=== PATIENT | female | born 1980 | race Asian ===

== ENCOUNTER 2018-09-04 19:07 | Inpatient (IN) | payer SELFPAY ==
[~2018-09-04] VITALS: Ht 165.1 cm; Wt 54.0 kg
[2018-09-04 19:32] VITALS: BP_SYST 142
--- NOTE | 2018-09-04 19:32 | NUR ---
Pt states that she took her blood sugar at home and was 575 today. Pt has a hx of DM and takes Metformin 1000 mg BID, Lantus 21 Units SQ in AM with s.s. in the evening. Reports that recent was HbA1c 13 x 2 weeks ago. 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 Pt reports there are several lesions to urethra opening and near anus. Severe burning with urinations. Pt states that her last break out was 3 weeks ago and was Rx Acyclovir 800 mg x 5 PO daily and Valtrex 1000 mg BID and lesions resolved. Pt also states that Acyclovir IV usually clears up lesions within hours. Diarrhea x 8 over last few days.
--- NOTE | 2018-09-04 19:45 | NUR ---
Accucheck >600. Dr. Fernandez notified.
--- NOTE | 2018-09-04 19:55 | NUR ---
Pt placed to ER bed 02, report given to PRAVIN Fisher. Dr. Fernandez made aware of pt status.
--- NOTE | 2018-09-04 20:01 | NUR ---
Placed in room 2. Placed on stock saw operator, blood pressure machine and pulse oximeter. To gown for exam. Side rails up.
--- NOTE | 2018-09-04 20:09 | NUR ---
AZAM Fernandez at bedside examining patient.
[2018-09-04] MEDS ORDERED: NACL 0.9% 1,000 ML IV ONE ×2 (20:15→22:15)
[2018-09-04] MEDS ORDERED: ACYCLOVIR IV 500 MG in D5W 100 ML IV ONE (20:15)
[2018-09-04] MEDS ORDERED: MORPHINE 4 MG/ML INJ. SYRINGE IVP ONE ×2 (20:15→23:00)
[2018-09-04] MEDS ORDERED: INSULIN REGULAR, HUMAN 10 UNITS/0.1 ML INJ IVP ONE ×2 (20:15→22:15)
[2018-09-04 20:26] LABS: BASOPHILS # (AUTO) 0.1 K/uL (0.0-0.2); EOSINOPHILS % (AUTO) 0.3 % (0.0-4.0); HEMOGLOBIN 10.2 g/dL (12.0-16.0); LYMPHOCYTES # (AUTO) 1.1 K/uL (1.0-5.5); LYMPHOCYTES % (AUTO) 15.4 % (20.5-51.5); MEAN CORPUSCULAR HEMOGLOBIN 25 pg (27-31); MEAN CORPUSCULAR HGB CONC 31 % (32-36); MEAN CORPUSCULAR VOLUME 82 fL (79.0-98.0); MONOCYTES # (AUTO) 0.6 K/uL (0.0-1.0); MONOCYTES % (AUTO) 9.1 % (1.7-9.3); NEUTROPHILS # (AUTO) 5.2 K/uL (1.8-7.7); NEUTROPHILS % (AUTO) 74.2 % (40.0-70.0); PLATELET COUNT (AUTO) 441 K/uL (130-430); RED BLOOD CELL COUNT(AUTO) 4.05 MIL/uL (4.2-6.2); RED CELL DISTRIBUTION WIDTH 18.8 % (9.0-15.0); WHITE BLOOD COUNT (AUTO) 7.1 K/uL (4.8-10.8)
[2018-09-04] MEDS ORDERED: ACYCLOVIR SODIUM 50 MG/ML VIAL IV ONE (20:33)
[2018-09-04 20:43] LABS: ALANINE AMINOTRANSFERASE 19 U/L (12-78); ALBUMIN 3.7 g/dL (3.4-4.8); ANION GAP 18 (5-15); ASPARTATE AMINOTRANSFERASE 10 U/L (10-37); CALCIUM 9.8 mg/dL (8.4-11.0); CHLORIDE 92 mmol/L (98-107); CREATININE 1.01 mg/dL (0.55-1.30); SODIUM SERUM 128 mmol/L (136-145); TOTAL BILIRUBIN 0.5 mg/dL (0.0-1.0); UREA NITROGEN, BLOOD 8 mg/dL (8-21)
[2018-09-04 20:45] LABS: GLUCOSE 640 mg/dL (70-99)
[2018-09-04 20:48] LABS: ACETONE, SERUM LARGE (NEGATIVE)
[2018-09-04 20:56] LABS: BILIRUBIN,URINE NEGATIVE (NEGATIVE); BLOOD, URINE NEGATIVE (NEGATIVE); CLARITY/URINE CLEAR (CLEAR); COLOR,URINE YELLOW (YELLOW); GLUCOSE,URINE 3+ (NEGATIVE); KETONES,URINE 3+ (NEGATIVE); LEUKOCYTE ESTERASE ,URINE NEGATIVE (NEGATIVE); NITRITE, URINE NEGATIVE (NEGATIVE); PROTEIN URINE 1+ (NEGATIVE); UROBILINOGEN,URINE 0.2 (0.2-1.0)
[2018-09-04 21:02] LABS: BACTERIA,URINE FEW /HPF (None Seen); RBC,URINE 0-3 /HPF (0-3)
[2018-09-04 21:03] LABS: YEAST,URINE Many /HPF (None Seen)
[2018-09-04] MEDS ORDERED: FLUCONAZOLE 200 MG TABLET (DIFLUCAN) PO ONE (21:15)
[2018-09-04] MEDS ORDERED: FLUCONAZOLE 100 MG TABLET (DIFLUCAN) ONE (21:24)
--- NOTE | 2018-09-04 21:32 | NUR ---
Pt's updated blood sugar is [address] Fernandez notified
[2018-09-04] MEDS ORDERED: POTASSIUM CHLORIDE 20 MEQ TAB.PRT.SR PO ONE (22:15)
--- NOTE | 2018-09-04 22:45 | NUR ---
Mary llamasamrita in [facility] - 09/04/18 at 2245 by [email or web address] 0
--- NOTE | 2018-09-04 22:45 | NUR ---
Updated blood sugar is 318 after additional 10 units of insulin.
--- NOTE | 2018-09-04 22:45 | NUR ---
Mary garcía in [facility] - 09/04/18 at 2245 by [email or web address] Updated blood sugar is 318
[2018-09-04] MEDS ORDERED: ONDANSETRON HCL 4 MG/2 ML VIAL IVP PRN (23:15)
[2018-09-04] MEDS ORDERED: METOCLOPRAMIDE HCL 10 MG/2 ML VIAL IVP PRN (23:15)
[2018-09-04] MEDS ORDERED: METO25TA6 PO (23:31)
[2018-09-04] MEDS ORDERED: METF-381 PO (23:31)
[2018-09-04] MEDS ORDERED: NEU100 PO (23:31)
[2018-09-04] MEDS ORDERED: LORA-258 PO (23:31)
[2018-09-04] MEDS ORDERED: INSU100V9 SQ (23:31)
--- NOTE | 2018-09-04 23:31 | NUR ---
Medication reconciliation completed with information provided by patient. Any prior medication reconciliation on file was reviewed and corrected.
--- NOTE | 2018-09-04 23:32 | NUR ---
Patient will be admitted to care of Dr. Nina. Admitted to med surg unit. Will go to room 135. Belongings list completed. Summary report printed. Report will be given at bedside.
--- NOTE | 2018-09-05 00:20 | NUR ---
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 Med surg has been notified and we have been advised to hold the pt until iso room is available
--- NOTE | 2018-09-05 01:11 | NUR ---
Pt has been admitted to bed 122B
--- NOTE | 2018-09-05 01:20 | NUR ---
ADMISSION NOTE Received patient from ER via gurney. Patient admitted with diagnosis of Blood Sugar Out of Control. Patient is awake, alert, oriented X 4. Patient oriented to hospital room, call light, toileting, pain management and safety-teach back done. Patient informed that PRAVIN Howell will be primary nurse and that their room number is 122B. Personal belongings checked and Belongings List documented. Call light within reach.
[2018-09-05 01:45] VITALS: BP_SYST 155
--- NOTE | 2018-09-05 02:00 | NUR ---
PAGED PAGED DOCTOR HURD FOR ORDERS
[2018-09-05] MEDS: NACL 0.9% 1,000 ML IV SCH ×3 (02:23→19:30)
--- NOTE | 2018-09-05 02:23 | NUR ---
IVF PATIENT STARTED ON IVF NS @ 100 ML/HR. RFA IV LINE INTACT.
--- NOTE | 2018-09-05 02:28 | NUR ---
2ND PAGE REPAGED DOCTOR VICKEY
--- NOTE | 2018-09-05 05:05 | NUR ---
PAGE PAGED DOCTOR HURD FOR ORDERS.
[2018-09-05] MEDS: DIPHENHYDRAMINE INJ 50 MG/ML VIAL IVP PRN ×3 (05:30→19:39)
[2018-09-05] MEDS: MORPHINE 2 MG/ML INJ. SYRINGE IVP PRN ×3 (05:32→19:41)
--- NOTE | 2018-09-05 05:32 | NUR ---
PAIN MGT PATIENT MEDICATED WITH MORPHINE FOR C/O GENITAL PAIN 01/04. VITAL SIGNS STABLE.
[2018-09-05] MEDS: INSULIN REGULAR, HUMAN 100 UNITS/ML, 10 ML VIAL (novoLIN R) SUBCUT PRN ×5 (05:45→22:11)
--- NOTE | 2018-09-05 05:45 | NUR ---
BLOOD SUGAR PATIENT ROUTINE FINGER STICK SUGAR 441. COVERED WITH 12 UNITS OF REGULAR INSULIN PER SLIDING SCALE.
--- NOTE | 2018-09-05 06:11 | NUR ---
CLOSING NOTES PATIENT RESTING IN BED. BREATHING UNLABORED ON ROOM AIR. PATIENT NEEDS ATTENDED. CALL LIGHT WITH IN REACH. BED IN LOWEST LOCKED POSITION.
[2018-09-05 06:18] LABS: CALCIUM 9.4 mg/dL (8.4-11.0); CREATININE 0.69 mg/dL (0.55-1.30); POTASSIUM 3.9 mmol/L (3.5-5.1)
[2018-09-05 06:22] LABS: TOTAL BILIRUBIN 0.3 mg/dL (0.0-1.0)
--- NOTE | 2018-09-05 06:32 | NUR ---
LESIONS PATIENT REFUSED TO TAKE PICTURE OF GENITAL LESIONS.
[2018-09-05 06:57] LABS: BASOPHILS # (AUTO) 0.1 K/uL (0.0-0.2); BASOPHILS % (AUTO) 0.9 % (0.0-2.0); EOSINOPHILS # (AUTO) 0.1 K/uL (0.0-0.4); EOSINOPHILS % (AUTO) 1.4 % (0.0-4.0); HEMATOCRIT 30.1 % (36-48); HEMOGLOBIN 9.5 g/dL (12.0-16.0); LYMPHOCYTES # (AUTO) 1.5 K/uL (1.0-5.5); LYMPHOCYTES % (AUTO) 23.1 % (20.5-51.5); MEAN CORPUSCULAR HEMOGLOBIN 26 pg (27-31); MEAN CORPUSCULAR HGB CONC 32 % (32-36); MEAN CORPUSCULAR VOLUME 83 fL (79.0-98.0); MONOCYTES # (AUTO) 0.5 K/uL (0.0-1.0); MONOCYTES % (AUTO) 8.1 % (1.7-9.3); NEUTROPHILS # (AUTO) 4.4 K/uL (1.8-7.7); NEUTROPHILS % (AUTO) 66.5 % (40.0-70.0); PLATELET COUNT (AUTO) 375 K/uL (130-430); RED BLOOD CELL COUNT(AUTO) 3.65 MIL/uL (4.2-6.2); RED CELL DISTRIBUTION WIDTH 19.3 % (9.0-15.0); WHITE BLOOD COUNT (AUTO) 6.7 K/uL (4.8-10.8)
--- NOTE | 2018-09-05 07:30 | NUR ---
Initial note: Patient awake, alert and oriented. Stable. I.V. access on saline lock,patient refused to hook with fluids. Call light within reach. Safety measures in placed. Discussed plan of care. Report received at bedside.
[2018-09-05 08:00] VITALS: BP_SYST 128
--- NOTE | 2018-09-05 10:00 | NUR ---
rounds: patient requesting to increase the food for meal, refer to multimedia programmer. Snacks provided.
--- NOTE | 2018-09-05 11:30 | NUR ---
rounds: Patient resting on bed. Waiting for Dr. Nina. Refused pain meds as of this time, states "After he sees the dr".
[2018-09-05] MEDS ORDERED: INSULIN GLARGINE 100 UNITS/ML 10 ML VIAL SUBCUT ONE (12:00)
[2018-09-05 12:08] VITALS: BP_SYST 133
[2018-09-05] MEDS ORDERED: GABAPENTIN 100 MG CAPSULE PO ONE (14:00)
[2018-09-05] MEDS ORDERED: COMMUNICATION ORDER XX ONE (14:00)
[2018-09-05] MEDS: PHENAZOPYRIDINE HCL 100 MG TABLET PO PRN ×2 (14:39→22:04)
--- NOTE | 2018-09-05 14:45 | NUR ---
ROUNDS: Patient resting. no distress noted.
[2018-09-05] MEDS: ACYCLOVIR IV 500 MG in NS 100 ML IV SCH ×2 (14:55→22:04)
--- NOTE | 2018-09-05 15:34 | NUR ---
[facility] consult called: for Dr. Lima, regarding pelvic pain, ordered by Dr. Nina, spoke with Maria Del Carmen.
--- NOTE | 2018-09-05 16:21 | NUR ---
Consult: Spoke with Maria Del Carmen at Dr. Lima office. She was not able inform Dr Lima of consult but said he will be here tomorrow (Wed) for surgery at [facility], and we could page him then. It is still not known if he will take consult. Patient is self pay. nurse aware.
[2018-09-05 16:30] VITALS: BP_SYST 129
--- NOTE | 2018-09-05 16:39 | NUR ---
rounds: patient sleeping. no distress noted.
--- NOTE | 2018-09-05 17:30 | NUR ---
rounds: patient resting on bed. snacks provided. no distress noted.
--- NOTE | 2018-09-05 18:35 | NUR ---
Closing notes: Patient resting on bed. Stable. Needs attended. Call light within reach. Safety measures in placed. Report will be given to sight mounter.
--- NOTE | 2018-09-05 19:05 | NUR ---
OPENING NOTES RECEIVED PATIENT IN BED AWAKE. BREATHING UNLABORED ON ROOM AIR. PLAN OF CARE DISCUSSED WITH PATIENT. CALL LIGHT WITH IN REACH.
--- NOTE | 2018-09-05 19:41 | NUR ---
PAIN MGT PATIENT MEDICATED WITH MORPHINE FOR C/O GENITAL LESIONS PAIN 01/04. BENADRYL IV GIVEN PER PATIENT REQUEST.
--- NOTE | 2018-09-05 20:45 | NUR ---
PAGED I PAGED DR. HURD @ [phone] I SPOKE WITH RUPA HURD CALLED BACK @ [phone]
[2018-09-05 22:00] VITALS: BP_SYST 139
[2018-09-05] MEDS: GABAPENTIN 100 MG CAPSULE PO SCH (22:03)
--- NOTE | 2018-09-05 22:11 | NUR ---
BLOOD SUGAR PATIENT DUE MEDICATIONS GIVEN. ROUTINE FINGER STICK SUGAR 374. COVERED WITH 10 UNITS REGULAR INSULIN PER SLIDING SCALE ORDER. HS SNACK PROVIDED.
[2018-09-05 23:53] VITALS: BP_SYST 123
[2018-09-05] MEDS: MORPHINE 4 MG/ML INJ. SYRINGE IVP PRN (23:53)
--- NOTE | 2018-09-05 23:53 | NUR ---
PAIN MGT PATIENT MEDICATED WITH MORPHINE ORDERED FOR C/O GENITAL LESIONS PAIN 10/10. VITAL SIGNS STABLE.
[2018-09-06] MEDS: DIPHENHYDRAMINE INJ 50 MG/ML VIAL IVP PRN ×3 (01:29→16:29)
[2018-09-06] MEDS: PHENAZOPYRIDINE HCL 100 MG TABLET PO PRN ×4 (01:36→16:28)
--- NOTE | 2018-09-06 01:36 | NUR ---
IVF PATIENT REFUSING TO BE CONNECTED TO A CONTINUOUS IVF INFUSION CLAIMING SHE FEELS TIGHT WHEN SHES CONNECTED TO IV. MEDICATED WITH BENADRYL AND PYRIDIUM PER PATIENT REQUEST IT HELPS WITH HER GENITAL PAIN.
[2018-09-06] MEDS: MORPHINE 4 MG/ML INJ. SYRINGE IVP PRN ×5 (03:39→22:53)
[2018-09-06] MEDS: ACYCLOVIR IV 500 MG in NS 100 ML IV SCH (06:40)
[2018-09-06] MEDS: INSULIN REGULAR, HUMAN 100 UNITS/ML, 10 ML VIAL (novoLIN R) SUBCUT PRN ×4 (06:43→20:56)
--- NOTE | 2018-09-06 06:53 | NUR ---
CLOSING NOTES ROUTINE FINGER STICK SUGAR 476 COVERED WITH 12 UNITS REGULAR INSULIN. MEDICATED WITH PYRIDIUM FOR GENITAL LESION PAIN. DUE ANTIBIOTIC INFUSED. IV LINE INTACT AND PATENT. PATIENT NEEDS ATTENDED. BED IN LOWEST LOCKED POSITION. CALL LIGHT WITH IN REACH.
[2018-09-06 07:03] LABS: ALBUMIN 3.4 g/dL (3.4-4.8); CREATININE 0.82 mg/dL (0.55-1.30); POTASSIUM 4.4 mmol/L (3.5-5.1); TOTAL BILIRUBIN 0.2 mg/dL (0.0-1.0)
--- NOTE | 2018-09-06 07:20 | NUR ---
Opening note Patient resting in bed at this time, no SOB. No complaints of pain. A/O x 4. No nausea, no vomiting. Patient in stable condition at this time. Patient requesting double portion of breakfast. Educated patient on diet order, and Blood sugar results. Patient verbalized understanding but continues to request for double portion. Provided patient with double portion of breakfast. On Contact isolation precautions, on safety precautions, Bed kept in lowest position, patient refusing bed alarm, 3 side rails up. Will continue to monitor.
--- NOTE | 2018-09-06 07:34 | NUR ---
CRITICAL LAB: 418 INFORMED DAY SHIFT NURSE AND CHARGE NURSE.
--- NOTE | 2018-09-06 07:45 | NUR ---
Paged Dr. Nina paged Dr. Nina regarding critical value results, new order to give lantus now noted and carried out.
[2018-09-06] MEDS: INSULIN GLARGINE 100 UNITS/ML 10 ML VIAL SUBCUT SCH (07:51)
[2018-09-06] MEDS: GABAPENTIN 100 MG CAPSULE PO SCH ×2 (08:04→20:48)
--- NOTE | 2018-09-06 08:30 | NUR ---
Medications/ Rounds Patient resting in bed, complained of pain, PRN pain medication given as ordered, no adverse side effects. Lantus given as ordered, no adverse side effects noted at this time.
[2018-09-06 08:45] VITALS: BP_SYST 105
--- NOTE | 2018-09-06 10:37 | NUR ---
SS NOTE: SSAS DEVELOPER attempted to meet with patient for assessment and for referral of "non-compliant with meds". SSAS DEVELOPER stated reason for visit and pt stated "I was just in [facility] so I already got all that stuff". SSAS DEVELOPER attempted to inquire about the reason for visit and pt stated "I am just under a lot of stress, that's why my blood sugar is like that". SSAS DEVELOPER offered to come back in the afternoon when she feels better, pt declined the offer. SSAS DEVELOPER provided pt with medication discount card and [facility] resource, pt accepted. SSAS DEVELOPER encouraged pt to call SS if she has any questions or needs additional resources. Pt will follow up as needed.
--- NOTE | 2018-09-06 10:55 | NUR ---
Bs check Bs result 369, insulin coverage given per sliding scale. No adverse effects noted.
[2018-09-06] MEDS ORDERED: FAMCICLOVIR 250 MG TABLET (FAMVIR) PO SCH (11:00)
[2018-09-06] MEDS ORDERED: valACYclovir HCL 500 MG TABLET PO ONE (11:15)
[2018-09-06 12:00] VITALS: BP_SYST 110
--- NOTE | 2018-09-06 12:30 | NUR ---
Rounds patient sitting up in bed eating lunch, no nausea, no vomiting noted.
--- NOTE | 2018-09-06 13:50 | NUR ---
Patient refusing skin assessment Patient refusing skin assessment and pictures of lesions. Educated patient on the importance and reason for skin assessment and pictures. Patient continues to refuse. Will endorse to night custodian to try again.
--- NOTE | 2018-09-06 14:53 | NUR ---
Dietitian Recommendations * Recommend C[facility] low carb-45 gm LP, RD Please refer to Nutrition Assessment for details.
[2018-09-06 16:00] VITALS: BP_SYST 112
--- NOTE | 2018-09-06 16:30 | NUR ---
BS check/ Rounds BS checked and insulin given as ordered. No adverse effects noted.
--- NOTE | 2018-09-06 18:30 | NUR ---
Closing note Patient resting in bed at this time, No SOB, no nausea, no vomiting noted. Iv site patent and intact. On contact isolation and fall precautions, reinforced. No complaints of pain at this time. patient in stable condition.
--- NOTE | 2018-09-06 19:43 | NUR ---
OPENING NOTES Pt and endorsement received from day shift nurse. Pt is AAOx4, lying in bed. Pt on saline lock on right forearm G20. No complains of pain at this time. No signs of acute distress or SOB noted. Encouraged to use call light when needed. Safety precautions in place with 2 side rails up, bed locked and in lowest position. Call light with pt. Will continue to monitor.
[2018-09-06 20:45] VITALS: BP_SYST 124
[2018-09-06] MEDS: valACYclovir HCL 500 MG TABLET PO SCH (20:48)
--- NOTE | 2018-09-06 20:56 | NUR ---
FS BLOOD GLUCOSE Pt's FS blood glucose was 448mg/dL. Regular insulin 12 units SQ given per protocol. Marty hernandez MD.
[2018-09-06] MEDS ORDERED: MICONAZOLE NITRATE 100 MG/SUPP.VAG EA VG SCH (21:00)
--- NOTE | 2018-09-06 21:00 | NUR ---
PT WENT FOR SMOKE Pt went for smoke via wheelchair and was assisted by NITHYA Starr.
--- NOTE | 2018-09-06 21:28 | NUR ---
SECOND FS BLOOD GLUCOSE Pt came back after she went for a smoke. Rechecked pt's FS blood glucose and is 537mg/dL. Marty hernandez MD.
--- NOTE | 2018-09-06 21:51 | NUR ---
Paged Dr. Nina s/w Lorraine.
--- NOTE | 2018-09-06 22:17 | NUR ---
Second call for Dr. Nina s/debra Peters.
--- NOTE | 2018-09-06 22:20 | NUR ---
SPOKE TO DR. HURD Spoke to Dr. Hurd regarding pt's FS blood glucose of 448mg/dL and gave 12 units of regular insulin. And rechecked FS blood sugar after 30mins and was 537mg/dL. Dr. Hurd ordered Lantus 20 units SQ one time. Also told Dr. Hrud that pt wants her Acyclovir in IV instead of PO but Dr. Hurd said no. Read back orders and will carry out.
[2018-09-06] MEDS ORDERED: INSULIN GLARGINE 100 UNITS/ML 10 ML VIAL SUBCUT ONE (22:30)
--- NOTE | 2018-09-06 22:34 | NUR ---
ROUNDS/LANTUS 20 UNITS GIVEN Lantus 20 units SQ given per MD. Also explained to pt about diet modifications but pt requested for pudding or jelo. Told her that her blood glucose will go higher, pt verbalized understanding but states she is hungry. Pt requested sandwich and apple juice despite educating her with diet.
--- NOTE | 2018-09-06 22:53 | NUR ---
MORPHINE 4MG GIVEN Pt complained of pain on perineal area with a scale of 10/10. Morphine 4mg IVP given as ordered. Educated her on side effects like dizziness and safety precautions, pt verbalizes understanding. No signs of acute distress noted. Safety precautions in place and call light with pt. Will continue to monitor.
--- NOTE | 2018-09-06 23:58 | NUR ---
ROUNDS Pt still insisted of having pudding despite educating her on diet modifications and pt is aware of high blood sugar, pt verbalizes understanding. Will continue to monitor.
[2018-09-07] VITALS: BP_SYST 125
[2018-09-07] MEDS: DIPHENHYDRAMINE INJ 50 MG/ML VIAL IVP PRN ×2 (00:23→08:58)
[2018-09-07] MEDS: PHENAZOPYRIDINE HCL 100 MG TABLET PO PRN ×2 (00:23→08:55)
[2018-09-07] MEDS: MORPHINE 4 MG/ML INJ. SYRINGE IVP PRN ×3 (03:10→11:49)
--- NOTE | 2018-09-07 03:13 | NUR ---
Patient c/o pain 01/04. Administered PRN morphine IVP as ordered. Patient requested milk and 3 packages of crackers. Informed patient that her blood sugar is too high. Patient continued to ask for snacks, despite teaching. Patient verbalized understanding of elevated blood sugars, but still wanted snacks anyways. Informed gas charger and patient's RN. Gave milk and crackers.
--- NOTE | 2018-09-07 04:06 | NUR ---
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
[2018-09-07] MEDS: INSULIN REGULAR, HUMAN 100 UNITS/ML, 10 ML VIAL (novoLIN R) SUBCUT PRN ×2 (06:00→11:51)
--- NOTE | 2018-09-07 06:40 | NUR ---
CLOSING NOTES Pt is awake, alert and lying in bed. FS blood glucose was 364mg/dL, Regular insulin 10 units SQ given. No signs of acute distress or SOB noted. All needs attended throughout the shift. Safety precautions maintained with 2 side rails up, bed locked and in lowest position. Call light with pt. Will endorse to day shift nurse.
--- NOTE | 2018-09-07 07:30 | NUR ---
opening note-IV reinsertion patient is resting in bed, complaining of kenji area pain, educated on medication use and side effects, patient verbalized understanding, when flushing before medication administration, IV infiltrated, new IV was started on left forearm 20G, medication administration done and patient tolerated well with no signs of infiltration, no other needs at this time, fall/safety precautions in place. Addendum: 09/07/18 at 0813 by Diamond Meza RN continuation A&Ox4, assessment completed, educated telephone service representative light system and plan of care, patient verbalized understanding.
[2018-09-07 08:00] VITALS: BP_SYST 107
[2018-09-07] MEDS: valACYclovir HCL 500 MG TABLET PO SCH (08:56)
[2018-09-07] MEDS: GABAPENTIN 100 MG CAPSULE PO SCH (08:58)
[2018-09-07] MEDS: INSULIN GLARGINE 100 UNITS/ML 10 ML VIAL SUBCUT SCH (09:02)
--- NOTE | 2018-09-07 09:50 | NUR ---
rounds patient is resting in bed, patient asked for snacks, no other needs at this time, fall/safety precautions in place, IV site clean with dressing intact.
[2018-09-07] MEDS ORDERED: VALA500T33 PO (11:14)
[2018-09-07] MEDS ORDERED: INSU100V9 SQ (11:14)
[2018-09-07 11:17] VITALS: BP_SYST 107
--- NOTE | 2018-09-07 11:50 | NUR ---
accuchecks and prn pain medication patient is resting in bed, accuchek done and sliding scale needed per MD order, educated on medication uses and side effects, patient verbalized understanding, no other needs at this time, patient states her ride gets out of work at 1400 so she will be able to leave after that, fall/safety precautions in place.
[2018-09-07 12:34] VITALS: BP_SYST 116
--- NOTE | 2018-09-07 14:50 | NUR ---
D/C Patient Patient given medication reconciliation form and D/C instructions. Exit Care provided. Patient verbalized understanding. MD discussed with patient the results and treatment provided. Ambulatory with steady gait for discharge to home. Patient in stable condition, ID band removed. IV catheter removed, intact and dressing applied, no active bleeding. Rx of Valtrex and Lantus given. Patient educated on pain management. All belongings sent with patient.
== END 2018-09-07 14:50 | disposition home or self-care (01) | DRG 639 ==
LOC: SED 19:07 → SMU 23:15
PROVIDERS: ADMIT Internal Medicine Hospice and Palliative Medicine; ATTEND Internal Medicine Hospice and Palliative Medicine
DX: E10.10 Type 1 diabetes mellitus with ketoacidosis without coma (principal); I10 Essential (primary) hypertension; F17.210 Nicotine dependence, cigarettes, uncomplicated; R63.4 Abnormal weight loss; Z91.19 Patient's noncompliance with other medical treatment and regimen; Z91.14 Patient's other noncompliance with medication regimen; Z98.891 History of uterine scar from previous surgery; Z79.4 Long term (current) use of insulin
CPT/HCPCS: 36415; 76856-TC; 80053; 81000-TC; 82009-TC; 82962; 83036; 84443-TC; 85025; 87081; 96365; 96375; 99285; J0133; J1200; J1815; J2270; J7030

== ENCOUNTER 2018-09-15 19:47 | Inpatient (IN) | payer MEDICAID ==
[~2018-09-15] VITALS: Ht 165.1 cm; Wt 54.0 kg
[~2018-09-15 19:47] MED LIST: INSU100V9 SQ; LORA-258 PO; METF-381 PO; METO25TA6 PO; NEU100 PO; VALA500T33 PO
--- NOTE | 2018-09-15 19:58 | NUR ---
Patient to ER bed 2 for evaluation. Side rails up. Report given to Rush.
--- NOTE | 2018-09-15 19:58 | NUR ---
Pt c/o elevated blood sugar and burning with urinations r/t herpes lesions. Pt states that when she has break outs her blood sugar gets out of control. Pt states that she has been dizzy, fatigued, exessively thirsty with frequent urinations q 45 minutes. Pt also c/o neuropathic pain that shoots down her right foot.
[2018-09-15 20:04] VITALS: BP_SYST 165
--- NOTE | 2018-09-15 20:09 | NUR ---
ER Dr. Butts at bedside examining patient.
[2018-09-15 20:20] LABS: BILIRUBIN,URINE NEGATIVE (NEGATIVE); BLOOD, URINE NEGATIVE (NEGATIVE); CLARITY/URINE CLEAR (CLEAR); COLOR,URINE YELLOW (YELLOW); GLUCOSE,URINE 3+ (NEGATIVE); KETONES,URINE NEGATIVE (NEGATIVE); LEUKOCYTE ESTERASE ,URINE NEGATIVE (NEGATIVE); NITRITE, URINE NEGATIVE (NEGATIVE); PROTEIN URINE NEGATIVE (NEGATIVE); UROBILINOGEN,URINE 0.2 (0.2-1.0)
--- NOTE | 2018-09-15 20:25 | NUR ---
# 20 gauge angiocath placed to LFA. Use of asceptic technique. Opsite placed over site. Blood return noted. Blood for lab drawn from site. Flushed with 10 cc of normal saline. No evidence of infiltration noted. Patient tolerated well.
[2018-09-15 20:27] LABS: BACTERIA,URINE RARE /HPF (None Seen); RBC,URINE 0-3 /HPF (0-3); WBC,URINE 0-3 /HPF (0-3); YEAST,URINE Moderate /HPF (None Seen)
[2018-09-15 20:40] LABS: BASOPHILS # (AUTO) 0.1 K/uL (0.0-0.2); EOSINOPHILS % (AUTO) 0.7 % (0.0-4.0); HEMOGLOBIN 10.7 g/dL (12.0-16.0); LYMPHOCYTES # (AUTO) 1.6 K/uL (1.0-5.5); MONOCYTES # (AUTO) 0.5 K/uL (0.0-1.0)
[2018-09-15 20:46] LABS: BASOPHILS % (AUTO) 1.6 % (0.0-2.0); HEMATOCRIT 34.6 % (36-48); LYMPHOCYTES % (AUTO) 25.1 % (20.5-51.5); MEAN CORPUSCULAR HEMOGLOBIN 26 pg (27-31); MEAN CORPUSCULAR HGB CONC 31 % (32-36); MEAN CORPUSCULAR VOLUME 85 fL (79.0-98.0); MONOCYTES % (AUTO) 7.9 % (1.7-9.3); NEUTROPHILS # (AUTO) 4.1 K/uL (1.8-7.7); NEUTROPHILS % (AUTO) 64.7 % (40.0-70.0); PLATELET COUNT (AUTO) 462 K/uL (130-430); RED BLOOD CELL COUNT(AUTO) 4.09 MIL/uL (4.2-6.2); RED CELL DISTRIBUTION WIDTH 18.4 % (9.0-15.0); WHITE BLOOD COUNT (AUTO) 6.3 K/uL (4.8-10.8)
[2018-09-15 20:54] LABS: CALCIUM 9.7 mg/dL (8.4-11.0); CREATININE 1.04 mg/dL (0.55-1.30); POTASSIUM 4.2 mmol/L (3.5-5.1)
[2018-09-15 20:55] LABS: ALBUMIN 3.8 g/dL (3.4-4.8); TOTAL BILIRUBIN 0.2 mg/dL (0.0-1.0)
[2018-09-15] MEDS ORDERED: LORazepam 2 MG/ML VIAL (FOR ER USE) IVP ONE (21:00)
[2018-09-15] MEDS ORDERED: ACYCLOVIR IV 500 MG in D5W 100 ML IV ONE (21:00)
[2018-09-15] MEDS ORDERED: NACL 0.9% 1,000 ML IV ONE ×4 (21:00→22:45)
--- NOTE | 2018-09-15 21:00 | NUR ---
Pt c/o anxiety. Dr. Butts notified.
[2018-09-15] MEDS ORDERED: INSULIN REGULAR, HUMAN 10 UNITS/0.1 ML INJ IVP ONE (21:15)
[2018-09-15] MEDS ORDERED: INSULIN REGULAR, HUMAN 100 UNITS in NS 99 ML IV ONE ×2 (21:15)
[2018-09-15] MEDS ORDERED: ACYCLOVIR SODIUM 50 MG/ML VIAL IV ONE (21:18)
--- NOTE | 2018-09-15 21:20 | NUR ---
Pt c/o pain to groin. Dr. Butts notified.
--- NOTE | 2018-09-15 21:26 | NUR ---
Medication reconciliation completed with information provided by patient. Any prior medication reconciliation on file was reviewed and corrected.
[2018-09-15] MEDS ORDERED: MORPHINE 4 MG/ML INJ. SYRINGE IVP ONE (21:30)
--- NOTE | 2018-09-15 21:35 | NUR ---
Pt AAOx4, denies c/o dizziness at this time. VSS. Humulin R 9 Unit Bolus given IV to RFA. Insulin Drip initiated with initial rate at 9 Units/hr to RFA for serum blood glucose 942 mg/dL.
--- NOTE | 2018-09-15 22:20 | NUR ---
# 20 gauge angiocath placed to LAC. Use of asceptic technique. Opsite placed over site. Blood return noted. Flushed with 10 cc of normal saline. No evidence of infiltration noted. Patient tolerated well. Acyclovir 500 mg IVPB infusing at 100 mg/hr without difficulty.
--- NOTE | 2018-09-15 22:35 | NUR ---
Finger stick glucose 414 mg/dL. Insulin drip titrated to 5 Units/hr per order of Dr. Butts.
[2018-09-15] MEDS ORDERED: LORazepam 1 MG TABLET PO SCH (22:45)
[2018-09-15] MEDS ORDERED: GABAPENTIN 300 MG CAPSULE PO SCH (23:00)
[2018-09-15] MEDS ORDERED: cloNIDine HCL 0.1 MG TABLET PO PRN (23:00)
[2018-09-15] MEDS ORDERED: traZODone HCL 50 MG TABLET (DESYREL) PO PRN (23:00)
--- NOTE | 2018-09-15 23:35 | NUR ---
CONSULT REASON FOR CONSULT: HYPERGLYCEMIA, DKA PERSON I SPOKE WITH: KELSEY CONSULTING PHYSICIAN: DR. ENRIQUEZ (DR. GARNER DIRECTOR OF ONLINE EDUCATION) FUR FINISHER SEAMSTRESS PHONE NUMBER: [phone] ORDERING PHYSICIAN: Sharon MCMILLAN
--- NOTE | 2018-09-15 23:55 | NUR ---
Pt requests that admitting physician to given an ICU order for Morphine (for pain relief to lesions after urinating), Benadryl (for insomnia), and Ativan. Pt states this is what they gave her last time she was admitted. Contacted Dr. Fink and he denies pt.s request. TO orders received for Gabapentin, Trazodone, and Clonidine.
--- NOTE | 2018-09-15 23:58 | NUR ---
PAGED Sharon MCMILLAN FOR PATIENT. SPOKE WITH MATTHEW.
[2018-09-16] VITALS (25 sets, daily range): BP systolic 102–158
--- NOTE | 2018-09-16 00:15 | NUR ---
Patient will be admitted to care of Dr. Fink. Admitted to ICU unit. Will go to room 6. Belongings list completed. Summary report printed. Report will be given at bedside.
--- NOTE | 2018-09-16 00:15 | NUR ---
ADMISSION NOTE Received patient from ER via gurney. Patient admitted with diagnosis of DKA HYPERGLYCEMIA . Patient is awake, alert, oriented X . Patient oriented to hospital room, call light, toileting, pain management and safety-teach back done. Patient informed that will be nurse and that their room number is . . Call light within reach.
[2018-09-16] MEDS ORDERED: INSULIN REGULAR, HUMAN 100 UNITS/ML, 10 ML VIAL (humuLIN R) SUBCUT PRN (00:30)
--- NOTE | 2018-09-16 00:53 | NUR ---
CONSULT REASON FOR CONSULT: HERPES ZOSTER PERSON I SPOKE WITH: KELSEY CONSULTING PHYSICIAN: DR. OSUNA IGNITER ASSEMBLER PHONE NUMBER: [phone] ORDERING PHYSICIAN: Sharon MCMILLAN SENT A FACESHEET OVER TO THE FAX FAX NUMBER: [phone]
--- NOTE | 2018-09-16 01:02 | NUR ---
CONSULT REASON FOR CONSULT: HYPERGLYCEMIA, DKA PERSON I SPOKE WITH: VAL CONSULTING PHYSICIAN: DR. ROLAND OCCUPATIONAL THERAPY DIRECTOR PHONE NUMBER: [phone] ORDERING PHYSICIAN: Sharon MCMILLAN
[2018-09-16] MEDS: LORazepam 1 MG TABLET PO PRN ×3 (01:13→22:35)
--- NOTE | 2018-09-16 01:14 | NUR ---
PATIENT UP OUT OF BED WALKING SKIN DRY WARM NO SOB NOTED ALERT ORIENTED X 4 02 SAT 96 % ROOM AIR .
--- NOTE | 2018-09-16 01:15 | NUR ---
LORAZEPAM 1 MG PO GIVEN FOR ANXIETY .
--- NOTE | 2018-09-16 01:15 | NUR ---
PATIENT WANTING FREQUENT ASKING TO GO OUT TO SMOKE .
--- NOTE | 2018-09-16 01:43 | NUR ---
PATIENT REFUSE PERSONAL INVENTORY TO BE DONE , STATES ALREADY HAS BEEN DONE IN ER .
[2018-09-16] MEDS ORDERED: INSULIN REGULAR, HUMAN 100 UNITS/ML, 10 ML VIAL (humuLIN R) IV PRN (02:00)
[2018-09-16] MEDS: MORPHINE SULFATE 10 MG/ML VIAL IVP PRN ×5 (02:19→20:46)
[2018-09-16] MEDS: DIPHENHYDRAMINE INJ 50 MG/ML VIAL IVP PRN ×3 (02:19→22:35)
--- NOTE | 2018-09-16 03:10 | NUR ---
MORPHINE SULFATE 5 MG IVP GIVEN FOR GENERAL PAIN 10/04 & HELPFUL , patient Resting verbally Responsive skin dry warm / .
--- NOTE | 2018-09-16 03:11 | NUR ---
BENADRYL 50 MG IVP administer for C/O itching and helpful , patient Resting this hour .
--- NOTE | 2018-09-16 03:30 | NUR ---
BSG @ 275 MG DL , INSULIN DRIP DECREASE FROM 5 ML HR TO 3 ML HR PER SLIDING SCALE .
[2018-09-16] MEDS: INSULIN REGULAR, HUMAN 100 UNITS in NS 99 ML IV PRN ×4 (03:33→10:18)
--- NOTE | 2018-09-16 04:30 | NUR ---
BSG @ [address] DL INSULIN DRIP DECREASE FROM 3 ML HR TO 2 ML HR .
--- NOTE | 2018-09-16 04:30 | NUR ---
insulin drip, nadine Hall RN decreased Insulin drip from 3 units to 2 units for accuchek of 232.
[2018-09-16] MEDS: valACYclovir HCL 500 MG TABLET PO SCH ×2 (06:00)
--- NOTE | 2018-09-16 06:46 | NUR ---
Patient awake assist out of bed to BSC ambulates steady gait BSG @ 239 mg dl skin dry warm no adverse Reaction noted from INSULIN drip continue to monitor .
--- NOTE | 2018-09-16 08:00 | NUR ---
INSULIN DRIP BLOOD GLUCOSE LEVEL WAS 236. INSULIN DRIP TO REMAIN AT 2 UNITS/HR. NO CHANGE REQUIRED AT THIS TIME.
--- NOTE | 2018-09-16 08:45 | NUR ---
PATIENT INSISTING ON GETTING UP AND USING TOILET IN ROOM. PATIENT WAS ASSISTED BY RN, CHARGE NURSE, AND TABLE SETTER. INSTRUCTED CEMETERY WORKER FOR HELP WHEN DONE. PATIENT IS STEADY ON FEET, BUT STATES THAT SHE FEELS WEAK. DIFFICULTY IN OBTAINING I&O'S DUE TO PATIENT HAVING DIARRHEA. WILL CONTINUE TO MONITOR AND SAFELY ASSIST BACK TO BED.
[2018-09-16] MEDS: GABAPENTIN 300 MG CAPSULE PO SCH ×3 (08:55→20:47)
[2018-09-16] MEDS: METOPROLOL TARTRATE 25 MG TABLET PO SCH (08:55)
[2018-09-16] MEDS ORDERED: metFORMIN HCL 500 MG TABLET PO SCH (09:00)
[2018-09-16] MEDS ORDERED: GABAPENTIN 100 MG CAPSULE PO SCH (09:00)
--- NOTE | 2018-09-16 09:07 | NUR ---
INSULIN DRIP BLOOD GLUCOSE LEVEL WAS 206. INSULIN DRIP REMAINS AT 2 UNITS/ HR PER PROTOCOL.
--- NOTE | 2018-09-16 09:15 | NUR ---
Spoke with Dr. Morgan on the phone. Questions answered and orders left. Informed Dr. Morgan that pt is non compliant with her diet here in the hospital and gets upset if she doesn't her requests. Pt is familiar with a diabetic diet and I reminded her that her choices are not the best ones for controlling her diabetes.
[2018-09-16] MEDS ORDERED: KCL 20 mEq in NS 1000 mL 1,000 ML IV SCH (09:30)
--- NOTE | 2018-09-16 09:38 | NUR ---
Lab here to draw labs and pt requesting time to eat her breakfast.
[2018-09-16 10:16] LABS: CALCIUM 9.2 mg/dL (8.4-11.0); CREATININE 0.66 mg/dL (0.55-1.30); POTASSIUM 3.6 mmol/L (3.5-5.1)
--- NOTE | 2018-09-16 10:18 | NUR ---
INSULIN DRIP BLOOD GLUCOSE CHECK WAS 309. INSULIN DRIP WAS TITRATED UP TO 4 UNITS/HR PER PROTOCOL.
--- NOTE | 2018-09-16 10:19 | NUR ---
Witnessed Insulin drip increased to 4u/hr. Addendum: 09/16/18 at 1021 by Dione Cartagena RN janene Adames
--- NOTE | 2018-09-16 10:56 | NUR ---
DR. JON ALVARES
[2018-09-16] MEDS: ONDANSETRON HCL 4 MG/2 ML VIAL IVP PRN ×2 (11:28→21:02)
[2018-09-16] MEDS ORDERED: INSULIN Lispro 100 UNITS/ML VIAL (humaLOG) SUBCUT ONE (11:30)
--- NOTE | 2018-09-16 11:40 | NUR ---
DR. WEBB MAKING ROUNDS
[2018-09-16] MEDS ORDERED: DEXTROSE 50% JECT 50 ML DISP.SYRIN IVP PRN (11:45)
[2018-09-16] MEDS ORDERED: GLUCOSE 15 GM GEL (in 37.5 GM TUBE) PO PRN (11:45)
[2018-09-16] MEDS ORDERED: INSULIN GLARGINE 100 UNITS/ML 10 ML VIAL SUBCUT ONE (12:00)
--- NOTE | 2018-09-16 12:00 | NUR ---
DR. ROLAND MAKING ROUNDS
[2018-09-16 12:12] LABS: BASOPHILS # (AUTO) 0.1 K/uL (0.0-0.2); BASOPHILS % (AUTO) 1.2 % (0.0-2.0); EOSINOPHILS # (AUTO) 0.2 K/uL (0.0-0.4); EOSINOPHILS % (AUTO) 2.2 % (0.0-4.0); HEMATOCRIT 33.3 % (36-48); HEMOGLOBIN 10.3 g/dL (12.0-16.0); LYMPHOCYTES # (AUTO) 3.1 K/uL (1.0-5.5); MEAN CORPUSCULAR HEMOGLOBIN 25 pg (27-31); MEAN CORPUSCULAR HGB CONC 31 % (32-36); MEAN CORPUSCULAR VOLUME 82 fL (79.0-98.0); MONOCYTES # (AUTO) 0.3 K/uL (0.0-1.0); MONOCYTES % (AUTO) 4.4 % (1.7-9.3); NEUTROPHILS # (AUTO) 3.8 K/uL (1.8-7.7); NEUTROPHILS % (AUTO) 51.2 % (40.0-70.0); PLATELET COUNT (AUTO) 456 K/uL (130-430); RED BLOOD CELL COUNT(AUTO) 4.06 MIL/uL (4.2-6.2); RED CELL DISTRIBUTION WIDTH 18.3 % (9.0-15.0); WHITE BLOOD COUNT (AUTO) 7.5 K/uL (4.8-10.8)
[2018-09-16] MEDS ORDERED: KCL 20 mEq in 0.45% NS 1000 mL 1,000 ML IV SCH (12:15)
[2018-09-16 12:24] LABS: ALBUMIN 3.5 g/dL (3.4-4.8); BILIRUBIN,DIRECT 0.1 mg/dL (0.0-0.3); TOTAL BILIRUBIN 0.2 mg/dL (0.0-1.0)
--- NOTE | 2018-09-16 13:22 | NUR ---
Insulin Drip turned off per Dr. Morgan's order
[2018-09-16] MEDS ORDERED: ACYCLOVIR IV 500 MG in D5W 100 ML IV SCH (14:00)
--- NOTE | 2018-09-16 14:00 | NUR ---
DR. OSUNA MAKING ROUNDS
--- NOTE | 2018-09-16 15:26 | NUR ---
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 Pt says she has her own car here in parking lot but will call brother or take Uber home if she needs to.Will f/u for dc planning/CM--KAREN RN
[2018-09-16] MEDS: INSULIN Lispro 100 UNITS/ML VIAL (humaLOG) SUBCUT SCH ×2 (17:48→20:49)
[2018-09-16] MEDS: INSULIN LISPRO SLIDING SCALE 100 UNITS/ML VIAL (humaLOG) SUBCUT PRN ×2 (17:50→20:51)
--- NOTE | 2018-09-16 18:51 | NUR ---
CLOSING NOTE: PATIENT IS RESTING COMFORTABLY IN BED. NO S/S OF DISTRESS OR SOB. PATIENT IS ALERT AND ORIENTED, ABLE TO EXPRESS NEEDS, AND ASK FOR ASSISTANCE. PATIENT ON ROOM AIR. PATIENT AMBULATED TO THE BATHROOM IN THE ROOM. ALL NEEDS MET DURING SHIFT. CALL LIGHT IN REACH, BED IN LOWEST POSITION, AND WILL CONTINUE TO MONITOR.
--- NOTE | 2018-09-16 19:35 | NUR ---
PM Assessment Pt in bed AAOx4. SR shown on monitor. On RA, saturating in the mid-high 90s. Pt has LFA 20g and RFA 20g in place. no s/s of infiltration noted. No skin breakdown noted. Pt able to get up and turn self. Bed locked in lowest position, call light in reach, and safety precautions in place. Will continue to monitor.
[2018-09-16 20:35] LABS: CALCIUM 8.9 mg/dL (8.4-11.0); CREATININE 0.72 mg/dL (0.55-1.30); POTASSIUM 4.1 mmol/L (3.5-5.1)
--- NOTE | 2018-09-16 21:20 | NUR ---
MD Called Spoke with Dr. Morgan, made aware of labs. New orders received, will carry out as ordered.
[2018-09-16] MEDS ORDERED: INSULIN GLARGINE 100 UNITS/ML 10 ML VIAL SUBCUT SCH (22:00)
[2018-09-16] MEDS: ACYCLOVIR 400 MG TABLET PO SCH (22:35)
[2018-09-17] VITALS (19 sets, daily range): BP systolic 106–143
[2018-09-17] MEDS: MORPHINE SULFATE 10 MG/ML VIAL IVP PRN ×5 (01:55→20:07)
--- NOTE | 2018-09-17 02:06 | NUR ---
RN Rounds Pt in bed asleep. No s/s of distress noted. Will continue to monitor.
--- NOTE | 2018-09-17 05:00 | NUR ---
RN Rounds Pt in bed asleep. No s/s of distress noted. Pt able to make needs known. Will continue to monitor.
[2018-09-17] MEDS: ACYCLOVIR 400 MG TABLET PO SCH ×4 (06:19→22:11)
[2018-09-17] MEDS: INSULIN Lispro 100 UNITS/ML VIAL (humaLOG) SUBCUT SCH ×4 (06:22→20:26)
[2018-09-17] MEDS: INSULIN LISPRO SLIDING SCALE 100 UNITS/ML VIAL (humaLOG) SUBCUT PRN ×4 (06:23→22:35)
[2018-09-17 06:29] LABS: BASOPHILS # (AUTO) 0.1 K/uL (0.0-0.2); BASOPHILS % (AUTO) 0.9 % (0.0-2.0); EOSINOPHILS # (AUTO) 0.1 K/uL (0.0-0.4); EOSINOPHILS % (AUTO) 1.4 % (0.0-4.0); HEMATOCRIT 29.8 % (36-48); HEMOGLOBIN 9.4 g/dL (12.0-16.0); LYMPHOCYTES # (AUTO) 2.3 K/uL (1.0-5.5); LYMPHOCYTES % (AUTO) 27.8 % (20.5-51.5); MEAN CORPUSCULAR HEMOGLOBIN 26 pg (27-31); MEAN CORPUSCULAR HGB CONC 32 % (32-36); MEAN CORPUSCULAR VOLUME 83 fL (79.0-98.0); MONOCYTES # (AUTO) 0.4 K/uL (0.0-1.0); MONOCYTES % (AUTO) 4.3 % (1.7-9.3); NEUTROPHILS # (AUTO) 5.5 K/uL (1.8-7.7); NEUTROPHILS % (AUTO) 65.6 % (40.0-70.0); PLATELET COUNT (AUTO) 396 K/uL (130-430); RED CELL DISTRIBUTION WIDTH 18.9 % (9.0-15.0); WHITE BLOOD COUNT (AUTO) 8.4 K/uL (4.8-10.8)
--- NOTE | 2018-09-17 06:52 | NUR ---
Closing Note Pt in bed asleep. AAO. SR shown on monitor. On RA saturating in high 90s. VSS, no distress noted. Pt has RFA20g and LFA20g in place. Sites C/D/I, no s/s of infiltration noted. Pt able to make needs known. Bed locked in lowest position, safety precautions in place, and call light in reach. Will endorse to oncoming RN.
[2018-09-17 07:07] LABS: ALANINE AMINOTRANSFERASE 25 U/L (12-78); ALBUMIN 2.7 g/dL (3.4-4.8); ANION GAP 7 (5-15); ASPARTATE AMINOTRANSFERASE 18 U/L (10-37); CALCIUM 9.1 mg/dL (8.4-11.0); CHLORIDE 101 mmol/L (98-107); CREATININE 0.56 mg/dL (0.55-1.30); FREE T4 (FREE THYROXINE) 0.8 ng/dL (0.6-1.6); GLUCOSE 325 mg/dL (70-99); SODIUM SERUM 133 mmol/L (136-145); THYROID STIMULATING HORMONE 4.38 uIu/mL (0.34-4.82); TOTAL BILIRUBIN 0.1 mg/dL (0.0-1.0); UREA NITROGEN, BLOOD 9 mg/dL (8-21)
[2018-09-17 07:09] LABS: GFR AFRICAN AMERICAN 158 mL/min (>90)
--- NOTE | 2018-09-17 07:18 | NUR ---
Endorsement Report given to oncoming RN at bedside via SBAR approach.
[2018-09-17 07:26] LABS: C-REACTIVE PROTEIN QUANT < 0.2 mg/dL (0-0.5)
--- NOTE | 2018-09-17 08:00 | NUR ---
RN OPENING NOTE PATIENT IS RESTING IN BED, ALERT ORIENTED X4, PATIENT DENIES PAIN OR DISCOMFORT. PATIENT WAS ASSESSED, VITAL SIGNS ARE STABLE. PATIENT'S BED WAS CHECKED AT LOW POSITION AND CALL LIGHT WITHIN REACH, WILL CONTINUE TO MONITOR.
[2018-09-17 08:13] LABS: ERYTHROCYTE SEDIMENTATION RATE 29 MM/HR (0-20)
[2018-09-17] MEDS: METOPROLOL TARTRATE 25 MG TABLET PO SCH (08:32)
[2018-09-17] MEDS: GABAPENTIN 300 MG CAPSULE PO SCH ×3 (08:32→20:07)
[2018-09-17] MEDS ORDERED: INSULIN GLARGINE 100 UNITS/ML 10 ML VIAL SUBCUT SCH ×2 (09:00→21:00)
[2018-09-17] MEDS: DIPHENHYDRAMINE INJ 50 MG/ML VIAL IVP PRN ×3 (09:19→22:31)
--- NOTE | 2018-09-17 10:00 | NUR ---
RN NOTE PATIENT IS RESTING IN BED, PATIENT WAS GIVEN HER MEDICATION WELL HER LANTUS. PATIENT WAS THEN HELPED TO THE BATHROOM WHERE SHE GAVE US A URINE SAMPLE. THE SAMPLE WAS SENT TO THE LAB. PATIENT'S FELT ITCHY AND WAS GIVEN HER BENADRYL. WILL CONTINUE TO MONITOR.
--- NOTE | 2018-09-17 12:00 | NUR ---
RN NOTE PATIENT'S BLOOD SUGAR WAS MEASURED TO BE 334MG/DL. PATIENT GOT HER LISPRO INSULIN COVERAGE, PATIENT ALSO WAS COMPLAINING OF PAIN OF 8/10 ON 0/10 SCALE IN HER ABDOMEN, PATIENT WAS GIVEN HER PRN MEDICATION. PATIENT WAS HELPED TO THE BATHROOM. WILL CONTINUE TO MONITOR.
--- NOTE | 2018-09-17 14:00 | NUR ---
RN NOTE PATIENT IS RESTING IN BED, PATIENT GOT HER MEDICATIONS, PATIENT WAS HELPED TO THE BATHROOM. PATIENT'S BED WAS MADE. PATIENT WILL BE TRANSFERED TO [facility] DEPARTMENT WILL GIVE A REPORT TO DUNG THE RN ON THE [facility] SIDE OF THE HOSPITAL .
--- NOTE | 2018-09-17 15:39 | NUR ---
Dietitian Recommendations * Recommend continuing [facility] diet * Recommend low-glycemic snacks TID in-between meals LP, RD Please refer to Nutrition Assessment for details.
--- NOTE | 2018-09-17 16:00 | NUR ---
RN CLOSING NOTE A REPORT WAS GIVEN TO PRAVIN RAZO IN THE [facility]. PATIENT WAS HAVING PAIN AND GOT HER PRN PAIN MEDICATIONS. PATIENT WILL BE TRANSFER TO THE FLOOR. THE WHOLE BED WAS MOVED WITH THE PATIENT TO THE [facility] SIDE. AND PATIENT BELONGING INCLUDING HER CIGARETTES WERE TRANSFERED AND THE CIGAREGETTES WERE GIVEN TO STEPHY THE CHARGE NURSE IN THE [facility]. PATIENT WAS TOLD THEY WILL KEEP IT FOR HER TILL SHE NEEDS IT. AND HERE BY I SIGN OFF PATIENT'S CARE BECAUSE OF PATIENT'S TRANSFER TO [facility].
--- NOTE | 2018-09-17 16:30 | NUR ---
Patient received a/ox4, denies pain, ambulatory, educated on plan of care, oriented to room and call light system, patient verbalized understanding, assessment complete, call light placed within reach, fall and aspiration precautions in place.
--- NOTE | 2018-09-17 17:05 | NUR ---
Medication patient resting in bed, awake, denies pain, blood glucose checked and insulin coverage provided per MD orders, educated patient on PO medication uses and potential side effects, she verbalized understanding and tolerated well. Patient wanting to go out to smoke, provided with smoking cessation and informed patient that if nurse or SECRETARY SPECIALIST has time to accompany the patient we can take her to smoke if not then she will need to wait or MD can be called for a nicotine patch, patient verbalized understanding and stated she will wait.
--- NOTE | 2018-09-17 18:34 | NUR ---
Closing note patient resting in bed, awake, denies pain, stable condition, all needs met, will endorse report to NOC shift nurse, bed in lowest position, two side rails up, call light within reach, fall and aspiration precautions in place.
--- NOTE | 2018-09-17 19:25 | NUR ---
Opening notes Pt AAOx4, VSS, afebrile. No s/s distress noted. Pt requesting to smoke outside. Pt informed it is change of shift and will ask for available staff. Pt aware of smoking policy and signed informed consent in chart. IV L FA 20G clear and patent. Call light within reach. To monitor.
--- NOTE | 2018-09-17 20:07 | NUR ---
Pain med Pt c/o vaginal lesion pain 12/05, medicated with Morphine 5mg IVP as needed and Zofran IVP as needed. Encouraged pt to call for assistance out of bed, pt verbalized understanding. Call light within reach. Bed low, locked, siderails up x 2. To monitor. Addendum: 09/17/18 at 2225 by Brenda Colindres RN Pt c/o pain on R. knee from bumping on the bedside table. Pt requested an sandip bandage wrap.
[2018-09-17] MEDS: ONDANSETRON HCL 4 MG/2 ML VIAL IVP PRN (20:17)
--- NOTE | 2018-09-17 20:26 | NUR ---
Blood sugar Blood sugar checked 294, Humalog 3 units and Lantus 10 units SQ administered as scheduled. Bedtime snack at bedside. Educated pt on s/s of hypoglycemia, pt verb understanding. Call light within reach. To monitor.
--- NOTE | 2018-09-17 22:30 | NUR ---
Rounds Pt alert, awake, ambulated to the bathroom and voided. Back to bed. Benadryl IVP administered as needed. Encouraged pt to call nurse for assistance, pt verbalized understanding. Bedtime snacks provided. Call light within reach. Bed low, locked, siderails x 2 up. Will continue to monitor.
[2018-09-18 00:52] VITALS: BP_SYST 115
[2018-09-18] MEDS: MORPHINE SULFATE 10 MG/ML VIAL IVP PRN ×5 (01:13→21:37)
[2018-09-18] MEDS: ONDANSETRON HCL 4 MG/2 ML VIAL IVP PRN ×3 (01:13→21:36)
--- NOTE | 2018-09-18 01:15 | NUR ---
Pain med Pt awake, alert, c/o 9/10 genital pain. Medicated with Morphine 5mg IVP and Zofran IVP as needed R. forearm 20G good blood return. Pt c/o IV left forearm sore and tender, dc'd IV catheter tip intact, secured with gauze and paper tape, no active bleeding noted. Call light within reach. To monitor.
[2018-09-18] MEDS: DIPHENHYDRAMINE INJ 50 MG/ML VIAL IVP PRN ×4 (03:11→22:54)
--- NOTE | 2018-09-18 03:30 | NUR ---
IV Re-start IV Re-started per AN R. FA 22G x 2 attempts. Flushes well with NS. Pt tolerated well. IV R. forearm D/C'd catheter tip intact, no active bleeding noted. To monitor.
--- NOTE | 2018-09-18 05:00 | NUR ---
Pain med Pt alert, awake, c/o pain. Medicated with Morphine 5mg IVP. Call light within reach. To monitor.
[2018-09-18] MEDS: ACYCLOVIR 400 MG TABLET PO SCH (05:01)
--- NOTE | 2018-09-18 05:41 | NUR ---
Called Dietary re pt's request for breakfast. Spoke with Page re pt's restricted diet.
[2018-09-18] MEDS: INSULIN LISPRO SLIDING SCALE 100 UNITS/ML VIAL (humaLOG) SUBCUT PRN ×4 (06:21→21:06)
[2018-09-18] MEDS: LORazepam 1 MG TABLET PO PRN (06:27)
--- NOTE | 2018-09-18 06:30 | NUR ---
Closing notes/Blood sugar Pt awake, no s/s distress noted. Blood sugar checked 362, total of 15 units Humalog administered abd SQ. Pt encouraged to call for assistance, pt verbalized understanding. Call light within reach. Bed low, locked, siderails x2 up. To endorse to AM nurse.
[2018-09-18 06:43] LABS: BASOPHILS % (AUTO) 0.6 % (0.0-2.0); EOSINOPHILS # (AUTO) 0.1 K/uL (0.0-0.4); EOSINOPHILS % (AUTO) 1.5 % (0.0-4.0); HEMATOCRIT 31.1 % (36-48); HEMOGLOBIN 9.6 g/dL (12.0-16.0); LYMPHOCYTES # (AUTO) 2.2 K/uL (1.0-5.5); LYMPHOCYTES % (AUTO) 29.2 % (20.5-51.5); MEAN CORPUSCULAR HEMOGLOBIN 26 pg (27-31); MEAN CORPUSCULAR HGB CONC 31 % (32-36); MEAN CORPUSCULAR VOLUME 83 fL (79.0-98.0); MONOCYTES # (AUTO) 0.3 K/uL (0.0-1.0); MONOCYTES % (AUTO) 4.4 % (1.7-9.3); NEUTROPHILS # (AUTO) 4.8 K/uL (1.8-7.7); NEUTROPHILS % (AUTO) 64.3 % (40.0-70.0); PLATELET COUNT (AUTO) 394 K/uL (130-430); RED BLOOD CELL COUNT(AUTO) 3.77 MIL/uL (4.2-6.2); RED CELL DISTRIBUTION WIDTH 18.8 % (9.0-15.0); WHITE BLOOD COUNT (AUTO) 7.4 K/uL (4.8-10.8)
[2018-09-18] MEDS ORDERED: INSULIN Lispro 100 UNITS/ML VIAL (humaLOG) SUBCUT SCH (07:00)
--- NOTE | 2018-09-18 07:20 | NUR ---
AM ROUNDS: PATIENT LYING ON THE BED.AWAKE,ALERT AND ORIENTED X4. IV RIGHT FOREARM SALINE LOCK,DRESSING CLEAN AND DRY. CALL LIGHT WITH IN REACH. BED LOCKED AT LOWEST POSITION. STABLE.
[2018-09-18 07:31] LABS: ALANINE AMINOTRANSFERASE 25 U/L (12-78); ALBUMIN 2.8 g/dL (3.4-4.8); ANION GAP 5 (5-15); ASPARTATE AMINOTRANSFERASE 20 U/L (10-37); CALCIUM 9.4 mg/dL (8.4-11.0); CHLORIDE 100 mmol/L (98-107); CREATININE 0.59 mg/dL (0.55-1.30); GLUCOSE 386 mg/dL (70-99); POTASSIUM 4.6 mmol/L (3.5-5.1); SODIUM SERUM 132 mmol/L (136-145); TOTAL BILIRUBIN 0.2 mg/dL (0.0-1.0); UREA NITROGEN, BLOOD 10 mg/dL (8-21)
[2018-09-18 07:40] LABS: GFR AFRICAN AMERICAN 149 mL/min (>90)
[2018-09-18 07:44] LABS: C-REACTIVE PROTEIN QUANT < 0.2 mg/dL (0-0.5)
[2018-09-18 08:11] VITALS: BP_SYST 121
[2018-09-18 08:20] LABS: ERYTHROCYTE SEDIMENTATION RATE 38 MM/HR (0-20)
[2018-09-18] MEDS: GABAPENTIN 300 MG CAPSULE PO SCH ×3 (09:31→20:59)
--- NOTE | 2018-09-18 09:31 | NUR ---
morphine/zofran iv: c/o burning and sharp at the [place] area,due iv pain meds and for nausea given per request. no problem.
[2018-09-18] MEDS: METOPROLOL TARTRATE 25 MG TABLET PO SCH (09:32)
[2018-09-18] MEDS: INSULIN GLARGINE 100 UNITS/ML 10 ML VIAL SUBCUT SCH (09:41)
[2018-09-18] MEDS: INSULIN Lispro 100 UNITS/ML VIAL (humaLOG) SUBCUT SCH ×3 (11:05→21:04)
--- NOTE | 2018-09-18 11:30 | NUR ---
BLOOD SUGAR: BLOOD SUGAR TAKEN,WITH INSULIN COVERAGE GIVEN PER SLIDING SCALE AND ROUTINE ORDER. NO PROBLEM.
--- NOTE | 2018-09-18 12:15 | NUR ---
Lunch: Patient having lunch. Not in any distress.
[2018-09-18 12:38] VITALS: BP_SYST 110
[2018-09-18] MEDS: ACYCLOVIR IV 500 MG in D5W 100 ML IV SCH ×2 (13:19→21:44)
--- NOTE | 2018-09-18 14:24 | NUR ---
Front End Assistant: SHOP SERVICE TECHNICIAN met with pt. bedside. Pt. was dismissive stating, "I already know what your going to say . 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 SHOP SERVICE TECHNICIAN asked pt. if she could ask a couple of questions to try to help her. Pt. agreed. Pt. stated she had an infection and when this happens, it exacerbates her diabetes symptoms. Now she needs to take inulin and it is so expensive. She added she can't afford it. When she left the [facility] last time, earlier this month, Dr Fink refused to give her medication to hold her over until she was picked up by Medical. She stated the last time she was at [facility] her blood sugar was 600. This time it was 960, borderline coma. She would like to be sent home with medication for her diabetes as well as for her anxiety, Atavan. She takes Atavan when she is stressed out and needs assistance. She took an Atavan an 1 and 1/2 hours ago. Pt. stated while she is in the hospital, her 10 year old son, Anup Lovelace stays with maternal grandmother Debra Blackwood at [address] in [place]. . When SHOP SERVICE TECHNICIAN asked for her address, pt. stated she lives in a house nearby with roomomates but did not want to share the address. Pt. stated she needs assistance with getting her insulinfor diabetes and ativan for anxitey. SHOP SERVICE TECHNICIAN emailed Perez to ask if he could find out the status of pt. Medi-buck genaro. Also SHOP SERVICE TECHNICIAN asked if pt. has medicine coverage, presumtive during the time she is waiting to qualify for Medi-Buck. SHOP SERVICE TECHNICIAN will check emails for a response from Perez. SHOP SERVICE TECHNICIAN asked nurses to let Front End Assistant know when pt. is going to be discharged as there is a program from "[facility]". This program may assist with pt. medicine prior to being approved for Medi-buck SHOP SERVICE TECHNICIAN will remain available as needed. Addendum: 09/18/18 at 1516 by Zulma BOBO Front End Assistant: JERAMIE spoke to Peerz from [employer] on the phone who stated he had look up pt. when she was at [facility] and applied for Medi-buck. He stated there is no record of her ever being at [facility] or having submitted a medical genaro. Perez stated he can come to the hospital tomorrow to help pt. begin the process. JERAMIE stated she will let pt. know so she is ready for this intervention. Addendum: 09/18/18 at 5808 by Zulma BOBO Front End Assistant: JERAMIE notified Pt. that Leonora from [employer] was going to see her tomorrow. Her Cell is
--- NOTE | 2018-09-18 14:35 | NUR ---
Pain Meds: C/o of sharp and burning sensation at the area,due iv pain meds given per request. No adverse reactions noted.
--- NOTE | 2018-09-18 16:14 | NUR ---
rn rounds: resting. no problem.
[2018-09-18 16:22] VITALS: BP_SYST 106
--- NOTE | 2018-09-18 17:26 | NUR ---
BLOOD SUGAR: RY=491AL/DL,HUMALOG 7 UNITS +4 UNITS SUBQ PER SLIDING SCALE GIVEN. NO UNTOWARD MANIFESTATIONS NOTED THIS TIME.
--- NOTE | 2018-09-18 18:26 | NUR ---
closing notes: No distress. Needs attended to. Continue to monitor.
--- NOTE | 2018-09-18 19:05 | NUR ---
OPENING NOTES RECEIVED PATIENT IN BED AAO X4. BREATHING UNLABORED ON ROOM AIR. DENIES PAIN AT THIS TIME. PLAN OF CARE REVIEWED WITH PATIENT. BED IN LOWEST LOCKED POSITION. CALL LIGHT WITH IN REACH.
[2018-09-18 20:45] VITALS: BP_SYST 123
[2018-09-18] MEDS ORDERED: INSULIN GLARGINE 100 UNITS/ML 10 ML VIAL SUBCUT SCH (21:00)
--- NOTE | 2018-09-18 21:06 | NUR ---
MED PASS/BLD SUGAR PATIENT DUE MEDICATIONS GIVEN. ROUTINE FINGER STICK SUGAR 340. INSULIN GIVEN ORDERED. VITAL SIGNS STABLE.
--- NOTE | 2018-09-18 21:20 | NUR ---
IV LINE NEW IV LINE INSERTED TO RT LOWER FOREARM GAUGE 22 WITH GOOD BLOOD RETURN. OLD IV SITE REMOVED. PRESSURE DRESSING APPLIED.
--- NOTE | 2018-09-18 21:37 | NUR ---
PAIN MGT PATIENT MEDICATED WITH MORPHINE FOR C/O VAGINAL LESIONS PAIN 12/05. POSSIBLE SIDE EFFECTS OF MEDICATION DISCUSSED WITH PATIENT. BED IN LOWEST LOCKED POSITION. CALL LIGHT WITH IN REACH.
--- NOTE | 2018-09-19 01:00 | NUR ---
ROUNDS RESTING IN BED. NO DISTRESS NOTED. CALL LIGHT WITHIN REACH.
[2018-09-19] MEDS: MORPHINE SULFATE 10 MG/ML VIAL IVP PRN ×5 (01:43→19:58)
--- NOTE | 2018-09-19 02:38 | NUR ---
ROUNDS PATIENT AWAKE IN BED WATCHING TV. DENIES PAIN. BREATHING UNLABORED. SNACK PROVIDED PER PATIENT REQUEST.
[2018-09-19] MEDS: DIPHENHYDRAMINE INJ 50 MG/ML VIAL IVP PRN ×3 (02:56→22:13)
[2018-09-19 02:58] VITALS: BP_SYST 127
--- NOTE | 2018-09-19 04:12 | NUR ---
ROUNDS PATIENT RESTING IN BED. NO DISTRESS NOTED. CALL LIGHT WITH IN REACH.
[2018-09-19 06:09] LABS: BASOPHILS # (AUTO) 0.1 K/uL (0.0-0.2); BASOPHILS % (AUTO) 0.8 % (0.0-2.0); EOSINOPHILS # (AUTO) 0.1 K/uL (0.0-0.4); EOSINOPHILS % (AUTO) 1.5 % (0.0-4.0); HEMATOCRIT 32.6 % (36-48); HEMOGLOBIN 10.1 g/dL (12.0-16.0); LYMPHOCYTES # (AUTO) 1.8 K/uL (1.0-5.5); LYMPHOCYTES % (AUTO) 24.5 % (20.5-51.5); MEAN CORPUSCULAR HEMOGLOBIN 26 pg (27-31); MEAN CORPUSCULAR HGB CONC 31 % (32-36); MEAN CORPUSCULAR VOLUME 83 fL (79.0-98.0); MONOCYTES # (AUTO) 0.4 K/uL (0.0-1.0); MONOCYTES % (AUTO) 5.2 % (1.7-9.3); NEUTROPHILS # (AUTO) 4.9 K/uL (1.8-7.7); PLATELET COUNT (AUTO) 395 K/uL (130-430); RED BLOOD CELL COUNT(AUTO) 3.91 MIL/uL (4.2-6.2); RED CELL DISTRIBUTION WIDTH 19.1 % (9.0-15.0); WHITE BLOOD COUNT (AUTO) 7.2 K/uL (4.8-10.8)
[2018-09-19] MEDS: INSULIN Lispro 100 UNITS/ML VIAL (humaLOG) SUBCUT SCH (06:21)
[2018-09-19] MEDS: INSULIN LISPRO SLIDING SCALE 100 UNITS/ML VIAL (humaLOG) SUBCUT PRN ×3 (06:22→22:15)
[2018-09-19] MEDS: ACYCLOVIR IV 500 MG in D5W 100 ML IV SCH ×3 (06:23→22:13)
--- NOTE | 2018-09-19 06:40 | NUR ---
CLOSING NOTES PATIENT RESTING IN BED. ATB INFUSING. AM SUGAR 255 ORDERED INSULIN GIVEN. PATIENT NEEDS ATTENDED. CALL LIGHT WITH IN REACH.
--- NOTE | 2018-09-19 07:30 | NUR ---
AM ROUNDS: PATIENT ON THE BED. AWAKE,ALERT AND ORIENTED X4. CALL LIGHT WITH IN REACH. BED LOCKED AT LOWEST POSITION. NO DISTRESS.
[2018-09-19 08:12] LABS: ALBUMIN 3.1 g/dL (3.4-4.8); CALCIUM 9.5 mg/dL (8.4-11.0); CREATININE 0.67 mg/dL (0.55-1.30); POTASSIUM 4.7 mmol/L (3.5-5.1); TOTAL BILIRUBIN 0.2 mg/dL (0.0-1.0)
[2018-09-19 08:25] VITALS: BP_SYST 117
[2018-09-19] MEDS: GABAPENTIN 300 MG CAPSULE PO SCH ×3 (08:32→22:12)
[2018-09-19] MEDS: METOPROLOL TARTRATE 25 MG TABLET PO SCH (08:32)
[2018-09-19] MEDS: INSULIN GLARGINE 100 UNITS/ML 10 ML VIAL SUBCUT SCH (08:34)
[2018-09-19] MEDS ORDERED: INSULIN NPH/REGULAR 70-30, 100 UNITS/ML, 10 ML VIAL SUBCUT ONE (09:30)
--- NOTE | 2018-09-19 09:44 | NUR ---
Humulin 70/30: XD=656ea/dl,humulin 70/30 40 units subq given as additional order from Dr Morgan. No problem.
--- NOTE | 2018-09-19 10:07 | NUR ---
BENADRYL IV: DUE IV BENADRYL GIVEN PER REQUEST. NO PROBLEM.
--- NOTE | 2018-09-19 11:14 | NUR ---
BLOOD SUGAR: BLOOD FYBNQ=671VM/DL,HUMALOG 6 UNITS SUBQ GIVEN PER SLIDING SCALE. NO PROBLEM.
[2018-09-19 11:20] VITALS: BP_SYST 105
--- NOTE | 2018-09-19 12:27 | NUR ---
PAIN MEDS: C/O PERINEAL PAIN WITH HISTORY OF HERPES,AND DUE IV PAIN MEDS GIVEN PER REQUEST. NO ADVERSE REACTIONS NOTED.
--- NOTE | 2018-09-19 14:27 | NUR ---
MD ROUNDS: PATIENT SEEN BY DR Sharon WEBB,WITH ORDERS FOR NECK ULTRASOUND,FOR STOOL EXAM -DIARRHEA.
--- NOTE | 2018-09-19 15:03 | NUR ---
SMOKING: PATIENT WENT OUT TO SMOKE VIA WHEELCHAIR, WITH RADIO DISPATCHER SUPERVISION.SMOKING WAIVER FORM SIGNS BY THE PATIENT,ATTACHED TO CHART. EDUCATION ON SMOKING CESSATION RENDERED.
[2018-09-19 15:31] VITALS: BP_SYST 127
[2018-09-19] MEDS: SIMETHICONE 80 MG TAB.CHEW PO SCH ×2 (15:49→22:12)
[2018-09-19] MEDS: ONDANSETRON HCL 4 MG/2 ML VIAL IVP PRN (15:50)
--- NOTE | 2018-09-19 15:55 | NUR ---
MORPHINE IV: C/O PERINEAL PAIN,DUE IV PAIN MEDS GIVEN PER REQUEST. NO SIDE EFFECTS NOTED.
--- NOTE | 2018-09-19 16:01 | NUR ---
ULTRASOUND: ULTRASOUND OF THE NECK TISSUE DONE AT THE BEDSIDE BY TECH.
--- NOTE | 2018-09-19 17:25 | NUR ---
BLOOD SUGAR: EA=213TF/DL,ROUTINE NOVOLIN 70/30 30 UNITS SUBQ GIVEN ORDERED. NO PROBLEM.
[2018-09-19] MEDS: INSULIN NPH/REGULAR 70-30, 100 UNITS/ML, 10 ML VIAL SUBCUT SCH (17:28)
--- NOTE | 2018-09-19 18:50 | NUR ---
CLOSING NOTES: PATIENT CAME BACK IN THE ROOM FROM SMOKING VIA WHEELCHAIR BY WORKERS COMPENSATION ADJUSTER'S SUPERVISION. STABLE. CONDITION GUARDED.
[2018-09-19 19:50] VITALS: BP_SYST 116
--- NOTE | 2018-09-19 19:58 | NUR ---
PAIN MGT PATIENT RESTING IN BED C/O 12/05 VAGINAL LESIONS PAIN. MEDICATED WITH MORPHINE ORDERED. VITAL SIGNS STABLE. BED IN LOWEST LOCKED POSITION. CALL LIGHT WITH IN REACH.
[2018-09-19] MEDS: LACTOBACILLUS RHAMNOSUS GG 1 CAP CAPSULE PO SCH (22:12)
--- NOTE | 2018-09-19 22:19 | NUR ---
MED PASS PATIENT DUE MEDICATIONS GIVEN. BLOOD SUGAR 283. COVERAGE GIVEN PER SLIDING SCALE. ANTIBIOTIC INFUSED WITH IV LINE INTACT AND PATENT. HS SNACK PROVIDED.
--- NOTE | 2018-09-20 | NUR ---
PAIN MGT PATIENT MEDICATED WITH MORPHINE FOR C/O VAGINAL LESIONS PAIN. VITAL SIGN STABLE. BED IN LOWEST LOCKED POSITION. CALL LIGHT WITH IN REACH.
[2018-09-20] MEDS: LORazepam 1 MG TABLET PO PRN ×2 (01:54→12:19)
--- NOTE | 2018-09-20 01:54 | NUR ---
SLEEP PATIENT REQUESTED ATIVAN PER PATIENT SHE IS UNABLE TO SLEEP. VITAL SIGNS STABLE.
[2018-09-20 01:59] VITALS: BP_SYST 133
[2018-09-20] MEDS: ACYCLOVIR IV 500 MG in D5W 100 ML IV SCH ×3 (05:53→22:10)
[2018-09-20] MEDS: INSULIN LISPRO SLIDING SCALE 100 UNITS/ML VIAL (humaLOG) SUBCUT PRN ×3 (05:58→20:48)
[2018-09-20] MEDS: INSULIN NPH/REGULAR 70-30, 100 UNITS/ML, 10 ML VIAL SUBCUT SCH ×2 (06:00→17:00)
[2018-09-20] MEDS: ONDANSETRON HCL 4 MG/2 ML VIAL IVP PRN ×3 (06:14→22:17)
[2018-09-20] MEDS: MORPHINE SULFATE 10 MG/ML VIAL IVP PRN ×5 (06:16→22:17)
--- NOTE | 2018-09-20 06:43 | NUR ---
CLOSING NOTES PATIENT RESTING IN BED. IV ATB INFUSING WITH IV LINE PATENT. AM SUGAR 151. ORDERED INSULIN GIVEN. PROVIDED PATIENT WITH PUDDING REQUESTED. PATIENT NEEDS ATTENDED. BED IN LOWEST LOCKED POSITION. CALL LIGHT WITH IN REACH.
[2018-09-20 07:06] LABS: ANION GAP 8 (5-15); C-REACTIVE PROTEIN QUANT < 0.2 mg/dL (0-0.5); CALCIUM 9.2 mg/dL (8.4-11.0); CHLORIDE 103 mmol/L (98-107); CREATININE 0.66 mg/dL (0.55-1.30); GLUCOSE 156 mg/dL (70-99); POTASSIUM 3.9 mmol/L (3.5-5.1); SODIUM SERUM 136 mmol/L (136-145); UREA NITROGEN, BLOOD 10 mg/dL (8-21)
[2018-09-20 07:11] LABS: GFR AFRICAN AMERICAN 131 mL/min (>90)
[2018-09-20 07:14] LABS: BASOPHILS # (AUTO) 0.1 K/uL (0.0-0.2); EOSINOPHILS # (AUTO) 0.1 K/uL (0.0-0.4); EOSINOPHILS % (AUTO) 1.9 % (0.0-4.0); HEMATOCRIT 30.7 % (36-48); HEMOGLOBIN 9.5 g/dL (12.0-16.0); LYMPHOCYTES # (AUTO) 1.7 K/uL (1.0-5.5); LYMPHOCYTES % (AUTO) 29.5 % (20.5-51.5); MEAN CORPUSCULAR HEMOGLOBIN 26 pg (27-31); MEAN CORPUSCULAR HGB CONC 31 % (32-36); MEAN CORPUSCULAR VOLUME 83 fL (79.0-98.0); MONOCYTES # (AUTO) 0.4 K/uL (0.0-1.0); MONOCYTES % (AUTO) 7.5 % (1.7-9.3); NEUTROPHILS # (AUTO) 3.5 K/uL (1.8-7.7); NEUTROPHILS % (AUTO) 60.1 % (40.0-70.0); PLATELET COUNT (AUTO) 377 K/uL (130-430); RED BLOOD CELL COUNT(AUTO) 3.68 MIL/uL (4.2-6.2); WHITE BLOOD COUNT (AUTO) 5.9 K/uL (4.8-10.8)
--- NOTE | 2018-09-20 07:32 | NUR ---
Opening Note received bedside SBAR report from assembler 1st shift RN, patient resting in bed, respirations even and unlabored on room air, no acute distress noted, educated patient on use of call light and asked to call for assistance, patient verbalized understanding, call light in reach, educated patient on use of bed alarm for patient safety, patient refusing bed alarm, bed in low and locked position.
[2018-09-20 08:00] VITALS: BP_SYST 109
[2018-09-20] MEDS ORDERED: LOPERAMIDE HCL 2 MG CAPSULE PO PRN (08:15)
[2018-09-20 08:42] LABS: ERYTHROCYTE SEDIMENTATION RATE 53 MM/HR (0-20)
[2018-09-20] MEDS: GABAPENTIN 300 MG CAPSULE PO SCH ×3 (09:01→20:49)
[2018-09-20] MEDS: DIPHENHYDRAMINE INJ 50 MG/ML VIAL IVP PRN ×3 (09:01→22:10)
[2018-09-20] MEDS: SIMETHICONE 80 MG TAB.CHEW PO SCH ×3 (09:01→20:49)
[2018-09-20] MEDS: LACTOBACILLUS RHAMNOSUS GG 1 CAP CAPSULE PO SCH ×2 (09:01→20:49)
[2018-09-20] MEDS: METOPROLOL TARTRATE 25 MG TABLET PO SCH (09:01)
--- NOTE | 2018-09-20 09:42 | NUR ---
RN Rounds patient resting in bed, respirations even and unlabored on room air, patient requesting snack, provided patient with sugar free pudding, no acute distress noted.
[2018-09-20 10:24] VITALS: BP_SYST 108
--- NOTE | 2018-09-20 11:10 | NUR ---
Nutrition Note RD spoke w/ pt at bedside as pt has been complaining about FNS services. Pt reported that she has not been receiving snacks as previously ordered, and that double portions of proteins have not been observed consistently since RD implementation on 09/17/18. RD offered pt alternative snack options and reviewed menu selections w/ pt. Pt was calm and cooperative. Snack options were reviewed w/ pt and revised via [employer]. RD also provided portion distortion nutrition education handouts and reviewed w/ pt. Please refer to interdisciplinary teaching record for details.
[2018-09-20 11:28] VITALS: BP_SYST 145
--- NOTE | 2018-09-20 12:20 | NUR ---
Anxiety/Medication patient complaint of anxiety, patient requesting PRN ativan, educated patient on use and side effects of PRN ativan, patient verbalized understanding, tolerated medication administration well, patient sitting up in bed eating lunch.
--- NOTE | 2018-09-20 13:05 | NUR ---
CONSULTATION PAGED/CALLED Reason for Consultation: [] GENETAL LESIONS Person Who was Notified: [] KRISTINE Consulting Physician: [] DR ANDRES DELGADILLO Him Director Specialty: [] OB AND FINANCIAL UNDERWRITER Ordering Physician: [] DR Kel WEBB
--- NOTE | 2018-09-20 13:06 | NUR ---
CONSULTATION PAGED/CALLED Reason for Consultation: [] ABDOMINAL PAIN Person Who was Notified: [] KRISTINE Consulting Physician: [] DR Kel SCHMITT Pelletizer Tender Specialty: [] GI Ordering Physician: [] DR Kel WEBB
--- NOTE | 2018-09-20 15:16 | NUR ---
Physician Rounds Dr. Morales at bedside examining patient.
[2018-09-20 15:43] VITALS: BP_SYST 140
[2018-09-20] MEDS ORDERED: PHENYLEPH/MINERAL OIL/PETROLAT 45 GM OINT.APPL TP PRN (15:45)
--- NOTE | 2018-09-20 16:50 | NUR ---
IV access left hand IV site swollen, IV catheter removed, catheter intact, no bleeding, new IV catheter 22G placed to upper right arm by charge account authorizer, flushes freely with blood return.
--- NOTE | 2018-09-20 17:05 | NUR ---
Senior Software Engineer Analytics: DIRECTOR OF VITAL STATISTICS met with pt. bedside. Pt. was speaking to her nurse, Madeline stating she needed more morphine as the morphine drip she just recived did not take effect. Madeline explained to her the morphine is still in her tissue so it is highly unlikely that they will administer more at this time since she just received it and a high dose at that. 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 DIRECTOR OF VITAL STATISTICS asked she moved around so much with her jobs. She stated they didn't work out. DIRECTOR OF VITAL STATISTICS asked her for an update [facility] she did sign paper for him to look into her case. She stated she did get an application submitted. Perez will look into this. Pt. stated her son is recieivng [facility]. DIRECTOR OF VITAL STATISTICS stated pt. had requeststed that DIRECTOR OF VITAL STATISTICS look into the status of her sons Medical application. Pt. said, "I asked you to look into it. I must have been on the medication". DIRECTOR OF VITAL STATISTICS asked her to call Perez to ask for help with her application so she can get her medication. Pt. stated she would do so. Pt. did not have any questions and thanked DIRECTOR OF VITAL STATISTICS. DIRECTOR OF VITAL STATISTICS called Perez who stated it took him about 20 min. to get pt. to sign a form so that he can look into the status of her Medical if one application was indeed submitted. Perez said he has had numerous interactions with this pt. at various hospitals and cant figure out what the barrier is to submitting and receiving Medical. Perez suggested to her if she is not currently working, to submit an application now. DIRECTOR OF VITAL STATISTICS thanked Perez for his intervention. DIRECTOR OF VITAL STATISTICS will remain available as needed. Addendum: 09/20/18 at 1722 by Zulma BOBO Senior Software Engineer Analytics: JERAMIE gave pt. resources for [facility]
--- NOTE | 2018-09-20 17:10 | NUR ---
Called pharmacy patient states that since IV site became swollen she did not receive the IVP morphine or acyclovir, called pharmacist Rajani, gabbie Gerard finish infusing the rest of the acyclovir in new IV site, about 75% of acyclovir still in bag, second dose of morphine not to be given, educated patient that when morphine IVP was given the IV site was flushing freely and no swelling was noted, educated patient that IV became infiltrated after about 25% of acyclovir was infused, patient verbalized understanding.
--- NOTE | 2018-09-20 17:25 | NUR ---
Refusing insulin/Paged MD patient on clear liquid diet for dinner, patient refusing clear liquid diet and requesting to be on previous diet, educated patient on purpose of diet orders, patient refusing clear liquid diet, blood glucose 253, educated patient on use and side effects of insulin orders, patient refusing all insulin orders, patient requesting to be put back on [facility] diet, paged Dr. Jackson (covering for Dr. Morales) regarding diet orders.
--- NOTE | 2018-09-20 19:25 | NUR ---
RN OPENING NOTE PT IS RESTING IN BED, AAO X4, PT DENIES PAIN OR DISCOMFORT AT THIS TIME. PT ASSESSED, VITAL SIGNS ARE STABLE. PT ENCOURAGED TO CALL FOR ANY ASSISTANCE WITH USE OF CALL LIGHT. SAFETY PRECAUTIONS ARE IN PLACE: BED IS LOCKED IN LOWEST POSITION, SIDE RAILS ARE UP X2, CALL LIGHT WITHIN REACH, WILL CONTINUE TO MONITOR.
--- NOTE | 2018-09-20 19:25 | NUR ---
Closing Note bedside report given to receiving RN, patient resting in bed, no acute distress noted, IV site clean, dry, and intact, no swelling noted at IV site, educated patient on use of call light and asked to call for assistance, patient verbalized understanding, call light in reach, educated patient on use of bed alarm for patient safety, patient refusing bed alarm, bed in low and locked position, care endorsed to rn psych RN. Addendum: 09/20/18 at 1926 by Madeline Hawthorne RN spoke with Dr. Jackson, informed him that patient is refusing clear liquid diet, orders to change patient to [facility] diet.
[2018-09-20 20:00] VITALS: BP_SYST 125
--- NOTE | 2018-09-20 20:48 | NUR ---
ACCUCHECK/CRITICAL BS BLOOD SUGAR OF 450. 12 UNITS OF HUMALOG LISPRO INSULIN GIVEN PER SLIDING SCALE. PARADISE ZELAYA MD.
--- NOTE | 2018-09-20 21:10 | NUR ---
paged paged for Dr Morgan, dialed . s/w Bea.
--- NOTE | 2018-09-20 21:13 | NUR ---
SPOKE TO DR. ROLAND REGARDING PT'S BS OF 450. ORDER RECEIVED TO CHECK BS AT 0300. NO ORDER TO COVER BS CHECK WITH INSULIN. WILL CARRY OUT.
--- NOTE | 2018-09-20 21:35 | NUR ---
SMOKE: PATIENT WENT OUT TO SMOKE VIA WHEELCHAIR, WITH LICENSED FUNERAL DIRECTORCANDY, TO SUPERVISE. SMOKING WAIVER FORM SIGNS BY THE PATIENT, AND IS ATTACHED IN CHART. EDUCATION ON SMOKING CESSATION RENDERED.
--- NOTE | 2018-09-20 22:17 | NUR ---
MORPHINE/BENADRYL/ZOFRAN PT GIVEN MORPHINE 5MG IVP FOR SEVERE PAIN, BENADRYL 50 MG IVP FOR ITCHING, AND ZOFRAN 4 MG IVP FOR NAUSEA. MEDICATION ACTIONS AND POTENTIAL SIDE EFFECTS DISCUSSED, PT VERBALIZED UNDERSTANDING. PT ENCOURAGED TO CALL FOR ASSISTANCE, CALL LIGHT IS WITH PT. SAFETY MAINTAINED. WILL MONITOR.
--- NOTE | 2018-09-21 00:30 | NUR ---
SLEEPING PT RESTING IN BED WITH EYES CLOSED. VISIBLE SYMMETRICAL RISE AND FALL OF CHEST TO ROOM AIR. NO S/S OF ACUTE DISTRESS. WILL MONITOR.
[2018-09-21 02:18] VITALS: BP_SYST 107
--- NOTE | 2018-09-21 02:25 | NUR ---
STOOL SAMPLE COLLECTED AND SENT TO LAB
[2018-09-21] MEDS: DIPHENHYDRAMINE INJ 50 MG/ML VIAL IVP PRN ×4 (02:44→22:34)
[2018-09-21] MEDS: MORPHINE SULFATE 10 MG/ML VIAL IVP PRN ×5 (02:45→20:36)
--- NOTE | 2018-09-21 02:45 | NUR ---
MORPHINE/BENADRYL PT GIVEN MORPHINE 5 MG IVP FOR SEVERE PAIN AND BENADRYL 50 MG IVP. MEDICATION ACTIONS AND POTENTIAL SIDE EFFECTS EXPLAINED. PT VERBALIZED UNDERSTANDING. PT ENCOURAGED TO CALL FOR ASSISTANCE, CALL LIGHT IS WITH PT. SAFETY MAINTAINED. WILL MONITOR.
[2018-09-21 05:53] LABS: BASOPHILS # (AUTO) 0.1 K/uL (0.0-0.2); EOSINOPHILS # (AUTO) 0.1 K/uL (0.0-0.4); EOSINOPHILS % (AUTO) 1.9 % (0.0-4.0); HEMATOCRIT 29.9 % (36-48); HEMOGLOBIN 9.3 g/dL (12.0-16.0); LYMPHOCYTES # (AUTO) 2.1 K/uL (1.0-5.5); LYMPHOCYTES % (AUTO) 32.7 % (20.5-51.5); MEAN CORPUSCULAR HEMOGLOBIN 26 pg (27-31); MEAN CORPUSCULAR HGB CONC 31 % (32-36); MEAN CORPUSCULAR VOLUME 83 fL (79.0-98.0); MONOCYTES # (AUTO) 0.6 K/uL (0.0-1.0); MONOCYTES % (AUTO) 9.2 % (1.7-9.3); NEUTROPHILS # (AUTO) 3.6 K/uL (1.8-7.7); NEUTROPHILS % (AUTO) 55.2 % (40.0-70.0); PLATELET COUNT (AUTO) 370 K/uL (130-430); RED BLOOD CELL COUNT(AUTO) 3.62 MIL/uL (4.2-6.2); RED CELL DISTRIBUTION WIDTH 18.7 % (9.0-15.0); WHITE BLOOD COUNT (AUTO) 6.5 K/uL (4.8-10.8)
[2018-09-21 06:43] LABS: CALCIUM 9.4 mg/dL (8.4-11.0); CREATININE 0.74 mg/dL (0.55-1.30); POTASSIUM 4.4 mmol/L (3.5-5.1)
[2018-09-21] MEDS: INSULIN NPH/REGULAR 70-30, 100 UNITS/ML, 10 ML VIAL SUBCUT SCH ×2 (06:51→17:19)
[2018-09-21] MEDS: ACYCLOVIR IV 500 MG in D5W 100 ML IV SCH ×3 (06:51→22:21)
[2018-09-21] MEDS: INSULIN LISPRO SLIDING SCALE 100 UNITS/ML VIAL (humaLOG) SUBCUT PRN ×3 (06:52→20:47)
--- NOTE | 2018-09-21 06:54 | NUR ---
ACCUCHECK/MORPHINE PT GIVEN MORPHINE 5 MG IVP FOR SEVERE PAIN. MEDICATION ACTION AND POTENTIAL SIDE EFFECTS EXPLAINED. PT VERBALIZED UNDERSTANDING. ACCUCHECK SHOWED BS 0F 278, 6 UNITS OF INSULIN GIVEN PER SLIDING SCALE. WILL MONITOR.
[2018-09-21 07:07] LABS: C-REACTIVE PROTEIN QUANT 0.3 mg/dL (0-0.5)
--- NOTE | 2018-09-21 07:08 | NUR ---
CLOSING NOTE PT RESTING IN BED. NO ACUTE DISTRESS. ALL NEEDS MET DURING SHIFT. SAFETY MAINTAINED. WILL ENDORSE CARE TO DAY SHIFT RN.
--- NOTE | 2018-09-21 07:10 | NUR ---
Opening Note received bedside SBAR report from mold shifter RN, patient resting in bed, respirations even and unlabored, no acute distress noted, educated patient on use of call light and asked to call for assistance, patient verbalized understanding, call light in reach, educated patient on use of bed alarm for patient safety, patient refusing bed alarm, bed in low and locked position.
[2018-09-21 08:00] VITALS: BP_SYST 126
[2018-09-21] MEDS: GABAPENTIN 300 MG CAPSULE PO SCH ×3 (08:31→20:35)
[2018-09-21] MEDS: SIMETHICONE 80 MG TAB.CHEW PO SCH ×3 (08:31→20:35)
[2018-09-21] MEDS: LACTOBACILLUS RHAMNOSUS GG 1 CAP CAPSULE PO SCH ×2 (08:31→20:35)
[2018-09-21] MEDS: METOPROLOL TARTRATE 25 MG TABLET PO SCH (08:32)
[2018-09-21 08:52] LABS: ERYTHROCYTE SEDIMENTATION RATE 56 MM/HR (0-20)
--- NOTE | 2018-09-21 09:15 | NUR ---
Physician Rounds Dr. Morales at bedside speaking with patient.
[2018-09-21] MEDS ORDERED: DIATR MEGLU/DIATRIZ SOD 30 ML SOLUTION PO ONE (10:14)
--- NOTE | 2018-09-21 11:30 | NUR ---
Called Radiology spoke with Nikolas in radiology, per Nikolas he will be here around noon to take patient to CT, when patient is brought back from CT blood glucose will be checked for insulin administration and lunch tray will be provided.
[2018-09-21] MEDS: ONDANSETRON HCL 4 MG/2 ML VIAL IVP PRN (11:46)
[2018-09-21] MEDS ORDERED: IOHEXOL 100 ML IV ONE (11:50)
[2018-09-21 11:51] VITALS: BP_SYST 129
--- NOTE | 2018-09-21 11:59 | NUR ---
Pain/Nausea patient complaint of pain and nausea, patient requesting PRN pain and PRN nausea medication, educated patient on use and side effects of PRN pain and PRN nausea medication, patient verbalized understanding, patient tolerated medication administration well, no acute distress noted.
--- NOTE | 2018-09-21 11:59 | NUR ---
SS Note: Perez sims [facility] met with pt and per Perez, pt's non-presumptive Medical will come into effect on September 25.
--- NOTE | 2018-09-21 12:17 | NUR ---
to CT patient taken to CT scan via wheelchair, no acute distress noted.
--- NOTE | 2018-09-21 13:00 | NUR ---
back from CT patient brought back from CT via wheelchair, patient resting in bed, no acute distress noted.
--- NOTE | 2018-09-21 15:08 | NUR ---
Ambulated to bathroom patient ambulated to bathroom, steady gait noted, voided x1, patient ambulated back to bed, patient resting in bed, no acute distress noted.
--- NOTE | 2018-09-21 16:32 | NUR ---
Physician Rounds Dr. Morgan at bedside speaking with patient.
[2018-09-21 17:46] VITALS: BP_SYST 116
[2018-09-21] MEDS: LORazepam 1 MG TABLET PO PRN (17:57)
--- NOTE | 2018-09-21 18:10 | NUR ---
Ambulated to bathroom patient ambulated to bathroom, steady gait noted, voided x1, patient ambulated back to bed, patient resting in bed, no acute distress noted.
--- NOTE | 2018-09-21 19:20 | NUR ---
Closing Note bedside SBAR report given to receiving RN, patient resting in bed, no acute distress noted, educated patient on use of call light and asked to call for assistance, patient verbalized understanding, call light in reach, educated patient on use of bed alarm for patient safety, patient refusing bed alarm, bed in low and locked position.
--- NOTE | 2018-09-21 19:30 | NUR ---
initial notes: pt is awake, alert, oriented x 4.watching not distress. no sing of pain. stable. room air. iv lock to left forearm gauge 20- flushing but site is swollen. ambulatory to bathroom. discuss to pt plan of care. she agree. discuss also safety and encourage to use call light. needs attended. safety on. call light is with the pt. will follow-up.
--- NOTE | 2018-09-21 20:30 | NUR ---
pt took all her medication and pain medication. discuss about the pain medication side effects. she agree about it.
[2018-09-21 20:33] VITALS: BP_SYST 107
--- NOTE | 2018-09-21 22:00 | NUR ---
notes: pt is iv lock to left fore became infiltrated. start new iv lock to right fore gauge 22-good blood return. done aseptically. pt tolerate well. needs attended. call light in reach. will follow up.
--- NOTE | 2018-09-22 00:42 | NUR ---
notes: PT IS SLEEPING. NO SIGN OF PAIN. BREATHING OK, NO DISTRESS. IVF LOCK IS INTACT. STABLE. CALL LIGHT IS WITH THE PT. SIDE RAILS UP.. LOW BED POSITION. WILL FOLLOW- UP.
[2018-09-22 01:00] VITALS: BP_SYST 122
[2018-09-22 01:13] VITALS: BP_SYST 131
[2018-09-22] MEDS: MORPHINE SULFATE 10 MG/ML VIAL IVP PRN ×7 (01:23→23:40)
[2018-09-22] MEDS: ONDANSETRON HCL 4 MG/2 ML VIAL IVP PRN ×3 (01:32→18:25)
[2018-09-22] MEDS: DIPHENHYDRAMINE INJ 50 MG/ML VIAL IVP PRN ×3 (02:42→21:43)
--- NOTE | 2018-09-22 02:48 | NUR ---
notes: pt is awake, alert. ask for benadryl. no pain. not distress. stable. needs attended. care transfer to thuy zaman.
--- NOTE | 2018-09-22 04:30 | NUR ---
Rounds Patient is resting w/ eyes closed. No sign of distress noted. Lights are off and room is quiet. Call light w/in reach. Will monitor.
--- NOTE | 2018-09-22 05:34 | NUR ---
Pain medication Patient called reported severe pain to abdomen and requested medication. She was given morphine as ordered for severe pain. IV is patent and patient tolerated. She requested lights off and had no further needs. Call light w/in reach.
[2018-09-22] MEDS: ACYCLOVIR IV 500 MG in D5W 100 ML IV SCH ×3 (06:26→21:42)
[2018-09-22] MEDS: INSULIN NPH/REGULAR 70-30, 100 UNITS/ML, 10 ML VIAL SUBCUT SCH ×2 (06:29→17:57)
--- NOTE | 2018-09-22 06:40 | NUR ---
Antibiotic / Fingerstick BGT Fingerstick BGT was done w/ result of 299 and scheudule novolin 70/30 was give. The patient requested the humalog coverage to be held until her breakfast arrives. Due antibiotic was administered and patient reports she has been experiencing sensitivity and pain and has been able to tolerate antibiotic at slower rate. She requested no more than rate of 30ml/hr. Antibiotic is infusing and patient is tolerating. She wants the door closed and doesn't want lab draws till 0730 when she wakes up for breakfast.
--- NOTE | 2018-09-22 07:06 | NUR ---
closing note Patient is resting, no sign of distress noted, IV antibiotic is infusing well and patient tolerating. Saftey precautions in place. Needs met throughout shift. Will endorse to oncoming nurse.
[2018-09-22 07:51] LABS: BASOPHILS # (AUTO) 0.1 K/uL (0.0-0.2); BASOPHILS % (AUTO) 1.4 % (0.0-2.0); EOSINOPHILS # (AUTO) 0.2 K/uL (0.0-0.4); EOSINOPHILS % (AUTO) 2.4 % (0.0-4.0); HEMATOCRIT 33.3 % (36-48); HEMOGLOBIN 10.4 g/dL (12.0-16.0); LYMPHOCYTES # (AUTO) 2.1 K/uL (1.0-5.5); MEAN CORPUSCULAR HEMOGLOBIN 26 pg (27-31); MEAN CORPUSCULAR HGB CONC 31 % (32-36); MEAN CORPUSCULAR VOLUME 83 fL (79.0-98.0); MONOCYTES # (AUTO) 0.5 K/uL (0.0-1.0); MONOCYTES % (AUTO) 8.6 % (1.7-9.3); NEUTROPHILS # (AUTO) 3.5 K/uL (1.8-7.7); NEUTROPHILS % (AUTO) 54.6 % (40.0-70.0); PLATELET COUNT (AUTO) 426 K/uL (130-430); RED BLOOD CELL COUNT(AUTO) 4.03 MIL/uL (4.2-6.2); RED CELL DISTRIBUTION WIDTH 18.8 % (9.0-15.0); WHITE BLOOD COUNT (AUTO) 6.4 K/uL (4.8-10.8)
[2018-09-22 08:15] LABS: ALANINE AMINOTRANSFERASE 61 U/L (12-78); ALBUMIN 3.1 g/dL (3.4-4.8); ANION GAP 7 (5-15); ASPARTATE AMINOTRANSFERASE 54 U/L (10-37); CALCIUM 9.7 mg/dL (8.4-11.0); CHLORIDE 101 mmol/L (98-107); CREATININE 0.92 mg/dL (0.55-1.30); GLUCOSE 296 mg/dL (70-99); POTASSIUM 4.5 mmol/L (3.5-5.1); SODIUM SERUM 134 mmol/L (136-145); TOTAL BILIRUBIN 0.2 mg/dL (0.0-1.0); UREA NITROGEN, BLOOD 10 mg/dL (8-21)
[2018-09-22 08:29] LABS: C-REACTIVE PROTEIN QUANT < 0.2 mg/dL (0-0.5); GFR AFRICAN AMERICAN 89 mL/min (>90)
[2018-09-22 08:37] LABS: ERYTHROCYTE SEDIMENTATION RATE 67 MM/HR (0-20)
[2018-09-22] MEDS: INSULIN LISPRO SLIDING SCALE 100 UNITS/ML VIAL (humaLOG) SUBCUT PRN ×3 (08:37→21:46)
[2018-09-22] MEDS ORDERED: NA PHOS,M-B/NA PHOS,DI-BA 118 ML (FLEET ENEMA) RC ONE (08:45)
[2018-09-22] MEDS: SIMETHICONE 80 MG TAB.CHEW PO SCH ×3 (08:50→21:43)
[2018-09-22] MEDS: LACTOBACILLUS RHAMNOSUS GG 1 CAP CAPSULE PO SCH ×2 (08:50→21:42)
[2018-09-22] MEDS: LORazepam 1 MG TABLET PO PRN (08:51)
[2018-09-22] MEDS: GABAPENTIN 300 MG CAPSULE PO SCH ×3 (08:51→21:43)
[2018-09-22] MEDS: METOPROLOL TARTRATE 25 MG TABLET PO SCH (08:53)
[2018-09-22] MEDS: POLYETHYLENE GLYCOL 3350, 17 GM/ POWD.PACK PO SCH (09:00)
[2018-09-22] MEDS: MINERAL OIL 30 ML UDC PO SCH (09:00)
[2018-09-22] MEDS ORDERED: DOCUSATE SODIUM 100 MG CAPSULE PO PRN (09:15)
[2018-09-22 11:19] VITALS: BP_SYST 114
--- NOTE | 2018-09-22 13:40 | NUR ---
Nutrition F/U RD reviewed pt's current EMR record including diet Hx, physician notes, nursing notes, pertinent labs/meds/procedures, care trends, and care activity. Current Diet Order: CCHO x2 days Subjective Info: Pt seen resting in bed, reported that she has been tolerating diet well, and enjoying snacks TID as ordered. Pt reported that she has been having diarrhea. 09/21/18 CT abd/pelvis revealed findings are c/w changes of severe constipation and chronic pancreatitis per EMR. Current % PO 92% average x 13 meals Estimated Energy Expenditure (kcals/day) 1922-0273 kcal/day (25-30 kca/kg CBW for maintenance) Estimated Protein Required (g/day) 54-65 gm/day (1-1.2 gm/kg CBW for maintenance) Estimated Fluid Required (l/day) 1.6-1.9 L/day (30-35 ml/kg CBW for maintenance) Problem/Etiology/Signs/Symptoms Altered nutrition-related labs related to endocrine dysfunction as evidenced by elevated BG and POC BG lab values. *ongoing, however, trending 200's versus 300's Expected Outcomes/Goals - Monitor appetite and PO intakes w/ goal of pt meeting at least 75% of estimated nutritional needs, labs trending WNL, normal GI function, and skin integrity/wt maintenance Dietitian Recommendations * Recommend continuing CCHO diet * Recommend continuing low-glycemic snacks TID in-between meals Follow Up Low Risk: F/U in 7 days
--- NOTE | 2018-09-22 13:51 | NUR ---
Dietitian Recommendations * Recommend continuing CCHO diet * Recommend continuing low-glycemic snacks TID in-between meals LP, RD Please refer to Nutrition F/U for details.
[2018-09-22 15:28] VITALS: BP_SYST 105
--- NOTE | 2018-09-22 18:46 | NUR ---
At the beginning of the shift pt in bed resting quietly,no c/o, call light in reach,pt told to call for kj. will monitor During the day pt awake,alert,room air,cooperative,pt assessed for c/o pain or discomfort noted,adm. analgesics as ordered,call light in reach,pt assessed for s/s of hyper/ hypoglysemia
--- NOTE | 2018-09-22 19:25 | NUR ---
OPENING NOTE Late entry d/t patient care. Received patient awake, AOx4, resting in bed. IV is SL to RAC and patent. Nonlabored breathing on room air. Presently patient reports severe pain and is requesting medication. Bed is locked to lowest position. Patient refused bed alarm, she has steady gait and ambulates. Call light w/in reach. Updated board.
--- NOTE | 2018-09-22 19:50 | NUR ---
Pain medication Patient reported severe abdominal pain and headache. She was given Morphine for severe pain as ordered. She was educated on side effects and verbalized understanding. She also stated that she does not have constipation and has had several bowel movements during the day. She called the nurse marketing administrative assistant; she asked him to take her outside to smoke. Will monitor.
[2018-09-22 20:00] VITALS: BP_SYST 116
--- NOTE | 2018-09-22 21:45 | NUR ---
Medications Patient' due medications were given. She was educated on indication / side effect and she verbalized understanding and further added she is familiar with medications. Fingerstick BGT was done w/ result of 162 mg/dL and she was given 2units of coverage per sliding scale order. IV antibiotic was set on 40 ml/hr due to patient request. She reports when IV antibiotic was infused at ordered rate her vein blew and presently to date she has had 11 IV starts. Presently tolerating IV antibiotic. Will monitor.
--- NOTE | 2018-09-22 22:30 | NUR ---
PAGED: PAGED DR. DELGADILLO FOLLOW UP CONSULT-GENETAL LESIONS CALL TRANSFERRED TO NURSE
--- NOTE | 2018-09-22 22:55 | NUR ---
Dr. Quang Lima Incoming call from Dr. Lima; He said he is out of town till Tuesday and is not available for consult. He said Dr. Licea is target protection specialist this weekend. I will call Dr. Kel Fink and notify.
--- NOTE | 2018-09-22 23:50 | NUR ---
Pain medication Patient reported severe pain to abdomen and she was given morphine for severe pain as ordered. It pushed very slowly and patient tolerated. She request a new pitcher of ice water and it was provided. She also request the lights off and the door closed. She asked if lab draws can be held till after 0600. I placed sign outside her door. Call light w/in reach. Will monitor.
--- NOTE | 2018-09-23 00:44 | NUR ---
Dr. Fink Spoke w/ Dr. Fink and notified Dr. Lima not able to consult w/ patient. He provided order for a consult w/ Dr. Oliveros. I also informed him of patient's c/o migraines and let him know she gets relief from Ketorolac IV or Sumatriptan IV and he ordered Sumatriptan 50mg PO Q4P migraine headache, I read-back. Will enter order in [facility].
[2018-09-23 00:52] VITALS: BP_SYST 106
[2018-09-23] MEDS: DIPHENHYDRAMINE INJ 50 MG/ML VIAL IVP PRN ×4 (01:44→20:13)
--- NOTE | 2018-09-23 02:10 | NUR ---
Rounds Patient reports she can't sleep due to neighboring room is loud; she said they are talking loud and she wants to sleep. I let her know the issue would be addressed. She was recently medicated with benadryl for itchiness and is comfortable. I informed the nurse of the neighboring room that her patient was loud. will follow up.
--- NOTE | 2018-09-23 04:44 | NUR ---
CONSULTATION PAGED/CALLED Reason for Consultation: GENITAL LESIONS Person Who was Notified: KAYLEY Consulting Physician: ASHLIE CLARK Principal Java Software Engineer Specialty: GYNO Ordering Physician: BRIANA MCMILLAN
--- NOTE | 2018-09-23 04:57 | NUR ---
Rounds Patient resting in comfortable position. Nonlabored breathing, on room air. Lights are low and call light w/in reach. Will monitor.
[2018-09-23] MEDS: MORPHINE SULFATE 10 MG/ML VIAL IVP PRN ×4 (05:40→20:14)
--- NOTE | 2018-09-23 05:45 | NUR ---
Pain Patient reported severe pain to abdomen, 10/10 and she was given morphine for severe pain as ordered. It was pushed very slowly and patient tolerated. She asked if lab draws can be held till after 0700. She wanted me to hold fingerstick BGT and antibiotic till 0700 and I let her know I will be giving report at 0700 and can be there 0650 and she agreed. Call light w/in reach.
[2018-09-23] MEDS: ACYCLOVIR IV 500 MG in D5W 100 ML IV SCH ×3 (07:01→21:09)
[2018-09-23] MEDS: INSULIN LISPRO SLIDING SCALE 100 UNITS/ML VIAL (humaLOG) SUBCUT PRN ×3 (07:05→20:11)
[2018-09-23] MEDS: INSULIN NPH/REGULAR 70-30, 100 UNITS/ML, 10 ML VIAL SUBCUT SCH ×2 (07:12→17:55)
--- NOTE | 2018-09-23 07:25 | NUR ---
Opening note Patient resting in bed at this time. No complaints of pain. Patient is A/O x4, No sob noted. Iv site patent, intact and infusing medication as ordered. Patient refused skin assessment. Educated patient on reason for skin assessment, patient still refusing. On safety precautions, patient refusing bed alarm, educated patient on importance, patient still refusing. Educated patient on the call light system, verbalized understanding, bed in lowest position, 2 side rails up, call light within reach. Will continue to monitor.
--- NOTE | 2018-09-23 07:35 | NUR ---
WHIT CONSULT: SHARON, AN EXCHANGE FROM DR. GUZMAN, HAS CALLED AND STATES TODAY DR. ORO IS ON-CALL FOR TODAY. SHE WILL SEND A MESSAGE TO MD Henderson
[2018-09-23 07:51] LABS: BASOPHILS # (AUTO) 0.1 K/uL (0.0-0.2); BASOPHILS % (AUTO) 1.3 % (0.0-2.0); EOSINOPHILS # (AUTO) 0.1 K/uL (0.0-0.4); EOSINOPHILS % (AUTO) 1.9 % (0.0-4.0); HEMATOCRIT 33.9 % (36-48); HEMOGLOBIN 10.4 g/dL (12.0-16.0); LYMPHOCYTES # (AUTO) 2.2 K/uL (1.0-5.5); LYMPHOCYTES % (AUTO) 27.9 % (20.5-51.5); MEAN CORPUSCULAR HEMOGLOBIN 26 pg (27-31); MEAN CORPUSCULAR HGB CONC 31 % (32-36); MEAN CORPUSCULAR VOLUME 83 fL (79.0-98.0); MONOCYTES # (AUTO) 0.8 K/uL (0.0-1.0); MONOCYTES % (AUTO) 9.5 % (1.7-9.3); NEUTROPHILS # (AUTO) 4.7 K/uL (1.8-7.7); NEUTROPHILS % (AUTO) 59.4 % (40.0-70.0); PLATELET COUNT (AUTO) 461 K/uL (130-430); RED BLOOD CELL COUNT(AUTO) 4.08 MIL/uL (4.2-6.2); RED CELL DISTRIBUTION WIDTH 18.8 % (9.0-15.0); WHITE BLOOD COUNT (AUTO) 7.9 K/uL (4.8-10.8)
[2018-09-23 08:02] LABS: AMYLASE 90 U/L (0-100); ANION GAP 8 (5-15); CALCIUM 9.7 mg/dL (8.4-11.0); CHLORIDE 102 mmol/L (98-107); CHOLESTEROL 171 mg/dL (<200); CREATININE 0.75 mg/dL (0.55-1.30); GLUCOSE 231 mg/dL (70-99); HDL CHOLESTEROL 40 mg/dL (>55); LDL CHOLESTEROL 104 mg/dL (<100); LIPASE 33 U/L (73-393); POTASSIUM 4.3 mmol/L (3.5-5.1); SODIUM SERUM 135 mmol/L (136-145); TRIGLYCERIDES 178 mg/dL (30-150); UREA NITROGEN, BLOOD 9 mg/dL (8-21)
[2018-09-23 08:10] LABS: GFR AFRICAN AMERICAN 113 mL/min (>90)
[2018-09-23 08:12] LABS: C-REACTIVE PROTEIN QUANT < 0.2 mg/dL (0-0.5)
[2018-09-23] MEDS: SIMETHICONE 80 MG TAB.CHEW PO SCH ×3 (08:16→20:12)
[2018-09-23] MEDS: LACTOBACILLUS RHAMNOSUS GG 1 CAP CAPSULE PO SCH ×2 (08:17→20:12)
[2018-09-23] MEDS: SUMAtriptan SUCCINATE 50 MG TABLET PO PRN ×2 (08:17→17:59)
[2018-09-23] MEDS: GABAPENTIN 300 MG CAPSULE PO SCH ×3 (08:17→20:12)
[2018-09-23] MEDS: METOPROLOL TARTRATE 25 MG TABLET PO SCH (08:17)
[2018-09-23] MEDS: MINERAL OIL 30 ML UDC PO SCH (08:18)
[2018-09-23] MEDS: POLYETHYLENE GLYCOL 3350, 17 GM/ POWD.PACK PO SCH (08:18)
[2018-09-23 08:30] VITALS: BP_SYST 112
[2018-09-23 08:34] LABS: ERYTHROCYTE SEDIMENTATION RATE 65 MM/HR (0-20)
--- NOTE | 2018-09-23 09:30 | NUR ---
Rounds Patient resting in bed, no complaints of pain at this time. Iv site patent, and intact. Patient in stable condition.
[2018-09-23] MEDS: ONDANSETRON HCL 4 MG/2 ML VIAL IVP PRN ×2 (10:10→15:13)
[2018-09-23 10:31] VITALS: BP_SYST 110
--- NOTE | 2018-09-23 11:10 | NUR ---
Accu check Patient asking not to be disturbed for accu checks or vitals at this time. Patient wants to rest, and have blood sugar checked at a later time. Educated patient on the importance of Blood sugar checks and vitals on time, patient refusing. Will attempt to check again prior to lunch.
[2018-09-23 12:30] VITALS: BP_SYST 108
--- NOTE | 2018-09-23 12:50 | NUR ---
Accu check Patient noted with blood sugar of 53, Patient refused glucose gel PRN. Patient stated she does not want it and she would like to eat lunch and some snacks instead. Offered snacks, and dinner. Patient in stable condition.
--- NOTE | 2018-09-23 13:00 | NUR ---
Paged Dr. Blandon Paged Dr. Blandon for Blood sugar of 53, MD stated she will come in to see the patient.
--- NOTE | 2018-09-23 13:02 | NUR ---
PAGED PAGED AT [phone] SPOKE WITH EXCHANGE WAS INFORMED IN SUPERVISOR [employer]IR[employer]. PAGED AT [phone] SPOKE WITH RENETTA.
--- NOTE | 2018-09-23 13:55 | NUR ---
Accu check Rechecked patients blood sugar after lunch and snacks, blood sugar result of 225. Dr. Moore at bedside.
[2018-09-23 14:23] LABS: HSV 1 IgG, TYPE SPECIFIC <0.91
--- NOTE | 2018-09-23 14:36 | NUR ---
MEDICATION WAS NOT SAVED AFTER SCAN: 10.10 GIVE MORPHINE 5 MG IVP, ZOFRAN 4 MG IVP, AND BENADRYL 50 MG IVP. ALL MEDICATION WERE SCANNED, BUT FOUND OUT NOW THAT THEY WERE NOT SAVED IN THE COMPUTER. I EVEN NEED TO BLISS COMPUTER 2 TIMES BECAUSE IT WAS NOT SCANNED.
[2018-09-23 16:00] VITALS: BP_SYST 112
--- NOTE | 2018-09-23 16:45 | NUR ---
Rounds patient resting in bed at this time. No SOB, no complaints of pain. Patient refusing skin assessment, educated patient on importance, patient still refusing. Patient in stable condition.
--- NOTE | 2018-09-23 18:21 | NUR ---
Closing note Patient resting in bed at this time. No complaints of pain. Patient is A/O x4, No sob noted. Iv site patent, intact and infusing medication as ordered. Patient refused skin assessment. Educated patient on reason for skin assessment, patient still refusing. On safety precautions, patient refusing bed alarm, educated patient on importance, patient still refusing. Educated patient on the call light system, verbalized understanding, bed in lowest position, 2 side rails up, call light within reach. All needs met. Patient in stable condition.
--- NOTE | 2018-09-23 19:10 | NUR ---
OPENING NOTES Bedside report received from dayshift nurse. Patient received lying in bed. No s/s of acute distress noted. Breathing even and unlabored. IV site patent. No signs of infiltration or infection noted. Patient denies any pain. Call light with patient. Will continue to monitor.
[2018-09-23 20:00] VITALS: BP_SYST 122
[2018-09-23] MEDS: SIMVASTATIN 20 MG TABLET PO SCH (20:12)
--- NOTE | 2018-09-23 21:00 | NUR ---
ROUNDS/IV antibiotic Patient in bed awake, watching TV. No signs of discomfort noted. Chest rise and fall even bilaterally. IV antibiotic hung, IV site patent, no signs of infiltration or infection noted. Call light with patient. Will continue to monitor.
--- NOTE | 2018-09-23 23:00 | NUR ---
ROUNDS/SNACKS Patient requested for snacks. Snacks provided by RN. No s/s of acute distress noted. Breathing even and unlabored. All needs met. Call light with patient.
[2018-09-24] VITALS: BP_SYST 128
[2018-09-24] MEDS: DIPHENHYDRAMINE INJ 50 MG/ML VIAL IVP PRN ×5 (00:19→21:00)
[2018-09-24] MEDS: MORPHINE SULFATE 10 MG/ML VIAL IVP PRN ×5 (00:19→20:59)
--- NOTE | 2018-09-24 05:00 | NUR ---
NEW IV SITE Previous IV site at right upper arm removed, patient complaining of pain at that site, catheter fully intact, no active bleeding noted. New IV site at right forearm, 22 gauge. Patient tolerated procedure well. All needs met at this time. Call light with patient. Will continue to monitor.
[2018-09-24] MEDS: INSULIN NPH/REGULAR 70-30, 100 UNITS/ML, 10 ML VIAL SUBCUT SCH ×2 (06:08→17:55)
[2018-09-24] MEDS: INSULIN LISPRO SLIDING SCALE 100 UNITS/ML VIAL (humaLOG) SUBCUT PRN ×3 (06:09→20:51)
[2018-09-24] MEDS: ACYCLOVIR IV 500 MG in D5W 100 ML IV SCH ×3 (06:10→22:18)
[2018-09-24] MEDS: SUMAtriptan SUCCINATE 50 MG TABLET PO PRN ×2 (06:17→14:16)
--- NOTE | 2018-09-24 06:43 | NUR ---
CLOSING NOTES Patient in bed sleeping at this time. NO s/s of acute distress noted. Breathing is even and unlabored. IV antibiotic infusing well. IV site patent, no signs of infiltration or infection noted. Skin warm and dry to touch, no s/s of hypoglycemia noted. All needs met throughout shift. Fall and safety precautions maintained throughout shift. Will continue to monitor until patient care is endorsed to oncoming dayshift nurse.
[2018-09-24 07:15] LABS: BASOPHILS # (AUTO) 0.1 K/uL (0.0-0.2); BASOPHILS % (AUTO) 1.2 % (0.0-2.0); EOSINOPHILS # (AUTO) 0.2 K/uL (0.0-0.4); EOSINOPHILS % (AUTO) 2.4 % (0.0-4.0); HEMOGLOBIN 10.3 g/dL (12.0-16.0); LYMPHOCYTES # (AUTO) 2.2 K/uL (1.0-5.5); LYMPHOCYTES % (AUTO) 33.6 % (20.5-51.5); MEAN CORPUSCULAR HEMOGLOBIN 26 pg (27-31); MEAN CORPUSCULAR HGB CONC 31 % (32-36); MEAN CORPUSCULAR VOLUME 84 fL (79.0-98.0); MONOCYTES # (AUTO) 0.7 K/uL (0.0-1.0); MONOCYTES % (AUTO) 10.9 % (1.7-9.3); NEUTROPHILS # (AUTO) 3.3 K/uL (1.8-7.7); NEUTROPHILS % (AUTO) 51.9 % (40.0-70.0); PLATELET COUNT (AUTO) 404 K/uL (130-430); RED BLOOD CELL COUNT(AUTO) 3.94 MIL/uL (4.2-6.2); RED CELL DISTRIBUTION WIDTH 18.5 % (9.0-15.0); WHITE BLOOD COUNT (AUTO) 6.4 K/uL (4.8-10.8)
--- NOTE | 2018-09-24 07:35 | NUR ---
FOLLOW UP ON CONSULT REASON FOR CONSULTATION:GENITAL LESION WAS CONSULT CALLED?Y PERSON WHO WAS NOTIFIED:ARMINDA CONSULTING PHYSICIAN:SEJAL FAITH PASSENGER TIRE INSPECTOR SPECIALTY:OBGYN PASSENGER TIRE INSPECTOR PHONE NUMBER:[phone] REQUESTING PHYSICIAN:BRIANA DONOHUE
[2018-09-24 08:28] LABS: ANION GAP 6 (5-15); CALCIUM 10.2 mg/dL (8.4-11.0); CHLORIDE 102 mmol/L (98-107); CREATININE 0.73 mg/dL (0.55-1.30); GLUCOSE 252 mg/dL (70-99); POTASSIUM 4.4 mmol/L (3.5-5.1); SODIUM SERUM 135 mmol/L (136-145); UREA NITROGEN, BLOOD 12 mg/dL (8-21)
[2018-09-24 08:48] LABS: ERYTHROCYTE SEDIMENTATION RATE 66 MM/HR (0-20)
[2018-09-24] MEDS: POLYETHYLENE GLYCOL 3350, 17 GM/ POWD.PACK PO SCH (09:25)
[2018-09-24] MEDS: METOPROLOL TARTRATE 25 MG TABLET PO SCH (09:27)
[2018-09-24] MEDS: SIMETHICONE 80 MG TAB.CHEW PO SCH ×3 (09:27→20:54)
[2018-09-24] MEDS: GABAPENTIN 300 MG CAPSULE PO SCH ×3 (09:27→20:54)
[2018-09-24 09:28] LABS: C-REACTIVE PROTEIN QUANT < 0.2 mg/dL (0-0.5); GFR AFRICAN AMERICAN 117 mL/min (>90)
[2018-09-24] MEDS: ONDANSETRON HCL 4 MG/2 ML VIAL IVP PRN ×3 (09:28→22:17)
[2018-09-24] MEDS: LACTOBACILLUS RHAMNOSUS GG 1 CAP CAPSULE PO SCH ×2 (09:29→20:54)
[2018-09-24] MEDS: MINERAL OIL 30 ML UDC PO SCH (09:29)
--- NOTE | 2018-09-24 09:31 | NUR ---
AM note patient resting in bed, a/ox4, in pain, charge nurse Kranthi RN at bedside, new IV line placed to right forearm 22g, flushing well, morning medications and PRN medications being administered by Kranthi RN, patient tolerated well, assessment complete, patient requesting hemorrhoid cream, called pharmacy to bring medication, will follow up as needed, educated patient on plan of care and myah Mabaya system and to call for any assistance, she verbalized understanding, bed in lowest position, two side rails up, call light within reach, fall and aspiration precautions in place.
[2018-09-24 09:54] VITALS: BP_SYST 102
--- NOTE | 2018-09-24 11:30 | NUR ---
RN rounds/Dr. Jane rounds patient resting in bed, denies pain, Dr. Jane at bedside at this time, spoke with patient, patient allowed only limited physical exam, will follow up with any new orders. Patient allowed for blood glucose to be checked, but refuses insulin coverage this time, will follow up, fall and aspiration precautions in place.
[2018-09-24 12:00] VITALS: BP_SYST 100
--- NOTE | 2018-09-24 13:05 | NUR ---
Insulin follow up patient out of bed to restroom, inquired if patient would like insulin coverage prior to eating lunch, patient still refuses at this time, educated on need for insulin coverage and benefits, patient still refuses, continuing to monitor patient, fall precautions in place.
--- NOTE | 2018-09-24 13:37 | NUR ---
Dr. Blandon rounds informed of patient status and blood sugars, and patient's refusal of insulin this afternoon, will follow up with any new orders.
[2018-09-24] MEDS: ACYCLOVIR 30 GM OINT TP SCH ×3 (14:00→22:00)
--- NOTE | 2018-09-24 14:49 | NUR ---
Called Pharmacy regarding ordered ointment - medication is not available in pharmacy.
[2018-09-24 15:20] VITALS: BP_SYST 108
--- NOTE | 2018-09-24 15:21 | NUR ---
RN rounds/Medication patient returned from smoking outside, stable condition, educated on medications scheduled and PRN at this time, patient verbalized understanding, and tolerated well, IV line is patent and infusing well, no other needs at this time, bed in lowest position, two side rails up, call light within reach, fall and aspiration precautions in place.
[2018-09-24] MEDS ORDERED: GOLYTELY / COLYTE SOLUTION 4 LITERS PO ONE (17:15)
--- NOTE | 2018-09-24 17:51 | NUR ---
Blood glucose/Rounds patient resting in bed, awake, blood glucose checked and insulin coverage provided per MD orders, patient tolerated well, educated patient on new medication uses and potential side effects, she verbalized understanding, will drink slowly, no other needs at this time, bed in lowest position, two side rails up, call light within reach, fall and aspiration precautions in place.
--- NOTE | 2018-09-24 18:30 | NUR ---
Closing note patient resting in bed, awake, stable condition, denies pain at this time, all needs met, will endorse report to NOC shift nurse, bed in lowest position, two side rails up, call light within reach, fall and aspiration precautions in place.
--- NOTE | 2018-09-24 19:10 | NUR ---
Pt was received in bed fully AAO x4. No acute distress noted. IV site in LFA is without any signs of infiltration. Skin is warm and dry to touch No signs or symptoms of hypoglycemia or hyperglycemia noted. Fall and safety precautions are in place. Call light is with pt and bed is in the lowest and locked positions. Pt was instructed to call for assistance as needed and pt verbalized understanding.
[2018-09-24 20:00] VITALS: BP_SYST 129
--- NOTE | 2018-09-24 20:51 | NUR ---
Accucheck 336 and 8 units Humalog Insulin was given SQ. Skin remains warm and dry to touch. Pt was given HS snacks per her request and pt ate 100%.
[2018-09-24] MEDS: SULFAMETHOXAZOLE/TRIMETHOPR DS 1 TABLET PO SCH (20:54)
[2018-09-24] MEDS: SIMVASTATIN 20 MG TABLET PO SCH (20:54)
--- NOTE | 2018-09-24 21:00 | NUR ---
Pt c/o abdominal pain and itching. Morphine 5mg IV and Benadryl 50mg IV were given IV by charge nurse Corky per pt's request.
--- NOTE | 2018-09-24 22:17 | NUR ---
Zofran 4mg was given IV per pt's request for c/o nausea. IV site is without any signs of infiltration.
--- NOTE | 2018-09-25 | NUR ---
Pt is awake and watching TV. No acute distress noted. Fall and safety precautions are in place.
[2018-09-25 00:22] VITALS: BP_SYST 104
[2018-09-25] MEDS: MORPHINE SULFATE 10 MG/ML VIAL IVP PRN ×2 (01:39→08:44)
--- NOTE | 2018-09-25 01:39 | NUR ---
Morphine 5mg was given IV for c/o 8/10 abdominal pain. Fall and safety precautions are in place. Call light is with pt and bed is in the lowest and locked positions. Pt was instructed to call for assistance as needed and pt verbalized understanding.
--- NOTE | 2018-09-25 03:30 | NUR ---
Pt is sleeping without any distress noted. Fall and safety precautions are in place.
--- NOTE | 2018-09-25 05:00 | NUR ---
Pt continues to sleep without any distress noted. Fall and safety precautions are in place.
[2018-09-25] MEDS: ACYCLOVIR 30 GM OINT TP SCH ×5 (06:00→21:24)
[2018-09-25] MEDS: SUMAtriptan SUCCINATE 50 MG TABLET PO PRN ×2 (06:34→12:56)
[2018-09-25] MEDS: INSULIN LISPRO SLIDING SCALE 100 UNITS/ML VIAL (humaLOG) SUBCUT PRN ×3 (06:41→21:32)
[2018-09-25] MEDS: INSULIN NPH/REGULAR 70-30, 100 UNITS/ML, 10 ML VIAL SUBCUT SCH (06:44)
--- NOTE | 2018-09-25 06:45 | NUR ---
Pt is awake and alert. All pt's needs were attended to. Will endorse to day shift nurse.
[2018-09-25 08:09] VITALS: BP_SYST 130
--- NOTE | 2018-09-25 08:15 | NUR ---
OPENING NOTE patient is resting in bed with eyes closed, breathing is even and unlabored on room air, no acute distress noted, pain is controlled at this time, will continue to monitor, safety precautions in place, call light within reach.
[2018-09-25] MEDS: GABAPENTIN 300 MG CAPSULE PO SCH ×3 (08:39→21:24)
[2018-09-25] MEDS: LACTOBACILLUS RHAMNOSUS GG 1 CAP CAPSULE PO SCH ×2 (08:39→21:38)
[2018-09-25] MEDS: SIMETHICONE 80 MG TAB.CHEW PO SCH ×3 (08:40→21:24)
[2018-09-25] MEDS: METOPROLOL TARTRATE 25 MG TABLET PO SCH (08:40)
[2018-09-25] MEDS: SULFAMETHOXAZOLE/TRIMETHOPR DS 1 TABLET PO SCH ×2 (08:40→21:25)
[2018-09-25] MEDS: ACYCLOVIR 400 MG TABLET PO SCH ×2 (08:42→21:25)
[2018-09-25] MEDS: POLYETHYLENE GLYCOL 3350, 17 GM/ POWD.PACK PO SCH (08:44)
[2018-09-25] MEDS ORDERED: ACYC400T PO (08:56)
[2018-09-25] MEDS: ONDANSETRON HCL 4 MG/2 ML VIAL IVP PRN (09:45)
[2018-09-25] MEDS: DIPHENHYDRAMINE INJ 50 MG/ML VIAL IVP PRN ×2 (09:45→18:49)
--- NOTE | 2018-09-25 10:09 | NUR ---
NOTES patient is resting in bed with eyes closed, breathing is even and unlabored on room air, pain is controlled at this time, will continue to monitor, safety precautions in place, call light within reach.
[2018-09-25] MEDS: MINERAL OIL 30 ML UDC PO SCH (10:38)
--- NOTE | 2018-09-25 12:00 | NUR ---
BLOOD SUGAR IS 149 AT THIS TIME, NO INSULIN COVERAGED NEEDED PER SLIDING SCALE.
[2018-09-25 12:08] VITALS: BP_SYST 130
[2018-09-25] MEDS ORDERED: MINO30 PO (12:23)
[2018-09-25] MEDS ORDERED: POLY17PO4 PO (12:23)
[2018-09-25] MEDS ORDERED: SULF1TAB48 PO (12:23)
[2018-09-25] MEDS ORDERED: SIMV20TA2 PO (12:23)
--- NOTE | 2018-09-25 14:00 | NUR ---
MD ROUNDS Dr. Roque assessed patient at this time, MD advises patient to stay one more day for a bowel movement.
--- NOTE | 2018-09-25 16:45 | NUR ---
NOTES patient is resting in bed with eyes closed, no acute distress or pain is noted at this time, breathing is even and unlabored on room air, will continue to monitor, safety precautions in place, call light within reach.
[2018-09-25] MEDS ORDERED: INSULIN NPH/REGULAR 70-30, 100 UNITS/ML, 10 ML VIAL SUBCUT SCH (17:00)
[2018-09-25] MEDS ORDERED: ACETAMINOPHEN 325 MG TABLET PO PRN (18:15)
[2018-09-25] MEDS ORDERED: HYDROcodone/ACETAMIN 5-325 MG TAB (NORCO/ VICODIN) PO PRN (18:15)
--- NOTE | 2018-09-25 18:33 | NUR ---
CLOSING NOTE patient is resting in bed A&O x4, no acute distress or pain at this time, all needs were met throughout shift, breathing is even and unlabored on room air, will endorse report to oncoming nurse, safety precautions in place, call light within reach.
[2018-09-25] MEDS ORDERED: KETOROLAC TROMETHAMINE 15 MG VIAL IVP PRN (19:00)
--- NOTE | 2018-09-25 19:05 | NUR ---
Report was received from day shift nurse. Pt is fully AAO x4. Speech is clear and no c/o pain or discomfort at this time. IV site in LFA is without any signs of infiltration. Skin is warm and dry to touch No signs or symptoms of hypoglycemia or hyperglycemia noted. Fall and safety precautions are in place. Call light is with pt and bed is in the lowest and locked positions. Pt was instructed to call for assistance as needed and pt verbalized understanding.
[2018-09-25 20:00] VITALS: BP_SYST 112
[2018-09-25] MEDS: SIMVASTATIN 20 MG TABLET PO SCH (21:24)
--- NOTE | 2018-09-25 21:27 | NUR ---
Pt c/o 6/10 abdominal pain. Toradol 30mg was given IV per pt's request. IV site in LFA is without any signs of infiltration.
--- NOTE | 2018-09-25 21:32 | NUR ---
Accucheck 318 and 8 units Humalog Insulin was given SQ. Skin remains warm and dry to touch. Pt was given 2 1/2 turkey sandwiches and 2 cups pudding for HS snacks per her request and pt ate 100%.
--- NOTE | 2018-09-25 23:00 | NUR ---
Pt is awake and resting quietly in bed. No c/o pain or discomfort. Fall and safety precautions are in place.
[2018-09-26 00:41] VITALS: BP_SYST 117
--- NOTE | 2018-09-26 01:00 | NUR ---
Pt is sleeping comfortably in bed. Fall and safety precautions are in place.
--- NOTE | 2018-09-26 03:00 | NUR ---
Pt is sleeping without any distress noted. Fall and safety precautions are in place.
--- NOTE | 2018-09-26 05:39 | NUR ---
Pt continues to sleep without any distress noted. Fall and safety precautions are in place.
[2018-09-26] MEDS: DIPHENHYDRAMINE INJ 50 MG/ML VIAL IVP PRN (06:21)
--- NOTE | 2018-09-26 06:21 | NUR ---
BENADRYL 50MG WAS GIVEN IV PER PT'S REQUEST FOR C/O ITCHING. PT WAS INSTRUCTED TO CALL FOR ASSISTANCE BEFORE GETTING OUT OF BED IF SHE FEELS DIZZY OR DROWSY AND PT VERBALIZED UNDERSTANDING.
--- NOTE | 2018-09-26 06:25 | NUR ---
Accucheck 268 and pt requested to have AM nurse bring her 6 units Humalog sliding scale Insulin coverage and scheduled 30 units Novolin 70/30 Insulin with her breakfast. Skin remains warm and dry to touch. Fall and safety precautions are in place.
[2018-09-26] MEDS: ACYCLOVIR 30 GM OINT TP SCH ×2 (06:29→08:54)
--- NOTE | 2018-09-26 07:20 | NUR ---
Initial notes: Patient awake, alert and oriented. Stable. I.V. access patent. Discussed plan of care. Call light within reach. Safety measures in placed. Report received at bedside.
[2018-09-26 08:00] VITALS: BP_SYST 142
--- NOTE | 2018-09-26 08:00 | NUR ---
Isaura rounds: Seen by Dr. Roque and cleared patient to go home.
--- NOTE | 2018-09-26 08:15 | NUR ---
medication: insulin given as per request of patient to adjust the time.
[2018-09-26] MEDS: INSULIN NPH/REGULAR 70-30, 100 UNITS/ML, 10 ML VIAL SUBCUT SCH (08:42)
[2018-09-26] MEDS: INSULIN LISPRO SLIDING SCALE 100 UNITS/ML VIAL (humaLOG) SUBCUT PRN ×2 (08:43→12:48)
[2018-09-26] MEDS: SUMAtriptan SUCCINATE 50 MG TABLET PO PRN (08:47)
[2018-09-26] MEDS: POLYETHYLENE GLYCOL 3350, 17 GM/ POWD.PACK PO SCH (08:52)
[2018-09-26] MEDS: SULFAMETHOXAZOLE/TRIMETHOPR DS 1 TABLET PO SCH (08:52)
[2018-09-26] MEDS: SIMETHICONE 80 MG TAB.CHEW PO SCH (08:52)
[2018-09-26] MEDS: MINERAL OIL 30 ML UDC PO SCH (08:52)
[2018-09-26] MEDS: METOPROLOL TARTRATE 25 MG TABLET PO SCH (08:53)
[2018-09-26] MEDS: LACTOBACILLUS RHAMNOSUS GG 1 CAP CAPSULE PO SCH (08:53)
[2018-09-26] MEDS: GABAPENTIN 300 MG CAPSULE PO SCH (08:53)
[2018-09-26] MEDS: ACYCLOVIR 400 MG TABLET PO SCH (08:53)
--- NOTE | 2018-09-26 10:19 | NUR ---
rounds: patient went out for smoke.
[2018-09-26 10:31] VITALS: BP_SYST 146
[2018-09-26 11:41] VITALS: BP_SYST 146
--- NOTE | 2018-09-26 12:00 | NUR ---
rounds: patient taking a shower.
[2018-09-26] MEDS ORDERED: GABA-531 PO (12:09)
[2018-09-26] MEDS ORDERED: METO25TA6 PO (12:10)
[2018-09-26] MEDS ORDERED: INSNLG7030 SUBCUT (12:10)
[2018-09-26] MEDS ORDERED: MINE25OI3 PO (12:29)
[2018-09-26] MEDS ORDERED: BACL20 PO (12:30)
[2018-09-26] MEDS ORDERED: POLY17PO4 PO (12:30)
[2018-09-26] MEDS ORDERED: HUM100IN SQ (12:31)
[2018-09-26] MEDS ORDERED: SIMV20TA6 PO (12:32)
--- NOTE | 2018-09-26 13:56 | NUR ---
D/C Patient Patient given medication reconciliation form and D/C instructions. Exit Care provided. Patient verbalized understanding. MD discussed with patient the results and treatment provided. Ambulatory with steady gait for discharge to home. Patient in stable condition, ID band removed. IV catheter removed, intact and dressing applied, no active bleeding. Rx given. Patient educated on pain management. All belongings sent with patient.
== END 2018-09-26 13:50 | disposition home or self-care (01) | DRG 420 ==
LOC: SED 19:47 → SIC 22:24 → SMU 09-17 16:52
PROVIDERS: ADMIT Preventive Medicine Preventive Medicine/Occupational Environmental Medicine; ATTEND Preventive Medicine Preventive Medicine/Occupational Environmental Medicine
DX: E10.10 Type 1 diabetes mellitus with ketoacidosis without coma (principal); D69.6 Thrombocytopenia, unspecified; E44.0 Moderate protein-calorie malnutrition; E10.42 Type 1 diabetes mellitus with diabetic polyneuropathy; E84.9 Cystic fibrosis, unspecified; K86.1 Other chronic pancreatitis; E87.1 Hypo-osmolality and hyponatremia; A60.00 Herpesviral infection of urogenital system, unspecified; E03.9 Hypothyroidism, unspecified; E78.2 Mixed hyperlipidemia; F41.9 Anxiety disorder, unspecified; G43.909 Migraine, unspecified, not intractable, without status migrainosus; I10 Essential (primary) hypertension; I25.10 Atherosclerotic heart disease of native coronary artery without angina pectoris; D63.1 Anemia in chronic kidney disease; K52.9 Noninfective gastroenteritis and colitis, unspecified; K59.09 Other constipation; K64.9 Unspecified hemorrhoids; Z79.4 Long term (current) use of insulin; Z79.890 Hormone replacement therapy; Z86.14 Personal history of Methicillin resistant Staphylococcus aureus infection; Z91.19 Patient's noncompliance with other medical treatment and regimen; Z98.891 History of uterine scar from previous surgery; Z79.899 Other long term (current) drug therapy; Z22.322 Carrier or suspected carrier of Methicillin resistant Staphylococcus aureus
CPT/HCPCS: 36415; 76536-TC; 76700-TC; 80048; 80053; 80061; 80076; 81000-TC; 82150-TC; 82272; 82962; 83036; 83690-TC; 83735-TC; 84100-TC; 84439; 84443-TC; 85025; 85651-TC; 86140; 86694; 86695; 86696; 87040-TC; 87045-TC; 87046; 87081; 87086; 87230-TC; 89055; 96365; 96375; 99285; J0133; J1200; J1815; J1885; J2060; J2270; J2405; J3480; J7030; J7050; J7060; Q9964; Q9967

== ENCOUNTER 2018-10-31 00:46 | Emergency (ER) | payer MEDICAID ==
[~2018-10-31] VITALS: Ht 165.1 cm; Wt 59.0 kg
[~2018-10-31 00:46] MED LIST changes: +ACYC400T PO; +GABA-531 PO; +INSNLG7030 SUBCUT; -INSU100V9 SQ; -METF-381 PO; +MINE25OI3 PO; -NEU100 PO; +POLY17PO4 PO; +SIMV20TA6 PO; -VALA500T33 PO
[2018-10-31 01:07] VITALS: BP_SYST 125
--- NOTE | 2018-10-31 01:07 | NUR ---
Pt c/o elevated blood glucose "all day." Pt states that she has a Benavidez monitor and it has been "unreadable." Pt states that she has had vomiting x 3 episodes with 12 episodes of diarrhea since this am and has only eaten once. Pt also c/o neuropathy and "can barely feel her toes." Pt states that she took her Rx insulin 20 Units at 0900 and 25 Units at 1800. "I feel miserable and have flu-like symptoms. I took Motrin 800 mg at 6PM because my knukles feel inflamed."
--- NOTE | 2018-10-31 01:07 | NUR ---
Patient to ER bed 06 to gown for evaluation. Side rails up. Report given to PRAVIN Avendano
--- NOTE | 2018-10-31 01:25 | NUR ---
Pt c/o generalized body aches and requests pain medication. Dr. Lester notified.
[2018-10-31] MEDS ORDERED: NACL 0.9% 1,000 ML IV ONE (01:28)
[2018-10-31] MEDS ORDERED: INSULIN REGULAR, HUMAN 10 UNITS/0.1 ML INJ IVP ONE (01:30)
[2018-10-31] MEDS ORDERED: KETOROLAC TROMETHAMINE 30 MG VIAL IVP ONE (01:30)
[2018-10-31] MEDS ORDERED: ONDANSETRON HCL 4 MG/2 ML VIAL IVP ONE (01:30)
--- NOTE | 2018-10-31 01:50 | NUR ---
Attempted to medicate pt with Toradol. Pt refuses and requests for the ER MD to give her Morphine and Ativan. Dr. Lester notified.
--- NOTE | 2018-10-31 02:00 | NUR ---
# 20 gauge angiocath placed to RFA. Use of asceptic technique. Opsite placed over site. Blood return noted. Blood for lab drawn from site. Flushed with 10 cc of normal saline. No evidence of infiltration noted. Patient tolerated well.
--- NOTE | 2018-10-31 02:15 | NUR ---
Pt reports IV tubing was snagged on her purse causing it to leak. Tubing found not intact. Pt also also stated "Can you ask the doctor if I'm getting my ativan? This is the first time my feet are hurting like this. He's giving me toradol but that doesn't work with this pain. I normally get morphine or dilaudid."
--- NOTE | 2018-10-31 02:15 | NUR ---
Dr. Lester notified.
[2018-10-31 02:21] LABS: BILIRUBIN,URINE NEGATIVE (NEGATIVE); BLOOD, URINE NEGATIVE (NEGATIVE); CLARITY/URINE CLEAR (CLEAR); COLOR,URINE YELLOW (YELLOW); GLUCOSE,URINE 2+ (NEGATIVE); KETONES,URINE NEGATIVE (NEGATIVE); LEUKOCYTE ESTERASE ,URINE NEGATIVE (NEGATIVE); NITRITE, URINE NEGATIVE (NEGATIVE); PH,URINE 6.5 (5.0-8.0); PROTEIN URINE NEGATIVE (NEGATIVE); UROBILINOGEN,URINE 0.2 (0.2-1.0)
[2018-10-31 02:23] LABS: BASOPHILS # (AUTO) 0.1 K/uL (0.0-0.2); BASOPHILS % (AUTO) 0.7 % (0.0-2.0); EOSINOPHILS # (AUTO) 0.1 K/uL (0.0-0.4); EOSINOPHILS % (AUTO) 1.4 % (0.0-4.0); HEMATOCRIT 35.1 % (36-48); HEMOGLOBIN 11.6 g/dL (12.0-16.0); LYMPHOCYTES # (AUTO) 3.4 K/uL (1.0-5.5); LYMPHOCYTES % (AUTO) 44.6 % (20.5-51.5); MEAN CORPUSCULAR HEMOGLOBIN 28 pg (27-31); MEAN CORPUSCULAR HGB CONC 33 % (32-36); MEAN CORPUSCULAR VOLUME 83 fL (79.0-98.0); MONOCYTES # (AUTO) 0.5 K/uL (0.0-1.0); MONOCYTES % (AUTO) 7.2 % (1.7-9.3); NEUTROPHILS # (AUTO) 3.5 K/uL (1.8-7.7); NEUTROPHILS % (AUTO) 46.1 % (40.0-70.0); PLATELET COUNT (AUTO) 446 K/uL (130-430); RED BLOOD CELL COUNT(AUTO) 4.22 MIL/uL (4.2-6.2); RED CELL DISTRIBUTION WIDTH 15.5 % (9.0-15.0); WHITE BLOOD COUNT (AUTO) 7.5 K/uL (4.8-10.8)
[2018-10-31 02:34] LABS: BACTERIA,URINE FEW /HPF (None Seen); RBC,URINE 0-3 /HPF (0-3); WBC,URINE 0-3 /HPF (0-3)
[2018-10-31 02:38] LABS: CALCIUM 9.1 mg/dL (8.4-11.0); CREATININE 0.63 mg/dL (0.55-1.30); POTASSIUM 3.3 mmol/L (3.5-5.1)
[2018-10-31 02:43] LABS: ALBUMIN 3.5 g/dL (3.4-4.8); TOTAL BILIRUBIN 0.3 mg/dL (0.0-1.0)
[2018-10-31] MEDS ORDERED: POTASSIUM CHLORIDE 20 MEQ TAB.PRT.SR PO ONE (03:00)
--- NOTE | 2018-10-31 03:15 | NUR ---
re-checked patient's blood sugar, result 48. Dr. Lester made aware.
--- NOTE | 2018-10-31 03:22 | NUR ---
D50 x 1 amp given to patent PIV RFA for fingerstick glucose of 48 mg/dL.
--- NOTE | 2018-10-31 03:23 | NUR ---
Pt states "I bet the regrets wanting to send me home now."
--- NOTE | 2018-10-31 03:25 | NUR ---
Seen patient close curtain.
[2018-10-31] MEDS ORDERED: DEXTROSE 50% JECT 50 ML DISP.SYRIN IVP ONE (03:30)
--- NOTE | 2018-10-31 03:32 | NUR ---
Patient wentw into the bathroom.
[2018-10-31] MEDS ORDERED: DEXTROSE 50% JECT 50 ML DISP.SYRIN ONE (03:38)
--- NOTE | 2018-10-31 03:42 | NUR ---
patient was moved to bed 5 and placed on diagnostic cardiac sonographer.
--- NOTE | 2018-10-31 03:43 | NUR ---
patient was asked to get into a gown so we can place her on monitoring and evaluation advisor. patient states "Oh now, the doctor wants to admit me?"
[2018-10-31] MEDS ORDERED: LORazepam 1 MG TABLET PO ONE (04:00)
--- NOTE | 2018-10-31 04:30 | NUR ---
Pt resting quietly, even and non-labored respirations, VSS.
--- NOTE | 2018-10-31 05:30 | NUR ---
Pt resting quietly, even and non-labored respirations, VSS.
--- NOTE | 2018-10-31 06:04 | NUR ---
Pt requests an Rx for "Insulin 70/30" and refuses to sign discharge papers until she receives the Rx. Dr. Lester notified.
[2018-10-31 06:15] VITALS: BP_SYST 122
--- NOTE | 2018-10-31 06:15 | NUR ---
Patient given written and verbal discharge instructions and verbalizes understanding. ER MD discussed with patient the results and treatment provided. Patient in stable condition. ID arm band removed. IV catheter removed intact and dressing applied, no active bleeding. Rx of Potassium Chloride and Zofran given. Patient educated on pain management and to follow up with PMD. Pain Scale 2/10. Opportunity for questions provided and answered. Medication side effect fact sheet provided.
== END 2018-10-31 06:15 | disposition home or self-care (01) ==
LOC: SED 00:46
DX: E11.9 Type 2 diabetes mellitus without complications (principal); E03.9 Hypothyroidism, unspecified; F41.9 Anxiety disorder, unspecified; Z86.79 Personal history of other diseases of the circulatory system; Z79.899 Other long term (current) drug therapy
CPT/HCPCS: 36415; 80053; 81000; 81025; 82962; 85025; 96361; 96374; 96375; 99283; J1815; J1885; J2405; J7030

== ENCOUNTER 2019-03-08 18:08 | Inpatient (IN) | payer OTHER ==
[~2019-03-08] VITALS: Ht 165.1 cm; Wt 65.8 kg
[2019-03-08] MEDS ORDERED: NACL 0.9% 1,000 ML IV ONE ×2 (18:35→20:45)
[2019-03-08 19:14] LABS: BILIRUBIN,URINE NEGATIVE (NEGATIVE); CLARITY/URINE CLEAR (CLEAR); COLOR,URINE YELLOW (YELLOW); GLUCOSE,URINE 3+ (NEGATIVE); KETONES,URINE NEGATIVE (NEGATIVE); LEUKOCYTE ESTERASE ,URINE 1+ (NEGATIVE); NITRITE, URINE NEGATIVE (NEGATIVE); PROTEIN URINE NEGATIVE (NEGATIVE); UROBILINOGEN,URINE 0.2 (0.2-1.0)
[2019-03-08 19:17] LABS: BLOOD, URINE TRACE (NEGATIVE)
[2019-03-08 19:25] LABS: BASOPHILS % (AUTO) 0.5 % (0.0-2.0); EOSINOPHILS # (AUTO) 0.1 K/uL (0.0-0.4); EOSINOPHILS % (AUTO) 0.7 % (0.0-4.0); HEMATOCRIT 35.9 % (36-48); HEMOGLOBIN 12.1 g/dL (12.0-16.0); LYMPHOCYTES # (AUTO) 2.3 K/uL (1.0-5.5); LYMPHOCYTES % (AUTO) 29.7 % (20.5-51.5); MEAN CORPUSCULAR HEMOGLOBIN 30 pg (27-31); MEAN CORPUSCULAR HGB CONC 34 % (32-36); MEAN CORPUSCULAR VOLUME 89 fL (79.0-98.0); MONOCYTES # (AUTO) 0.5 K/uL (0.0-1.0); MONOCYTES % (AUTO) 6.4 % (1.7-9.3); NEUTROPHILS # (AUTO) 4.8 K/uL (1.8-7.7); NEUTROPHILS % (AUTO) 62.7 % (40.0-70.0); PLATELET COUNT (AUTO) 313 K/uL (130-430); RED BLOOD CELL COUNT(AUTO) 4.05 MIL/uL (4.2-6.2); RED CELL DISTRIBUTION WIDTH 14.2 % (9.0-15.0); WHITE BLOOD COUNT (AUTO) 7.7 K/uL (4.8-10.8)
[2019-03-08 19:39] LABS: ANION GAP 11 (5-15); CHLORIDE 96 mmol/L (98-107); CREATININE 0.99 mg/dL (0.55-1.30); INR 0.9 (0.8-1.2); POTASSIUM 4.3 mmol/L (3.5-5.1); PROTHROMBIN TIME 9.4 SECS (9.5-12.5); SODIUM SERUM 130 mmol/L (136-145); UREA NITROGEN, BLOOD 18 mg/dL (8-21)
[2019-03-08 19:47] LABS: GFR AFRICAN AMERICAN 82 mL/min (>90)
[2019-03-08 19:49] LABS: ALANINE AMINOTRANSFERASE 28 U/L (12-78); ALBUMIN 3.8 g/dL (3.4-4.8); ASPARTATE AMINOTRANSFERASE 16 U/L (10-37); TOTAL BILIRUBIN 0.3 mg/dL (0.0-1.0)
[2019-03-08 19:50] LABS: GLUCOSE 606 mg/dL (70-99)
[2019-03-08 19:59] LABS: ACETONE, SERUM TRACE (NEGATIVE)
[2019-03-08 20:10] LABS: BACTERIA,URINE FEW /HPF (None Seen); WBC,URINE 20-50 /HPF (0-3)
[2019-03-08 20:11] LABS: MUCUS,URINE None Seen /LPF (None Seen)
[2019-03-08] MEDS ORDERED: INSULIN REGULAR, HUMAN 10 UNITS/0.1 ML INJ IVP ONE (20:45)
[2019-03-08] MEDS ORDERED: cefTRIAXone 1 GM in D5W 50 ML IV ONE (21:00)
[2019-03-08] MEDS ORDERED: MORPHINE 4 MG/ML INJ. SYRINGE IVP ONE (21:15)
[2019-03-08] MEDS ORDERED: ONDANSETRON HCL 4 MG/2 ML VIAL IVP ONE (21:15)
[2019-03-08] MEDS ORDERED: cefTRIAXone 1 GM IVPB PREMIX 50 ML IV ONE (21:18)
[2019-03-08] MEDS ORDERED: DEXTROSE 50% JECT 50 ML DISP.SYRIN IVP PRN (21:30)
[2019-03-08] MEDS ORDERED: cefTRIAXone 1 GM in D5W 50 ML IV SCH (21:30)
[2019-03-08] MEDS ORDERED: MUPIROCIN 2% TOPICAL OINTMENT 22 GM NS PRN (21:30)
[2019-03-08] MEDS ORDERED: DOCUSATE SODIUM 100 MG CAPSULE PO PRN (21:30)
[2019-03-08] MEDS ORDERED: POTASSIUM CHLORIDE 20 MEQ TAB.PRT.SR PO PRN (21:30)
[2019-03-08] MEDS ORDERED: ACETAMINOPHEN 325 MG TABLET PO PRN (21:30)
[2019-03-08] MEDS ORDERED: ZOLPIDEM TARTRATE 5 MG TABLET PO PRN (21:30)
[2019-03-08] MEDS ORDERED: MORPHINE 2 MG/ML INJ. SYRINGE IVP PRN (21:30)
[2019-03-08 23:05] VITALS: BP_SYST 152
[2019-03-08] MEDS: MORPHINE 2 MG/ML INJ. SYRINGE IVP PRN (23:54)
[2019-03-08] MEDS: NACL 0.9% 1,000 ML IV SCH (23:55)
[2019-03-09] MEDS: LORazepam 2 MG/ML VIAL IVP PRN ×3 (03:20→21:55)
[2019-03-09] MEDS: NACL 0.9% 1,000 ML IV SCH ×3 (05:34→17:30)
[2019-03-09] MEDS: MORPHINE 2 MG/ML INJ. SYRINGE IVP PRN ×2 (05:40→21:24)
[2019-03-09] MEDS: INSULIN LISPRO SLIDING SCALE 100 UNITS/ML VIAL (humaLOG) SUBCUT PRN ×3 (05:44→17:26)
[2019-03-09 06:53] LABS: BASOPHILS % (AUTO) 0.6 % (0.0-2.0); EOSINOPHILS # (AUTO) 0.1 K/uL (0.0-0.4); EOSINOPHILS % (AUTO) 1.4 % (0.0-4.0); HEMATOCRIT 32.8 % (36-48); HEMOGLOBIN 11.1 g/dL (12.0-16.0); LYMPHOCYTES # (AUTO) 2.7 K/uL (1.0-5.5); LYMPHOCYTES % (AUTO) 35.9 % (20.5-51.5); MEAN CORPUSCULAR HEMOGLOBIN 30 pg (27-31); MEAN CORPUSCULAR HGB CONC 34 % (32-36); MEAN CORPUSCULAR VOLUME 88 fL (79.0-98.0); MONOCYTES # (AUTO) 0.7 K/uL (0.0-1.0); MONOCYTES % (AUTO) 9.4 % (1.7-9.3); NEUTROPHILS % (AUTO) 52.7 % (40.0-70.0); PLATELET COUNT (AUTO) 261 K/uL (130-430); RED BLOOD CELL COUNT(AUTO) 3.72 MIL/uL (4.2-6.2); RED CELL DISTRIBUTION WIDTH 13.6 % (9.0-15.0); WHITE BLOOD COUNT (AUTO) 7.6 K/uL (4.8-10.8)
[2019-03-09] MEDS ORDERED: INSULIN NPH/REGULAR 70-30, 100 UNITS/ML, 10 ML VIAL SUBCUT SCH (07:00)
[2019-03-09 07:27] LABS: CALCIUM 8.1 mg/dL (8.4-11.0); CREATININE 0.77 mg/dL (0.55-1.30); POTASSIUM 4.7 mmol/L (3.5-5.1)
[2019-03-09 08:30] VITALS: BP_SYST 117
[2019-03-09] MEDS: MINERAL OIL 30 ML UDC PO SCH (08:44)
[2019-03-09] MEDS: POLYETHYLENE GLYCOL 3350, 17 GM/ POWD.PACK PO SCH (08:44)
[2019-03-09] MEDS: HEPARIN SODIUM,PORCINE 5000 UNITS/ML VIAL SUBCUT SCH ×2 (08:45→21:59)
[2019-03-09] MEDS: SIMVASTATIN 20 MG TABLET PO SCH (08:45)
[2019-03-09] MEDS: METOPROLOL TARTRATE 25 MG TABLET PO SCH (08:45)
[2019-03-09] MEDS: GABAPENTIN 300 MG CAPSULE PO SCH ×3 (08:45→22:01)
[2019-03-09] MEDS ORDERED: INSULIN GLARGINE 100 UNITS/ML 10 ML VIAL SUBCUT ONE (09:30)
[2019-03-09] MEDS ORDERED: METOCLOPRAMIDE HCL 10 MG TABLET PO PRN (09:30)
[2019-03-09] MEDS ORDERED: cloNIDine HCL 0.1 MG TABLET PO PRN (11:00)
[2019-03-09 16:22] VITALS: BP_SYST 138
[2019-03-09] MEDS: MAGNESIUM SULFATE 50 ML IV PRN ×2 (16:39→16:41)
[2019-03-09] MEDS: INSULIN NPH/REGULAR 70-30, 100 UNITS/ML, 10 ML VIAL SUBCUT SCH (17:20)
[2019-03-09] MEDS: AMPICILLIN SODIUM 1 GM in NS 50 ML IV SCH (17:33)
[2019-03-09] MEDS ORDERED: DIPHENHYDRAMINE HCL 25 MG CAPSULE PO PRN (18:45)
[2019-03-09 20:00] VITALS: BP_SYST 134
[2019-03-09] MEDS: ONDANSETRON HCL 4 MG/2 ML VIAL IVP PRN (21:54)
[2019-03-09] MEDS ORDERED: ACYCLOVIR 400 MG TABLET PO SCH (22:00)
[2019-03-09] MEDS: ACYCLOVIR IV 500 MG in D5W 100 ML IV SCH (22:02)
[2019-03-10] MEDS: AMPICILLIN SODIUM 1 GM in NS 50 ML IV SCH ×4 (01:10→17:00)
[2019-03-10] MEDS: MORPHINE 2 MG/ML INJ. SYRINGE IVP PRN ×4 (03:13→18:37)
[2019-03-10] MEDS: LORazepam 2 MG/ML VIAL IVP PRN ×4 (03:24→18:35)
[2019-03-10] MEDS: NACL 0.9% 1,000 ML IV SCH ×4 (03:39→20:10)
[2019-03-10] MEDS: ACYCLOVIR IV 500 MG in D5W 100 ML IV SCH ×3 (07:02→22:35)
[2019-03-10 07:03] LABS: BASOPHILS % (AUTO) 0.3 % (0.0-2.0); EOSINOPHILS # (AUTO) 0.1 K/uL (0.0-0.4); EOSINOPHILS % (AUTO) 2.1 % (0.0-4.0); HEMATOCRIT 31.6 % (36-48); HEMOGLOBIN 10.7 g/dL (12.0-16.0); LYMPHOCYTES # (AUTO) 2.5 K/uL (1.0-5.5); MEAN CORPUSCULAR HEMOGLOBIN 30 pg (27-31); MEAN CORPUSCULAR HGB CONC 34 % (32-36); MEAN CORPUSCULAR VOLUME 88 fL (79.0-98.0); MONOCYTES # (AUTO) 0.4 K/uL (0.0-1.0); MONOCYTES % (AUTO) 6.8 % (1.7-9.3); NEUTROPHILS # (AUTO) 3.2 K/uL (1.8-7.7); NEUTROPHILS % (AUTO) 50.8 % (40.0-70.0); PLATELET COUNT (AUTO) 249 K/uL (130-430); RED BLOOD CELL COUNT(AUTO) 3.57 MIL/uL (4.2-6.2); RED CELL DISTRIBUTION WIDTH 13.9 % (9.0-15.0); WHITE BLOOD COUNT (AUTO) 6.2 K/uL (4.8-10.8)
[2019-03-10] MEDS: INSULIN NPH/REGULAR 70-30, 100 UNITS/ML, 10 ML VIAL SUBCUT SCH ×2 (07:10→17:07)
[2019-03-10 07:13] LABS: CALCIUM 8.4 mg/dL (8.4-11.0); CREATININE 0.79 mg/dL (0.55-1.30); POTASSIUM 4.1 mmol/L (3.5-5.1)
[2019-03-10] MEDS: HEPARIN SODIUM,PORCINE 5000 UNITS/ML VIAL SUBCUT SCH ×2 (09:00→22:30)
[2019-03-10] MEDS: POLYETHYLENE GLYCOL 3350, 17 GM/ POWD.PACK PO SCH (09:00)
[2019-03-10 09:24] VITALS: BP_SYST 150
[2019-03-10] MEDS: MINERAL OIL 30 ML UDC PO SCH (09:28)
[2019-03-10] MEDS: SIMVASTATIN 20 MG TABLET PO SCH (09:29)
[2019-03-10] MEDS: METOPROLOL TARTRATE 25 MG TABLET PO SCH (09:29)
[2019-03-10] MEDS: GABAPENTIN 300 MG CAPSULE PO SCH ×3 (09:29→22:00)
[2019-03-10] MEDS: ONDANSETRON HCL 4 MG/2 ML VIAL IVP PRN ×2 (09:30→18:35)
[2019-03-10] MEDS: INSULIN GLARGINE 100 UNITS/ML 10 ML VIAL SUBCUT SCH (09:35)
[2019-03-10] MEDS: MAGNESIUM SULFATE 50 ML IV PRN (09:36)
[2019-03-10] MEDS: INSULIN LISPRO SLIDING SCALE 100 UNITS/ML VIAL (humaLOG) SUBCUT PRN ×2 (11:59→17:07)
[2019-03-10 12:30] VITALS: BP_SYST 143
[2019-03-10] MEDS ORDERED: DIPHENHYDRAMINE INJ 50 MG/ML VIAL IVP PRN (12:45)
[2019-03-10 16:54] VITALS: BP_SYST 134
[2019-03-10 20:00] VITALS: BP_SYST 137
[2019-03-11] MEDS: AMPICILLIN SODIUM 1 GM in NS 50 ML IV SCH ×4 (00:57→17:22)
[2019-03-11] MEDS: MORPHINE 2 MG/ML INJ. SYRINGE IVP PRN ×9 (01:52→21:15)
[2019-03-11] MEDS: NACL 0.9% 1,000 ML IV SCH ×4 (02:50→22:23)
[2019-03-11 06:29] LABS: BASOPHILS % (AUTO) 0.5 % (0.0-2.0); EOSINOPHILS # (AUTO) 0.1 K/uL (0.0-0.4); EOSINOPHILS % (AUTO) 1.8 % (0.0-4.0); HEMATOCRIT 32.9 % (36-48); LYMPHOCYTES # (AUTO) 2.2 K/uL (1.0-5.5); LYMPHOCYTES % (AUTO) 30.1 % (20.5-51.5); MEAN CORPUSCULAR HEMOGLOBIN 30 pg (27-31); MEAN CORPUSCULAR HGB CONC 34 % (32-36); MEAN CORPUSCULAR VOLUME 88 fL (79.0-98.0); MONOCYTES # (AUTO) 0.5 K/uL (0.0-1.0); MONOCYTES % (AUTO) 6.8 % (1.7-9.3); NEUTROPHILS # (AUTO) 4.5 K/uL (1.8-7.7); NEUTROPHILS % (AUTO) 60.8 % (40.0-70.0); PLATELET COUNT (AUTO) 265 K/uL (130-430); RED BLOOD CELL COUNT(AUTO) 3.73 MIL/uL (4.2-6.2); RED CELL DISTRIBUTION WIDTH 14.3 % (9.0-15.0); WHITE BLOOD COUNT (AUTO) 7.5 K/uL (4.8-10.8)
[2019-03-11] MEDS: ACYCLOVIR IV 500 MG in D5W 100 ML IV SCH ×3 (07:10→21:10)
[2019-03-11 07:13] LABS: CALCIUM 8.9 mg/dL (8.4-11.0); CREATININE 0.62 mg/dL (0.55-1.30); POTASSIUM 3.9 mmol/L (3.5-5.1)
[2019-03-11 08:02] VITALS: BP_SYST 154
[2019-03-11] MEDS: HEPARIN SODIUM,PORCINE 5000 UNITS/ML VIAL SUBCUT SCH (09:00)
[2019-03-11] MEDS: POLYETHYLENE GLYCOL 3350, 17 GM/ POWD.PACK PO SCH (09:00)
[2019-03-11] MEDS: METOPROLOL TARTRATE 25 MG TABLET PO SCH (09:17)
[2019-03-11] MEDS: MINERAL OIL 30 ML UDC PO SCH (09:17)
[2019-03-11] MEDS: GABAPENTIN 300 MG CAPSULE PO SCH ×3 (09:18→21:10)
[2019-03-11] MEDS: SIMVASTATIN 20 MG TABLET PO SCH (09:18)
[2019-03-11] MEDS: ONDANSETRON HCL 4 MG/2 ML VIAL IVP PRN ×3 (09:18→21:08)
[2019-03-11] MEDS: LORazepam 2 MG/ML VIAL IVP PRN ×4 (09:19→21:07)
[2019-03-11] MEDS: INSULIN GLARGINE 100 UNITS/ML 10 ML VIAL SUBCUT SCH (09:22)
[2019-03-11] MEDS: INSULIN LISPRO SLIDING SCALE 100 UNITS/ML VIAL (humaLOG) SUBCUT PRN ×2 (11:43→21:57)
[2019-03-11 12:00] VITALS: BP_SYST 141
[2019-03-11] MEDS: MAGNESIUM SULFATE 50 ML IV PRN (14:55)
[2019-03-11 16:30] VITALS: BP_SYST 150
[2019-03-11] MEDS: INSULIN NPH/REGULAR 70-30, 100 UNITS/ML, 10 ML VIAL SUBCUT SCH (16:48)
[2019-03-11] MEDS ORDERED: BISACODYL 5 MG TABLET.DR (DULCOLAX) PO ONE (17:00)
[2019-03-11] MEDS ORDERED: GOLYTELY / COLYTE SOLUTION 4 LITERS PO ONE (18:00)
[2019-03-11 19:00] VITALS: BP_SYST 105
[2019-03-11 20:00] VITALS: BP_SYST 105
[2019-03-12 00:28] VITALS: BP_SYST 150
[2019-03-12] MEDS: AMPICILLIN SODIUM 1 GM in NS 50 ML IV SCH ×3 (01:21→11:57)
[2019-03-12] MEDS: NACL 0.9% 1,000 ML IV SCH (01:22)
[2019-03-12] MEDS: LORazepam 2 MG/ML VIAL IVP PRN ×4 (01:22→16:11)
[2019-03-12] MEDS: ONDANSETRON HCL 4 MG/2 ML VIAL IVP PRN ×3 (01:23→11:50)
[2019-03-12] MEDS: MORPHINE 2 MG/ML INJ. SYRINGE IVP PRN ×4 (01:25→16:12)
[2019-03-12] MEDS: ACYCLOVIR IV 500 MG in D5W 100 ML IV SCH ×2 (05:29→13:49)
[2019-03-12] MEDS: INSULIN NPH/REGULAR 70-30, 100 UNITS/ML, 10 ML VIAL SUBCUT SCH ×2 (06:00→16:52)
[2019-03-12 06:13] LABS: PROTHROMBIN TIME 9.8 SECS (9.5-12.5)
[2019-03-12 07:08] LABS: BASOPHILS % (AUTO) 0.3 % (0.0-2.0); EOSINOPHILS # (AUTO) 0.1 K/uL (0.0-0.4); EOSINOPHILS % (AUTO) 2.2 % (0.0-4.0); HEMATOCRIT 32.4 % (36-48); LYMPHOCYTES # (AUTO) 2.2 K/uL (1.0-5.5); LYMPHOCYTES % (AUTO) 32.3 % (20.5-51.5); MEAN CORPUSCULAR HEMOGLOBIN 30 pg (27-31); MEAN CORPUSCULAR HGB CONC 34 % (32-36); MEAN CORPUSCULAR VOLUME 88 fL (79.0-98.0); MONOCYTES # (AUTO) 0.5 K/uL (0.0-1.0); MONOCYTES % (AUTO) 7.5 % (1.7-9.3); NEUTROPHILS # (AUTO) 3.9 K/uL (1.8-7.7); NEUTROPHILS % (AUTO) 57.7 % (40.0-70.0); PLATELET COUNT (AUTO) 266 K/uL (130-430); RED BLOOD CELL COUNT(AUTO) 3.67 MIL/uL (4.2-6.2); RED CELL DISTRIBUTION WIDTH 14.1 % (9.0-15.0); WHITE BLOOD COUNT (AUTO) 6.8 K/uL (4.8-10.8)
[2019-03-12] MEDS ORDERED: fentaNYL CITRATE/PF 100 MCG/2 ML AMP ONE ×2 (07:54→09:30)
[2019-03-12] MEDS ORDERED: SIMETHICONE 40 MG/0.6 ML ML ONE (07:54)
[2019-03-12] MEDS ORDERED: DIPHENHYDRAMINE INJ 50 MG/ML VIAL ONE (07:54)
[2019-03-12] MEDS ORDERED: BENZOCAINE 20% 0.5mL UD SPRAY MM ONE (07:55)
[2019-03-12] MEDS ORDERED: MIDAZOLAM HCL 5 MG/5 ML VIAL ONE (07:55)
[2019-03-12 08:02] LABS: CALCIUM 8.1 mg/dL (8.4-11.0); CREATININE 0.54 mg/dL (0.55-1.30); POTASSIUM 3.8 mmol/L (3.5-5.1)
[2019-03-12] MEDS: INSULIN GLARGINE 100 UNITS/ML 10 ML VIAL SUBCUT SCH (09:00)
[2019-03-12 10:20] VITALS: BP_SYST 165
[2019-03-12] MEDS: GABAPENTIN 300 MG CAPSULE PO SCH ×2 (10:57→14:14)
[2019-03-12] MEDS: METOPROLOL TARTRATE 25 MG TABLET PO SCH (10:58)
[2019-03-12] MEDS: SIMVASTATIN 20 MG TABLET PO SCH (10:59)
[2019-03-12] MEDS: MINERAL OIL 30 ML UDC PO SCH (11:00)
[2019-03-12] MEDS: POLYETHYLENE GLYCOL 3350, 17 GM/ POWD.PACK PO SCH (11:00)
[2019-03-12 12:30] VITALS: BP_SYST 138
[2019-03-12] MEDS ORDERED: ACYC400T PO (13:42)
[2019-03-12] MEDS ORDERED: METO-290 PO (13:42)
[2019-03-12] MEDS ORDERED: AMOX-520 PO (13:59)
[2019-03-12 16:27] VITALS: BP_SYST 136
[2019-03-12] MEDS: INSULIN LISPRO SLIDING SCALE 100 UNITS/ML VIAL (humaLOG) SUBCUT PRN (16:51)
[2019-03-12 17:21] VITALS: BP_SYST 136
== END 2019-03-12 18:50 | disposition home or self-care (01) | DRG 254 ==
LOC: SED 18:08 → SMU 21:00
PROVIDERS: ADMIT General Practice; ATTEND General Practice
PROC: 0DB68ZX Excision of Stomach, Via Natural or Artificial Opening Endoscopic, Diagnostic (ICD-10-PCS; principal; 2019-03-12 09:00)
PROC: 0DBE8ZX Excision of Large Intestine, Via Natural or Artificial Opening Endoscopic, Diagnostic (ICD-10-PCS; 2019-03-12 09:00)
DX: K31.84 Gastroparesis (principal); E11.00 Type 2 diabetes mellitus with hyperosmolarity without nonketotic hyperglycemic-hyperosmolar coma (NKHHC); K52.9 Noninfective gastroenteritis and colitis, unspecified; E11.43 Type 2 diabetes mellitus with diabetic autonomic (poly)neuropathy; N39.0 Urinary tract infection, site not specified; I10 Essential (primary) hypertension; F10.10 Alcohol abuse, uncomplicated; A60.00 Herpesviral infection of urogenital system, unspecified; K64.8 Other hemorrhoids; K64.4 Residual hemorrhoidal skin tags; Z79.4 Long term (current) use of insulin; Z91.11 Patient's noncompliance with dietary regimen; Z91.19 Patient's noncompliance with other medical treatment and regimen; Z98.891 History of uterine scar from previous surgery; E87.1 Hypo-osmolality and hyponatremia; B95.1 Streptococcus, group B, as the cause of diseases classified elsewhere
CPT/HCPCS: 36415; 36600; 43239; 45380; 71045; 80048; 80053; 81000-TC; 82009-TC; 82803-TC; 82962; 83036; 83605; 83735-TC; 84484; 84703; 85025; 85610-TC; 85730-TC; 87040-TC; 87086; 88305; 88313; 93005; 96361; 96365; 96375; 99285; J0133; J0290; J0696; J1200; J1644; J1815; J2060; J2250; J2270; J2405; J3010; J3475; J7030; J7060

== ENCOUNTER 2019-03-29 15:59 | Inpatient (IN) | payer OTHER ==
[~2019-03-29] VITALS: Ht 165.1 cm; Wt 67.1 kg
[~2019-03-29 15:59] MED LIST changes: +AMOX-520 PO; +METO-290 PO; -MINE25OI3 PO
[2019-03-29 16:00] VITALS: BP_SYST 145
--- NOTE | 2019-03-29 16:00 | NUR ---
Patient triaged and placed in waiting room. VSS and patient appears in no acute distress at this time. Accompanied by SELF, awaiting available bed, and MD notified of need for MSE.
[2019-03-29 16:41] LABS: BASOPHILS # (AUTO) 0.1 K/uL (0.0-0.2); BASOPHILS % (AUTO) 0.6 % (0.0-2.0); EOSINOPHILS # (AUTO) 0.1 K/uL (0.0-0.4); EOSINOPHILS % (AUTO) 0.7 % (0.0-4.0); HEMOGLOBIN 13.1 g/dL (12.0-16.0); LYMPHOCYTES # (AUTO) 1.4 K/uL (1.0-5.5); LYMPHOCYTES % (AUTO) 17.2 % (20.5-51.5); MEAN CORPUSCULAR HEMOGLOBIN 30 pg (27-31); MEAN CORPUSCULAR HGB CONC 34 % (32-36); MEAN CORPUSCULAR VOLUME 89 fL (79.0-98.0); MONOCYTES # (AUTO) 0.5 K/uL (0.0-1.0); MONOCYTES % (AUTO) 5.9 % (1.7-9.3); NEUTROPHILS % (AUTO) 75.6 % (40.0-70.0); PLATELET COUNT (AUTO) 366 K/uL (130-430); RED BLOOD CELL COUNT(AUTO) 4.36 MIL/uL (4.2-6.2); RED CELL DISTRIBUTION WIDTH 14.2 % (9.0-15.0); WHITE BLOOD COUNT (AUTO) 7.9 K/uL (4.8-10.8)
[2019-03-29 16:54] LABS: BILIRUBIN,URINE NEGATIVE (NEGATIVE); BLOOD, URINE NEGATIVE (NEGATIVE); CLARITY/URINE OTHER (CLEAR); COLOR,URINE ORANGE (YELLOW); GLUCOSE,URINE 3+ (NEGATIVE); KETONES,URINE 2+ (NEGATIVE); LEUKOCYTE ESTERASE ,URINE TRACE (NEGATIVE); NITRITE, URINE POSITIVE (NEGATIVE); PROTEIN URINE 2+ (NEGATIVE)
--- NOTE | 2019-03-29 16:54 | NUR ---
BROUGHT BACK TO BED # 2 AND REPORT GIVEN TO POLINA
[2019-03-29 17:00] LABS: PROTHROMBIN TIME 9.8 SECS (9.5-12.5)
[2019-03-29 17:05] LABS: CALCIUM 9.2 mg/dL (8.4-11.0); CREATININE 1.09 mg/dL (0.55-1.30); POTASSIUM 4.4 mmol/L (3.5-5.1)
[2019-03-29 17:08] LABS: ALBUMIN 3.9 g/dL (3.4-4.8); TOTAL BILIRUBIN 0.7 mg/dL (0.0-1.0)
[2019-03-29] MEDS ORDERED: ACYCLOVIR IV 500 MG in D5W 100 ML IV ONE (17:15)
--- NOTE | 2019-03-29 17:25 | NUR ---
PATIENT PRESENTS TO THE ER WITH HX OF PERINEAL/GROIN LESIONS/RASH FOR THREE DAYS; WAS PLACED ON THREE DAY DURATION ACYCLOVIR WITH NO IMPROVEMENT; NO TRAUMA, NO OTHER REMARKABLE S/S; TO ER #2 AT 1700 AND ERMD EVALUATION AT 1730
[2019-03-29] MEDS ORDERED: NACL 0.9% 1,000 ML IV ONE (17:30)
[2019-03-29] MEDS ORDERED: INSULIN REGULAR, HUMAN 10 UNITS/0.1 ML INJ IVP ONE (17:45)
[2019-03-29] MEDS ORDERED: ACYCLOVIR SODIUM 50 MG/ML VIAL IV ONE (17:46)
--- NOTE | 2019-03-29 17:54 | NUR ---
Patient will be admitted to care of [facility]. Admitted to Med Surg unit. Complete and up to date summary report to be printed. SBAR report to be given at bedside with opportunity for questions.
--- NOTE | 2019-03-29 17:55 | NUR ---
Called [facility] for bed placement. Per [facility], will call back with bed number.
[2019-03-29 18:07] LABS: BACTERIA,URINE FEW /HPF (None Seen); MUCUS,URINE None Seen /LPF (None Seen)
[2019-03-29 18:10] LABS: YEAST,URINE Moderate /HPF (None Seen)
[2019-03-29] MEDS ORDERED: MORPHINE 4 MG/ML INJ. SYRINGE IVP ONE (18:45)
[2019-03-29] MEDS ORDERED: ONDANSETRON HCL 4 MG/2 ML VIAL IVP ONE (18:45)
[2019-03-29] MEDS ORDERED: LORazepam 2 MG/ML VIAL IVP ONE (19:30)
--- NOTE | 2019-03-29 19:30 | NUR ---
Recieved report from PRAVIN Iglesias. Will continue care.
--- NOTE | 2019-03-29 20:15 | NUR ---
Pt medicated with ativan. Pt tolerated well. Will continue to monitor.
[2019-03-29] MEDS ORDERED: BEN50 PO (20:29)
--- NOTE | 2019-03-29 20:35 | NUR ---
Medication reconciliation completed with information provided by Patient. Any prior medication reconciliation on file was reviewed and corrected.
--- NOTE | 2019-03-29 20:51 | NUR ---
Patient will be admitted to care of [facility]. Admitted to Med/Surg unit. Will go to room 120B. Belongings list completed. Complete and up to date summary report printed. SBAR report to be given at bedside with opportunity for questions.
--- NOTE | 2019-03-29 21:16 | NUR ---
ADMIT NOTE Received pt from ER to the floor with a diagnosis of DIABETES UNCONTROLLED AND HERPES. Admission process initiated. patient oriented to pain management, safety and call light-teach back done.
[2019-03-29 21:18] VITALS: BP_SYST 126
--- NOTE | 2019-03-29 21:20 | NUR ---
Patient refuses Wound Photo Documentation Patient states that she is in pain in her vaginal/perineal area, and states that she has been growing more lesions on her vagina that has been getting bigger. States "I cannot spread my legs apart, it hurts too much. I feel like the pain medication is not strong enough. I am not refusing, don't get me wrong. I just don't want to do it until I have no more pain." Patient also refuses to remove her personal blue jay pants at this time. Unable to perform appropriate assessment of vaginal lesions at this time.
--- NOTE | 2019-03-29 21:32 | NUR ---
Paging Dr Fink. Spoke with Melisa. Awaiting for call back. Patient is requesting for pain medications and home medications to be reconciled.
--- NOTE | 2019-03-29 21:54 | NUR ---
2nd Page for Dr Fink Paging Dr Fink. Spoke with Melisa. Awaiting for call back.
[2019-03-29] MEDS ORDERED: METOCLOPRAMIDE HCL 10 MG TABLET PO PRN (22:15)
[2019-03-29] MEDS ORDERED: LORazepam 1 MG TABLET PO PRN (22:15)
--- NOTE | 2019-03-29 22:26 | NUR ---
Paging Dr Fink. Patient does not like PO ativan and reglan. States that due to her Gastroparesis, her medications will just come out of her stool, so she would like Ativan and Reglan IV. Paging Dr Fink. Spoke with Kelly. Awaiting for call back.
--- NOTE | 2019-03-29 23:00 | NUR ---
Patient refuses to take medications until after she is taken outside to smoke cigarettes. Educated patient regarding risks of smoking, and patient verbalized understanding. However, still wants to go smoking. Patient taken outside by Resource Nurse to go smoke.
[2019-03-29] MEDS: GABAPENTIN 300 MG CAPSULE PO SCH (23:32)
[2019-03-29] MEDS: PHENAZOPYRIDINE HCL 100 MG TABLET PO SCH (23:33)
[2019-03-29] MEDS: METOCLOPRAMIDE HCL 10 MG/2 ML VIAL IVP PRN (23:33)
[2019-03-29] MEDS: DIPHENHYDRAMINE INJ 50 MG/ML VIAL IVP PRN (23:33)
[2019-03-29] MEDS: MORPHINE 4 MG/ML INJ. SYRINGE IVP PRN (23:34)
--- NOTE | 2019-03-29 23:34 | NUR ---
Patient returns from smoking. Resting comfortably in bed. Provided patient with morphine, benadryl, and ativan PRN per MD order, see eMAR. Will continue with plan of care.
[2019-03-29] MEDS: LORazepam 2 MG/ML VIAL IVP PRN (23:35)
[2019-03-30] VITALS: BP_SYST 128
[2019-03-30] MEDS: INSULIN REGULAR, HUMAN 100 UNITS/ML, 10 ML VIAL (humuLIN R) SUBCUT PRN ×2 (00:29→06:15)
--- NOTE | 2019-03-30 02:42 | NUR ---
Endocrine Consult Consult for Dr. Morgan was called, S/W: Viraj RE: Uncontrolled diabetes
--- NOTE | 2019-03-30 02:50 | NUR ---
ID consult Consult for Dr. Abhay Medeiros was called, s/w: Aliya RE: Herpes Addendum: 03/30/19 at 0339 by Estrellita Zamora RN Face sheet was faxed to Dr. Medeiros's office; [phone]
--- NOTE | 2019-03-30 02:58 | NUR ---
Rom Manriquez Dr. Patient is complaining of pain 01/04. States that she cannot wait for the next dose of morphine to be due. Staci CAO. Spoke with Laura. Awaiting for call back.
--- NOTE | 2019-03-30 03:06 | NUR ---
Dr Fink called the nurses station. Informed him that the patient is complaining of pain and cannot wait for the next dose of morphine to be due. Dr Fink ordered Toradol 30mg IVP ONCE, and Morphine 2mg Q4HP for moderate pain, and Tylenol 650mg PO Q4P for Mild pain and fever. Orders noted.
[2019-03-30] MEDS ORDERED: ACETAMINOPHEN 325 MG TABLET PO PRN (03:15)
[2019-03-30] MEDS ORDERED: KETOROLAC TROMETHAMINE 30 MG VIAL IVP ONE (03:15)
[2019-03-30] MEDS: LORazepam 2 MG/ML VIAL IVP PRN ×3 (03:55→23:07)
[2019-03-30] MEDS: DIPHENHYDRAMINE INJ 50 MG/ML VIAL IVP PRN (03:56)
[2019-03-30] MEDS: MORPHINE 4 MG/ML INJ. SYRINGE IVP PRN ×3 (03:57→22:13)
--- NOTE | 2019-03-30 04:59 | NUR ---
Patient requesting for benadryl and Ativan. Educated patient that she received benadryl and ativan recently. Patient verbalized understanding. Will continue with plan of care.
[2019-03-30] MEDS ORDERED: ACYCLOVIR OINTMENT Non-Formulay 30 GM TP SCH (06:00)
[2019-03-30] MEDS ORDERED: NORMAL SALINE 5 ML DISP.SYRIN IVF SCH (06:00)
[2019-03-30] MEDS: GABAPENTIN 300 MG CAPSULE PO SCH ×3 (06:12→10:06)
[2019-03-30] MEDS: NORMAL SALINE 5 ML DISP.SYRIN IVF SCH ×3 (06:16→22:53)
--- NOTE | 2019-03-30 06:20 | NUR ---
PAGING DR WEBB, CRITICAL BLOOD GLUCOSE 431. SPOKE WITH EXCHANGE. AWAITING FOR CALL BACK.
[2019-03-30 06:25] LABS: BASOPHILS % (AUTO) 0.7 % (0.0-2.0); EOSINOPHILS # (AUTO) 0.1 K/uL (0.0-0.4); EOSINOPHILS % (AUTO) 1.6 % (0.0-4.0); HEMATOCRIT 33.5 % (36-48); HEMOGLOBIN 11.4 g/dL (12.0-16.0); LYMPHOCYTES # (AUTO) 2.2 K/uL (1.0-5.5); LYMPHOCYTES % (AUTO) 37.7 % (20.5-51.5); MEAN CORPUSCULAR HEMOGLOBIN 30 pg (27-31); MEAN CORPUSCULAR HGB CONC 34 % (32-36); MEAN CORPUSCULAR VOLUME 88 fL (79.0-98.0); MONOCYTES # (AUTO) 0.4 K/uL (0.0-1.0); MONOCYTES % (AUTO) 7.4 % (1.7-9.3); NEUTROPHILS # (AUTO) 3.1 K/uL (1.8-7.7); NEUTROPHILS % (AUTO) 52.6 % (40.0-70.0); PLATELET COUNT (AUTO) 302 K/uL (130-430); RED BLOOD CELL COUNT(AUTO) 3.81 MIL/uL (4.2-6.2); RED CELL DISTRIBUTION WIDTH 14.2 % (9.0-15.0); WHITE BLOOD COUNT (AUTO) 5.9 K/uL (4.8-10.8)
--- NOTE | 2019-03-30 06:37 | NUR ---
Closing Notes Patient is resting comfortably in bed, eyes are closed. Breathing is even and unlabored with visible chest rise and fall noted. No SOB, no acute distress, no signs of pain or facial grimacing noted. Bed is locked, lowest position, 2x side rails up. Call light is within reach. Fall and safety precautions maintained. All needs have been met during this shift. Will endorse care to oncoming dayshift nurse.
[2019-03-30 06:42] LABS: ALBUMIN 3.1 g/dL (3.4-4.8); CALCIUM 8.5 mg/dL (8.4-11.0); CREATININE 0.8 mg/dL (0.55-1.30); PHOSPHORUS 3.1 mg/dL (2.7-4.5); POTASSIUM 3.6 mmol/L (3.5-5.1)
--- NOTE | 2019-03-30 06:46 | NUR ---
Lab called with critical lab Blood glucose 460.
--- NOTE | 2019-03-30 06:46 | NUR ---
Dr Fink called the nursing station. Informed him of critical blood glucose level. Also told him that I had already given the patient 12 units of insulin per protocol. Dr Fink ordered to give 5 units of insulin. Orders noted.
--- NOTE | 2019-03-30 06:53 | NUR ---
Patient states that it is painful when she is peeing due to the lesions. Refuses assessment at this time. However, patient is requesting for zgaurd. Zgaurd provided as needed.
[2019-03-30] MEDS ORDERED: INSULIN REGULAR, HUMAN 100 UNITS/ML, 10 ML VIAL SUBCUT ONE (07:00)
[2019-03-30 07:19] LABS: TOTAL BILIRUBIN 0.3 mg/dL (0.0-1.0)
[2019-03-30] MEDS: PHENAZOPYRIDINE HCL 100 MG TABLET PO SCH ×3 (08:30→19:35)
[2019-03-30] MEDS ORDERED: INSULIN Aspart Prota/Aspar MIX 70-30, 100 UNITS/ML, 10 ML VIAL SUBCUT SCH (09:00)
[2019-03-30] MEDS: SIMVASTATIN 20 MG TABLET PO SCH (10:04)
[2019-03-30] MEDS: METOPROLOL TARTRATE 25 MG TABLET PO SCH (10:07)
--- NOTE | 2019-03-30 12:00 | NUR ---
seen by dr. Medeiros aware of patients asking for more pain med with order to start on zovirax
--- NOTE | 2019-03-30 12:34 | NUR ---
Ror Engineer: Met with pt. to conduct a DCPA. INFECTION CONTROL COORDINATOR met with pt. who stated she is in a lot of pain from her herpes. She stated she cannot have anyone examine her yet as it is too painful to open her legs. She stated once the herpes gets under control, her blood sugar will come down. She added she had a new Dx. since last admittance stay 03/08/19 and that they did not give her Raglan so she is back. She denied feeling suicidal, stated has an ongoing therapist for stated major depression disorder. Pt. stated she is currently staying at a new house on [address] with a new roommate. She is testing this living situation out ,but will probably remain there. She did not remember the address. INFECTION CONTROL COORDINATOR will remain available as needed.
[2019-03-30] MEDS: ACYCLOVIR IV 750 MG in D5W 100 ML IV SCH ×2 (14:00→22:57)
[2019-03-30] MEDS ORDERED: DEXTROSE 50% JECT 50 ML DISP.SYRIN IVP PRN (17:15)
[2019-03-30] MEDS: INSULIN NPH/REGULAR 70-30, 100 UNITS/ML, 10 ML VIAL SUBCUT SCH (17:27)
[2019-03-30] MEDS: INSULIN LISPRO SLIDING SCALE 100 UNITS/ML VIAL (humaLOG) SUBCUT PRN ×2 (17:32→20:39)
[2019-03-30 19:50] VITALS: BP_SYST 139
--- NOTE | 2019-03-30 19:50 | NUR ---
INITIAL NOTE PATIENT IS LAYING IN BED AND STABLE. NO S/S OF RESPIRATORY DISTRESS NOTED. CALL LIGHT IN REACH. BED IS LOCKED AND AT THE LOWEST POSITION. PLAN OF CARE DISCUSSED WITH PATIENT AT THIS TIME. DESPITE EDUCATIONAL EFFORT PATIENT REFUSED BED ALARM. WILL CONTINUE TO EDUCATE. CONTACT, ASPIRATION, RESPIRATORY, FALL, AND SAFETY PRECAUTIONS WILL BE PLACED THROUGHOUT THE SHIFT.
[2019-03-30] MEDS: AMOXICILLIN/CLAVULANATE POTASSIUM 875 MG TABLET PO SCH (20:33)
[2019-03-30 20:52] VITALS: BP_SYST 120
--- NOTE | 2019-03-30 21:50 | NUR ---
ROUNDING PATIENT IS STABLE AND IN BED. WILL CONTINUE TO MONITOR.
[2019-03-30] MEDS: ONDANSETRON HCL 4 MG/2 ML VIAL IVP PRN (23:07)
--- NOTE | 2019-03-30 23:50 | NUR ---
ROUNDING PATIENT IS STABLE AND IN BED. NO S/S OF RESPIRATORY DISTRESS. CALL LIGHT IN REACH. NEEDS ARE MET. WILL CONTINUE TO MONITOR.
[2019-03-31 00:01] VITALS: BP_SYST 128
[2019-03-31] MEDS: DIPHENHYDRAMINE INJ 50 MG/ML VIAL IVP PRN ×2 (00:35→23:56)
[2019-03-31] MEDS: GABAPENTIN 300 MG CAPSULE PO SCH ×5 (00:35→23:56)
--- NOTE | 2019-03-31 01:50 | NUR ---
ROUNDING PATIENT IS STABLE AND IN BED. NO S/S OF RESPIRATORY DISTRESS. CALL LIGHT IN REACH. NEEDS ARE MET. WILL CONTINUE TO MONITOR.
--- NOTE | 2019-03-31 03:50 | NUR ---
ROUNDING PATIENT IS STABLE AND IN BED SLEEPING. NO S/S OF RESPIRATORY DISTRESS. CALL LIGHT IN REACH. NEEDS ARE MET. WILL CONTINUE TO MONITOR.
[2019-03-31] MEDS: ONDANSETRON HCL 4 MG/2 ML VIAL IVP PRN ×3 (03:59→22:03)
[2019-03-31] MEDS: MORPHINE 4 MG/ML INJ. SYRINGE IVP PRN ×3 (04:00→22:11)
[2019-03-31] MEDS: LORazepam 2 MG/ML VIAL IVP PRN ×2 (05:45→10:54)
[2019-03-31] MEDS: NORMAL SALINE 5 ML DISP.SYRIN IVF SCH ×3 (05:49→22:11)
--- NOTE | 2019-03-31 06:00 | NUR ---
ROUNDING PATIENT BLOOD SUGAR WAS 563. WILL PAGE THE DOCTOR.
[2019-03-31] MEDS: ACYCLOVIR IV 750 MG in D5W 100 ML IV SCH ×3 (06:09→22:02)
[2019-03-31] MEDS: INSULIN LISPRO SLIDING SCALE 100 UNITS/ML VIAL (humaLOG) SUBCUT PRN ×4 (06:17→22:07)
--- NOTE | 2019-03-31 06:17 | NUR ---
PAGED PAGED DR. BRIANA WEBB FOR ORDERS, SPOKE WITH GENE
--- NOTE | 2019-03-31 06:26 | NUR ---
CRITICAL VALUE COMMUNICATED W/ DR. WEBB COMMUNICATED WITH DR. WEBB REGARDING CRITICAL VALUE. MD AWARE. NO NEW ORDERS RECEIVED. WILL CONTINUE TO MONITOR.
--- NOTE | 2019-03-31 06:28 | NUR ---
CLOSING NOTES PATIENT IS RESTING IN BED. OTHER THAN THE CRITICAL VALUE; PATIENT IS STABLE. NO S/S OF RESPIRATORY DISTRESS NOTED. CALL LIGHT IN REACH. BED IS LOCKED AND AT THE LOWEST POSITION. FALL, SAFETY, ASPIRATION, CONTACT, AND RESPIRATORY PRECAUTIONS HAS BEEN PLACED THROUGHOUT THE SHIFT. WILL CONTINUE TO MONITOR UNTIL REPORT IS GIVEN TO AM NURSE BY BEDSIDE.
[2019-03-31 07:41] LABS: BASOPHILS # (AUTO) 0.1 K/uL (0.0-0.2); BASOPHILS % (AUTO) 0.7 % (0.0-2.0); EOSINOPHILS % (AUTO) 0.2 % (0.0-4.0); HEMATOCRIT 37.7 % (36-48); HEMOGLOBIN 12.5 g/dL (12.0-16.0); LYMPHOCYTES # (AUTO) 0.8 K/uL (1.0-5.5); LYMPHOCYTES % (AUTO) 9.2 % (20.5-51.5); MEAN CORPUSCULAR HEMOGLOBIN 30 pg (27-31); MEAN CORPUSCULAR HGB CONC 33 % (32-36); MEAN CORPUSCULAR VOLUME 89 fL (79.0-98.0); MONOCYTES # (AUTO) 0.7 K/uL (0.0-1.0); MONOCYTES % (AUTO) 7.9 % (1.7-9.3); NEUTROPHILS # (AUTO) 7.1 K/uL (1.8-7.7); PLATELET COUNT (AUTO) 272 K/uL (130-430); RED BLOOD CELL COUNT(AUTO) 4.21 MIL/uL (4.2-6.2); RED CELL DISTRIBUTION WIDTH 14.2 % (9.0-15.0); WHITE BLOOD COUNT (AUTO) 8.6 K/uL (4.8-10.8)
[2019-03-31 08:02] LABS: C-REACTIVE PROTEIN QUANT < 0.2 mg/dL (0-0.5)
[2019-03-31 08:13] LABS: ALANINE AMINOTRANSFERASE 15 U/L (12-78); ALBUMIN 2.9 g/dL (3.4-4.8); ANION GAP 9 (5-15); ASPARTATE AMINOTRANSFERASE 11 U/L (10-37); CALCIUM 8.4 mg/dL (8.4-11.0); CHLORIDE 97 mmol/L (98-107); CREATININE 1.25 mg/dL (0.55-1.30); POTASSIUM 3.7 mmol/L (3.5-5.1); SODIUM SERUM 130 mmol/L (136-145); THYROID STIMULATING HORMONE 2.76 uIu/mL (0.36-3.74); TOTAL BILIRUBIN 0.3 mg/dL (0.0-1.0); UREA NITROGEN, BLOOD 14 mg/dL (8-21)
[2019-03-31 08:19] LABS: GFR AFRICAN AMERICAN 62 mL/min (>90); GLUCOSE 692 mg/dL (70-99)
[2019-03-31] MEDS: INSULIN NPH/REGULAR 70-30, 100 UNITS/ML, 10 ML VIAL SUBCUT SCH ×2 (08:42→18:00)
--- NOTE | 2019-03-31 08:44 | NUR ---
PAGED: Re: orders .
[2019-03-31] MEDS: METOPROLOL TARTRATE 25 MG TABLET PO SCH (09:00)
[2019-03-31] MEDS ORDERED: INSULIN NPH/REGULAR 70-30, 100 UNITS/ML, 10 ML VIAL SUBCUT ONE ×2 (09:00→13:45)
[2019-03-31] MEDS: SIMVASTATIN 20 MG TABLET PO SCH (09:11)
[2019-03-31] MEDS: PHENAZOPYRIDINE HCL 100 MG TABLET PO SCH ×3 (09:11→17:54)
[2019-03-31] MEDS: AMOXICILLIN/CLAVULANATE POTASSIUM 875 MG TABLET PO SCH ×2 (09:11→22:01)
[2019-03-31 09:23] LABS: ERYTHROCYTE SEDIMENTATION RATE 17 MM/HR (0-20)
--- NOTE | 2019-03-31 09:50 | NUR ---
Nutrition Update Ronen Scale 17 noted. Pt admitted for diabetes uncontrolled, herpes Diet: [facility] BMI: 24.6 kg/m2 RD to follow per nutrition care standards.
[2019-03-31 13:05] VITALS: BP_SYST 120
[2019-03-31] MEDS ORDERED: HYDROmorphone 2 MG TAB PO PRN (15:00)
[2019-03-31] MEDS ORDERED: OXYCODONE/ACETAMINOPHEN 5-325 TABLET PO PRN (15:00)
[2019-03-31 17:21] VITALS: BP_SYST 125
[2019-03-31 20:00] VITALS: BP_SYST 144
--- NOTE | 2019-03-31 20:00 | NUR ---
Late Entry due to patient care: Pt is fully AAO x4. No c/o pain or discomfort and no acute distress noted. Pt just returned from smoking outside the hospital. Skin is warm and dry to touch. No signs or symptoms of hypoglycemia or hyperglycemia noted. Saline lock in LFA is without any signs of infiltration. Fall and safety precautions are in place. Addendum: 04/01/19 at 0132 by Ryanne Mariano RN Saline lock is in RFA. LFA saline lock noted, but pt stated it is no longer working.
--- NOTE | 2019-03-31 22:03 | NUR ---
Zofran 4mg given IV for c/o nausea with relief. No emesis noted. Fall and safety precautions are in place.
--- NOTE | 2019-03-31 22:07 | NUR ---
Accucheck 351 and 10units Humalog Insulin given SQ. Skin remains warm and dry to touch. Pt was given 1/2 turkey sandwich, 2 quinton crackers, 2 saltine crackers and 1 cup chocolate pudding per her request for HS snacks.
--- NOTE | 2019-03-31 22:11 | NUR ---
Morphine 4mg was given IV for c/o 01/04 perineal lesion pain with relief. Pt declined bed alarm. Pt was instructed to call for assistance before getting out of bed if she feels drowsy or dizzy and pt verbalized understanding.
--- NOTE | 2019-03-31 23:30 | NUR ---
Pt c/o pain at her IV site in RFA and requested it's removal. Angiocath was removed intact. New Saline lock was inserted in RFA with Angiocath 22G after one attempt. Pt tolerated IV restart well. Fall and safety precautions are in place. Addendum: 04/01/19 at 0135 by Ryanne Mariano RN Saline lock in LFA was also removed with the Angiocath intact. Pressure dressings were applied to both sites that had Angiocaths removed.
--- NOTE | 2019-03-31 23:56 | NUR ---
Benadryl 50mg was given IV for c/o itching. Pt declined bed alarm. Pt was instructed to call for assistance before getting out of bed if she feels drowsy or dizzy and pt verbalized understanding.
--- NOTE | 2019-04-01 02:00 | NUR ---
Pt is sleeping without any distress noted. Fall and safety precautions are in place.
[2019-04-01] MEDS: MORPHINE 4 MG/ML INJ. SYRINGE IVP PRN ×4 (03:23→22:50)
--- NOTE | 2019-04-01 03:23 | NUR ---
Morphine 4mg was given Iv for c/o perineal lesion pain with relief. Pt declined bed alarm. Pt instructed to call for assistance before getting out of bed if she feels dizzy or drowsy. Pt verbalized understanding. Call light is with pt and bed is in the lowest and locked positions.
--- NOTE | 2019-04-01 05:00 | NUR ---
Pt is resting quietly in bed. Fall and safety precautions are in place.
--- NOTE | 2019-04-01 06:30 | NUR ---
PT IS AWAKE AND RESTING QUIETLY IN BED. ALL PT'S NEEDS WERE ATTENDED TO. WILL ENDORSE TO DAY SHIFT NURSE.
[2019-04-01 06:41] LABS: CALCIUM 8.5 mg/dL (8.4-11.0); CREATININE 0.9 mg/dL (0.55-1.30); POTASSIUM 3.5 mmol/L (3.5-5.1)
[2019-04-01 06:57] LABS: BASOPHILS % (AUTO) 0.6 % (0.0-2.0); EOSINOPHILS # (AUTO) 0.1 K/uL (0.0-0.4); EOSINOPHILS % (AUTO) 1.2 % (0.0-4.0); HEMATOCRIT 32.6 % (36-48); HEMOGLOBIN 11.1 g/dL (12.0-16.0); LYMPHOCYTES # (AUTO) 2.2 K/uL (1.0-5.5); LYMPHOCYTES % (AUTO) 31.1 % (20.5-51.5); MEAN CORPUSCULAR HEMOGLOBIN 30 pg (27-31); MEAN CORPUSCULAR HGB CONC 34 % (32-36); MEAN CORPUSCULAR VOLUME 88 fL (79.0-98.0); MONOCYTES # (AUTO) 0.6 K/uL (0.0-1.0); MONOCYTES % (AUTO) 8.3 % (1.7-9.3); NEUTROPHILS # (AUTO) 4.2 K/uL (1.8-7.7); NEUTROPHILS % (AUTO) 58.8 % (40.0-70.0); PLATELET COUNT (AUTO) 280 K/uL (130-430); RED BLOOD CELL COUNT(AUTO) 3.68 MIL/uL (4.2-6.2); RED CELL DISTRIBUTION WIDTH 13.9 % (9.0-15.0); WHITE BLOOD COUNT (AUTO) 7.1 K/uL (4.8-10.8)
[2019-04-01] MEDS: INSULIN LISPRO SLIDING SCALE 100 UNITS/ML VIAL (humaLOG) SUBCUT PRN ×4 (07:08→22:55)
[2019-04-01] MEDS: INSULIN NPH/REGULAR 70-30, 100 UNITS/ML, 10 ML VIAL SUBCUT SCH ×2 (07:10→17:34)
[2019-04-01] MEDS: ACYCLOVIR IV 750 MG in D5W 100 ML IV SCH ×3 (07:13→20:39)
[2019-04-01] MEDS: NORMAL SALINE 5 ML DISP.SYRIN IVF SCH ×3 (07:14→20:39)
[2019-04-01] MEDS: GABAPENTIN 300 MG CAPSULE PO SCH ×4 (07:14→22:51)
[2019-04-01] MEDS: LORazepam 2 MG/ML VIAL IVP PRN ×2 (07:15→21:02)
--- NOTE | 2019-04-01 07:15 | NUR ---
ATIVAN 1MG WAS GIVEN IV FOR C/O ANXIETY.
--- NOTE | 2019-04-01 07:30 | NUR ---
INITIAL NOTE PT AWAKE, SITTING UP IN BED. DENIES ANY PAIN OR DISCOMFORT AT THIS TIME. IV INFILTRATED, WILL RESTART NEW IV. CALL LIGHT WITHIN REACH, BED IN LOW AND LOCKED POSITION WITH BED ALARM ON. ISOLATION PRECAUTIONS IN PLACE.
[2019-04-01 08:00] VITALS: BP_SYST 131
[2019-04-01] MEDS: AMOXICILLIN/CLAVULANATE POTASSIUM 875 MG TABLET PO SCH ×2 (08:33→20:38)
[2019-04-01] MEDS: PHENAZOPYRIDINE HCL 100 MG TABLET PO SCH ×3 (08:34→17:28)
[2019-04-01] MEDS: SIMVASTATIN 20 MG TABLET PO SCH (08:34)
[2019-04-01] MEDS: METOPROLOL TARTRATE 25 MG TABLET PO SCH (08:34)
--- NOTE | 2019-04-01 09:30 | NUR ---
RN ROUNDS PT AWAKE, REQUESTING FOR TOAST. VSS. WILL CONTINUE TO MONITOR.
[2019-04-01] MEDS: METOCLOPRAMIDE HCL 10 MG/2 ML VIAL IVP PRN ×2 (09:59→18:50)
--- NOTE | 2019-04-01 10:09 | NUR ---
PAIN MEDICATIONS PT COMPLAINING OF ABDOMINAL PAIN. EDUCATED PT ON USES AND SIDE EFFECTS OF MORPHINE. PT VERBALIZED UNDERSTANDING. PRN MORPHINE ADMINISTERED.
[2019-04-01] MEDS: DIPHENHYDRAMINE INJ 50 MG/ML VIAL IVP PRN ×2 (10:49→22:51)
--- NOTE | 2019-04-01 10:59 | NUR ---
Jelly SIMPSON MD AT BEDSIDE EXAMINING PT. PT INFORMED MD THAT SHE STILL HAS 2 OPEN LESIONS AND WOULD LIKE ONE MORE DAY OF IV ANTIVIRAL. MD TO DISCHARGE PT POSSIBLY TOMORROW.
--- NOTE | 2019-04-01 12:09 | NUR ---
RN ROUNDS PT RESTING IN BED, PAIN CONTROLLED AT THIS TIME. WILL CONTINUE TO MONITOR.
[2019-04-01 12:53] VITALS: BP_SYST 128
[2019-04-01] MEDS: MORPHINE 2 MG/ML INJ. SYRINGE IVP PRN ×2 (13:16→18:41)
--- NOTE | 2019-04-01 14:02 | NUR ---
RN ROUNDS PT OUT SMOKING WITH STAFF, STEADY GAIT.
[2019-04-01] MEDS: ONDANSETRON HCL 4 MG/2 ML VIAL IVP PRN ×2 (14:34→22:51)
--- NOTE | 2019-04-01 14:46 | NUR ---
DR. LUAN CAO AT BEDSIDE EXAMINING PT.
--- NOTE | 2019-04-01 16:22 | NUR ---
RN ROUNDS PT RESTING IN BED, NO ACUTE DISTRESS NOTED, BREATHING EVEN AND UNLABORED. WILL CONTINUE TO MONITOR.
[2019-04-01 16:35] VITALS: BP_SYST 118
--- NOTE | 2019-04-01 18:24 | NUR ---
CLOSING NOTE PT AWAKE, NEW IV STARTED X1 ATTEMPT. PAIN CONTROLLED AT THIS TIME. CALL LIGHT WITHIN REACH, BED IN LOW AND LOCKED POSITION. EDUCATED PT ON SAFETY AND USE OF BED ALARM, PT VERBALIZED UNDERSTANDING, REFUSING BED ALARM. ISOLATION PRECAUTIONS IN PLACE. WILL CONTINUE TO MONITOR UNTIL PT CARE IS ENDORSED TO RESIDENTIAL RECYCLE DRIVER RN.
[2019-04-01 19:00] VITALS: BP_SYST 115
--- NOTE | 2019-04-01 19:15 | NUR ---
pt.assessed pt.presents quiescent affect;calm,resting,viewing programming per phone.no c/o pain,nausea.dinner tray@bedside. pt stated she will eat later.pt.presents iv access;rt.hand.general status stable.respiratory status stable:unlabored@room air.pt. presents isolation status;contact;call light/telephone w/in reach of the pt.
[2019-04-01 20:00] VITALS: BP_SYST 115
--- NOTE | 2019-04-01 20:00 | NUR ---
pt.assessed/v/sa ss ed.values w/in normal limits.i have apprised the pt.that i may provide snacks/beverages w/in the shift. pt had requested to smoke.i have accompanied the pt.off the unit to smoke;designated smoke area.i have accompanied the pt's return to the room.no additional requests posited@this hour.call light/telephone w/in reach of the pt.
--- NOTE | 2019-04-01 20:30 | NUR ---
i have assessed the blood glucose;value;347mg/dl.i have apprised the pt.of the value.pt had requested to administer the insulin later;projected hour;2230p.
--- NOTE | 2019-04-01 21:00 | NUR ---
2100pmedications.pt had requested the 2100p medication be administered@2230p:projected time of the morphine administration.
--- NOTE | 2019-04-01 22:45 | NUR ---
pt.had requested medication;pain,nausea.i have administered morphine;4mh ivp,i have administered zofran;4mg ivp,benadryl:50mg ivp.to assess the efficacy of the medications;pain medication assessed per pain mgx protocol. Addendum: 04/02/19 at 0200 by Vick Byrnes RN i have administered insulin:6-units humalog per the sliding scale per the pt's requests.pt had requested her dinner tray to be re-heated.i have atten to the food tray.re-heating.
--- NOTE | 2019-04-02 | NUR ---
pt.assessed.v/s assessed:values w/in normal limits.no c/o pain,nausea.,general status stable.respiratory status stable;unlabored. pt.capable to reposition self.no requests posited@this hour.call light/telephone placed w/in reach of the pt.
[2019-04-02 00:05] VITALS: BP_SYST 156
[2019-04-02] MEDS: LORazepam 2 MG/ML VIAL IVP PRN ×2 (01:29→17:26)
--- NOTE | 2019-04-02 01:30 | NUR ---
pt.requested ativan.i have administered ativan;1mg ivp.to assess the efficacy of the medication.pt had requested pudding .i have provided the pudding.
--- NOTE | 2019-04-02 02:00 | NUR ---
pt.assessed pt presents quiescent affect;calm.pt.had requested additional pudding,crackers.i have provided the snacks. no c/o pin,nausea.pt.capable to reposition self.
--- NOTE | 2019-04-02 03:45 | NUR ---
pt.had requested medication;pain,i have administered morphine;4mg ivp.to reassess the medication efficacy per pain mgx protocol.pt had requested medication;nausea.i have administered reglan:10mg ivp.pt.had requested snacks.i have provided pudding crackers;quinton.
[2019-04-02] MEDS: MORPHINE 4 MG/ML INJ. SYRINGE IVP PRN ×3 (03:46→21:36)
[2019-04-02] MEDS: METOCLOPRAMIDE HCL 10 MG/2 ML VIAL IVP PRN ×2 (03:47→13:43)
--- NOTE | 2019-04-02 06:15 | NUR ---
pt.assessed.blood glucose assessed;value:330mg/dl.i have administered 8-u;humlog;sliding scale.pt scheduled to rcieve:40-u humulin:70/3o.administered./call light/telephone w/in pt's reach.
[2019-04-02] MEDS: ACYCLOVIR IV 750 MG in D5W 100 ML IV SCH ×3 (06:24→21:34)
[2019-04-02] MEDS: GABAPENTIN 300 MG CAPSULE PO SCH ×4 (06:25→23:56)
[2019-04-02] MEDS: NORMAL SALINE 5 ML DISP.SYRIN IVF SCH ×3 (06:25→21:15)
[2019-04-02] MEDS: INSULIN NPH/REGULAR 70-30, 100 UNITS/ML, 10 ML VIAL SUBCUT SCH ×2 (06:35→17:08)
[2019-04-02] MEDS: INSULIN LISPRO SLIDING SCALE 100 UNITS/ML VIAL (humaLOG) SUBCUT PRN ×4 (06:37→21:08)
[2019-04-02 06:44] LABS: BASOPHILS % (AUTO) 0.5 % (0.0-2.0); EOSINOPHILS # (AUTO) 0.1 K/uL (0.0-0.4); EOSINOPHILS % (AUTO) 2.4 % (0.0-4.0); HEMATOCRIT 33.5 % (36-48); HEMOGLOBIN 11.1 g/dL (12.0-16.0); LYMPHOCYTES % (AUTO) 33.9 % (20.5-51.5); MEAN CORPUSCULAR HEMOGLOBIN 29 pg (27-31); MEAN CORPUSCULAR HGB CONC 33 % (32-36); MEAN CORPUSCULAR VOLUME 89 fL (79.0-98.0); MONOCYTES # (AUTO) 0.5 K/uL (0.0-1.0); MONOCYTES % (AUTO) 8.3 % (1.7-9.3); NEUTROPHILS # (AUTO) 3.3 K/uL (1.8-7.7); NEUTROPHILS % (AUTO) 54.9 % (40.0-70.0); PLATELET COUNT (AUTO) 271 K/uL (130-430); RED BLOOD CELL COUNT(AUTO) 3.78 MIL/uL (4.2-6.2); RED CELL DISTRIBUTION WIDTH 14.4 % (9.0-15.0); WHITE BLOOD COUNT (AUTO) 5.9 K/uL (4.8-10.8)
[2019-04-02 06:54] LABS: C-REACTIVE PROTEIN QUANT 1.1 mg/dL (0-0.5); CALCIUM 8.4 mg/dL (8.4-11.0); CREATININE 0.97 mg/dL (0.55-1.30); POTASSIUM 3.7 mmol/L (3.5-5.1)
[2019-04-02 08:00] VITALS: BP_SYST 133
--- NOTE | 2019-04-02 08:00 | NUR ---
Note Pt sitting on side of bed and eating her breakfast. No SOB/resp distress or pain/discomfort noted at this time. IV in right hand intact and patent infusing IVF's well. No needs noted at this time. Call light within reach. Pt able to ambulate independently in room with steady gait in and out the restroom and bed.
[2019-04-02] MEDS: SIMVASTATIN 20 MG TABLET PO SCH (08:45)
[2019-04-02] MEDS: AMOXICILLIN/CLAVULANATE POTASSIUM 875 MG TABLET PO SCH ×2 (08:46→20:59)
[2019-04-02] MEDS: METOPROLOL TARTRATE 25 MG TABLET PO SCH (08:46)
[2019-04-02] MEDS: PHENAZOPYRIDINE HCL 100 MG TABLET PO SCH ×3 (08:47→17:24)
[2019-04-02] MEDS: ONDANSETRON HCL 4 MG/2 ML VIAL IVP PRN ×2 (08:52→21:42)
[2019-04-02] MEDS: MORPHINE 2 MG/ML INJ. SYRINGE IVP PRN (08:56)
--- NOTE | 2019-04-02 11:24 | NUR ---
Dietitian Recommendations *Consider Low carb - 45gm CCHO diet. Please see nutritional Assessment for details. DUSTY, ESPERANZA
--- NOTE | 2019-04-02 12:00 | NUR ---
Note Pt went out to smoke with [employer] at 11am. Pt now settled in bed with lunch at bedside at this time. Pt denies any needs.
[2019-04-02 12:41] VITALS: BP_SYST 130
--- NOTE | 2019-04-02 15:00 | NUR ---
Note Dr Morgan on the floor assessing pt and writing orders at this time. Pt resting in bed. No needs noted at this time. Call light within reach.
--- NOTE | 2019-04-02 16:18 | NUR ---
DC PLANNING: RECEIVED CALL FROM BEV ADVISED CM [place] [phone] REQUESTING DC PLANNING CM ADVISED PER MD NOTES AWAITING GLUCOSE CONTROL FOR DC PLANNING.
--- NOTE | 2019-04-02 18:30 | NUR ---
Note Dr Fink at pt's bedside doing assessment at 1730 and stating possible discharge home if blood sugars are stabilized. Questions/concerns were answered at this time. Pt showered around 1630 and now resting in bed after finishing her dinner sitting on side of bed. No SOB/resp distress or severe vaginal pain/discomfort noted at this time. No SOB/resp distress noted. Pt was checked on q1' and PRN all shift for needs and care. Pt maintained with safety precautions all shift. IV in right hand intact and patent at this time. No needs noted. Call light within reach.
[2019-04-02 20:00] VITALS: BP_SYST 151
[2019-04-03] MEDS: DIPHENHYDRAMINE INJ 50 MG/ML VIAL IVP PRN ×3 (01:26→21:21)
[2019-04-03] MEDS: MORPHINE 4 MG/ML INJ. SYRINGE IVP PRN ×5 (01:26→21:22)
[2019-04-03 02:23] VITALS: BP_SYST 141
[2019-04-03] MEDS: LORazepam 2 MG/ML VIAL IVP PRN ×3 (02:35→17:11)
[2019-04-03] MEDS: GABAPENTIN 300 MG CAPSULE PO SCH ×3 (05:54→17:11)
[2019-04-03] MEDS: ACYCLOVIR IV 750 MG in D5W 100 ML IV SCH ×2 (05:56→14:35)
[2019-04-03] MEDS: NORMAL SALINE 5 ML DISP.SYRIN IVF SCH ×3 (06:01→21:22)
[2019-04-03] MEDS: INSULIN NPH/REGULAR 70-30, 100 UNITS/ML, 10 ML VIAL SUBCUT SCH ×2 (06:10→17:17)
[2019-04-03] MEDS: INSULIN LISPRO SLIDING SCALE 100 UNITS/ML VIAL (humaLOG) SUBCUT PRN ×4 (06:11→21:16)
[2019-04-03 06:16] LABS: BASOPHILS # (AUTO) 0.1 K/uL (0.0-0.2); EOSINOPHILS # (AUTO) 0.2 K/uL (0.0-0.4); HEMATOCRIT 32.7 % (36-48); LYMPHOCYTES # (AUTO) 2.3 K/uL (1.0-5.5); LYMPHOCYTES % (AUTO) 29.6 % (20.5-51.5); MEAN CORPUSCULAR HEMOGLOBIN 30 pg (27-31); MEAN CORPUSCULAR HGB CONC 34 % (32-36); MEAN CORPUSCULAR VOLUME 89 fL (79.0-98.0); MONOCYTES # (AUTO) 0.6 K/uL (0.0-1.0); MONOCYTES % (AUTO) 7.8 % (1.7-9.3); NEUTROPHILS # (AUTO) 4.7 K/uL (1.8-7.7); NEUTROPHILS % (AUTO) 59.6 % (40.0-70.0); PLATELET COUNT (AUTO) 273 K/uL (130-430); RED BLOOD CELL COUNT(AUTO) 3.67 MIL/uL (4.2-6.2); RED CELL DISTRIBUTION WIDTH 14.3 % (9.0-15.0); WHITE BLOOD COUNT (AUTO) 7.9 K/uL (4.8-10.8)
[2019-04-03] MEDS: ONDANSETRON HCL 4 MG/2 ML VIAL IVP PRN (06:16)
[2019-04-03 06:27] LABS: ANION GAP 8 (5-15); CALCIUM 8.1 mg/dL (8.4-11.0); CHLORIDE 100 mmol/L (98-107); CREATININE 0.79 mg/dL (0.55-1.30); GLUCOSE 307 mg/dL (70-99); POTASSIUM 3.5 mmol/L (3.5-5.1); SODIUM SERUM 137 mmol/L (136-145); UREA NITROGEN, BLOOD 11 mg/dL (8-21)
[2019-04-03 07:22] LABS: GFR AFRICAN AMERICAN 106 mL/min (>90)
[2019-04-03 07:30] LABS: C-REACTIVE PROTEIN QUANT < 0.2 mg/dL (0-0.5)
--- NOTE | 2019-04-03 08:00 | NUR ---
ASSUMPTION OF CARE: RECEIVED PT A/A/OX4, DX:RISK FOR UNSTABLE BLOOD GLUCOSE, R/T UNCONTROLLED DIABETES, VS WNL, AFEBRILE, NO S/S OF DISTRESS, BREATH SOUNDS ARE CLEAR, BREATHING UNLABORED, IV SITE INTACT, PATENT, NO REDNESS OR SWELLING, REQUESTING TO GO OUTSIDE TO SMOKE, SMOKING CESSATION INFORMATION SHARED WITH PT, NO C/O PAIN AT THIS TIME, REORIENTED TO UNIT, CALL LIGHT PLACED WITHIN REACH, WILL CONT' TO MONITOR AND ASSESS.
[2019-04-03 08:35] LABS: ERYTHROCYTE SEDIMENTATION RATE 27 MM/HR (0-20)
[2019-04-03] MEDS: SIMVASTATIN 20 MG TABLET PO SCH (09:58)
[2019-04-03] MEDS: AMOXICILLIN/CLAVULANATE POTASSIUM 875 MG TABLET PO SCH ×2 (09:59→21:05)
[2019-04-03] MEDS: PHENAZOPYRIDINE HCL 100 MG TABLET PO SCH ×3 (10:00→17:31)
[2019-04-03] MEDS: METOPROLOL TARTRATE 25 MG TABLET PO SCH (10:00)
--- NOTE | 2019-04-03 10:00 | NUR ---
PAIN: PT C/O PAIN TO PERINEAL AREA, 8/10 VIA NUMERIC SCALE, MORPHINE 4MG IVP GIVEN, TOLERATED WELL, WILL CONT' TO MONITOR AND ASSESS.
--- NOTE | 2019-04-03 11:30 | NUR ---
GLUCOSE MONITORING: BLOOD SUGAR EEIWO=198, 6 UNITS HUMALOG GIVEN SQ, TOLERATED WELL, WILL CONT' WITH POC.
[2019-04-03 13:33] VITALS: BP_SYST 138
--- NOTE | 2019-04-03 15:36 | NUR ---
DC PLANNING CALLED DR BRIANA WEBB REGARDING DC PLANNING. PER DR WEBB ANTICIPATE DC HOME TODAY.
--- NOTE | 2019-04-03 17:00 | NUR ---
GLUCOSE MONITORING: BLOOD SUGAR QAPCW=[id number], 2 UNITS HUMALOG GIVEN SQ, TOLERATED WELL, WILL CONT' WITH POC.
--- NOTE | 2019-04-03 17:10 | NUR ---
PAIN: PT C/O PAIN TO PERINEAL AREA, 8/10 VIA NUMERIC SCALE, MORPHINE 4MG IVP GIVEN, TOLERATED WELL, WILL CONT' TO MONITOR AND ASSESS.
[2019-04-03 17:16] VITALS: BP_SYST 134
--- NOTE | 2019-04-03 19:30 | NUR ---
OPENING NOTES Received patient not in the room out smoking without medical staff, spoke to patient and explained that patient needs to be with a medical staff. Patient stated that previous shift staff told her that she could without medical staff, but previous RN states that she did not say yes. Patient is resting, IVF running, dressings c/d/i. Call light wtihin reach, bed alarm refused after patient education provided. Bed at lowest position. Will contiue to monitor.
[2019-04-03 20:00] VITALS: BP_SYST 153
[2019-04-03] MEDS: METOCLOPRAMIDE HCL 10 MG/2 ML VIAL IVP PRN (21:21)
[2019-04-04] MEDS: GABAPENTIN 300 MG CAPSULE PO SCH ×4 (00:07→17:24)
[2019-04-04] MEDS: ACYCLOVIR IV 750 MG in D5W 100 ML IV SCH ×4 (00:08→21:58)
[2019-04-04] MEDS: LORazepam 2 MG/ML VIAL IVP PRN ×4 (00:10→21:58)
[2019-04-04 01:50] VITALS: BP_SYST 126
[2019-04-04] MEDS: MORPHINE 4 MG/ML INJ. SYRINGE IVP PRN ×5 (02:18→20:13)
[2019-04-04] MEDS: DIPHENHYDRAMINE INJ 50 MG/ML VIAL IVP PRN ×2 (04:07→21:58)
[2019-04-04] MEDS: NORMAL SALINE 5 ML DISP.SYRIN IVF SCH ×3 (06:29→21:58)
[2019-04-04 06:35] LABS: BASOPHILS # (AUTO) 0.1 K/uL (0.0-0.2); BASOPHILS % (AUTO) 1.1 % (0.0-2.0); EOSINOPHILS # (AUTO) 0.2 K/uL (0.0-0.4); EOSINOPHILS % (AUTO) 2.8 % (0.0-4.0); HEMATOCRIT 32.5 % (36-48); HEMOGLOBIN 10.9 g/dL (12.0-16.0); LYMPHOCYTES # (AUTO) 2.4 K/uL (1.0-5.5); LYMPHOCYTES % (AUTO) 33.5 % (20.5-51.5); MEAN CORPUSCULAR HEMOGLOBIN 30 pg (27-31); MEAN CORPUSCULAR HGB CONC 34 % (32-36); MEAN CORPUSCULAR VOLUME 88 fL (79.0-98.0); MONOCYTES # (AUTO) 0.7 K/uL (0.0-1.0); MONOCYTES % (AUTO) 9.7 % (1.7-9.3); NEUTROPHILS # (AUTO) 3.8 K/uL (1.8-7.7); NEUTROPHILS % (AUTO) 52.9 % (40.0-70.0); PLATELET COUNT (AUTO) 273 K/uL (130-430); RED BLOOD CELL COUNT(AUTO) 3.69 MIL/uL (4.2-6.2); RED CELL DISTRIBUTION WIDTH 13.5 % (9.0-15.0); WHITE BLOOD COUNT (AUTO) 7.2 K/uL (4.8-10.8)
[2019-04-04] MEDS: INSULIN LISPRO SLIDING SCALE 100 UNITS/ML VIAL (humaLOG) SUBCUT PRN ×3 (06:35→20:18)
[2019-04-04] MEDS: INSULIN NPH/REGULAR 70-30, 100 UNITS/ML, 10 ML VIAL SUBCUT SCH ×2 (06:37→17:30)
--- NOTE | 2019-04-04 07:30 | NUR ---
CLOSING NOTES Patient is resting, no signs of acute respiratory distress observed. IVF running to new IV site on Left arm. All needs met throughout shift. Will endorse care to ocoming shift.
[2019-04-04 07:32] LABS: ANION GAP 6 (5-15); CALCIUM 7.2 mg/dL (8.4-11.0); CHLORIDE 99 mmol/L (98-107); CREATININE 0.81 mg/dL (0.55-1.30); GLUCOSE 352 mg/dL (70-99); SODIUM SERUM 134 mmol/L (136-145); UREA NITROGEN, BLOOD 12 mg/dL (8-21)
[2019-04-04 07:33] LABS: GFR AFRICAN AMERICAN 103 mL/min (>90)
--- NOTE | 2019-04-04 07:37 | NUR ---
OPENING NOTE Patient resting in the bed. No acute distress. AAO x 4. Denied of pain at this time. Skin warm and dry to touch. IV intact to LFA, no redness, no swelling, patent. Discussed the safety issue, use call light when needs help, and plan of care, verbally understanding. Safety measure maintained. Call light within reached. Bed locked in low position, side rails up. Refused bed alarm, risk and benefit explained, verbally understanding. Will continue to monitor.
[2019-04-04 07:45] VITALS: BP_SYST 115
[2019-04-04 08:13] LABS: C-REACTIVE PROTEIN QUANT < 0.2 mg/dL (0-0.5)
[2019-04-04 08:15] LABS: ERYTHROCYTE SEDIMENTATION RATE 32 MM/HR (0-20)
[2019-04-04] MEDS: SIMVASTATIN 20 MG TABLET PO SCH (08:52)
[2019-04-04] MEDS: PHENAZOPYRIDINE HCL 100 MG TABLET PO SCH ×3 (08:52→17:23)
[2019-04-04] MEDS: AMOXICILLIN/CLAVULANATE POTASSIUM 875 MG TABLET PO SCH ×2 (08:52→20:12)
[2019-04-04] MEDS: METOPROLOL TARTRATE 25 MG TABLET PO SCH (08:53)
--- NOTE | 2019-04-04 08:53 | NUR ---
AM SCHEDULE MED GIVEN, TOLERATED WELL.
[2019-04-04] MEDS ORDERED: GABA-531 PO (10:22)
[2019-04-04] MEDS ORDERED: AUG875 PO (10:22)
[2019-04-04] MEDS ORDERED: INSNPH7030 SUBCUT (10:22)
[2019-04-04] MEDS ORDERED: HYDR-4272 PO (10:22)
[2019-04-04] MEDS ORDERED: GLIP5TAB13 PO (10:22)
[2019-04-04] MEDS ORDERED: OXYC-128 PO (10:22)
[2019-04-04] MEDS ORDERED: HYDR2TAB7 PO (10:22)
[2019-04-04] MEDS ORDERED: [UNRECOGNIZED DRUG - CODE] PO ×2 (10:22)
--- NOTE | 2019-04-04 10:52 | NUR ---
WENT OUT FOR SMOKING WITH THE PATIENT.
--- NOTE | 2019-04-04 11:09 | NUR ---
BACK TO UNIT AFTER SMOKING WITH THE PATIENT.
--- NOTE | 2019-04-04 11:21 | NUR ---
VW=182 No insulin coverage needed per sliding scale.
--- NOTE | 2019-04-04 11:27 | NUR ---
MORPHINE GIVEN Patient c/o perineal area pain 10/10, Morphine 4mg IVP given as ordered. NO acute distress. Patient lying in the bed. Safety measure maintained. Call light within reached. Bed locked in low position, side rails up. Continue to monitor.
[2019-04-04 12:00] VITALS: BP_SYST 123
[2019-04-04] MEDS: METOCLOPRAMIDE HCL 10 MG/2 ML VIAL IVP PRN (12:56)
--- NOTE | 2019-04-04 13:04 | NUR ---
ATIVAN AND REGULAR GIVEN Patient c/o feeling anxious and stated that needs to be given with Regular, otherwise will be vomit. Ativan 1mg IVP and Reglan 10mg IVP given as ordered. Patient no acute distress. Safety measure maintained. Call light within reached. Bed locked in low position, side rails up. Continue to monitor.
--- NOTE | 2019-04-04 15:30 | NUR ---
RECEIVED THE CALL FROM AUDIT PRACTICE INTERN, PATIENT SHOULD BE DISCHARGE TODAY AND NEEDS TO BE CLEAR BY ENDOCRINE BEFORE DISCHARGE THE PATIENT.
--- NOTE | 2019-04-04 15:50 | NUR ---
CALLED AND RECEIVED THE CALL BACK FROM DR. ROLAND. PER DR. ROLAND, HE ALREADY OFF THE CASE.
[2019-04-04 16:00] VITALS: BP_SYST 113
--- NOTE | 2019-04-04 16:05 | NUR ---
NOTE Per patient, Dr. Fink told her this morning will be discharge tomorrow.
--- NOTE | 2019-04-04 16:09 | NUR ---
MORPHINE GIVEN Patient c/o perineal area pain 10/10, Morphine 4mg IVP given as ordered. No acute distress. Safety measure maintained. Call light within reached. Bed locked in low position, side rails up. Continue to monitor.
--- NOTE | 2019-04-04 17:32 | NUR ---
JA=730 Humalog insulin 4 units given per sliding scale. Humulin 70/30 insulin 40 units given as ordered. Safety measure maintained. Call light within reached. Continue to monitor.
--- NOTE | 2019-04-04 18:59 | NUR ---
CLOSING NOTE Patient resting in the bed. No acute distress.Pain med given as needed. Skin warm and dry to touch. IV intact to LFA, no redness, no swelling, patent. All needs met. Safety measure maintained. Call light within reached. Bed locked in low position, side rails up. Refused bed alarm, risk and benefit explained, verbally understanding. Will endorse to night nurse.
--- NOTE | 2019-04-04 19:28 | NUR ---
OPENING NOTE RECEIVED CARE OF PT AND SBAR REPORT. PT IS AAOX4, NO S/S OF ACUTE DISTRESS, BREATHING IS UNLABORED TO ROOM AIR. IV TO LFA IS SALINE LOCKED. IV FLUSHING WELL WITH NO S/S OF INFILTRATION AT IV SITE. INSTRUCTED PT TO USE CALL LIGHT FOR ASSISTANCE. SAFETY PRECAUTIONS ARE IN PLACE: BED IS LOCKED IN LOW POSITION, SIDE RAILS UP X2, CALL LIGHT IS WITH PT. PT REFUSED BED ALARM, SAFETY RISKS DISCUSSED WITH PT, PT VERBALIZED UNDERSTANDING. WILL CONTINUE TO MONITOR.
[2019-04-04 20:00] VITALS: BP_SYST 129
--- NOTE | 2019-04-04 20:18 | NUR ---
ACCUCHECK/CRITICAL HIGH BLOOD GLUCOSE BLOOD SUGAR OF 445, 12 UNITS OF HUMALOG INSULIN ADMINISTERED PER SLIDING SCALE. TO GARCIA CAO.
[2019-04-04] MEDS: ONDANSETRON HCL 4 MG/2 ML VIAL IVP PRN (20:26)
--- NOTE | 2019-04-04 20:40 | NUR ---
CRITICAL BLOOD GLUCOSE REPORTED TO DR. ROLAND. NO NEW ORDERS RECEIVED.
--- NOTE | 2019-04-04 21:40 | NUR ---
SMOKE PT TAKEN OUT TO SMOKE VIA WHEELCHAIR.
[2019-04-04] MEDS: HYDROcodone/ACETAMIN 5-325 MG TAB (NORCO/ VICODIN) PO PRN (21:59)
[2019-04-05] VITALS: BP_SYST 136
[2019-04-05] MEDS: GABAPENTIN 300 MG CAPSULE PO SCH ×3 (00:12→12:14)
[2019-04-05] MEDS: MORPHINE 4 MG/ML INJ. SYRINGE IVP PRN ×3 (00:15→10:12)
--- NOTE | 2019-04-05 00:15 | NUR ---
PAIN/MORPHINE PT REPORTING SEVERE PAIN TO PERINEAL AREA. MORPHINE 4 MG IVP ADMINISTERED ORDERED PRN. MEDICATION AND POTENTIAL SIDE EFFECTS DISCUSSED. PT VERBALIZED UNDERSTANDING. SAFETY AND CONTACT PRECAUTIONS MAINTAINED. WILL MONITOR.
--- NOTE | 2019-04-05 01:24 | NUR ---
DR. ENRRIQUE PARKS. POC DISCUSSED WITH PT.
[2019-04-05] MEDS: LORazepam 2 MG/ML VIAL IVP PRN ×2 (03:09→12:18)
--- NOTE | 2019-04-05 03:09 | NUR ---
ANXIETY/ATIVAN PT REQUESTING ATIVAN FOR ANXIETY. ATIVAN 1 MG IVP ADMINISTERED ORDERED PRN. MEDICATION ACTION AND POTENTIAL SIDE EFFECTS EXPLAINED. SAFETY MAINTAINED. WILL MONITOR.
[2019-04-05] MEDS: DIPHENHYDRAMINE INJ 50 MG/ML VIAL IVP PRN ×2 (04:56→10:38)
[2019-04-05] MEDS: ACYCLOVIR IV 750 MG in D5W 100 ML IV SCH ×2 (05:04→13:10)
[2019-04-05] MEDS: NORMAL SALINE 5 ML DISP.SYRIN IVF SCH ×2 (05:04→13:15)
[2019-04-05] MEDS: METOCLOPRAMIDE HCL 10 MG/2 ML VIAL IVP PRN (05:05)
--- NOTE | 2019-04-05 05:05 | NUR ---
MORPHINE/BENADRYL/REGLAN PT GIVEN MORPHINE FOR PAIN, BENADRYL FOR ITCHINESS, AND REGLAN FOR NAUSEA. MEDICATIONS DISCUSSED WITH PT, PT VERBALIZED UNDERSTANDING. IV IS PATENT WITH NO SIGNS OF INFILTRATION AT IV SITE. SAFETY MAINTAINED. WILL MONITOR.
[2019-04-05] MEDS: INSULIN NPH/REGULAR 70-30, 100 UNITS/ML, 10 ML VIAL SUBCUT SCH (06:15)
[2019-04-05] MEDS: INSULIN LISPRO SLIDING SCALE 100 UNITS/ML VIAL (humaLOG) SUBCUT PRN ×2 (06:17→12:18)
--- NOTE | 2019-04-05 06:17 | NUR ---
ACCUCHECK BLOOD SUGAR OF 301. 8 UNITS OF HUMALOG INSULIN ADMINISTERED PER SLIDING SCALE. 40 UNITS OF HUMULIN 70-30 ADMINISTERED SCHEDULED. SAFETY MAINTAINED. WILL MONITOR.
[2019-04-05 06:24] LABS: ANION GAP 7 (5-15); CALCIUM 8.7 mg/dL (8.4-11.0); CHLORIDE 96 mmol/L (98-107); CREATININE 0.77 mg/dL (0.55-1.30); GLUCOSE 297 mg/dL (70-99); SODIUM SERUM 129 mmol/L (136-145); UREA NITROGEN, BLOOD 14 mg/dL (8-21)
[2019-04-05 06:33] LABS: BASOPHILS # (AUTO) 0.1 K/uL (0.0-0.2); BASOPHILS % (AUTO) 1.1 % (0.0-2.0); EOSINOPHILS # (AUTO) 0.2 K/uL (0.0-0.4); EOSINOPHILS % (AUTO) 2.8 % (0.0-4.0); HEMATOCRIT 33.7 % (36-48); HEMOGLOBIN 11.2 g/dL (12.0-16.0); LYMPHOCYTES # (AUTO) 2.5 K/uL (1.0-5.5); LYMPHOCYTES % (AUTO) 39.2 % (20.5-51.5); MEAN CORPUSCULAR HEMOGLOBIN 29 pg (27-31); MEAN CORPUSCULAR HGB CONC 33 % (32-36); MEAN CORPUSCULAR VOLUME 89 fL (79.0-98.0); MONOCYTES # (AUTO) 0.7 K/uL (0.0-1.0); MONOCYTES % (AUTO) 10.4 % (1.7-9.3); NEUTROPHILS % (AUTO) 46.5 % (40.0-70.0); PLATELET COUNT (AUTO) 308 K/uL (130-430); RED BLOOD CELL COUNT(AUTO) 3.81 MIL/uL (4.2-6.2); WHITE BLOOD COUNT (AUTO) 6.4 K/uL (4.8-10.8)
[2019-04-05 06:44] LABS: C-REACTIVE PROTEIN QUANT < 0.2 mg/dL (0-0.5); GFR AFRICAN AMERICAN 109 mL/min (>90)
--- NOTE | 2019-04-05 06:47 | NUR ---
CLOSING NOTE PT IS RESTING IN BED NO S/S OF ACUTE DISTRESS, BREATHING IS UNLABORED TO ROOM AIR. IV TO LFA IS SALINE LOCKED. IV FLUSHING WELL WITH NO S/S OF INFILTRATION AT IV SITE. INSTRUCTED PT TO USE CALL LIGHT FOR ASSISTANCE. SAFETY PRECAUTIONS ARE IN PLACE: BED IS LOCKED IN LOW POSITION, SIDE RAILS UP X2, CALL LIGHT IS WITH PT. PT REFUSED BED ALARM, SAFETY RISKS DISCUSSED WITH PT, PT VERBALIZED UNDERSTANDING. WILL CONTINUE TO MONITOR UNTIL PT CARE IS ENDORSED TO DAY SHIFT RN.
[2019-04-05 07:40] VITALS: BP_SYST 112
[2019-04-05] MEDS: AMOXICILLIN/CLAVULANATE POTASSIUM 875 MG TABLET PO SCH (08:11)
[2019-04-05] MEDS: SIMVASTATIN 20 MG TABLET PO SCH (08:12)
[2019-04-05] MEDS: PHENAZOPYRIDINE HCL 100 MG TABLET PO SCH ×2 (08:12→12:14)
[2019-04-05] MEDS: METOPROLOL TARTRATE 25 MG TABLET PO SCH (08:12)
--- NOTE | 2019-04-05 08:20 | NUR ---
OPENING NOTE Patient resting in the bed with eyes closed. No acute distress. Skin warm and dry to touch. IV intact to LFA, no redness, no swelling. Safety measure maintained. Call light within reached. Bed locked in low position, side rails up. Will continue to monitor.
[2019-04-05 10:04] LABS: ERYTHROCYTE SEDIMENTATION RATE 43 MM/HR (0-20)
--- NOTE | 2019-04-05 10:39 | NUR ---
BENADRYL GIVEN Patient c/o itching, Benadryl 50mg IVP given as ordered. No acute distress. Safety measure maintained. Call light within reached. Bed locked in low position, side rails up. Continue to monitor.
[2019-04-05] MEDS: HYDROcodone/ACETAMIN 5-325 MG TAB (NORCO/ VICODIN) PO PRN (13:10)
--- NOTE | 2019-04-05 13:10 | NUR ---
NORCO GIVEN Patient c/o headache 06/04, [place] 5/325mg 1tab PO given as ordered. No acute distress. Safety measure maintained. Call light within reached. Bed locked in low position, side rails up. Continue to monitor.
--- NOTE | 2019-04-05 15:20 | NUR ---
WENT OUT FOR SMOKING WITH THE PATIENT.
--- NOTE | 2019-04-05 15:38 | NUR ---
BACK TO UNIT AFTER SMOKING WITH THE PATIENT.
[2019-04-05 16:02] VITALS: BP_SYST 123
== END 2019-04-05 17:32 | disposition home or self-care (01) | DRG 531 ==
LOC: SED 15:59 → SMU 17:52
PROVIDERS: ADMIT Preventive Medicine Preventive Medicine/Occupational Environmental Medicine; ATTEND Preventive Medicine Preventive Medicine/Occupational Environmental Medicine
DX: A60.00 Herpesviral infection of urogenital system, unspecified (principal); E11.00 Type 2 diabetes mellitus with hyperosmolarity without nonketotic hyperglycemic-hyperosmolar coma (NKHHC); K31.84 Gastroparesis; E83.51 Hypocalcemia; E87.1 Hypo-osmolality and hyponatremia; D64.9 Anemia, unspecified; B02.9 Zoster without complications; E03.9 Hypothyroidism, unspecified; E78.5 Hyperlipidemia, unspecified; F41.9 Anxiety disorder, unspecified; G89.29 Other chronic pain; I12.9 Hypertensive chronic kidney disease with stage 1 through stage 4 chronic kidney disease, or unspecified chronic kidney disease; F17.210 Nicotine dependence, cigarettes, uncomplicated; N18.9 Chronic kidney disease, unspecified; Z79.4 Long term (current) use of insulin; Z86.14 Personal history of Methicillin resistant Staphylococcus aureus infection; Z79.899 Other long term (current) drug therapy
CPT/HCPCS: 36415; 80048; 80053; 81000-TC; 82962; 83735-TC; 84100-TC; 84443-TC; 85025; 85610-TC; 85651-TC; 85730-TC; 86140; 87081; 87086; 96365; 96375; 99285; J0133; J1200; J1815; J1885; J2060; J2270; J2405; J2765; J7060

== ENCOUNTER 2019-04-06 21:17 | Inpatient (IN) | payer OTHER ==
[~2019-04-06] VITALS: Ht 165.1 cm; Wt 69.9 kg
[~2019-04-06 21:17] MED LIST changes: +AUG875 PO; +BEN50 PO; +GLIP5TAB13 PO; +HYDR-4272 PO; +HYDR2TAB7 PO; +INSNPH7030 SUBCUT; +OXYC-128 PO; +[UNRECOGNIZED DRUG - CODE] PO
[2019-04-06 21:20] VITALS: BP_SYST 136
--- NOTE | 2019-04-06 21:20 | NUR ---
Patient triaged and placed in waiting room. VSS and patient appears in no acute distress at this time. Accompanied by SELF, awaiting available bed, and MD notified of need for MSE.
--- NOTE | 2019-04-06 22:35 | NUR ---
Placed in room 8 . Placed on crop grain or livestock farmer, blood pressure machine and pulse oximeter. To gown for exam. Side rails up. Report given to ELMA COSTELLO.
[2019-04-07 00:23] LABS: BASOPHILS # (AUTO) 0.1 K/uL (0.0-0.2); EOSINOPHILS # (AUTO) 0.1 K/uL (0.0-0.4); EOSINOPHILS % (AUTO) 1.1 % (0.0-4.0); HEMATOCRIT 35.9 % (36-48); HEMOGLOBIN 11.8 g/dL (12.0-16.0); LYMPHOCYTES # (AUTO) 2.1 K/uL (1.0-5.5); LYMPHOCYTES % (AUTO) 32.2 % (20.5-51.5); MEAN CORPUSCULAR HEMOGLOBIN 29 pg (27-31); MEAN CORPUSCULAR HGB CONC 33 % (32-36); MEAN CORPUSCULAR VOLUME 89 fL (79.0-98.0); MONOCYTES # (AUTO) 0.7 K/uL (0.0-1.0); MONOCYTES % (AUTO) 10.5 % (1.7-9.3); NEUTROPHILS # (AUTO) 3.6 K/uL (1.8-7.7); NEUTROPHILS % (AUTO) 55.2 % (40.0-70.0); PLATELET COUNT (AUTO) 359 K/uL (130-430); RED BLOOD CELL COUNT(AUTO) 4.04 MIL/uL (4.2-6.2); RED CELL DISTRIBUTION WIDTH 14.2 % (9.0-15.0); WHITE BLOOD COUNT (AUTO) 6.6 K/uL (4.8-10.8)
[2019-04-07 00:44] LABS: ALBUMIN 3.6 g/dL (3.4-4.8)
[2019-04-07 00:58] LABS: CREATININE 1.09 mg/dL (0.55-1.30); POTASSIUM 4.4 mmol/L (3.5-5.1)
[2019-04-07 01:00] LABS: TOTAL BILIRUBIN 0.3 mg/dL (0.0-1.0)
[2019-04-07] MEDS ORDERED: INSULIN REGULAR, HUMAN 10 UNITS/0.1 ML INJ IVP ONE (01:00)
[2019-04-07] MEDS ORDERED: NACL 0.9% 1,000 ML IV ONE (01:00)
--- NOTE | 2019-04-07 01:00 | NUR ---
Pt brought into ED by self. Pt awake, alert, oriented x4. Pt states that she was discharged less than 48 hours ago from [facility] and her prescriptions were not available at her pharmacy. Pt states that she has a history of herpes and she was on q4hour acyclovir, ativan and pain medication when she was in the hospital. Pt states that she personally called paltobias and told him that she had a blood sugar of approx 600mg/dl and needed to be re-admitted to the hospital. Pt presented to the ED asymptomatic for hypoglycemia, and with pain from her lesions. Pt denies chest pain, nausea, vomiting, diarrhea, dizziness, shortness of breath at this time. Pt requesting to be admitted because of her high blood sugar, and requests pain medication, benadryl, acyclovir and ativan IV. Vital signs stable, pt displaying no acute signs of distress.
--- NOTE | 2019-04-07 01:05 | NUR ---
ER at bedside examining patient.
[2019-04-07] MEDS ORDERED: MORPHINE 4 MG/ML INJ. SYRINGE IVP ONE (02:15)
--- NOTE | 2019-04-07 02:15 | NUR ---
Pt resting in ED bed comfortably. No distress noted. VSS
--- NOTE | 2019-04-07 03:30 | NUR ---
Patient will be admitted to care of Phong. Admitted to MS unit. Will go to room 102A. Belongings list completed. Complete and up to date summary report printed. SBAR report to be given at bedside with opportunity for questions.
--- NOTE | 2019-04-07 04:10 | NUR ---
Transfer to [facility]. IV present no sign or symptom of infiltration.
--- NOTE | 2019-04-07 04:45 | NUR ---
ADMISSION: The patient, JIM WORRELL, 38 y/o, F admitted by BRIANA WEBB MD, with diagnosis of UNCONTROLLED DM; primary nurse at bedside; was given written information regarding hospital policies, unit procedures and contact persons.
[2019-04-07 05:03] VITALS: BP_SYST 127
--- NOTE | 2019-04-07 05:20 | NUR ---
paged paged for Dr Kel Fink, dialed . s/w Bea.
--- NOTE | 2019-04-07 05:28 | NUR ---
Consultation Paged Reason for Consultation: Hyperglycemia Was consult called: Y Person who was notified: Fermín Consulting Physician: Kathi Irene Coupon Collection Clerk Ordering Physician: Rom Cuba
[2019-04-07] MEDS ORDERED: MORPHINE 4 MG/ML INJ. SYRINGE IVP PRN (05:30)
[2019-04-07] MEDS: INSULIN REGULAR, HUMAN 100 UNITS/ML, 10 ML VIAL (humuLIN R) SUBCUT PRN ×4 (06:43→21:18)
[2019-04-07] MEDS: DIPHENHYDRAMINE INJ 50 MG/ML VIAL IVP PRN ×4 (06:54→22:33)
[2019-04-07] MEDS: LORazepam 2 MG/ML VIAL IVP PRN ×4 (06:54→21:05)
--- NOTE | 2019-04-07 07:16 | NUR ---
DR. JON WEBB CALLED BACK, PATIENT'S BLOOD SUGAR 476. NEW ORDER GIVEN FOR REGULAR INSULIN 5 UNITS X1. WILL ENDORSE TO A.M. NURSE.
--- NOTE | 2019-04-07 07:20 | NUR ---
AM ROUNDS: AWAKE DURING ROUNDS. RECEIVED REPORT FROM NIGHT NURSE HILARIO. CALL LIGHT WITH IN REACH. BED LOCKED AT LOWEST POSITION. NEEDS ATTENDED TO . CONTINUE TO MONITOR.
[2019-04-07] MEDS ORDERED: INSULIN REGULAR, HUMAN 100 UNITS/ML, 10 ML VIAL SUBCUT ONE (07:30)
[2019-04-07 08:00] VITALS: BP_SYST 122
--- NOTE | 2019-04-07 08:29 | NUR ---
Pain Meds: C/o perineal pain re: Herpes Genitalia,due iv Morphine given per request. No adverse reactions noted.
[2019-04-07] MEDS ORDERED: OXYCODONE/ACETAMINOPHEN 5-325 TABLET PO PRN (09:45)
--- NOTE | 2019-04-07 10:21 | NUR ---
CONSULTATION PAGED REASON FOR CONSULTATION:HERPES GENITAL WAS CONSULT CALLED?Y PERSON WHO WAS NOTIFIED:ESA CONSULTING PHYSICIAN:BIBIANA DILL ORTHOPEDIC SHOE FITTER SPECIALTY:ID ORTHOPEDIC SHOE FITTER PHONE NUMBER:[phone] REQUESTING PHYSICIAN:BRIANA DENNEY
--- NOTE | 2019-04-07 10:51 | NUR ---
CONSULTATION PAGED REASON FOR CONSULTATION:DM UNCONTROLLED WAS CONSULT CALLED?Y PERSON WHO WAS NOTIFIED:YO CONSULTING PHYSICIAN:ADEBAYO SINCLAIR (DR.AQEEL CRUZ SECRETARY) TREE SAPPER SPECIALTY:ENDOCRINE TREE SAPPER PHONE NUMBER:[phone] REQUESTING PHYSICIAN:BRIANA DENNEY
--- NOTE | 2019-04-07 11:02 | NUR ---
Blood Sugar: Blood vmzwq=433qw/dl,Humulin r 12 units subq given per sliding scale and md was informed.Additional Humulin r 5 units sugq given as ordered.No problem.
[2019-04-07 11:19] VITALS: BP_SYST 103
--- NOTE | 2019-04-07 11:38 | NUR ---
CONSULTATION PAGED REASON FOR CONSULTATION:HERPES GENITALIA WAS CONSULT CALLED?Y PERSON WHO WAS NOTIFIED:MISHA WEBB CONSULTING PHYSICIAN:MISHA WEBB CAP COVERER SPECIALTY:ID CAP COVERER PHONE NUMBER:[phone] REQUESTING PHYSICIAN:BRIANA DENNEY
[2019-04-07] MEDS: HYDROmorphone 2 MG TAB PO PRN ×3 (12:20→22:33)
[2019-04-07] MEDS: GABAPENTIN 300 MG CAPSULE PO SCH ×2 (12:20→17:17)
[2019-04-07] MEDS: NORMAL SALINE 5 ML DISP.SYRIN IVF SCH ×2 (12:21→22:00)
--- NOTE | 2019-04-07 14:00 | NUR ---
Rn Rounds: Patient back from smoking per wheelchair. Not in any distress.
[2019-04-07] MEDS: MORPHINE 2 MG/ML INJ. SYRINGE IVP PRN ×3 (14:09→21:05)
[2019-04-07 15:35] VITALS: BP_SYST 110
--- NOTE | 2019-04-07 17:00 | NUR ---
Blood Sugar: Blood sugar taken,humulin r given per sliding scale and Humulin 70/30 40 units subq given as ordered. No problem.
[2019-04-07] MEDS: INSULIN NPH/REGULAR 70-30, 100 UNITS/ML, 10 ML VIAL SUBCUT SCH (17:17)
--- NOTE | 2019-04-07 18:31 | NUR ---
Closing Notes: Patient resting comfortably. Not in any distress. Call light with in reach. Bed locked at lowest position. Practice guidelines met through out the shift.
--- NOTE | 2019-04-07 18:54 | NUR ---
Pain meds: c/o perineal throbbing and due iv pain meds given per request.No problem.
--- NOTE | 2019-04-07 19:30 | NUR ---
ROUNDS PATIENT IN BED, WATCHING TV, VITALS STABLE, NO PAIN AT THIS TIME. FAMILY AT THE BEDSIDE. IV SITE PATENT ON THE RIGHT HAND, G. 20. SAFETY AND FALL PRECAUTIONS IN PLACED. BED IN LOW AND LOCKED POSITION. SIDERAILS UP X2. CALL LIGHT PLACED WITHIN REACH.
[2019-04-07] MEDS ORDERED: ACYCLOVIR 400 MG TABLET PO SCH (21:00)
[2019-04-07] MEDS: DIPHENHYDRAMINE HCL 50 MG CAPSULE PO SCH (21:00)
[2019-04-07] MEDS: ONDANSETRON HCL 4 MG/2 ML VIAL IVP PRN (21:05)
[2019-04-07] MEDS: AMOXICILLIN/CLAVULANATE POTASSIUM 875 MG TABLET PO SCH (21:06)
[2019-04-07] MEDS: SIMVASTATIN 20 MG TABLET PO SCH (21:06)
--- NOTE | 2019-04-07 21:14 | NUR ---
ACCU CHECK ACCU CHECK DONE, BLOOD SUGAR 322 WITH 8 UNITS REGULAR INSULIN GIVEN PER SLIDING SCALE. WILL CONTINUE TO MONITOR.
[2019-04-07] MEDS: ACYCLOVIR IV 500 MG in D5W 100 ML IV SCH (21:50)
--- NOTE | 2019-04-08 00:15 | NUR ---
PATIENT RESTING: Patient resting quietly. No acute distress noted. Vital signs within normal range.
[2019-04-08] MEDS: HYDROcodone/ACETAMIN 5-325 MG TAB (NORCO/ VICODIN) PO PRN ×2 (00:24→05:39)
[2019-04-08] MEDS: GABAPENTIN 300 MG CAPSULE PO SCH ×4 (00:25→17:43)
[2019-04-08 02:12] VITALS: BP_SYST 142
--- NOTE | 2019-04-08 02:35 | NUR ---
PATIENT RESTING: Patient resting quietly. No acute distress noted. Vital signs within normal range.
[2019-04-08] MEDS: HYDROmorphone 2 MG TAB PO PRN ×3 (04:02→22:56)
--- NOTE | 2019-04-08 05:50 | NUR ---
NOTES PATIENT WENT OUTSIDE TO SMOKE ACCOMPANIED BY STAFF, VITALS STABLE.
[2019-04-08] MEDS: INSULIN NPH/REGULAR 70-30, 100 UNITS/ML, 10 ML VIAL SUBCUT SCH ×2 (06:13→17:05)
[2019-04-08] MEDS: INSULIN REGULAR, HUMAN 100 UNITS/ML, 10 ML VIAL (humuLIN R) SUBCUT PRN ×4 (06:18→21:53)
[2019-04-08 06:42] LABS: ANION GAP 7 (5-15); CALCIUM 8.5 mg/dL (8.4-11.0); CHLORIDE 101 mmol/L (98-107); CREATININE 0.78 mg/dL (0.55-1.30); POTASSIUM 4.2 mmol/L (3.5-5.1); SODIUM SERUM 132 mmol/L (136-145); UREA NITROGEN, BLOOD 14 mg/dL (8-21)
[2019-04-08 06:52] LABS: BASOPHILS # (AUTO) 0.1 K/uL (0.0-0.2); EOSINOPHILS # (AUTO) 0.2 K/uL (0.0-0.4); EOSINOPHILS % (AUTO) 2.5 % (0.0-4.0); HEMATOCRIT 33.6 % (36-48); HEMOGLOBIN 11.1 g/dL (12.0-16.0); LYMPHOCYTES % (AUTO) 38.8 % (20.5-51.5); MEAN CORPUSCULAR HEMOGLOBIN 30 pg (27-31); MEAN CORPUSCULAR HGB CONC 33 % (32-36); MEAN CORPUSCULAR VOLUME 89 fL (79.0-98.0); MONOCYTES # (AUTO) 0.7 K/uL (0.0-1.0); MONOCYTES % (AUTO) 9.1 % (1.7-9.3); NEUTROPHILS # (AUTO) 3.7 K/uL (1.8-7.7); NEUTROPHILS % (AUTO) 48.6 % (40.0-70.0); PLATELET COUNT (AUTO) 350 K/uL (130-430); RED BLOOD CELL COUNT(AUTO) 3.76 MIL/uL (4.2-6.2); RED CELL DISTRIBUTION WIDTH 14.3 % (9.0-15.0); WHITE BLOOD COUNT (AUTO) 7.7 K/uL (4.8-10.8)
--- NOTE | 2019-04-08 06:55 | NUR ---
CLOSING NOTES PATIENT RESTING COMFORTABLY IN BED AT THIS TIME, NO COMPLAINTS. ENDORSED TO WILMER CHARGE NURSE FOR IV REINSERTION, PATIENT IS A HARDSTICK. ENDORSED TO ORIANA COSTELLO FOR HER DUE ACYCLOVER ONCE WITH IV REINSERTED.
[2019-04-08 07:10] LABS: C-REACTIVE PROTEIN QUANT < 0.2 mg/dL (0-0.5); GFR AFRICAN AMERICAN 107 mL/min (>90); GLUCOSE 423 mg/dL (70-99)
--- NOTE | 2019-04-08 07:30 | NUR ---
Am Rounds: Patient on the bed.No iv access. Will reinsert a new iv. Not in any distress.Call light with in reach. Bed locked at lowest position. Needs attended to.
[2019-04-08 08:24] VITALS: BP_SYST 112
[2019-04-08 08:24] LABS: ERYTHROCYTE SEDIMENTATION RATE 38 MM/HR (0-20)
[2019-04-08] MEDS: ACYCLOVIR IV 500 MG in D5W 100 ML IV SCH ×3 (08:28→21:52)
[2019-04-08] MEDS: NORMAL SALINE 5 ML DISP.SYRIN IVF SCH ×3 (08:28→22:00)
[2019-04-08] MEDS: AMOXICILLIN/CLAVULANATE POTASSIUM 875 MG TABLET PO SCH ×2 (08:28→21:44)
--- NOTE | 2019-04-08 08:28 | NUR ---
IV NOTES: Iv re sited at left hand using g#22,iv acyclovir given as ordered,with no problem.
[2019-04-08] MEDS: LORazepam 2 MG/ML VIAL IVP PRN ×3 (08:29→21:44)
[2019-04-08] MEDS: MORPHINE 2 MG/ML INJ. SYRINGE IVP PRN ×3 (08:30→20:21)
[2019-04-08] MEDS ORDERED: METOPROLOL TARTRATE 25 MG TABLET PO SCH (09:00)
[2019-04-08] MEDS: DIPHENHYDRAMINE INJ 50 MG/ML VIAL IVP PRN ×2 (09:45→21:44)
[2019-04-08] MEDS: ONDANSETRON HCL 4 MG/2 ML VIAL IVP PRN (09:45)
--- NOTE | 2019-04-08 10:00 | NUR ---
Discharge Planning Che EUCEDA requested order to transfer to contracted hospital as patient's previous admissions have been denied by insurance. Patient's contracted hospital is [facility]. Received discharge to [facility] hospital order. Phoned ED Admitting and received two phone numbers for [facility]:[phone] (not open on weekends) and [phone] (spoke with Nara who stated she cannot help and provided the number [phone]) Phoned that number and spoke with Jeffery who stated she could not help and that [facility] needed to be contacted. Phoned [facility] [phone] and left a voicemail message. Addendum: 04/08/19 at 1133 by Flor Jensen LCSW Looked at past admissions. Phoned Sabra EUCEDA, . Voicemail says out of office until 04/13/19. Referred to... Called Marilee Lewis, . Left a voicemail message. Looked at Bar notes. The number listed is the above for Jeffery. Cannot help. Phoned ED Admitting again. No number for [facility] after hours admitting. At this time, cannot proceed unless I receive a return call. Addendum: 04/08/19 at 1236 by Flor Jensen LCSW Che EUCEDA provided [facility] CM contact, Marco [phone]. Phoned and received in class special education teacher CM info. Phoned Ella [facility] p [phone] f [phone]. They will not do a lateral transfer today Provided tracking ([facility]) # [id number]. Will fax order and clinicals. Addendum: 04/08/19 at 1237 by Flor Jensen LCSW Ella will also add note on multiple admissions and possible referral to home health/intervention program.
--- NOTE | 2019-04-08 11:43 | NUR ---
Blood Sugar: Blood bured=981rl/dl,Humulin R 2 units subq given per sliding scale. No problem.
[2019-04-08 11:59] VITALS: BP_SYST 92
--- NOTE | 2019-04-08 13:00 | NUR ---
RN ROUNDS: RESTING. NO PROBLEM.
--- NOTE | 2019-04-08 14:30 | NUR ---
RN ROUNDS: PATIENT GOT BACK FROM SMOKING.RESOURCE NURSE BROUGHT PATIENT BACK TO HER ROOM. STABLE.
[2019-04-08 15:00] VITALS: BP_SYST 114
[2019-04-08] MEDS ORDERED: METO25TA6 PO (15:31)
[2019-04-08] MEDS ORDERED: BEN50 PO (15:31)
[2019-04-08] MEDS ORDERED: AUG875 PO (15:31)
[2019-04-08] MEDS ORDERED: SIMV20TA6 PO (15:31)
[2019-04-08] MEDS ORDERED: HYDR-4272 PO (15:31)
[2019-04-08] MEDS ORDERED: OXYC-128 PO (15:31)
[2019-04-08] MEDS ORDERED: GABA-531 PO (15:31)
[2019-04-08] MEDS ORDERED: GLIP5TAB13 PO (15:31)
[2019-04-08] MEDS ORDERED: INSNPH7030 SUBCUT (15:31)
[2019-04-08] MEDS ORDERED: HYDR2TAB7 PO (15:31)
--- NOTE | 2019-04-08 17:12 | NUR ---
BLOOD SUGAR: BLOOD UPPEF=710QL/DL,HUMULIN R 2 UNITS SUBQ GIVEN PER SLIDING SCALE.ROUTINE HUMULIN 70/30 40 UNITS GIVEN ORDERED.NO PROBLEM.
--- NOTE | 2019-04-08 18:37 | NUR ---
CLOSING NOTES: PATIENT ATE DINNER ALREADY. CALL LIGHT WITH IN REACH. BED LOCKED AT LOWEST POSITION.SAFETY MEASURES RENDERED. NEEDS ATTENDED TO. NO ACUTE DISTRESS.
--- NOTE | 2019-04-08 19:18 | NUR ---
RN NOTES: ENDORSED TO NIGHT NURSE HILARIO, PRESCRIPTIONS IN FRONT OF THE CHART.PATIENT DC HOME AT 7AM TOMORROW ORDERED.
[2019-04-08 20:00] VITALS: BP_SYST 133
[2019-04-08] MEDS: DIPHENHYDRAMINE HCL 50 MG CAPSULE PO SCH (21:00)
--- NOTE | 2019-04-08 21:13 | NUR ---
MEDICATIONS DUE MEDICATIONS GIVEN ORDERED, TOLERATED WELL. WILL CONTINUE TO MONITOR.
[2019-04-08] MEDS: SIMVASTATIN 20 MG TABLET PO SCH (21:44)
[2019-04-09] VITALS: BP_SYST 126
--- NOTE | 2019-04-09 00:13 | NUR ---
PATIENT RESTING: Patient resting quietly. No acute distress noted. Vital signs within normal range.
[2019-04-09] MEDS: MORPHINE 2 MG/ML INJ. SYRINGE IVP PRN ×2 (00:29→04:45)
[2019-04-09] MEDS: GABAPENTIN 300 MG CAPSULE PO SCH ×2 (00:30→06:54)
[2019-04-09] MEDS: DIPHENHYDRAMINE INJ 50 MG/ML VIAL IVP PRN (01:22)
--- NOTE | 2019-04-09 04:12 | NUR ---
ROUNDS PATIENT ASLEEP, NO SOB NOR PAIN NOTED. WILL CONTINUE TO MONITOR.
[2019-04-09] MEDS: ACYCLOVIR IV 500 MG in D5W 100 ML IV SCH (04:55)
[2019-04-09 05:44] VITALS: BP_SYST 128
--- NOTE | 2019-04-09 06:50 | NUR ---
CLOSING NOTES PATIENT AWAKE, VITALS STABLE, NO PAIN AT THIS TIME. ALL NEEDS ATTENDED TO. ENDORSED TO DUNG RN FOR DISCHARGE ORDERED.
[2019-04-09] MEDS: INSULIN NPH/REGULAR 70-30, 100 UNITS/ML, 10 ML VIAL SUBCUT SCH (06:55)
[2019-04-09] MEDS: INSULIN REGULAR, HUMAN 100 UNITS/ML, 10 ML VIAL (humuLIN R) SUBCUT PRN (06:58)
[2019-04-09] MEDS: NORMAL SALINE 5 ML DISP.SYRIN IVF SCH (07:01)
--- NOTE | 2019-04-09 07:55 | NUR ---
Opening note patient resting in bed, a/ox4, denies pain, patient refused vital signs and assessment thus far today, patient states,"I am going home this morning after breakfast and after I shower, I have a meeting to get to," educated patient inhalation therapy aide light system and to call for any assistance, she verbalized understanding, bed in lowest position, two side rails up, call light within reach, fall, aspiration and isolation precautions in place.
--- NOTE | 2019-04-09 10:21 | NUR ---
SS NOTE: Pt is discharged this AM. PRODUCTION SHIFT SUPERVISOR received a call from Danni from [facility] (p: [phone]) regarding the call she received from Flor. Per Danni, pt would benefit from their transitional care mgmt or [facility] for med mgmt, and other resources the patient might need. [facility] is similar to home health. Danni notified of pt's discharge.
--- NOTE | 2019-04-13 14:15 | NUR ---
Discharge Follow Up Phone Call Phoned patient, , three times over three hours. It was busy in each case.
== END 2019-04-09 09:20 | disposition home or self-care (01) | DRG 531 ==
LOC: SED 21:17 → SMU 04-07 02:57
PROVIDERS: ADMIT Preventive Medicine Preventive Medicine/Occupational Environmental Medicine; ATTEND Preventive Medicine Preventive Medicine/Occupational Environmental Medicine
DX: A60.00 Herpesviral infection of urogenital system, unspecified (principal); E11.00 Type 2 diabetes mellitus with hyperosmolarity without nonketotic hyperglycemic-hyperosmolar coma (NKHHC); E11.65 Type 2 diabetes mellitus with hyperglycemia; E03.9 Hypothyroidism, unspecified; E78.5 Hyperlipidemia, unspecified; F41.9 Anxiety disorder, unspecified; I25.10 Atherosclerotic heart disease of native coronary artery without angina pectoris; Z79.899 Other long term (current) drug therapy; Z98.891 History of uterine scar from previous surgery
CPT/HCPCS: 36415; 80048; 80053; 82962; 85025; 85651-TC; 86140; 87081; 96361; 96374; 96375; 99285; J0133; J1200; J1815; J2060; J2270; J2405; J7030; J7060

== ENCOUNTER 2019-06-23 07:39 | Inpatient (IN) | payer OTHER ==
[~2019-06-23] VITALS: Ht 165.1 cm; Wt 70.3 kg
[~2019-06-23 07:39] MED LIST changes: -ACYC400T PO; -AMOX-520 PO; -INSNLG7030 SUBCUT; -LORA-258 PO; -METO-290 PO; -POLY17PO4 PO
[2019-06-23 07:45] VITALS: BP_SYST 136
[2019-06-23] MEDS ORDERED: NACL 0.9% 1,000 ML IV ONE (08:15)
[2019-06-23 08:46] LABS: BASOPHILS # (AUTO) 0.1 K/uL (0.0-0.2); BASOPHILS % (AUTO) 0.7 % (0.0-2.0); EOSINOPHILS # (AUTO) 0.1 K/uL (0.0-0.4); EOSINOPHILS % (AUTO) 1.7 % (0.0-4.0); HEMATOCRIT 33.6 % (36-48); HEMOGLOBIN 10.9 g/dL (12.0-16.0); LYMPHOCYTES # (AUTO) 3.1 K/uL (1.0-5.5); LYMPHOCYTES % (AUTO) 41.9 % (20.5-51.5); MEAN CORPUSCULAR HEMOGLOBIN 29 pg (27-31); MEAN CORPUSCULAR HGB CONC 32 % (32-36); MEAN CORPUSCULAR VOLUME 89 fL (79.0-98.0); MONOCYTES # (AUTO) 0.6 K/uL (0.0-1.0); MONOCYTES % (AUTO) 7.5 % (1.7-9.3); NEUTROPHILS # (AUTO) 3.6 K/uL (1.8-7.7); NEUTROPHILS % (AUTO) 48.2 % (40.0-70.0); PLATELET COUNT (AUTO) 342 K/uL (130-430); RED BLOOD CELL COUNT(AUTO) 3.79 MIL/uL (4.2-6.2); RED CELL DISTRIBUTION WIDTH 14.9 % (9.0-15.0); WHITE BLOOD COUNT (AUTO) 7.4 K/uL (4.8-10.8)
[2019-06-23 09:00] LABS: ANION GAP 14 (5-15); CALCIUM 8.5 mg/dL (8.4-11.0); CHLORIDE 103 mmol/L (98-107); CREATININE 0.58 mg/dL (0.55-1.30); GLUCOSE 241 mg/dL (70-99); POTASSIUM 3.4 mmol/L (3.5-5.1); SODIUM SERUM 138 mmol/L (136-145); UREA NITROGEN, BLOOD 7 mg/dL (8-21)
[2019-06-23 09:01] LABS: GFR AFRICAN AMERICAN 151 mL/min (>90)
[2019-06-23 09:06] LABS: ALANINE AMINOTRANSFERASE 32 U/L (12-78); ALBUMIN 3.2 g/dL (3.4-4.8); ASPARTATE AMINOTRANSFERASE 30 U/L (10-37); TOTAL BILIRUBIN 0.2 mg/dL (0.0-1.0)
[2019-06-23 09:16] LABS: ACETONE, SERUM NEGATIVE (NEGATIVE)
[2019-06-23 11:12] VITALS: BP_SYST 150
[2019-06-23] MEDS ORDERED: HYDROcodone/ACETAMIN 5-325 MG TAB (NORCO/ VICODIN) PO PRN (11:15)
[2019-06-23] MEDS ORDERED: HYDROmorphone 2 MG TAB PO PRN (11:15)
[2019-06-23] MEDS ORDERED: METOPROLOL TARTRATE 25 MG TABLET PO ONE (11:30)
[2019-06-23] MEDS ORDERED: DEXTROSE 50%-WATER 50 ML DISP.SYRIN IVP PRN (11:30)
[2019-06-23] MEDS ORDERED: AMOXICILLIN/CLAVULANATE POTASSIUM 875 MG TABLET PO ONE (11:30)
[2019-06-23] MEDS ORDERED: D5W 1,000 ML IV PRN (11:30)
[2019-06-23] MEDS ORDERED: SIMVASTATIN 20 MG TABLET PO ONE (11:30)
[2019-06-23] MEDS ORDERED: GLUCOSE 15 GM GEL (in 37.5 GM TUBE) PO PRN (11:30)
[2019-06-23] MEDS: GABAPENTIN 300 MG CAPSULE PO SCH ×2 (11:43→18:00)
[2019-06-23] MEDS: INSULIN REGULAR, HUMAN 100 UNITS/ML, 10 ML VIAL (humuLIN R) SUBCUT PRN ×3 (11:47→21:59)
[2019-06-23] MEDS: HYDROmorphone 2 MG/ML VIAL IVP PRN ×2 (12:45→18:45)
[2019-06-23] MEDS: ONDANSETRON HCL 4 MG/2 ML VIAL IVP PRN ×2 (13:10→18:44)
[2019-06-23] MEDS: NORMAL SALINE 5 ML DISP.SYRIN IVF SCH ×4 (14:00→21:55)
[2019-06-23] MEDS ORDERED: PROMETHAZINE HCL 25 MG TABLET PO PRN (15:30)
[2019-06-23] MEDS: ACYCLOVIR IV 500 MG in D5W 100 ML IV SCH ×2 (15:41→21:53)
[2019-06-23 16:14] VITALS: BP_SYST 143
[2019-06-23] MEDS: OXYCODONE/ACETAMINOPHEN 5-325 TABLET PO PRN (16:59)
[2019-06-23] MEDS: LORazepam 2 MG/ML VIAL IVP PRN ×2 (16:59→22:47)
[2019-06-23] MEDS: INSULIN NPH/REGULAR 70-30, 100 UNITS/ML, 10 ML VIAL SUBCUT SCH (17:00)
[2019-06-23] MEDS: DOCOSANOL 2 GM CREAM..G. TP SCH ×2 (17:32→21:56)
[2019-06-23 20:00] VITALS: BP_SYST 147
[2019-06-23] MEDS: AMOXICILLIN/CLAVULANATE POTASSIUM 875 MG TABLET PO SCH (21:53)
[2019-06-23] MEDS: DIPHENHYDRAMINE HCL 50 MG CAPSULE PO SCH (21:53)
[2019-06-24 01:04] VITALS: BP_SYST 153
[2019-06-24] MEDS: ONDANSETRON HCL 4 MG/2 ML VIAL IVP PRN ×5 (02:21→19:03)
[2019-06-24] MEDS: HYDROmorphone 2 MG/ML VIAL IVP PRN ×4 (02:24→19:03)
[2019-06-24] MEDS: LORazepam 2 MG/ML VIAL IVP PRN ×2 (04:04→21:37)
[2019-06-24] MEDS: NORMAL SALINE 5 ML DISP.SYRIN IVF SCH ×6 (06:00→21:55)
[2019-06-24] MEDS: DOCOSANOL 2 GM CREAM..G. TP SCH ×5 (06:31→23:12)
[2019-06-24] MEDS: GABAPENTIN 300 MG CAPSULE PO SCH ×4 (06:31→17:39)
[2019-06-24] MEDS: ACYCLOVIR IV 500 MG in D5W 100 ML IV SCH ×3 (06:34→21:42)
[2019-06-24] MEDS: INSULIN REGULAR, HUMAN 100 UNITS/ML, 10 ML VIAL (humuLIN R) SUBCUT PRN ×2 (06:35→21:48)
[2019-06-24] MEDS: INSULIN NPH/REGULAR 70-30, 100 UNITS/ML, 10 ML VIAL SUBCUT SCH ×2 (06:38→17:00)
[2019-06-24 06:44] LABS: CALCIUM 8.7 mg/dL (8.4-11.0); CREATININE 0.82 mg/dL (0.55-1.30)
[2019-06-24 06:47] LABS: BASOPHILS % (AUTO) 0.7 % (0.0-2.0); EOSINOPHILS # (AUTO) 0.1 K/uL (0.0-0.4); EOSINOPHILS % (AUTO) 1.6 % (0.0-4.0); HEMATOCRIT 33.7 % (36-48); HEMOGLOBIN 10.5 g/dL (12.0-16.0); LYMPHOCYTES % (AUTO) 31.6 % (20.5-51.5); MEAN CORPUSCULAR HEMOGLOBIN 28 pg (27-31); MEAN CORPUSCULAR HGB CONC 31 % (32-36); MEAN CORPUSCULAR VOLUME 89 fL (79.0-98.0); MONOCYTES # (AUTO) 0.5 K/uL (0.0-1.0); MONOCYTES % (AUTO) 7.2 % (1.7-9.3); NEUTROPHILS # (AUTO) 3.7 K/uL (1.8-7.7); NEUTROPHILS % (AUTO) 58.9 % (40.0-70.0); PLATELET COUNT (AUTO) 303 K/uL (130-430); RED BLOOD CELL COUNT(AUTO) 3.77 MIL/uL (4.2-6.2); RED CELL DISTRIBUTION WIDTH 15.3 % (9.0-15.0); WHITE BLOOD COUNT (AUTO) 6.3 K/uL (4.8-10.8)
[2019-06-24 08:19] VITALS: BP_SYST 168
[2019-06-24] MEDS: SIMVASTATIN 20 MG TABLET PO SCH (08:40)
[2019-06-24] MEDS: METOPROLOL TARTRATE 25 MG TABLET PO SCH (08:40)
[2019-06-24] MEDS: AMOXICILLIN/CLAVULANATE POTASSIUM 875 MG TABLET PO SCH ×2 (08:41→21:37)
[2019-06-24 12:00] VITALS: BP_SYST 137
[2019-06-24 16:15] VITALS: BP_SYST 105
[2019-06-24 20:00] VITALS: BP_SYST 127
[2019-06-24] MEDS: DIPHENHYDRAMINE HCL 50 MG CAPSULE PO SCH (23:12)
[2019-06-25] MEDS: HYDROmorphone 2 MG/ML VIAL IVP PRN ×2 (00:20→14:09)
[2019-06-25 00:55] VITALS: BP_SYST 127
[2019-06-25] MEDS: LORazepam 2 MG/ML VIAL IVP PRN ×3 (02:04→22:28)
[2019-06-25] MEDS: NORMAL SALINE 5 ML DISP.SYRIN IVF SCH ×6 (06:00→21:13)
[2019-06-25] MEDS: GABAPENTIN 300 MG CAPSULE PO SCH ×5 (06:17→23:12)
[2019-06-25] MEDS: ACYCLOVIR IV 500 MG in D5W 100 ML IV SCH ×3 (06:18→21:10)
[2019-06-25] MEDS: DOCOSANOL 2 GM CREAM..G. TP SCH ×5 (06:19→21:11)
[2019-06-25] MEDS: INSULIN REGULAR, HUMAN 100 UNITS/ML, 10 ML VIAL (humuLIN R) SUBCUT PRN (06:24)
[2019-06-25 06:26] LABS: BASOPHILS % (AUTO) 0.8 % (0.0-2.0); EOSINOPHILS # (AUTO) 0.1 K/uL (0.0-0.4); EOSINOPHILS % (AUTO) 2.1 % (0.0-4.0); HEMATOCRIT 35.7 % (36-48); LYMPHOCYTES # (AUTO) 2.1 K/uL (1.0-5.5); LYMPHOCYTES % (AUTO) 36.8 % (20.5-51.5); MEAN CORPUSCULAR HEMOGLOBIN 28 pg (27-31); MEAN CORPUSCULAR HGB CONC 31 % (32-36); MEAN CORPUSCULAR VOLUME 90 fL (79.0-98.0); MONOCYTES # (AUTO) 0.5 K/uL (0.0-1.0); NEUTROPHILS # (AUTO) 2.9 K/uL (1.8-7.7); NEUTROPHILS % (AUTO) 51.3 % (40.0-70.0); PLATELET COUNT (AUTO) 292 K/uL (130-430); RED BLOOD CELL COUNT(AUTO) 3.99 MIL/uL (4.2-6.2); RED CELL DISTRIBUTION WIDTH 15.5 % (9.0-15.0); WHITE BLOOD COUNT (AUTO) 5.6 K/uL (4.8-10.8)
[2019-06-25] MEDS: INSULIN NPH/REGULAR 70-30, 100 UNITS/ML, 10 ML VIAL SUBCUT SCH ×2 (06:26→18:02)
[2019-06-25 06:30] LABS: ANION GAP 6 (5-15); CALCIUM 8.4 mg/dL (8.4-11.0); CHLORIDE 97 mmol/L (98-107); CREATININE 0.97 mg/dL (0.55-1.30); GLUCOSE 378 mg/dL (70-99); POTASSIUM 4.5 mmol/L (3.5-5.1); SODIUM SERUM 134 mmol/L (136-145); UREA NITROGEN, BLOOD 11 mg/dL (8-21)
[2019-06-25 06:46] LABS: GFR AFRICAN AMERICAN 84 mL/min (>90)
[2019-06-25 07:18] LABS: ERYTHROCYTE SEDIMENTATION RATE 30 MM/HR (0-20)
[2019-06-25 08:00] VITALS: BP_SYST 142
[2019-06-25 08:20] LABS: C-REACTIVE PROTEIN QUANT < 0.2 mg/dL (0-0.5)
[2019-06-25] MEDS: AMOXICILLIN/CLAVULANATE POTASSIUM 875 MG TABLET PO SCH ×2 (08:54→21:01)
[2019-06-25] MEDS: SIMVASTATIN 20 MG TABLET PO SCH (08:54)
[2019-06-25] MEDS: METOPROLOL TARTRATE 25 MG TABLET PO SCH (08:55)
[2019-06-25] MEDS ORDERED: PHENAZOPYRIDINE HCL 100 MG TABLET PO ONE (09:30)
[2019-06-25] MEDS: MORPHINE SULFATE 10 MG/ML VIAL IVP PRN ×3 (09:39→21:03)
[2019-06-25] MEDS: PHENAZOPYRIDINE HCL 100 MG TABLET PO SCH ×2 (11:48→17:53)
[2019-06-25 12:10] VITALS: BP_SYST 132
[2019-06-25] MEDS ORDERED: CHOLESTYRAMINE/SUCROSE 4 GM/PACKET PO ONE (14:00)
[2019-06-25 17:07] VITALS: BP_SYST 112
[2019-06-25 20:50] VITALS: BP_SYST 131
[2019-06-25] MEDS: CHOLESTYRAMINE/SUCROSE 4 GM/PACKET PO SCH (21:00)
[2019-06-25] MEDS: ONDANSETRON HCL 4 MG/2 ML VIAL IVP PRN (21:01)
[2019-06-25] MEDS: DIPHENHYDRAMINE HCL 50 MG CAPSULE PO SCH (22:27)
[2019-06-25] MEDS: OXYCODONE/ACETAMINOPHEN 5-325 TABLET PO PRN (23:17)
[2019-06-26 00:26] VITALS: BP_SYST 150
[2019-06-26] MEDS: ONDANSETRON HCL 4 MG/2 ML VIAL IVP PRN ×2 (01:10→09:38)
[2019-06-26] MEDS: MORPHINE SULFATE 10 MG/ML VIAL IVP PRN ×4 (01:11→15:25)
[2019-06-26] MEDS: HYDROmorphone 2 MG/ML VIAL IVP PRN ×3 (03:08→21:20)
[2019-06-26] MEDS: NORMAL SALINE 5 ML DISP.SYRIN IVF SCH ×6 (06:00→21:30)
[2019-06-26] MEDS: DOCOSANOL 2 GM CREAM..G. TP SCH ×5 (06:00→21:31)
[2019-06-26] MEDS: PHENAZOPYRIDINE HCL 100 MG TABLET PO SCH ×3 (06:18→17:43)
[2019-06-26] MEDS: GABAPENTIN 300 MG CAPSULE PO SCH ×3 (06:18→17:43)
[2019-06-26] MEDS: ACYCLOVIR IV 500 MG in D5W 100 ML IV SCH ×3 (06:20→21:30)
[2019-06-26 06:27] LABS: BASOPHILS % (AUTO) 0.3 % (0.0-2.0); EOSINOPHILS # (AUTO) 0.1 K/uL (0.0-0.4); HEMATOCRIT 33.8 % (36-48); HEMOGLOBIN 10.7 g/dL (12.0-16.0); LYMPHOCYTES # (AUTO) 1.8 K/uL (1.0-5.5); LYMPHOCYTES % (AUTO) 23.7 % (20.5-51.5); MEAN CORPUSCULAR HEMOGLOBIN 28 pg (27-31); MEAN CORPUSCULAR HGB CONC 32 % (32-36); MEAN CORPUSCULAR VOLUME 89 fL (79.0-98.0); MONOCYTES # (AUTO) 0.5 K/uL (0.0-1.0); MONOCYTES % (AUTO) 6.2 % (1.7-9.3); NEUTROPHILS # (AUTO) 5.1 K/uL (1.8-7.7); NEUTROPHILS % (AUTO) 68.8 % (40.0-70.0); PLATELET COUNT (AUTO) 304 K/uL (130-430); RED BLOOD CELL COUNT(AUTO) 3.81 MIL/uL (4.2-6.2); RED CELL DISTRIBUTION WIDTH 15.6 % (9.0-15.0); WHITE BLOOD COUNT (AUTO) 7.5 K/uL (4.8-10.8)
[2019-06-26] MEDS: INSULIN NPH/REGULAR 70-30, 100 UNITS/ML, 10 ML VIAL SUBCUT SCH ×2 (06:33→17:51)
[2019-06-26] MEDS: INSULIN REGULAR, HUMAN 100 UNITS/ML, 10 ML VIAL (humuLIN R) SUBCUT PRN ×3 (06:35→21:16)
[2019-06-26 07:33] LABS: ANION GAP 8 (5-15); CALCIUM 8.6 mg/dL (8.4-11.0); CHLORIDE 98 mmol/L (98-107); GLUCOSE 264 mg/dL (70-99); POTASSIUM 4.4 mmol/L (3.5-5.1); SODIUM SERUM 133 mmol/L (136-145); UREA NITROGEN, BLOOD 15 mg/dL (8-21)
[2019-06-26 07:39] LABS: C-REACTIVE PROTEIN QUANT < 0.2 mg/dL (0-0.5); GFR AFRICAN AMERICAN 104 mL/min (>90)
[2019-06-26 07:48] LABS: ERYTHROCYTE SEDIMENTATION RATE 52 MM/HR (0-20)
[2019-06-26 08:00] VITALS: BP_SYST 114
[2019-06-26] MEDS: METOPROLOL TARTRATE 25 MG TABLET PO SCH (09:11)
[2019-06-26] MEDS: AMOXICILLIN/CLAVULANATE POTASSIUM 875 MG TABLET PO SCH ×2 (09:11→21:21)
[2019-06-26] MEDS: CHOLESTYRAMINE/SUCROSE 4 GM/PACKET PO SCH ×2 (09:11→21:20)
[2019-06-26] MEDS: SIMVASTATIN 20 MG TABLET PO SCH (09:11)
[2019-06-26 12:00] VITALS: BP_SYST 116
[2019-06-26] MEDS: LORazepam 2 MG/ML VIAL IVP PRN (15:24)
[2019-06-26 16:49] VITALS: BP_SYST 138
[2019-06-26 20:00] VITALS: BP_SYST 125
[2019-06-26] MEDS: DIPHENHYDRAMINE HCL 50 MG CAPSULE PO SCH (21:20)
[2019-06-27] MEDS: ONDANSETRON HCL 4 MG/2 ML VIAL IVP PRN ×3 (00:55→18:27)
[2019-06-27] MEDS: HYDROmorphone 2 MG/ML VIAL IVP PRN ×3 (00:56→18:27)
[2019-06-27] MEDS: GABAPENTIN 300 MG CAPSULE PO SCH ×4 (00:58→17:23)
[2019-06-27 01:08] VITALS: BP_SYST 99
[2019-06-27] MEDS: LORazepam 2 MG/ML VIAL IVP PRN (04:12)
[2019-06-27 05:58] LABS: BASOPHILS % (AUTO) 0.4 % (0.0-2.0); EOSINOPHILS # (AUTO) 0.1 K/uL (0.0-0.4); EOSINOPHILS % (AUTO) 1.1 % (0.0-4.0); HEMATOCRIT 30.5 % (36-48); HEMOGLOBIN 9.7 g/dL (12.0-16.0); LYMPHOCYTES # (AUTO) 1.1 K/uL (1.0-5.5); LYMPHOCYTES % (AUTO) 15.4 % (20.5-51.5); MEAN CORPUSCULAR HEMOGLOBIN 29 pg (27-31); MEAN CORPUSCULAR HGB CONC 32 % (32-36); MEAN CORPUSCULAR VOLUME 90 fL (79.0-98.0); MONOCYTES # (AUTO) 0.5 K/uL (0.0-1.0); MONOCYTES % (AUTO) 6.7 % (1.7-9.3); NEUTROPHILS # (AUTO) 5.5 K/uL (1.8-7.7); NEUTROPHILS % (AUTO) 76.4 % (40.0-70.0); PLATELET COUNT (AUTO) 276 K/uL (130-430); RED CELL DISTRIBUTION WIDTH 15.7 % (9.0-15.0); WHITE BLOOD COUNT (AUTO) 7.2 K/uL (4.8-10.8)
[2019-06-27] MEDS: DOCOSANOL 2 GM CREAM..G. TP SCH ×5 (06:00→22:00)
[2019-06-27] MEDS: NORMAL SALINE 5 ML DISP.SYRIN IVF SCH ×6 (06:00→22:07)
[2019-06-27] MEDS: ACYCLOVIR IV 500 MG in D5W 100 ML IV SCH ×3 (06:28→22:01)
[2019-06-27] MEDS: INSULIN REGULAR, HUMAN 100 UNITS/ML, 10 ML VIAL (humuLIN R) SUBCUT PRN ×2 (06:35→17:30)
[2019-06-27] MEDS: INSULIN NPH/REGULAR 70-30, 100 UNITS/ML, 10 ML VIAL SUBCUT SCH ×2 (06:37→17:29)
[2019-06-27] MEDS: MORPHINE SULFATE 10 MG/ML VIAL IVP PRN ×3 (06:46→22:58)
[2019-06-27 07:03] LABS: ANION GAP 7 (5-15); C-REACTIVE PROTEIN QUANT < 0.2 mg/dL (0-0.5); CHLORIDE 99 mmol/L (98-107); CREATININE 0.67 mg/dL (0.55-1.30); GLUCOSE 135 mg/dL (70-99); POTASSIUM 3.8 mmol/L (3.5-5.1); SODIUM SERUM 133 mmol/L (136-145); UREA NITROGEN, BLOOD 14 mg/dL (8-21)
[2019-06-27 07:14] LABS: GFR AFRICAN AMERICAN 128 mL/min (>90)
[2019-06-27 07:47] LABS: ERYTHROCYTE SEDIMENTATION RATE 33 MM/HR (0-20)
[2019-06-27] MEDS: CHOLESTYRAMINE/SUCROSE 4 GM/PACKET PO SCH ×2 (09:00→22:00)
[2019-06-27] MEDS: METOPROLOL TARTRATE 25 MG TABLET PO SCH (09:12)
[2019-06-27] MEDS: PHENAZOPYRIDINE HCL 100 MG TABLET PO SCH (09:13)
[2019-06-27] MEDS: AMOXICILLIN/CLAVULANATE POTASSIUM 875 MG TABLET PO SCH ×2 (09:13→22:00)
[2019-06-27] MEDS: SIMVASTATIN 20 MG TABLET PO SCH (09:13)
[2019-06-27 12:00] VITALS: BP_SYST 103
[2019-06-27 16:00] VITALS: BP_SYST 107
[2019-06-27 17:27] VITALS: BP_SYST 112
[2019-06-27] MEDS: ACYCLOVIR 5% TP SCH ×2 (17:28→22:13)
[2019-06-27] MEDS ORDERED: ACYCLOVIR OINTMENT Non-Formula 15 GM OINT..GM. TP SCH (18:00)
[2019-06-27 20:00] VITALS: BP_SYST 109
[2019-06-27] MEDS: DIPHENHYDRAMINE HCL 50 MG CAPSULE PO SCH (22:00)
[2019-06-28] MEDS: GABAPENTIN 300 MG CAPSULE PO SCH ×4 (00:07→17:11)
[2019-06-28] MEDS: LORazepam 2 MG/ML VIAL IVP PRN ×2 (00:08→06:55)
[2019-06-28 01:35] VITALS: BP_SYST 122
[2019-06-28] MEDS: HYDROmorphone 2 MG/ML VIAL IVP PRN ×3 (02:15→14:20)
[2019-06-28] MEDS: ONDANSETRON HCL 4 MG/2 ML VIAL IVP PRN ×2 (02:22→10:22)
[2019-06-28] MEDS: MORPHINE SULFATE 10 MG/ML VIAL IVP PRN (04:15)
[2019-06-28] MEDS: NORMAL SALINE 5 ML DISP.SYRIN IVF SCH ×4 (06:00→14:21)
[2019-06-28] MEDS: DOCOSANOL 2 GM CREAM..G. TP SCH ×4 (06:00→17:18)
[2019-06-28 06:21] LABS: BASOPHILS % (AUTO) 0.4 % (0.0-2.0); EOSINOPHILS # (AUTO) 0.2 K/uL (0.0-0.4); EOSINOPHILS % (AUTO) 2.5 % (0.0-4.0); HEMATOCRIT 34.2 % (36-48); HEMOGLOBIN 10.7 g/dL (12.0-16.0); LYMPHOCYTES # (AUTO) 1.3 K/uL (1.0-5.5); LYMPHOCYTES % (AUTO) 16.8 % (20.5-51.5); MEAN CORPUSCULAR HEMOGLOBIN 28 pg (27-31); MEAN CORPUSCULAR HGB CONC 31 % (32-36); MEAN CORPUSCULAR VOLUME 90 fL (79.0-98.0); MONOCYTES # (AUTO) 0.7 K/uL (0.0-1.0); MONOCYTES % (AUTO) 9.6 % (1.7-9.3); NEUTROPHILS # (AUTO) 5.4 K/uL (1.8-7.7); NEUTROPHILS % (AUTO) 70.7 % (40.0-70.0); PLATELET COUNT (AUTO) 293 K/uL (130-430); RED BLOOD CELL COUNT(AUTO) 3.79 MIL/uL (4.2-6.2); RED CELL DISTRIBUTION WIDTH 15.8 % (9.0-15.0); WHITE BLOOD COUNT (AUTO) 7.6 K/uL (4.8-10.8)
[2019-06-28] MEDS: ACYCLOVIR IV 500 MG in D5W 100 ML IV SCH ×2 (06:34→14:21)
[2019-06-28] MEDS: ACYCLOVIR 5% TP SCH ×4 (06:36→17:18)
[2019-06-28] MEDS: INSULIN REGULAR, HUMAN 100 UNITS/ML, 10 ML VIAL (humuLIN R) SUBCUT PRN ×2 (06:41→17:14)
[2019-06-28] MEDS: INSULIN NPH/REGULAR 70-30, 100 UNITS/ML, 10 ML VIAL SUBCUT SCH ×2 (06:41→17:09)
[2019-06-28 06:59] LABS: C-REACTIVE PROTEIN QUANT 2.8 mg/dL (0-0.5); CALCIUM 8.3 mg/dL (8.4-11.0); CREATININE 0.89 mg/dL (0.55-1.30); POTASSIUM 4.2 mmol/L (3.5-5.1)
[2019-06-28 07:57] LABS: ERYTHROCYTE SEDIMENTATION RATE 56 MM/HR (0-20)
[2019-06-28 08:00] VITALS: BP_SYST 111
[2019-06-28] MEDS: CHOLESTYRAMINE/SUCROSE 4 GM/PACKET PO SCH (09:00)
[2019-06-28] MEDS: SIMVASTATIN 20 MG TABLET PO SCH (09:58)
[2019-06-28] MEDS: AMOXICILLIN/CLAVULANATE POTASSIUM 875 MG TABLET PO SCH (09:58)
[2019-06-28] MEDS: METOPROLOL TARTRATE 25 MG TABLET PO SCH (10:00)
[2019-06-28 12:20] VITALS: BP_SYST 133
[2019-06-28] MEDS ORDERED: DOCOSANOL TP (13:26)
[2019-06-28] MEDS ORDERED: INSNPH7030 SUBCUT (13:26)
[2019-06-28] MEDS ORDERED: Non-Formulary Medication TP (13:26)
[2019-06-28] MEDS ORDERED: Cholestyramine/Sucrose PO (13:26)
[2019-06-28 16:34] VITALS: BP_SYST 139
[2019-06-28 19:42] VITALS: BP_SYST 136
== END 2019-06-28 20:30 | disposition home or self-care (01) | DRG 531 ==
LOC: SED 07:39 → SMU 10:23
PROVIDERS: ADMIT Preventive Medicine Preventive Medicine/Occupational Environmental Medicine; ATTEND Preventive Medicine Preventive Medicine/Occupational Environmental Medicine
DX: A60.00 Herpesviral infection of urogenital system, unspecified (principal); E11.00 Type 2 diabetes mellitus with hyperosmolarity without nonketotic hyperglycemic-hyperosmolar coma (NKHHC); E44.0 Moderate protein-calorie malnutrition; E11.65 Type 2 diabetes mellitus with hyperglycemia; D64.9 Anemia, unspecified; E78.5 Hyperlipidemia, unspecified; E87.6 Hypokalemia; E03.9 Hypothyroidism, unspecified; N90.89 Other specified noninflammatory disorders of vulva and perineum; A60.04 Herpesviral vulvovaginitis; F17.210 Nicotine dependence, cigarettes, uncomplicated; D25.9 Leiomyoma of uterus, unspecified; D63.8 Anemia in other chronic diseases classified elsewhere; G89.29 Other chronic pain; F41.9 Anxiety disorder, unspecified; I10 Essential (primary) hypertension; Z79.4 Long term (current) use of insulin; Z86.32 Personal history of gestational diabetes; Z91.19 Patient's noncompliance with other medical treatment and regimen; Z79.899 Other long term (current) drug therapy; Z81.1 Family history of alcohol abuse and dependence; Z84.89 Family history of other specified conditions
CPT/HCPCS: 36415; 74018; 76830-TC; 76856-TC; 76857; 80048; 80053; 82009-TC; 82962; 83605; 85025; 85651-TC; 86140; 87040-TC; 87252; 96360; 99285; J0133; J1170; J1815; J2060; J2270; J2405; J7060; Q0163; Q0169

== ENCOUNTER 2019-12-13 21:12 | Inpatient (IN) | payer OTHER ==
[~2019-12-13] VITALS: Ht 162.6 cm; Wt 64.4 kg
[~2019-12-13 21:12] MED LIST changes: -AUG875 PO; +Cholestyramine/Sucrose PO; +DOCOSANOL TP; +Non-Formulary Medication TP; +SIMV-43 PO; -SIMV20TA6 PO
[2019-12-13 21:13] VITALS: BP_SYST 122
[2019-12-13] MEDS ORDERED: INSULIN NPH/REGULAR 70-30, 100 UNITS/ML, 10 ML VIAL SUBCUT ONE (22:45)
[2019-12-13] MEDS ORDERED: ONDANSETRON HCL 4 MG/2 ML VIAL IVP ONE (22:45)
[2019-12-13] MEDS ORDERED: VANCOMYCIN HCL 1,000 MG in NS 250 ML IV ONE (22:45)
[2019-12-13] MEDS ORDERED: NACL 0.9% 1,000 ML IV ONE (22:45)
[2019-12-13] MEDS ORDERED: CLINDAMYCIN 300 MG/50 ML D5W 50 ML IV ONE (22:45)
[2019-12-13] MEDS ORDERED: KETOROLAC TROMETHAMINE 30 MG VIAL IVP ONE (22:45)
[2019-12-13] MEDS ORDERED: MORPHINE 4 MG/ML INJ. SYRINGE IVP ONE (22:45)
[2019-12-13] MEDS ORDERED: VANCOMYCIN HCL 1000 MG/VIAL IV ONE (23:14)
[2019-12-13 23:22] LABS: BASOPHILS # (AUTO) 0.1 K/uL (0.0-0.2); BASOPHILS % (AUTO) 1.4 % (0.0-2.0); EOSINOPHILS # (AUTO) 0.1 K/uL (0.0-0.4); EOSINOPHILS % (AUTO) 0.8 % (0.0-4.0); HEMATOCRIT 38.4 % (36-48); HEMOGLOBIN 12.4 g/dL (12.0-16.0); LYMPHOCYTES # (AUTO) 1.6 K/uL (1.0-5.5); LYMPHOCYTES % (AUTO) 24.8 % (20.5-51.5); MEAN CORPUSCULAR HEMOGLOBIN 31 pg (27-31); MEAN CORPUSCULAR HGB CONC 32 % (32-36); MEAN CORPUSCULAR VOLUME 95 fL (79.0-98.0); MONOCYTES # (AUTO) 0.6 K/uL (0.0-1.0); NEUTROPHILS # (AUTO) 4.2 K/uL (1.8-7.7); PLATELET COUNT (AUTO) 321 K/uL (130-430); RED BLOOD CELL COUNT(AUTO) 4.03 MIL/uL (4.2-6.2); RED CELL DISTRIBUTION WIDTH 16.1 % (9.0-15.0); WHITE BLOOD COUNT (AUTO) 6.5 K/uL (4.8-10.8)
[2019-12-13 23:33] LABS: ANION GAP 19 (5-15); CALCIUM 9.7 mg/dL (8.4-11.0); CHLORIDE 95 mmol/L (98-107); CREATININE 0.89 mg/dL (0.55-1.30); POTASSIUM 3.3 mmol/L (3.5-5.1); SODIUM SERUM 135 mmol/L (136-145); UREA NITROGEN, BLOOD 4 mg/dL (8-21)
[2019-12-13] MEDS ORDERED: INSU100V SQ (23:33)
[2019-12-13] MEDS ORDERED: IBUP-1970 PO (23:34)
[2019-12-13] MEDS ORDERED: LORA-259 PO (23:35)
[2019-12-13] MEDS ORDERED: VALA10002 PO (23:37)
[2019-12-13] MEDS ORDERED: OMEP20CA15 PO (23:38)
[2019-12-13] MEDS ORDERED: METO-290 PO (23:38)
[2019-12-13 23:50] LABS: ALANINE AMINOTRANSFERASE 228 U/L (12-78); ALBUMIN 3.8 g/dL (3.4-4.8); ASPARTATE AMINOTRANSFERASE 123 U/L (10-37); TOTAL BILIRUBIN 0.3 mg/dL (0.0-1.0)
[2019-12-13 23:51] LABS: GFR AFRICAN AMERICAN 92 mL/min (>90); GLUCOSE 471 mg/dL (70-99); HCG,QUANTITATIVE 4 mIU/ML (0-6)
[2019-12-14] VITALS (22 sets, daily range): BP systolic 87–129
[2019-12-14 00:01] LABS: ACETONE, SERUM SMALL (NEGATIVE)
[2019-12-14] MEDS ORDERED: NACL 0.9% 1,000 ML IV ONE (00:15)
[2019-12-14 00:22] LABS: BILIRUBIN,URINE NEGATIVE (NEGATIVE); BLOOD, URINE NEGATIVE (NEGATIVE); CLARITY/URINE CLEAR (CLEAR); COLOR,URINE YELLOW (YELLOW); GLUCOSE,URINE 3+ (NEGATIVE); KETONES,URINE 3+ (NEGATIVE); LEUKOCYTE ESTERASE ,URINE NEGATIVE (NEGATIVE); NITRITE, URINE NEGATIVE (NEGATIVE); PROTEIN URINE NEGATIVE (NEGATIVE); UROBILINOGEN,URINE 0.2 (0.2-1.0)
[2019-12-14] MEDS ORDERED: MORPHINE 2 MG/ML INJ. SYRINGE IVP ONE ×2 (00:30→03:30)
[2019-12-14] MEDS ORDERED: KCL 20 mEq in D5NS 1000 mL 1,000 ML IV ONE ×2 (01:00→02:30)
[2019-12-14] MEDS ORDERED: INSULIN REGULAR, HUMAN 100 UNITS in NS 99 ML IV ONE ×2 (01:00)
[2019-12-14] MEDS ORDERED: IOHEXOL 350 mgI/mL, 150 ML INFUS..BTL IV ONE (01:26)
[2019-12-14] MEDS ORDERED: MORPHINE 2 MG/ML INJ. SYRINGE ONE (02:34)
[2019-12-14] MEDS ORDERED: ONDANSETRON HCL 4 MG/2 ML VIAL ONE (02:41)
[2019-12-14] MEDS ORDERED: ONDANSETRON HCL 4 MG/2 ML VIAL IVP ONE (03:30)
[2019-12-14] MEDS ORDERED: MORPHINE 2 MG/ML INJ. SYRINGE IVP PRN (06:30)
[2019-12-14] MEDS ORDERED: D5/0.45 NS 1,000 ML IV SCH (06:34)
[2019-12-14] MEDS ORDERED: IBUPROFEN 800 MG TABLET PO PRN (06:45)
[2019-12-14] MEDS: ONDANSETRON HCL 4 MG/2 ML VIAL IVP PRN ×4 (07:10→21:31)
[2019-12-14] MEDS: METOPROLOL TARTRATE 25 MG TABLET PO SCH (07:53)
[2019-12-14] MEDS: OXYCODONE/ACETAMINOPHEN 5-325 TABLET PO PRN (07:55)
[2019-12-14] MEDS ORDERED: INSULIN Lispro 100 UNITS/ML VIAL (humaLOG) SQ SCH (08:00)
[2019-12-14] MEDS: LORazepam 1 MG TABLET PO SCH ×2 (08:47→21:00)
[2019-12-14] MEDS: METOCLOPRAMIDE HCL 10 MG TABLET PO SCH (08:47)
[2019-12-14] MEDS: PANTOPRAZOLE SODIUM 40 MG TAB PO SCH (08:47)
[2019-12-14] MEDS ORDERED: FAMOTIDINE 20 MG TABLET PO SCH (09:00)
[2019-12-14] MEDS ORDERED: DOCUSATE SODIUM 250 MG CAPSULE PO ONE (09:00)
[2019-12-14] MEDS ORDERED: SENNOSIDES 8.6 MG TABLET PO ONE (09:00)
[2019-12-14] MEDS ORDERED: POLYETHYLENE GLYCOL 3350, 17 GM/ POWD.PACK PO ONE (09:00)
[2019-12-14 09:03] LABS: CALCIUM 9.4 mg/dL (8.4-11.0); CREATININE 0.7 mg/dL (0.55-1.30); PHOSPHORUS 2.7 mg/dL (2.7-4.5); POTASSIUM 3.1 mmol/L (3.5-5.1)
[2019-12-14] MEDS ORDERED: POTASSIUM CHLORIDE 40 MEQ in NS 250 ML IV ONE (11:00)
[2019-12-14] MEDS ORDERED: POTASSIUM CHLORIDE 20 MEQ/PKT PACKET PO ONE (11:00)
[2019-12-14] MEDS ORDERED: valACYclovir HCL 500 MG TABLET PO SCH (11:00)
[2019-12-14] MEDS: MORPHINE 2 MG/ML INJ. SYRINGE IVP PRN ×3 (11:27→21:31)
[2019-12-14] MEDS: VANCOMYCIN HCL 1 GM/NS PREMIX 250 ML IV SCH ×2 (11:42→23:06)
[2019-12-14] MEDS: CLINDAMYCIN 300 MG in D5W 50 ML IV SCH ×2 (12:00→18:08)
[2019-12-14] MEDS: GABAPENTIN 300 MG CAPSULE PO SCH ×2 (12:31→18:08)
[2019-12-14 15:00] LABS: CREATININE 0.93 mg/dL (0.55-1.30)
[2019-12-14] MEDS ORDERED: INSULIN GLARGINE 100 UNITS/ML 10 ML VIAL SUBCUT ONE (17:00)
[2019-12-14] MEDS: INSULIN REGULAR, HUMAN 100 UNITS/ML, 10 ML VIAL SUBCUT SCH (17:33)
[2019-12-14] MEDS: DOCUSATE SODIUM 250 MG CAPSULE PO SCH (20:50)
[2019-12-14] MEDS: SENNOSIDES 8.6 MG TABLET PO SCH (20:50)
[2019-12-14] MEDS: FAMOTIDINE PF 20 MG/2 ML VIAL IVP SCH (20:50)
[2019-12-14] MEDS ORDERED: DIPHENHYDRAMINE HCL 50 MG CAPSULE PO SCH (21:00)
[2019-12-14] MEDS: INSULIN REGULAR, HUMAN 100 UNITS/ML, 10 ML VIAL (humuLIN R) SUBCUT PRN (21:11)
[2019-12-14] MEDS: DIPHENHYDRAMINE INJ 50 MG/ML VIAL IVP PRN (23:06)
[2019-12-14] MEDS ORDERED: VANCOMYCIN HCL 1000 MG/VIAL IV ONE (23:11)
[2019-12-15] VITALS (20 sets, daily range): BP systolic 98–148
[2019-12-15] MEDS: CLINDAMYCIN 300 MG in D5W 50 ML IV SCH ×5 (00:06→23:49)
[2019-12-15] MEDS: GABAPENTIN 300 MG CAPSULE PO SCH ×5 (00:06→23:50)
[2019-12-15] MEDS: LORazepam 2 MG/ML VIAL IVP PRN (01:18)
[2019-12-15] MEDS: MORPHINE 2 MG/ML INJ. SYRINGE IVP PRN ×5 (04:06→21:27)
[2019-12-15 05:36] LABS: BASOPHILS % (AUTO) 0.6 % (0.0-2.0); EOSINOPHILS # (AUTO) 0.1 K/uL (0.0-0.4); EOSINOPHILS % (AUTO) 1.8 % (0.0-4.0); HEMATOCRIT 34.1 % (36-48); HEMOGLOBIN 11.1 g/dL (12.0-16.0); LYMPHOCYTES # (AUTO) 1.5 K/uL (1.0-5.5); LYMPHOCYTES % (AUTO) 30.3 % (20.5-51.5); MEAN CORPUSCULAR HEMOGLOBIN 31 pg (27-31); MEAN CORPUSCULAR HGB CONC 33 % (32-36); MEAN CORPUSCULAR VOLUME 95 fL (79.0-98.0); MONOCYTES # (AUTO) 0.4 K/uL (0.0-1.0); MONOCYTES % (AUTO) 8.1 % (1.7-9.3); NEUTROPHILS % (AUTO) 59.2 % (40.0-70.0); PLATELET COUNT (AUTO) 270 K/uL (130-430); RED BLOOD CELL COUNT(AUTO) 3.61 MIL/uL (4.2-6.2); RED CELL DISTRIBUTION WIDTH 16.1 % (9.0-15.0); WHITE BLOOD COUNT (AUTO) 5.1 K/uL (4.8-10.8)
[2019-12-15] MEDS: INSULIN REGULAR, HUMAN 100 UNITS/ML, 10 ML VIAL SUBCUT SCH ×3 (05:42→16:50)
[2019-12-15 05:59] LABS: ALBUMIN 2.8 g/dL (3.4-4.8); C-REACTIVE PROTEIN QUANT 0.3 mg/dL (0-0.5); CALCIUM 8.8 mg/dL (8.4-11.0); CREATININE 0.97 mg/dL (0.55-1.30); PHOSPHORUS 4.3 mg/dL (2.7-4.5); POTASSIUM 3.8 mmol/L (3.5-5.1); TOTAL BILIRUBIN 0.2 mg/dL (0.0-1.0)
[2019-12-15] MEDS: INSULIN REGULAR, HUMAN 100 UNITS/ML, 10 ML VIAL (humuLIN R) SUBCUT PRN ×2 (07:24→16:56)
[2019-12-15 07:51] LABS: ERYTHROCYTE SEDIMENTATION RATE 28 MM/HR (0-20)
[2019-12-15] MEDS: ONDANSETRON HCL 4 MG/2 ML VIAL IVP PRN ×2 (08:31→16:24)
[2019-12-15] MEDS: FAMOTIDINE PF 20 MG/2 ML VIAL IVP SCH ×2 (08:33→21:01)
[2019-12-15] MEDS ORDERED: DEXTROSE 50% JECT 50 ML DISP.SYRIN IVP PRN ×2 (08:45→18:45)
[2019-12-15 08:52] LABS: PROTHROMBIN TIME 10.1 SECS (9.5-12.5)
[2019-12-15] MEDS ORDERED: INSULIN REGULAR, HUMAN 100 UNITS in NS 99 ML IV PRN ×6 (09:00→18:45)
[2019-12-15] MEDS: METOPROLOL TARTRATE 25 MG TABLET PO SCH (09:00)
[2019-12-15] MEDS ORDERED: ONDANSETRON HCL 4 MG/2 ML VIAL IVP ONE (09:23)
[2019-12-15] MEDS ORDERED: MIDAZOLAM HCL 5 MG/5 ML VIAL IVP ONE (09:23)
[2019-12-15] MEDS ORDERED: NS IRRIG SOLN 1000 ML IR ONE (09:23)
[2019-12-15] MEDS ORDERED: PROPOFOL 200MG/ 20ML VIAL (DIPRIVAN) IV ONE (09:23)
[2019-12-15] MEDS ORDERED: HYDROGEN PEROXIDE MC ONE (09:23)
[2019-12-15] MEDS ORDERED: SEVOFLURANE 15 MIN GAS INH ONE (09:23)
[2019-12-15] MEDS ORDERED: METOCLOPRAMIDE HCL 10 MG/2 ML VIAL IVP ONE (09:23)
[2019-12-15] MEDS ORDERED: BUPIVACAINE /EPINEPHRINE/PF 0.25% 30 ML VIAL INJ ONE (09:23)
[2019-12-15] MEDS ORDERED: DEXAMETHASONE SOD PHOSPHATE 4 MG/ML VIAL IVP ONE (09:23)
[2019-12-15] MEDS ORDERED: KETOROLAC TROMETHAMINE 30 MG VIAL IVP ONE (09:23)
[2019-12-15] MEDS ORDERED: LR 1,000 ML IV.SOLN IV ONE (09:23)
[2019-12-15] MEDS ORDERED: fentaNYL CITRATE/PF 100 MCG/2 ML AMP IVP ONE (09:23)
[2019-12-15] MEDS ORDERED: CEFAZOLIN 1 GM IVPB PREMIX 50 ML IV ONE (09:23)
[2019-12-15] MEDS ORDERED: POTASSIUM CHLORIDE 20 MEQ TAB.PRT.SR PO PRN ×2 (09:30→13:15)
[2019-12-15 09:34] LABS: ANION GAP 12 (5-15); CHLORIDE 103 mmol/L (98-107); POTASSIUM 3.8 mmol/L (3.5-5.1); SODIUM SERUM 137 mmol/L (136-145)
[2019-12-15 09:35] LABS: GLUCOSE 404 mg/dL (70-99)
[2019-12-15 09:36] LABS: CALCIUM 8.8 mg/dL (8.4-11.0); CREATININE 0.88 mg/dL (0.55-1.30); GFR AFRICAN AMERICAN 93 mL/min (>90); PHOSPHORUS 4.4 mg/dL (2.7-4.5); UREA NITROGEN, BLOOD 6 mg/dL (8-21)
[2019-12-15] MEDS ORDERED: LR 1,000 ML IV SCH (09:58)
[2019-12-15] MEDS ORDERED: valACYclovir HCL 500 MG TABLET PO SCH (10:00)
[2019-12-15] MEDS ORDERED: HYDROmorphone 1 MG INJ. 1 MG/ML AMPUL IVP PRN (10:00)
[2019-12-15] MEDS ORDERED: ONDANSETRON HCL 4 MG/2 ML VIAL IVP PRN (10:00)
[2019-12-15] MEDS ORDERED: LABETALOL 100 MG/ 20ML VIAL IVP PRN (10:00)
[2019-12-15] MEDS ORDERED: POLYMYXIN 500,000/BACIT.10,000 UNITS in NS IRR 1 L IR ONE (10:07)
[2019-12-15 10:31] LABS: ACETONE, SERUM NEGATIVE (NEGATIVE)
[2019-12-15] MEDS ORDERED: MAGNESIUM SULFATE 3 GM in D5W 100 ML IV ONE (11:00)
[2019-12-15] MEDS ORDERED: MAGNESIUM SULFATE 1 GM/2 ML VIAL ONE (11:03)
[2019-12-15] MEDS: LORazepam 1 MG TABLET PO SCH ×2 (12:24→21:01)
[2019-12-15] MEDS: METOCLOPRAMIDE HCL 10 MG TABLET PO SCH (12:25)
[2019-12-15] MEDS: POLYETHYLENE GLYCOL 3350, 17 GM/ POWD.PACK PO SCH (12:25)
[2019-12-15] MEDS: PANTOPRAZOLE SODIUM 40 MG TAB PO SCH (12:25)
[2019-12-15] MEDS: DOCUSATE SODIUM 250 MG CAPSULE PO SCH ×2 (12:25→21:01)
[2019-12-15] MEDS: SENNOSIDES 8.6 MG TABLET PO SCH ×2 (12:25→21:01)
[2019-12-15] MEDS: VANCOMYCIN HCL 1 GM/NS PREMIX 250 ML IV SCH ×2 (13:24→23:46)
[2019-12-15 13:28] LABS: CALCIUM 8.9 mg/dL (8.4-11.0); CREATININE 0.79 mg/dL (0.55-1.30); POTASSIUM 3.7 mmol/L (3.5-5.1)
[2019-12-15 18:17] LABS: CALCIUM 8.5 mg/dL (8.4-11.0); CREATININE 1.04 mg/dL (0.55-1.30); PHOSPHORUS 3.7 mg/dL (2.7-4.5); POTASSIUM 4.6 mmol/L (3.5-5.1)
[2019-12-15 19:08] LABS: ACETONE, SERUM NEGATIVE (NEGATIVE)
[2019-12-15] MEDS: HYDROcodone/ACETAMIN 5-325 MG TAB (NORCO/ VICODIN) PO PRN (19:18)
[2019-12-15 19:23] LABS: ALANINE AMINOTRANSFERASE 141 U/L (12-78); ALBUMIN 2.7 g/dL (3.4-4.8); ASPARTATE AMINOTRANSFERASE 99 U/L (10-37); TOTAL BILIRUBIN 0.3 mg/dL (0.0-1.0)
[2019-12-15 19:43] LABS: BILIRUBIN,DIRECT 0.2 mg/dL (0.0-0.3)
[2019-12-15] MEDS: LR 1,000 ML IV SCH (20:19)
[2019-12-15] MEDS: INSULIN GLARGINE 100 UNITS/ML 10 ML VIAL SUBCUT SCH (21:03)
[2019-12-15] MEDS: DIPHENHYDRAMINE INJ 50 MG/ML VIAL IVP PRN (21:04)
[2019-12-16] VITALS (14 sets, daily range): BP systolic 113–157
[2019-12-16] MEDS: HYDROcodone/ACETAMIN 5-325 MG TAB (NORCO/ VICODIN) PO PRN ×4 (01:05→17:18)
[2019-12-16 01:33] LABS: CALCIUM 8.7 mg/dL (8.4-11.0); CREATININE 1.03 mg/dL (0.55-1.30)
[2019-12-16] MEDS: MORPHINE 2 MG/ML INJ. SYRINGE IVP PRN ×6 (01:44→23:34)
[2019-12-16] MEDS: GABAPENTIN 300 MG CAPSULE PO SCH ×3 (05:45→17:14)
[2019-12-16] MEDS: CLINDAMYCIN 300 MG in D5W 50 ML IV SCH ×3 (05:45→18:35)
[2019-12-16] MEDS: LR 1,000 ML IV SCH (05:46)
[2019-12-16] MEDS: INSULIN REGULAR, HUMAN 100 UNITS/ML, 10 ML VIAL SUBCUT SCH ×3 (05:47→17:16)
[2019-12-16 05:48] LABS: BASOPHILS % (AUTO) 0.5 % (0.0-2.0); EOSINOPHILS # (AUTO) 0.1 K/uL (0.0-0.4); EOSINOPHILS % (AUTO) 1.2 % (0.0-4.0); HEMATOCRIT 33.6 % (36-48); HEMOGLOBIN 11.1 g/dL (12.0-16.0); LYMPHOCYTES # (AUTO) 1.3 K/uL (1.0-5.5); LYMPHOCYTES % (AUTO) 22.8 % (20.5-51.5); MEAN CORPUSCULAR HEMOGLOBIN 31 pg (27-31); MEAN CORPUSCULAR HGB CONC 33 % (32-36); MEAN CORPUSCULAR VOLUME 96 fL (79.0-98.0); MONOCYTES # (AUTO) 0.6 K/uL (0.0-1.0); MONOCYTES % (AUTO) 10.1 % (1.7-9.3); NEUTROPHILS # (AUTO) 3.7 K/uL (1.8-7.7); NEUTROPHILS % (AUTO) 65.4 % (40.0-70.0); PLATELET COUNT (AUTO) 257 K/uL (130-430); RED BLOOD CELL COUNT(AUTO) 3.52 MIL/uL (4.2-6.2); RED CELL DISTRIBUTION WIDTH 16.5 % (9.0-15.0); WHITE BLOOD COUNT (AUTO) 5.6 K/uL (4.8-10.8)
[2019-12-16 05:49] LABS: C-REACTIVE PROTEIN QUANT 1.1 mg/dL (0-0.5); CALCIUM 8.7 mg/dL (8.4-11.0); CREATININE 1.08 mg/dL (0.55-1.30); POTASSIUM 3.6 mmol/L (3.5-5.1)
[2019-12-16 07:06] LABS: ERYTHROCYTE SEDIMENTATION RATE 23 MM/HR (0-20)
[2019-12-16] MEDS: SENNOSIDES 8.6 MG TABLET PO SCH ×2 (08:50→20:29)
[2019-12-16] MEDS: FAMOTIDINE PF 20 MG/2 ML VIAL IVP SCH ×2 (08:50→22:04)
[2019-12-16] MEDS: DOCUSATE SODIUM 250 MG CAPSULE PO SCH ×2 (08:50→20:16)
[2019-12-16] MEDS: POLYETHYLENE GLYCOL 3350, 17 GM/ POWD.PACK PO SCH (08:50)
[2019-12-16] MEDS: PANTOPRAZOLE SODIUM 40 MG TAB PO SCH (08:51)
[2019-12-16] MEDS: METOCLOPRAMIDE HCL 10 MG TABLET PO SCH (08:51)
[2019-12-16] MEDS: LORazepam 1 MG TABLET PO SCH ×2 (08:51→20:16)
[2019-12-16] MEDS ORDERED: INSULIN GLARGINE 100 UNITS/ML 10 ML VIAL SUBCUT ONE (09:00)
[2019-12-16] MEDS: METOPROLOL TARTRATE 25 MG TABLET PO SCH (09:11)
[2019-12-16] MEDS: VANCOMYCIN HCL 1 GM/NS PREMIX 250 ML IV SCH ×2 (10:27→22:09)
[2019-12-16] MEDS: INSULIN REGULAR, HUMAN 100 UNITS/ML, 10 ML VIAL (humuLIN R) SUBCUT PRN ×2 (11:38→17:17)
[2019-12-16 17:26] LABS: CREATININE 0.97 mg/dL (0.55-1.30); POTASSIUM 3.5 mmol/L (3.5-5.1)
[2019-12-16] MEDS: INSULIN GLARGINE 100 UNITS/ML 10 ML VIAL SUBCUT SCH (20:22)
[2019-12-16 22:27] LABS: CALCIUM 8.1 mg/dL (8.4-11.0); POTASSIUM 3.5 mmol/L (3.5-5.1)
[2019-12-16] MEDS: ONDANSETRON HCL 4 MG/2 ML VIAL IVP PRN (23:31)
[2019-12-17] VITALS: BP_SYST 122
[2019-12-17] MEDS: CLINDAMYCIN 300 MG in D5W 50 ML IV SCH ×5 (00:50→23:55)
[2019-12-17] MEDS: DIPHENHYDRAMINE INJ 50 MG/ML VIAL IVP PRN (00:51)
[2019-12-17] MEDS: GABAPENTIN 300 MG CAPSULE PO SCH ×5 (00:52→23:55)
[2019-12-17] MEDS: HYDROcodone/ACETAMIN 5-325 MG TAB (NORCO/ VICODIN) PO PRN ×2 (05:24→13:11)
[2019-12-17] MEDS: MORPHINE 2 MG/ML INJ. SYRINGE IVP PRN ×4 (06:15→20:12)
[2019-12-17] MEDS: INSULIN REGULAR, HUMAN 100 UNITS/ML, 10 ML VIAL SUBCUT SCH ×3 (06:19→18:00)
[2019-12-17] MEDS: INSULIN REGULAR, HUMAN 100 UNITS/ML, 10 ML VIAL (humuLIN R) SUBCUT PRN ×3 (06:20→17:59)
[2019-12-17 07:05] LABS: BASOPHILS # (AUTO) 0.1 K/uL (0.0-0.2); BASOPHILS % (AUTO) 0.9 % (0.0-2.0); EOSINOPHILS # (AUTO) 0.1 K/uL (0.0-0.4); EOSINOPHILS % (AUTO) 2.4 % (0.0-4.0); HEMOGLOBIN 11.2 g/dL (12.0-16.0); LYMPHOCYTES # (AUTO) 2.1 K/uL (1.0-5.5); LYMPHOCYTES % (AUTO) 37.7 % (20.5-51.5); MEAN CORPUSCULAR HEMOGLOBIN 31 pg (27-31); MEAN CORPUSCULAR HGB CONC 32 % (32-36); MEAN CORPUSCULAR VOLUME 96 fL (79.0-98.0); MONOCYTES # (AUTO) 0.4 K/uL (0.0-1.0); MONOCYTES % (AUTO) 7.7 % (1.7-9.3); NEUTROPHILS # (AUTO) 2.9 K/uL (1.8-7.7); NEUTROPHILS % (AUTO) 51.3 % (40.0-70.0); PLATELET COUNT (AUTO) 283 K/uL (130-430); RED BLOOD CELL COUNT(AUTO) 3.65 MIL/uL (4.2-6.2); RED CELL DISTRIBUTION WIDTH 16.9 % (9.0-15.0); WHITE BLOOD COUNT (AUTO) 5.7 K/uL (4.8-10.8)
[2019-12-17 07:12] LABS: ALBUMIN 2.6 g/dL (3.4-4.8); C-REACTIVE PROTEIN QUANT 0.7 mg/dL (0-0.5); CALCIUM 8.1 mg/dL (8.4-11.0); CREATININE 0.92 mg/dL (0.55-1.30); POTASSIUM 3.4 mmol/L (3.5-5.1); TOTAL BILIRUBIN 0.2 mg/dL (0.0-1.0)
[2019-12-17 08:00] VITALS: BP_SYST 137
[2019-12-17 09:19] LABS: ERYTHROCYTE SEDIMENTATION RATE 18 MM/HR (0-20)
[2019-12-17] MEDS: METOPROLOL TARTRATE 25 MG TABLET PO SCH (09:29)
[2019-12-17] MEDS: DOCUSATE SODIUM 250 MG CAPSULE PO SCH ×2 (09:29→20:24)
[2019-12-17] MEDS: PANTOPRAZOLE SODIUM 40 MG TAB PO SCH (09:29)
[2019-12-17] MEDS: LORazepam 1 MG TABLET PO SCH ×2 (09:29→20:24)
[2019-12-17] MEDS: POLYETHYLENE GLYCOL 3350, 17 GM/ POWD.PACK PO SCH (09:29)
[2019-12-17] MEDS: METOCLOPRAMIDE HCL 10 MG TABLET PO SCH (09:29)
[2019-12-17] MEDS: SENNOSIDES 8.6 MG TABLET PO SCH ×2 (09:29→20:24)
[2019-12-17] MEDS: FAMOTIDINE PF 20 MG/2 ML VIAL IVP SCH ×2 (09:30→20:23)
[2019-12-17] MEDS: VANCOMYCIN HCL 1 GM/NS PREMIX 250 ML IV SCH ×2 (10:21→22:08)
[2019-12-17 12:33] VITALS: BP_SYST 120
[2019-12-17] MEDS: ONDANSETRON HCL 4 MG/2 ML VIAL IVP PRN (15:33)
[2019-12-17 16:45] VITALS: BP_SYST 126
[2019-12-17] MEDS ORDERED: POTASSIUM CHLORIDE 20 MEQ TAB.PRT.SR PO ONE (17:45)
[2019-12-17 19:00] VITALS: BP_SYST 104
[2019-12-17 20:00] VITALS: BP_SYST 104
[2019-12-17] MEDS: INSULIN GLARGINE 100 UNITS/ML 10 ML VIAL SUBCUT SCH (20:30)
[2019-12-17] MEDS: OXYCODONE/ACETAMINOPHEN 5-325 TABLET PO PRN (22:20)
[2019-12-17] MEDS: LORazepam 2 MG/ML VIAL IVP PRN (22:20)
[2019-12-18] MEDS: MORPHINE 2 MG/ML INJ. SYRINGE IVP PRN ×4 (00:23→20:42)
[2019-12-18 01:00] VITALS: BP_SYST 120
[2019-12-18] MEDS: DIPHENHYDRAMINE INJ 50 MG/ML VIAL IVP PRN ×2 (01:53→22:55)
[2019-12-18] MEDS: CLINDAMYCIN 300 MG in D5W 50 ML IV SCH ×4 (06:21→23:00)
[2019-12-18] MEDS: GABAPENTIN 300 MG CAPSULE PO SCH ×3 (06:22→17:34)
[2019-12-18] MEDS: INSULIN REGULAR, HUMAN 100 UNITS/ML, 10 ML VIAL (humuLIN R) SUBCUT PRN ×3 (06:32→20:39)
[2019-12-18] MEDS: INSULIN REGULAR, HUMAN 100 UNITS/ML, 10 ML VIAL SUBCUT SCH ×3 (06:33→16:38)
[2019-12-18 06:35] LABS: BASOPHILS # (AUTO) 0.1 K/uL (0.0-0.2); BASOPHILS % (AUTO) 1.3 % (0.0-2.0); EOSINOPHILS # (AUTO) 0.1 K/uL (0.0-0.4); HEMATOCRIT 33.7 % (36-48); HEMOGLOBIN 10.9 g/dL (12.0-16.0); LYMPHOCYTES # (AUTO) 1.3 K/uL (1.0-5.5); LYMPHOCYTES % (AUTO) 28.6 % (20.5-51.5); MEAN CORPUSCULAR HEMOGLOBIN 31 pg (27-31); MEAN CORPUSCULAR HGB CONC 32 % (32-36); MEAN CORPUSCULAR VOLUME 95 fL (79.0-98.0); MONOCYTES # (AUTO) 0.5 K/uL (0.0-1.0); MONOCYTES % (AUTO) 10.8 % (1.7-9.3); NEUTROPHILS # (AUTO) 2.5 K/uL (1.8-7.7); NEUTROPHILS % (AUTO) 56.3 % (40.0-70.0); PLATELET COUNT (AUTO) 261 K/uL (130-430); RED BLOOD CELL COUNT(AUTO) 3.55 MIL/uL (4.2-6.2); RED CELL DISTRIBUTION WIDTH 16.5 % (9.0-15.0); WHITE BLOOD COUNT (AUTO) 4.4 K/uL (4.8-10.8)
[2019-12-18] MEDS: OXYCODONE/ACETAMINOPHEN 5-325 TABLET PO PRN (06:43)
[2019-12-18 06:57] LABS: CREATININE 0.93 mg/dL (0.55-1.30)
[2019-12-18 07:41] LABS: C-REACTIVE PROTEIN QUANT 0.2 mg/dL (0-0.5)
[2019-12-18 07:54] LABS: ERYTHROCYTE SEDIMENTATION RATE 14 MM/HR (0-20)
[2019-12-18 08:00] VITALS: BP_SYST 128
[2019-12-18 08:24] VITALS: BP_SYST 120
[2019-12-18] MEDS: LORazepam 1 MG TABLET PO SCH ×2 (09:38→22:03)
[2019-12-18] MEDS: POLYETHYLENE GLYCOL 3350, 17 GM/ POWD.PACK PO SCH (09:38)
[2019-12-18] MEDS: METOCLOPRAMIDE HCL 10 MG TABLET PO SCH (09:38)
[2019-12-18] MEDS: VANCOMYCIN HCL 1 GM/NS PREMIX 250 ML IV SCH (09:38)
[2019-12-18] MEDS: PANTOPRAZOLE SODIUM 40 MG TAB PO SCH (09:38)
[2019-12-18] MEDS: DOCUSATE SODIUM 250 MG CAPSULE PO SCH ×2 (09:38→20:35)
[2019-12-18] MEDS: FAMOTIDINE PF 20 MG/2 ML VIAL IVP SCH ×2 (09:39→20:35)
[2019-12-18] MEDS: METOPROLOL TARTRATE 25 MG TABLET PO SCH (09:39)
[2019-12-18] MEDS: SENNOSIDES 8.6 MG TABLET PO SCH ×2 (09:39→20:35)
[2019-12-18] MEDS: ONDANSETRON HCL 4 MG/2 ML VIAL IVP PRN ×3 (10:40→21:03)
[2019-12-18 12:25] VITALS: BP_SYST 102
[2019-12-18] MEDS: HYDROcodone/ACETAMIN 5-325 MG TAB (NORCO/ VICODIN) PO PRN (13:30)
[2019-12-18 16:20] VITALS: BP_SYST 108
[2019-12-18] MEDS: PHENAZOPYRIDINE HCL 100 MG TABLET PO SCH (17:34)
[2019-12-18 20:00] VITALS: BP_SYST 104
[2019-12-18] MEDS: INSULIN GLARGINE 100 UNITS/ML 10 ML VIAL SUBCUT SCH (20:40)
[2019-12-19] VITALS: BP_SYST 122
[2019-12-19] MEDS: GABAPENTIN 300 MG CAPSULE PO SCH ×4 (00:17→17:10)
[2019-12-19] MEDS: VANCOMYCIN HCL 1 GM/NS PREMIX 250 ML IV SCH ×3 (00:17→22:29)
[2019-12-19] MEDS: MORPHINE 2 MG/ML INJ. SYRINGE IVP PRN ×4 (01:12→23:57)
[2019-12-19] MEDS: HYDROcodone/ACETAMIN 5-325 MG TAB (NORCO/ VICODIN) PO PRN ×2 (03:24→21:20)
[2019-12-19] MEDS: INSULIN REGULAR, HUMAN 100 UNITS/ML, 10 ML VIAL SUBCUT SCH ×3 (06:30→17:08)
[2019-12-19] MEDS: INSULIN REGULAR, HUMAN 100 UNITS/ML, 10 ML VIAL (humuLIN R) SUBCUT PRN ×2 (06:31→21:58)
[2019-12-19] MEDS: CLINDAMYCIN 300 MG in D5W 50 ML IV SCH ×3 (06:36→17:09)
[2019-12-19 07:11] LABS: BASOPHILS # (AUTO) 0.1 K/uL (0.0-0.2); BASOPHILS % (AUTO) 1.3 % (0.0-2.0); EOSINOPHILS # (AUTO) 0.1 K/uL (0.0-0.4); HEMATOCRIT 34.6 % (36-48); HEMOGLOBIN 11.4 g/dL (12.0-16.0); LYMPHOCYTES # (AUTO) 1.6 K/uL (1.0-5.5); LYMPHOCYTES % (AUTO) 31.2 % (20.5-51.5); MEAN CORPUSCULAR HEMOGLOBIN 31 pg (27-31); MEAN CORPUSCULAR HGB CONC 33 % (32-36); MEAN CORPUSCULAR VOLUME 94 fL (79.0-98.0); MONOCYTES # (AUTO) 0.8 K/uL (0.0-1.0); MONOCYTES % (AUTO) 16.5 % (1.7-9.3); NEUTROPHILS # (AUTO) 2.4 K/uL (1.8-7.7); PLATELET COUNT (AUTO) 264 K/uL (130-430); RED BLOOD CELL COUNT(AUTO) 3.68 MIL/uL (4.2-6.2)
[2019-12-19 07:25] LABS: ANION GAP 4 (5-15); CALCIUM 8.6 mg/dL (8.4-11.0); CHLORIDE 99 mmol/L (98-107); CREATININE 1.01 mg/dL (0.55-1.30); GLUCOSE 264 mg/dL (70-99); POTASSIUM 4.1 mmol/L (3.5-5.1); SODIUM SERUM 133 mmol/L (136-145); UREA NITROGEN, BLOOD 10 mg/dL (8-21)
[2019-12-19] MEDS: PHENAZOPYRIDINE HCL 100 MG TABLET PO SCH ×3 (08:09→17:10)
[2019-12-19] MEDS: METOPROLOL TARTRATE 25 MG TABLET PO SCH (08:10)
[2019-12-19] MEDS: PANTOPRAZOLE SODIUM 40 MG TAB PO SCH (08:10)
[2019-12-19] MEDS: METOCLOPRAMIDE HCL 10 MG TABLET PO SCH (08:10)
[2019-12-19] MEDS: FAMOTIDINE PF 20 MG/2 ML VIAL IVP SCH ×2 (08:10→21:47)
[2019-12-19] MEDS: LORazepam 1 MG TABLET PO SCH ×2 (08:10→21:46)
[2019-12-19] MEDS: DOCUSATE SODIUM 250 MG CAPSULE PO SCH ×2 (08:10→21:46)
[2019-12-19] MEDS: POLYETHYLENE GLYCOL 3350, 17 GM/ POWD.PACK PO SCH (08:11)
[2019-12-19] MEDS: SENNOSIDES 8.6 MG TABLET PO SCH ×2 (08:11→21:47)
[2019-12-19 08:14] LABS: GFR AFRICAN AMERICAN 79 mL/min (>90)
[2019-12-19 08:36] LABS: C-REACTIVE PROTEIN QUANT < 0.2 mg/dL (0-0.5)
[2019-12-19 09:07] LABS: ERYTHROCYTE SEDIMENTATION RATE 20 MM/HR (0-20)
[2019-12-19 11:13] VITALS: BP_SYST 124
[2019-12-19] MEDS: ONDANSETRON HCL 4 MG/2 ML VIAL IVP PRN (11:47)
[2019-12-19 12:15] VITALS: BP_SYST 122
[2019-12-19] MEDS ORDERED: CLIN300C11 PO (12:59)
[2019-12-19] MEDS ORDERED: PHEN-622 PO (12:59)
[2019-12-19] MEDS ORDERED: INSU100V9 SUBCUT (12:59)
[2019-12-19] MEDS ORDERED: INSU100V7 SUBCUT (12:59)
[2019-12-19 16:13] VITALS: BP_SYST 116
[2019-12-19] MEDS: OXYCODONE/ACETAMINOPHEN 5-325 TABLET PO PRN (16:25)
[2019-12-19 20:00] VITALS: BP_SYST 125
[2019-12-19] MEDS: INSULIN GLARGINE 100 UNITS/ML 10 ML VIAL SUBCUT SCH (21:57)
[2019-12-20] MEDS: ONDANSETRON HCL 4 MG/2 ML VIAL IVP PRN ×5 (00:19→23:22)
[2019-12-20] MEDS: CLINDAMYCIN 300 MG in D5W 50 ML IV SCH ×4 (00:19→16:45)
[2019-12-20] MEDS: GABAPENTIN 300 MG CAPSULE PO SCH ×5 (00:19→23:22)
[2019-12-20 01:17] VITALS: BP_SYST 109
[2019-12-20] MEDS: DIPHENHYDRAMINE INJ 50 MG/ML VIAL IVP PRN (02:32)
[2019-12-20] MEDS: INSULIN REGULAR, HUMAN 100 UNITS/ML, 10 ML VIAL (humuLIN R) SUBCUT PRN (06:13)
[2019-12-20] MEDS: INSULIN REGULAR, HUMAN 100 UNITS/ML, 10 ML VIAL SUBCUT SCH ×4 (06:14→17:35)
[2019-12-20] MEDS: MORPHINE 2 MG/ML INJ. SYRINGE IVP PRN ×5 (06:25→23:23)
[2019-12-20 06:33] LABS: WHITE BLOOD COUNT (AUTO) 5.2 K/uL (4.8-10.8)
[2019-12-20 06:34] LABS: BASOPHILS # (AUTO) 0.1 K/uL (0.0-0.2); BASOPHILS % (AUTO) 1.4 % (0.0-2.0); EOSINOPHILS # (AUTO) 0.2 K/uL (0.0-0.4); EOSINOPHILS % (AUTO) 4.2 % (0.0-4.0); HEMOGLOBIN 11.4 g/dL (12.0-16.0); LYMPHOCYTES # (AUTO) 1.5 K/uL (1.0-5.5); LYMPHOCYTES % (AUTO) 28.1 % (20.5-51.5); MEAN CORPUSCULAR HEMOGLOBIN 31 pg (27-31); MEAN CORPUSCULAR HGB CONC 32 % (32-36); MEAN CORPUSCULAR VOLUME 94 fL (79.0-98.0); MONOCYTES # (AUTO) 0.9 K/uL (0.0-1.0); MONOCYTES % (AUTO) 16.3 % (1.7-9.3); NEUTROPHILS # (AUTO) 2.6 K/uL (1.8-7.7); PLATELET COUNT (AUTO) 262 K/uL (130-430); RED BLOOD CELL COUNT(AUTO) 3.72 MIL/uL (4.2-6.2); RED CELL DISTRIBUTION WIDTH 16.1 % (9.0-15.0)
[2019-12-20 06:49] LABS: C-REACTIVE PROTEIN QUANT < 0.2 mg/dL (0-0.5); CALCIUM 8.3 mg/dL (8.4-11.0); CHLORIDE 99 mmol/L (98-107); CREATININE 1.02 mg/dL (0.55-1.30); GLUCOSE 274 mg/dL (70-99); POTASSIUM 4.4 mmol/L (3.5-5.1); SODIUM SERUM 134 mmol/L (136-145); UREA NITROGEN, BLOOD 10 mg/dL (8-21)
[2019-12-20 07:25] LABS: GFR AFRICAN AMERICAN 78 mL/min (>90)
[2019-12-20 07:26] LABS: ANION GAP < 3 (5-15)
[2019-12-20 07:54] LABS: ERYTHROCYTE SEDIMENTATION RATE 23 MM/HR (0-20)
[2019-12-20] MEDS: LORazepam 1 MG TABLET PO SCH ×2 (07:59→20:16)
[2019-12-20 08:00] VITALS: BP_SYST 142
[2019-12-20] MEDS: SENNOSIDES 8.6 MG TABLET PO SCH ×2 (08:00→20:16)
[2019-12-20] MEDS: METOCLOPRAMIDE HCL 10 MG TABLET PO SCH (08:00)
[2019-12-20] MEDS: METOPROLOL TARTRATE 25 MG TABLET PO SCH (08:00)
[2019-12-20] MEDS: PANTOPRAZOLE SODIUM 40 MG TAB PO SCH (08:00)
[2019-12-20] MEDS: PHENAZOPYRIDINE HCL 100 MG TABLET PO SCH ×3 (08:00→16:34)
[2019-12-20] MEDS: DOCUSATE SODIUM 250 MG CAPSULE PO SCH ×2 (08:00→20:26)
[2019-12-20] MEDS: POLYETHYLENE GLYCOL 3350, 17 GM/ POWD.PACK PO SCH (08:01)
[2019-12-20] MEDS: FAMOTIDINE PF 20 MG/2 ML VIAL IVP SCH ×2 (08:01→20:22)
[2019-12-20] MEDS: HYDROcodone/ACETAMIN 5-325 MG TAB (NORCO/ VICODIN) PO PRN ×4 (08:13→21:53)
[2019-12-20] MEDS: VANCOMYCIN HCL 1 GM/NS PREMIX 250 ML IV SCH ×2 (10:10→21:59)
[2019-12-20 12:18] VITALS: BP_SYST 110
[2019-12-20 17:19] VITALS: BP_SYST 110
[2019-12-20 20:00] VITALS: BP_SYST 118
[2019-12-20] MEDS: INSULIN GLARGINE 100 UNITS/ML 10 ML VIAL SUBCUT SCH (20:20)
[2019-12-21] VITALS: BP_SYST 118
[2019-12-21] MEDS: CLINDAMYCIN 300 MG in D5W 50 ML IV SCH ×4 (00:13→18:30)
[2019-12-21] MEDS: DIPHENHYDRAMINE INJ 50 MG/ML VIAL IVP PRN (00:33)
[2019-12-21] MEDS: HYDROcodone/ACETAMIN 5-325 MG TAB (NORCO/ VICODIN) PO PRN ×5 (04:17→19:43)
[2019-12-21] MEDS: GABAPENTIN 300 MG CAPSULE PO SCH ×3 (05:04→17:42)
[2019-12-21] MEDS: INSULIN REGULAR, HUMAN 100 UNITS/ML, 10 ML VIAL SUBCUT SCH ×3 (06:30→18:18)
[2019-12-21] MEDS: INSULIN REGULAR, HUMAN 100 UNITS/ML, 10 ML VIAL (humuLIN R) SUBCUT PRN ×3 (06:31→18:17)
[2019-12-21] MEDS: MORPHINE 2 MG/ML INJ. SYRINGE IVP PRN (06:35)
[2019-12-21] MEDS: ONDANSETRON HCL 4 MG/2 ML VIAL IVP PRN (06:35)
[2019-12-21 07:15] LABS: BASOPHILS % (AUTO) 0.6 % (0.0-2.0); EOSINOPHILS # (AUTO) 0.2 K/uL (0.0-0.4); EOSINOPHILS % (AUTO) 2.7 % (0.0-4.0); HEMATOCRIT 33.8 % (36-48); HEMOGLOBIN 10.9 g/dL (12.0-16.0); LYMPHOCYTES # (AUTO) 1.3 K/uL (1.0-5.5); LYMPHOCYTES % (AUTO) 17.4 % (20.5-51.5); MEAN CORPUSCULAR HEMOGLOBIN 30 pg (27-31); MEAN CORPUSCULAR HGB CONC 32 % (32-36); MEAN CORPUSCULAR VOLUME 94 fL (79.0-98.0); MONOCYTES # (AUTO) 1.2 K/uL (0.0-1.0); MONOCYTES % (AUTO) 15.9 % (1.7-9.3); NEUTROPHILS # (AUTO) 4.6 K/uL (1.8-7.7); NEUTROPHILS % (AUTO) 63.4 % (40.0-70.0); PLATELET COUNT (AUTO) 258 K/uL (130-430); RED CELL DISTRIBUTION WIDTH 16.3 % (9.0-15.0); WHITE BLOOD COUNT (AUTO) 7.2 K/uL (4.8-10.8)
[2019-12-21 07:57] LABS: ERYTHROCYTE SEDIMENTATION RATE 22 MM/HR (0-20)
[2019-12-21 07:59] LABS: ALBUMIN 2.4 g/dL (3.4-4.8); CALCIUM 8.5 mg/dL (8.4-11.0); CREATININE 1.12 mg/dL (0.55-1.30); POTASSIUM 4.4 mmol/L (3.5-5.1); TOTAL BILIRUBIN 0.2 mg/dL (0.0-1.0)
[2019-12-21 08:10] VITALS: BP_SYST 112
[2019-12-21] MEDS: METOCLOPRAMIDE HCL 10 MG TABLET PO SCH (08:45)
[2019-12-21] MEDS: PANTOPRAZOLE SODIUM 40 MG TAB PO SCH (08:46)
[2019-12-21] MEDS: METOPROLOL TARTRATE 25 MG TABLET PO SCH (08:46)
[2019-12-21] MEDS: DOCUSATE SODIUM 250 MG CAPSULE PO SCH ×2 (08:47→08:49)
[2019-12-21] MEDS: LORazepam 1 MG TABLET PO SCH (08:47)
[2019-12-21] MEDS: POLYETHYLENE GLYCOL 3350, 17 GM/ POWD.PACK PO SCH (08:47)
[2019-12-21] MEDS: FAMOTIDINE PF 20 MG/2 ML VIAL IVP SCH (08:48)
[2019-12-21] MEDS: PHENAZOPYRIDINE HCL 100 MG TABLET PO SCH ×3 (08:48→17:42)
[2019-12-21] MEDS: SENNOSIDES 8.6 MG TABLET PO SCH (08:50)
[2019-12-21 08:59] LABS: C-REACTIVE PROTEIN QUANT 0.4 mg/dL (0-0.5)
[2019-12-21 09:10] VITALS: BP_SYST 112
[2019-12-21] MEDS: VANCOMYCIN HCL 1 GM/NS PREMIX 250 ML IV SCH (11:24)
[2019-12-21 12:36] VITALS: BP_SYST 124
[2019-12-21 16:50] VITALS: BP_SYST 124
[2019-12-21 17:00] VITALS: BP_SYST 118
[2019-12-22] MEDS ORDERED: valACYclovir HCL 500 MG TABLET PO SCH (09:00)
== END 2019-12-21 21:55 | disposition home health service (06) | DRG 518 ==
LOC: SED 21:12 → SIC 12-14 01:44 → SMU 12-16 12:06
PROVIDERS: ADMIT Preventive Medicine Preventive Medicine/Occupational Environmental Medicine; ATTEND Preventive Medicine Preventive Medicine/Occupational Environmental Medicine
PROC: 0UBM0ZZ Excision of Vulva, Open Approach (ICD-10-PCS; principal; 2019-12-15 09:25)
DX: N76.4 Abscess of vulva (principal); L02.214 Cutaneous abscess of groin; L72.3 Sebaceous cyst; E87.1 Hypo-osmolality and hyponatremia; E87.6 Hypokalemia; K31.84 Gastroparesis; B00.9 Herpesviral infection, unspecified; B95.62 Methicillin resistant Staphylococcus aureus infection as the cause of diseases classified elsewhere; E43 Unspecified severe protein-calorie malnutrition; F17.200 Nicotine dependence, unspecified, uncomplicated; E03.9 Hypothyroidism, unspecified; E10.10 Type 1 diabetes mellitus with ketoacidosis without coma; E10.43 Type 1 diabetes mellitus with diabetic autonomic (poly)neuropathy; R74.0 Nonspecific elevation of levels of transaminase and lactic acid dehydrogenase [LDH]; G89.4 Chronic pain syndrome; F41.9 Anxiety disorder, unspecified; D64.9 Anemia, unspecified; E83.42 Hypomagnesemia; E88.09 Other disorders of plasma-protein metabolism, not elsewhere classified; Z51.5 Encounter for palliative care; I10 Essential (primary) hypertension; E10.65 Type 1 diabetes mellitus with hyperglycemia; Z88.8 Allergy status to other drugs, medicaments and biological substances; Z79.1 Long term (current) use of non-steroidal anti-inflammatories (NSAID); Z79.899 Other long term (current) drug therapy; Z82.49 Family history of ischemic heart disease and other diseases of the circulatory system; Z82.5 Family history of asthma and other chronic lower respiratory diseases; Z86.14 Personal history of Methicillin resistant Staphylococcus aureus infection; Z79.4 Long term (current) use of insulin
CPT/HCPCS: 36415; 36600; 71045; 80048; 80053; 80076; 80202-TC; 81003; 82009-TC; 82803-TC; 82962; 83605; 83735-TC; 84100-TC; 84702-TC; 85025; 85610-TC; 85651-TC; 85730-TC; 86140; 87040-TC; 87070; 87070-TC; 87075-TC; 87081; 87205-TC; 88304; 94010; 96361; 96365; 96367; 96372; 96375; 96376; 99285; G0482; J0690; J1100; J1170; J1200; J1815; J1885; J2060; J2250; J2270; J2405; J2704; J2765; J3010; J3370; J3475; J3480; J3490; J7050; J7060; J7120; J8597; Q0163; Q9967

== ENCOUNTER 2020-01-26 16:57 | Inpatient (IN) | payer OTHER ==
[~2020-01-26] VITALS: Ht 165.1 cm; Wt 59.0 kg
--- NOTE | 2020-01-26 10:35 | NUR ---
DR JON Fink notified regarding pt's complaint of pain. Orders received.
[~2020-01-26 16:57] MED LIST changes: +CLIN300C11 PO; -Cholestyramine/Sucrose PO; -DOCOSANOL TP; -HYDR2TAB7 PO; +IBUP-1970 PO; -INSNPH7030 SUBCUT; +INSU100V7 SUBCUT; +INSU100V9 SUBCUT; +LORA-259 PO; +METO-290 PO; -Non-Formulary Medication TP; +OMEP20CA15 PO; -OXYC-128 PO; +PHEN-622 PO; -SIMV-43 PO; +VALA10002 PO; -[UNRECOGNIZED DRUG - CODE] PO
[2020-01-26 17:00] VITALS: BP_SYST 160
--- NOTE | 2020-01-26 17:22 | NUR ---
AMBULATED TO BED 2
--- NOTE | 2020-01-26 17:50 | NUR ---
DR POWELL IN TO ASSESS
--- NOTE | 2020-01-26 18:11 | NUR ---
PT HERE FROM HOME FOR SOB AND LT GROIN ABSCESS, RECENT SURGERY FOR ABSCESS. PT CALM, COOPERATIVE AND COMMUNICATES CLEARLY IN FULL COMPLETE SENTENCES
[2020-01-26] MEDS ORDERED: NACL 0.9% 1,000 ML IV ONE (18:15)
[2020-01-26] MEDS ORDERED: ONDANSETRON HCL 4 MG/2 ML VIAL IVP ONE (18:15)
[2020-01-26] MEDS ORDERED: INSULIN REGULAR, HUMAN 10 UNITS/0.1 ML INJ IVP ONE (18:15)
[2020-01-26] MEDS ORDERED: CLINDAMYCIN 300 MG/50 ML D5W 50 ML IV ONE (18:15)
[2020-01-26] MEDS ORDERED: PHENAZOPYRIDINE HCL 100 MG TABLET PO ONE (18:15)
[2020-01-26] MEDS ORDERED: MORPHINE 2 MG/ML INJ. SYRINGE IVP ONE (18:15)
[2020-01-26 18:44] LABS: BASOPHILS # (AUTO) 0.1 K/uL (0.0-0.2); BASOPHILS % (AUTO) 1.1 % (0.0-2.0); EOSINOPHILS % (AUTO) 0.1 % (0.0-4.0); HEMATOCRIT 38.8 % (36-48); HEMOGLOBIN 12.5 g/dL (12.0-16.0); LYMPHOCYTES # (AUTO) 0.4 K/uL (1.0-5.5); LYMPHOCYTES % (AUTO) 4.6 % (20.5-51.5); MEAN CORPUSCULAR HEMOGLOBIN 30 pg (27-31); MEAN CORPUSCULAR HGB CONC 32 % (32-36); MEAN CORPUSCULAR VOLUME 94 fL (79.0-98.0); MONOCYTES # (AUTO) 0.7 K/uL (0.0-1.0); MONOCYTES % (AUTO) 7.8 % (1.7-9.3); NEUTROPHILS # (AUTO) 7.9 K/uL (1.8-7.7); NEUTROPHILS % (AUTO) 86.4 % (40.0-70.0); PLATELET COUNT (AUTO) 259 K/uL (130-430); RED BLOOD CELL COUNT(AUTO) 4.13 MIL/uL (4.2-6.2); WHITE BLOOD COUNT (AUTO) 9.2 K/uL (4.8-10.8)
[2020-01-26 18:59] LABS: ANION GAP 27 (5-15); CALCIUM 9.2 mg/dL (8.4-11.0); CHLORIDE 89 mmol/L (98-107); CREATININE 1.27 mg/dL (0.55-1.30); GLUCOSE 341 mg/dL (70-99); POTASSIUM 3.7 mmol/L (3.5-5.1); SODIUM SERUM 129 mmol/L (136-145); UREA NITROGEN, BLOOD 6 mg/dL (8-21)
[2020-01-26 19:06] LABS: ALANINE AMINOTRANSFERASE 110 U/L (12-78); ALBUMIN 3.8 g/dL (3.4-4.8); ASPARTATE AMINOTRANSFERASE 109 U/L (10-37)
[2020-01-26 19:15] LABS: GFR AFRICAN AMERICAN 61 mL/min (>90)
[2020-01-26 19:17] LABS: ACETONE, SERUM MODERATE (NEGATIVE)
[2020-01-26] MEDS ORDERED: CLINDAMYCIN 600 mg/50mL D5W 50 ML IV ONE (19:17)
[2020-01-26] MEDS ORDERED: INSULIN Lispro 100 UNITS/ML VIAL (humaLOG) ONE (19:18)
[2020-01-26 19:49] LABS: BILIRUBIN,URINE NEGATIVE (NEGATIVE); CLARITY/URINE CLEAR (CLEAR); COLOR,URINE YELLOW (YELLOW); GLUCOSE,URINE 2+ (NEGATIVE); KETONES,URINE 3+ (NEGATIVE); LEUKOCYTE ESTERASE ,URINE NEGATIVE (NEGATIVE); NITRITE, URINE NEGATIVE (NEGATIVE); PROTEIN URINE 2+ (NEGATIVE); UROBILINOGEN,URINE 0.2 (0.2-1.0)
[2020-01-26 19:54] LABS: BLOOD, URINE TRACE (NEGATIVE)
[2020-01-26 20:02] LABS: BACTERIA,URINE FEW /HPF (None Seen)
--- NOTE | 2020-01-26 20:14 | NUR ---
OFF TO CY ABD WITH CONTRAST, CONSENT SIGNED
--- NOTE | 2020-01-26 21:10 | NUR ---
Belongings list completed.
--- NOTE | 2020-01-26 21:14 | NUR ---
Report called to ICU. Pending call back from PRAVIN Escalante
[2020-01-26 21:30] VITALS: BP_SYST 130; BP_SYST 138
--- NOTE | 2020-01-26 21:30 | NUR ---
ADMISSION Pt alert/orient to self, time, place. On room air no c/o SOB. No fluids infusing. Left wrist with 18ga saline lock. Pt c/o left groin incisional pain. Pt S/P left groin surgery. Pt with many belongings. Belongings accounted for.
--- NOTE | 2020-01-26 21:35 | NUR ---
Patient will be admitted to care of Sharon Riggs Admitted to ICU unit. Will go to room 3. Belongings list completed. Complete and up to date summary report printed. SBAR report to be given at bedside with opportunity for questions.
[2020-01-26 22:00] VITALS: BP_SYST 130
--- NOTE | 2020-01-26 22:19 | NUR ---
CONSULT DR. ROLAND/ DR. ZARAGOZA COLLECTION AGENT DKA [phone] SPOKE WITH JOSHUA
--- NOTE | 2020-01-26 22:35 | NUR ---
PAGEKel DIE[address] DR[address] [phone] SPOKE WITH BEN
[2020-01-26] MEDS ORDERED: DEXTROSE 50% JECT 50 ML DISP.SYRIN IVP PRN (22:45)
--- NOTE | 2020-01-26 22:45 | NUR ---
HIGH ALERT NOTE: Called Dr. Fink called back at [phone] identified within the medical roster to verify physician authenticity. Medications Ativan for anixiety. Round O PO for pain.
[2020-01-26 23:00] VITALS: BP_SYST 136
[2020-01-26] MEDS ORDERED: LORazepam 2 MG/ML VIAL IVP PRN (23:00)
[2020-01-26] MEDS: NACL 0.9% 1,000 ML IV SCH (23:14)
--- NOTE | 2020-01-26 23:17 | NUR ---
MARTHA HILLIARD RN MIX INSULIN DRIP.
[2020-01-26] MEDS: INSULIN REGULAR, HUMAN 100 UNITS in NS 99 ML IV PRN ×2 (23:30)
[2020-01-27] VITALS (24 sets, daily range): BP systolic 103–144
[2020-01-27] MEDS: HYDROcodone/ACETAMIN 10-325 MG TAB PO PRN ×2 (00:10→07:03)
[2020-01-27] MEDS: DIPHENHYDRAMINE INJ 50 MG/ML VIAL IVP PRN (00:10)
--- NOTE | 2020-01-27 00:26 | NUR ---
Witnessed: Witnessed Insulin drip decreased to 1 unit by primary RN.
--- NOTE | 2020-01-27 01:28 | NUR ---
BLOOD GLUCOSE Due to time change blood glucose finger stick was taken now (it is 0200), 162. Insulin drip continues to infuse @ 1unit/hr.
--- NOTE | 2020-01-27 03:15 | NUR ---
nadine Escalante RN stop the insulin drip.
--- NOTE | 2020-01-27 03:19 | NUR ---
BLOOD GLUCOSE Due to time change blood glucose finger stick was taken now (it is 0400), 119. Insulin drip off per sliding scale.
[2020-01-27] MEDS: NACL 0.9% 1,000 ML IV SCH ×3 (04:50→18:45)
[2020-01-27 07:53] LABS: ALBUMIN 2.9 g/dL (3.4-4.8); CALCIUM 8.2 mg/dL (8.4-11.0); CREATININE 0.87 mg/dL (0.55-1.30); PHOSPHORUS 1.6 mg/dL (2.7-4.5); POTASSIUM 3.1 mmol/L (3.5-5.1); TOTAL BILIRUBIN 0.7 mg/dL (0.0-1.0)
[2020-01-27] MEDS: INSULIN REGULAR, HUMAN 100 UNITS in NS 99 ML IV PRN ×2 (08:32)
--- NOTE | 2020-01-27 08:33 | NUR ---
Insulin drip at 0.5 units/hr - blood sugar is 134 at this time.
[2020-01-27] MEDS ORDERED: K PHOS 30 MM in NS 250 ML IV ONE (09:45)
[2020-01-27] MEDS ORDERED: MAGNESIUM SULFATE 50 ML IV ONE (09:45)
[2020-01-27] MEDS ORDERED: NALOXONE HCL 0.4 MG/ML AMP (NARCAN) IVP PRN ×5 (09:45→10:45)
[2020-01-27] MEDS ORDERED: HYDROcodone/ACETAMIN 10-325 MG TAB PO PRN (09:45)
[2020-01-27] MEDS ORDERED: ONDANSETRON HCL 4 MG/2 ML VIAL IVP PRN (09:45)
[2020-01-27] MEDS ORDERED: MORPHINE 2 MG/ML INJ. SYRINGE IVP PRN (09:45)
[2020-01-27] MEDS ORDERED: IBUPROFEN 800 MG TABLET PO PRN (09:45)
--- NOTE | 2020-01-27 10:31 | NUR ---
Stopped Insulin drip blood sugar is 135 at this time, per protocol if CO2 is greater than 18, do blood sugar checks ACHS and aggressive insulin sliding scale, patient's current CO2 is 20, will inform MD of this as well.
--- NOTE | 2020-01-27 10:46 | NUR ---
Spoke with Dr. Fink, A okay to stop insulin drip, change blood sugar checks to ACHS and Regular insulin sliding scale, orders for Zofran and Morphine received as well. MD to continue patient's home medications as well.
--- NOTE | 2020-01-27 11:04 | NUR ---
CONSULT SURGERY CONSULTING MD: DR. GAYLE SPOKE TO: DIALED: [phone] ORDERED BY: Sharon MCMILLAN
--- NOTE | 2020-01-27 11:05 | NUR ---
Spoke with Dr. Mckeon informed of patient status, gave results for CT Abdomen/pelvis as well - no new orders at this time.
[2020-01-27] MEDS ORDERED: IOHEXOL 350 mgI/mL, 150 ML INFUS..BTL IV ONE (11:51)
[2020-01-27] MEDS: CLINDAMYCIN HCL 150 MG CAPSULE PO SCH ×2 (12:00→16:55)
[2020-01-27] MEDS: PHENAZOPYRIDINE HCL 100 MG TABLET PO SCH ×2 (12:30→16:55)
[2020-01-27] MEDS: INSULIN REGULAR, HUMAN 100 UNITS/ML, 10 ML VIAL (humuLIN R) SUBCUT PRN ×2 (13:13→17:00)
[2020-01-27] MEDS: INSULIN REGULAR, HUMAN 100 UNITS/ML, 10 ML VIAL SUBCUT SCH ×2 (13:13→16:59)
[2020-01-27] MEDS: GABAPENTIN 300 MG CAPSULE PO SCH ×2 (13:58→16:55)
[2020-01-27] MEDS: HYDROcodone/ACETAMIN 5-325 MG TAB (NORCO/ VICODIN) PO PRN (13:58)
[2020-01-27] MEDS: LORazepam 2 MG/ML VIAL IVP PRN (14:33)
[2020-01-27] MEDS: MORPHINE 2 MG/ML INJ. SYRINGE IVP PRN ×2 (15:39→21:27)
[2020-01-27] MEDS: ONDANSETRON HCL 4 MG/2 ML VIAL IVP PRN ×2 (15:43→21:28)
--- NOTE | 2020-01-27 15:47 | NUR ---
RN rounds patient resting in bed, asking for pain and nausea medication, educated on PRN medications uses and potential side effects, she verbalized understanding, IV line is patent and infusing well, patient is on room air, no s/s of hyper or hypoglycemia, continuing to monitor patient, bed in lowest position, two side rails up, call light within reach, fall and aspiration precautions in place.
--- NOTE | 2020-01-27 17:00 | NUR ---
RN rounds/Blood glucose/Education patient resting in bed, eyes closed, breathing is even and unlabored, no signs of distress, easy to wake, blood glucose checked and insulin coverage provided per MD orders, patient was found to have many open packets of quinton crackers, discouraged patient from having too many snacks between meals and too many non diabetic snacks, she verbalized understanding, educated patient on scheduled medications uses and potential side effects, she verbalized understanding and tolerated well, IV line is patent and infusing well, continuing to monitor, bed in lowest position, two side rails up, call light within reach, fall and aspiration precautions in place.
--- NOTE | 2020-01-27 18:33 | NUR ---
Closing note patient resting in bed, no signs of distress, all needs met, will endorse report to NOC shift nurse, bed in lowest position, two side rails up, call light within reach, fall and aspiration precautions in place.
--- NOTE | 2020-01-27 19:15 | NUR ---
change of shift.pt.presents quiescent affect;calm,resting.v/s present stable status.pt.presents iv access intact;patent location: lt.forearm.iv fluids infusing.pt.utilizing the bsc;w/in access of the pt.pt.capable to reposition self/ambulate.general status stable. respiratory status stable;unlabored@room air.call light/telephone w/in access of the pt.
--- NOTE | 2020-01-27 20:00 | NUR ---
pt.assessed.v/s assessed values w/in normal limits.no c/o pain,nausea.i have apprised the pt.that snacks/beverages are available w/in the shift.no requests posited@this hour.iv access intact;patent iv fluids infusing.no c/o pain,nausea.pt. capable to reposition self.general status stable.respiratory status stable;unlabored.:02-sat%=100%.call light/telephone w/in access of the pt.
--- NOTE | 2020-01-27 20:30 | NUR ---
i have assessed the blood glucose;value;141m,g.i have apprised the pt. of the blood glucose value.
[2020-01-27] MEDS: INSULIN GLARGINE 100 UNITS/ML 10 ML VIAL SUBCUT SCH (20:35)
[2020-01-27] MEDS ORDERED: DIPHENHYDRAMINE HCL 50 MG CAPSULE PO SCH (21:00)
[2020-01-27] MEDS ORDERED: LORazepam 1 MG TABLET PO SCH (21:00)
--- NOTE | 2020-01-27 21:00 | NUR ---
2100pmedications administered.i have administered insulin;lantus;15-units,scheduled dose.co-signed per protocol.
--- NOTE | 2020-01-27 21:30 | NUR ---
pt.requested medication;pain.i have administered morphine:2mg ivp 2/t to the pain intensity parameters.to assess the efficacy of the pain medication per pain mgx protocol.
--- NOTE | 2020-01-27 22:00 | NUR ---
pt.assessed.v/s assessed values w/in normal limits.pt.presents quiescent affect;calm,resting.iv fluids infusing.general status stable.respiratory status stable:02-sat%=100%.call light/telephone w/in access of the pt.pt.had utilized the bsc.i have measured/cleaned the bsc placed w/in access of the pt.
--- NOTE | 2020-01-27 22:30 | NUR ---
pt.transsfered to [facility];room:116-bed;a.in stable condition.no c/o pain,nausea.v/s stable status.general status stable. respiratory status stable:unlabored;100%@room air.all pt's pertenences accounted for;phone w wool hat sanding machine operator.i have conveyed pt's report/data to melissa.
--- NOTE | 2020-01-27 23:14 | NUR ---
TRANSFER RECEIVED PATIENT TRANSFER FROM ICU. PATIENT APPEARS DROWSY. REQUESTING FOR BLOOD SUGAR TO BE RECHECK. BREATHING UNLABORED ON ROOM AIR. IVF RESUMED ORDERED. CONNECTED PATIENT ON TELE MONITOR. NO C/O PAIN AT THIS TIME. BLOOD SUGAR RECHECKED 150. VITAL SIGNS STABLE.
[2020-01-28] MEDS: CLINDAMYCIN HCL 150 MG CAPSULE PO SCH ×6 (00:24→23:11)
[2020-01-28] MEDS: GABAPENTIN 300 MG CAPSULE PO SCH ×6 (00:24→23:11)
[2020-01-28] MEDS: LORazepam 2 MG/ML VIAL IVP PRN ×3 (00:39→21:40)
[2020-01-28] MEDS: MORPHINE 2 MG/ML INJ. SYRINGE IVP PRN ×4 (02:04→20:16)
--- NOTE | 2020-01-28 02:04 | NUR ---
PAIN MGT PATIENT MEDICATED WITH MORPHINE FOR C/O OF 8/10 LEFT GROIN PAIN. VITAL SIGNS STABLE. CALL LIGHT WITH IN REACH.
[2020-01-28 02:05] VITALS: BP_SYST 136
[2020-01-28] MEDS: ONDANSETRON HCL 4 MG/2 ML VIAL IVP PRN ×4 (02:11→20:25)
[2020-01-28] MEDS: NACL 0.9% 1,000 ML IV SCH ×3 (04:37→15:15)
--- NOTE | 2020-01-28 04:45 | NUR ---
OOB ASSISTED PATIENT OUT OF BED FOR RESTROOM USE. NO DISTRESS NOTED.
[2020-01-28] MEDS: INSULIN REGULAR, HUMAN 100 UNITS/ML, 10 ML VIAL SUBCUT SCH ×3 (06:15→18:00)
[2020-01-28] MEDS: INSULIN REGULAR, HUMAN 100 UNITS/ML, 10 ML VIAL (humuLIN R) SUBCUT PRN ×2 (06:17→21:34)
--- NOTE | 2020-01-28 06:17 | NUR ---
BLOOD SUGAR AM BLOOD SUGAR 409. COVERED WITH 12 UNITS REGULAR INSULIN PER SLIDING SCALE AND ANOTHER 6 UNITS REGULAR INSULIN ROUTINE AC THIS MORNING. WILL NOTIFY
[2020-01-28 06:37] LABS: BASOPHILS % (AUTO) 0.9 % (0.0-2.0); EOSINOPHILS # (AUTO) 0.1 K/uL (0.0-0.4); EOSINOPHILS % (AUTO) 2.3 % (0.0-4.0); HEMATOCRIT 31.5 % (36-48); HEMOGLOBIN 10.2 g/dL (12.0-16.0); LYMPHOCYTES # (AUTO) 0.7 K/uL (1.0-5.5); LYMPHOCYTES % (AUTO) 15.4 % (20.5-51.5); MEAN CORPUSCULAR HEMOGLOBIN 30 pg (27-31); MEAN CORPUSCULAR HGB CONC 33 % (32-36); MEAN CORPUSCULAR VOLUME 92 fL (79.0-98.0); MONOCYTES # (AUTO) 0.4 K/uL (0.0-1.0); NEUTROPHILS # (AUTO) 3.2 K/uL (1.8-7.7); NEUTROPHILS % (AUTO) 72.4 % (40.0-70.0); PLATELET COUNT (AUTO) 187 K/uL (130-430); RED BLOOD CELL COUNT(AUTO) 3.41 MIL/uL (4.2-6.2); WHITE BLOOD COUNT (AUTO) 4.5 K/uL (4.8-10.8)
--- NOTE | 2020-01-28 06:44 | NUR ---
PAGED PAGED BRIANA DENNEY AT [phone] SPOKE WITH JAMMIE.
--- NOTE | 2020-01-28 06:49 | NUR ---
MD DR. WEBB CALLED BACK MADE AWARE OF PATIENT ELEVATED BLOOD SUGAR 409. NO NEW ORDERS MADE AT THIS TIME.
--- NOTE | 2020-01-28 07:13 | NUR ---
Nutrition Update Ronen Scale 18 noted. Pt admitted for DKA Diet: [facility] BMI: 21.6 kg/m2 RD to follow per nutrition care standards.
--- NOTE | 2020-01-28 07:36 | NUR ---
Opening Note patient in bed resting, respirations even and unlabored, no signs of distress noted, bed locked and at low position, call light within reach, fall and aspiration precautions put in place, will monitor patient for any changes.
--- NOTE | 2020-01-28 07:41 | NUR ---
PAGED PAGED BRIANA DENNEY AT [phone] SPOKE WITH ALEXANDRIA.
[2020-01-28] MEDS ORDERED: POTASSIUM CHLORIDE 40 MEQ in NS 250 ML IV ONE (08:15)
[2020-01-28 08:23] VITALS: BP_SYST 132
[2020-01-28 08:30] LABS: CALCIUM 8.1 mg/dL (8.4-11.0); POTASSIUM 2.7 mmol/L (3.5-5.1)
[2020-01-28 08:31] LABS: CREATININE 0.76 mg/dL (0.55-1.30); TOTAL BILIRUBIN 0.3 mg/dL (0.0-1.0)
[2020-01-28 08:35] LABS: ALBUMIN 2.7 g/dL (3.4-4.8); PHOSPHORUS 2.4 mg/dL (2.7-4.5)
[2020-01-28] MEDS ORDERED: OMEPRAZOLE Non-Formulary 20 MG CAPSULE.DR PO SCH (09:00)
[2020-01-28] MEDS: PHENAZOPYRIDINE HCL 100 MG TABLET PO SCH ×3 (09:53→17:53)
[2020-01-28] MEDS: METOPROLOL TARTRATE 25 MG TABLET PO SCH (09:53)
[2020-01-28] MEDS: METOCLOPRAMIDE HCL 10 MG TABLET PO SCH (09:54)
[2020-01-28] MEDS: PANTOPRAZOLE SODIUM 40 MG TAB PO SCH (09:54)
--- NOTE | 2020-01-28 11:33 | NUR ---
Dietitian Recommendations *Recommend: continue [facility] diet. Please see Nutritional Assessment for details ESPERANZA MONTANO
[2020-01-28 11:47] VITALS: BP_SYST 112
--- NOTE | 2020-01-28 11:48 | NUR ---
Blood Sugar blood sugar 185
[2020-01-28 16:15] VITALS: BP_SYST 107
--- NOTE | 2020-01-28 16:42 | NUR ---
RN Rounds patient in bed resting , no signs of distress noted, respirations even and unlabored, safety measures maintained.
--- NOTE | 2020-01-28 18:59 | NUR ---
Closing Note patient awake and alert, laying in bed resting, no signs of distress noted, bed locked and at low position, call light within reach, fall and aspiration precautions maintained through out shift, endorse patient care to night nurse nurse.
[2020-01-28 20:00] VITALS: BP_SYST 116
--- NOTE | 2020-01-28 20:25 | NUR ---
Opening notes Pt AAOx4, VSS, afebrile. No s/s distress noted. IV saline lock L. FA 18G clear and patent. Pt ambulated to the bathroom, steady gait. Call light/items within reach. Bed low, locked, siderails up x2. Will continue to monitor.
--- NOTE | 2020-01-28 20:47 | NUR ---
Paged Dr. Fink Rom
[2020-01-28] MEDS: FAMOTIDINE PF 20 MG/2 ML VIAL IVP SCH (21:21)
[2020-01-28] MEDS: NORMAL SALINE 5 ML DISP.SYRIN IVF SCH (21:21)
--- NOTE | 2020-01-28 21:27 | NUR ---
Blood sugar Blood sugar checked 342, 8 units Regular insulin administered and 15 units Lantus. Pt aware to call for snack before bedtime. Call light within reach. To monitor.
[2020-01-28] MEDS: INSULIN GLARGINE 100 UNITS/ML 10 ML VIAL SUBCUT SCH (21:35)
[2020-01-28] MEDS: HYDROcodone/ACETAMIN 5-325 MG TAB (NORCO/ VICODIN) PO PRN (23:10)
[2020-01-29] MEDS: MORPHINE 2 MG/ML INJ. SYRINGE IVP PRN ×5 (00:37→21:17)
--- NOTE | 2020-01-29 00:37 | NUR ---
Pain mgmt Pt called and c/o 12/05 L. groin pain. Medicated with Morphine 2mg IVP as needed. Encouraged pt to do deep breathing exercises, pt demonstrated understanding using Incentive spirometer at bedside. Will continue to monitor.
[2020-01-29] MEDS: ONDANSETRON HCL 4 MG/2 ML VIAL IVP PRN ×4 (00:38→21:15)
[2020-01-29 00:42] VITALS: BP_SYST 127
--- NOTE | 2020-01-29 02:50 | NUR ---
Rounds Pt requested Ativan as needed. No s/s distress noted. Call light remains within reach. Bed low, locked, siderails up x2. To monitor.
[2020-01-29] MEDS: LORazepam 2 MG/ML VIAL IVP PRN (02:53)
--- NOTE | 2020-01-29 04:30 | NUR ---
Rounds Pt asleep, no s/s distress noted. IV saline lock L. FA 18G clear and patent. Call light remains within reach. Bed low, locked, siderails up x2. To monitor.
[2020-01-29] MEDS: GABAPENTIN 300 MG CAPSULE PO SCH ×4 (06:32→23:02)
[2020-01-29] MEDS: CLINDAMYCIN HCL 150 MG CAPSULE PO SCH ×4 (06:32→23:02)
[2020-01-29] MEDS: INSULIN REGULAR, HUMAN 100 UNITS/ML, 10 ML VIAL (humuLIN R) SUBCUT PRN ×4 (06:39→21:26)
[2020-01-29] MEDS: NORMAL SALINE 5 ML DISP.SYRIN IVF SCH ×3 (06:39→22:57)
[2020-01-29] MEDS: INSULIN REGULAR, HUMAN 100 UNITS/ML, 10 ML VIAL SUBCUT SCH ×3 (06:39→18:12)
--- NOTE | 2020-01-29 06:39 | NUR ---
Closing notes Pt awake, no s/s distress noted. Pt ambulated to the bathroom and voided. Blood sugar checked 279, total of 12 units of Regular insulin administered per protocol. Pt c/o severe pain L. groin. Medicated with Morphine 2mg IVP as needed L. FA 18G good blood return. Endorsed to AM nurse re pt's phone meeting with inpatient auditor between 8-10am for 15mins. Call light within reach. Bed low, locked, siderails up x2.
[2020-01-29 07:06] LABS: BASOPHILS % (AUTO) 0.9 % (0.0-2.0); EOSINOPHILS # (AUTO) 0.1 K/uL (0.0-0.4); EOSINOPHILS % (AUTO) 2.5 % (0.0-4.0); HEMATOCRIT 31.3 % (36-48); HEMOGLOBIN 10.3 g/dL (12.0-16.0); LYMPHOCYTES % (AUTO) 22.2 % (20.5-51.5); MEAN CORPUSCULAR HEMOGLOBIN 31 pg (27-31); MEAN CORPUSCULAR HGB CONC 33 % (32-36); MEAN CORPUSCULAR VOLUME 93 fL (79.0-98.0); MONOCYTES # (AUTO) 0.4 K/uL (0.0-1.0); NEUTROPHILS # (AUTO) 2.8 K/uL (1.8-7.7); NEUTROPHILS % (AUTO) 64.4 % (40.0-70.0); PLATELET COUNT (AUTO) 191 K/uL (130-430); RED BLOOD CELL COUNT(AUTO) 3.37 MIL/uL (4.2-6.2); RED CELL DISTRIBUTION WIDTH 17.3 % (9.0-15.0); WHITE BLOOD COUNT (AUTO) 4.4 K/uL (4.8-10.8)
[2020-01-29 07:13] LABS: CALCIUM 8.6 mg/dL (8.4-11.0); CREATININE 0.59 mg/dL (0.55-1.30)
--- NOTE | 2020-01-29 07:30 | NUR ---
am note pt in bed/ a/ox4. res even. and unlabored. not in acute distress. safety and fall precautions in place. bed in low and locked position. will continue to monitor
[2020-01-29 07:40] VITALS: BP_SYST 139
[2020-01-29 07:55] LABS: POTASSIUM 2.9 mmol/L (3.5-5.1)
[2020-01-29] MEDS ORDERED: POTASSIUM CHLORIDE 40 MEQ in NS 250 ML IV ONE (08:30)
[2020-01-29] MEDS: PHENAZOPYRIDINE HCL 100 MG TABLET PO SCH ×3 (09:22→18:09)
[2020-01-29] MEDS: PANTOPRAZOLE SODIUM 40 MG TAB PO SCH (09:22)
[2020-01-29] MEDS: POTASSIUM CHLORIDE 20 MEQ TAB.PRT.SR PO SCH ×2 (09:23→21:18)
[2020-01-29] MEDS: FAMOTIDINE PF 20 MG/2 ML VIAL IVP SCH ×2 (09:24→21:18)
[2020-01-29] MEDS: METOPROLOL TARTRATE 25 MG TABLET PO SCH (09:25)
[2020-01-29] MEDS: METOCLOPRAMIDE HCL 10 MG TABLET PO SCH (09:25)
--- NOTE | 2020-01-29 11:20 | NUR ---
iv infiltrated iv site left hand leaking. iv removed new iv line started #22 left hand. with good blood return. iv flushed well. no s/s of infiltration noted. k rider infusing well as ordered.
--- NOTE | 2020-01-29 11:47 | NUR ---
c/o od pain pt c/o of left groin pain 12/05. medicated with morphine 2 mg ivp as ordered. not in acute distress will continue to monitor
[2020-01-29 12:00] VITALS: BP_SYST 124
[2020-01-29 16:16] VITALS: BP_SYST 122
--- NOTE | 2020-01-29 16:32 | NUR ---
c/o of pain pt c/o ofpain left groin 11/04. medicated with morphine 2 mg ivp as ordered. not in acute distress. safety and fall precautions maintained. call light within reach.will continue to monitor
--- NOTE | 2020-01-29 18:30 | NUR ---
rounds/meds pt stab le not in acute distress.due meds given as ordered.
--- NOTE | 2020-01-29 19:20 | NUR ---
closing notes pt stable notin acute distress.safety and fall precautions in place. call light wiithin reach. report given to night nurse aaliyah
[2020-01-29 20:30] VITALS: BP_SYST 127
--- NOTE | 2020-01-29 20:30 | NUR ---
Opening notes Pt AAOx4, VSS, afebrile. No s/s distress noted. IV saline lock L.hand 22G clear and patent. Pt ambulated to the bathroom, steady gait. Call light/items within reach. Bed low, locked, siderails up x2. Will continue to monitor.
[2020-01-29] MEDS: INSULIN GLARGINE 100 UNITS/ML 10 ML VIAL SUBCUT SCH (21:26)
--- NOTE | 2020-01-29 21:26 | NUR ---
Pain/Blood sugar Pt c/o pain, medicated w/ Morphine 2mg and Zofran IVP as needed. BS checked 257 6 units Reg insulin given per protocol. Pt encouraged pt to eat dinner at bedside. Call light within reach. To monitor.
[2020-01-29] MEDS: HYDROcodone/ACETAMIN 5-325 MG TAB (NORCO/ VICODIN) PO PRN (23:02)
[2020-01-30] VITALS: BP_SYST 123
[2020-01-30] MEDS: LORazepam 2 MG/ML VIAL IVP PRN ×2 (00:20→09:21)
--- NOTE | 2020-01-30 00:20 | NUR ---
Rounds Pt awake, watching TV, no s/s distress noted. Call light within reach. To monitor.
[2020-01-30] MEDS: DIPHENHYDRAMINE INJ 50 MG/ML VIAL IVP PRN (01:58)
--- NOTE | 2020-01-30 02:00 | NUR ---
Benadryl Pt finished 80% of dinner. Medicated with Benadryl 50mg IVP as needed for sleep. Call light within reach. To monitor.
[2020-01-30] MEDS: GABAPENTIN 300 MG CAPSULE PO SCH ×3 (06:42→16:58)
[2020-01-30] MEDS: CLINDAMYCIN HCL 150 MG CAPSULE PO SCH ×3 (06:42→16:59)
[2020-01-30] MEDS: NORMAL SALINE 5 ML DISP.SYRIN IVF SCH ×2 (06:43→14:00)
--- NOTE | 2020-01-30 06:45 | NUR ---
Closing notes Pt asleep, easily awakens, no s/s distress noted. IV saline lock L.hand 22G clear and patent. BS checked 317, total of 14 units Regular insulin given per protocol. Call light/items within reach. Bed maintained low, locked, siderails up x2. All needs met throughout the shift. To endorse to AM nurse.
[2020-01-30] MEDS: INSULIN REGULAR, HUMAN 100 UNITS/ML, 10 ML VIAL SUBCUT SCH ×3 (06:49→17:01)
[2020-01-30] MEDS: INSULIN REGULAR, HUMAN 100 UNITS/ML, 10 ML VIAL (humuLIN R) SUBCUT PRN (06:49)
[2020-01-30 07:01] LABS: BASOPHILS # (AUTO) 0.1 K/uL (0.0-0.2); BASOPHILS % (AUTO) 1.2 % (0.0-2.0); EOSINOPHILS # (AUTO) 0.1 K/uL (0.0-0.4); EOSINOPHILS % (AUTO) 1.6 % (0.0-4.0); HEMATOCRIT 33.8 % (36-48); LYMPHOCYTES # (AUTO) 0.9 K/uL (1.0-5.5); MEAN CORPUSCULAR HEMOGLOBIN 30 pg (27-31); MEAN CORPUSCULAR HGB CONC 33 % (32-36); MEAN CORPUSCULAR VOLUME 92 fL (79.0-98.0); MONOCYTES # (AUTO) 0.5 K/uL (0.0-1.0); MONOCYTES % (AUTO) 9.9 % (1.7-9.3); NEUTROPHILS # (AUTO) 3.1 K/uL (1.8-7.7); NEUTROPHILS % (AUTO) 67.3 % (40.0-70.0); PLATELET COUNT (AUTO) 196 K/uL (130-430); RED BLOOD CELL COUNT(AUTO) 3.66 MIL/uL (4.2-6.2); RED CELL DISTRIBUTION WIDTH 17.3 % (9.0-15.0); WHITE BLOOD COUNT (AUTO) 4.6 K/uL (4.8-10.8)
[2020-01-30] MEDS: ONDANSETRON HCL 4 MG/2 ML VIAL IVP PRN ×2 (07:23→15:55)
[2020-01-30] MEDS: MORPHINE 2 MG/ML INJ. SYRINGE IVP PRN ×3 (07:25→15:57)
[2020-01-30 07:26] LABS: CALCIUM 8.4 mg/dL (8.4-11.0); CREATININE 0.59 mg/dL (0.55-1.30); PHOSPHORUS 3.4 mg/dL (2.7-4.5)
[2020-01-30 08:00] VITALS: BP_SYST 119
[2020-01-30] MEDS: PANTOPRAZOLE SODIUM 40 MG TAB PO SCH (08:21)
[2020-01-30] MEDS: METOCLOPRAMIDE HCL 10 MG TABLET PO SCH (08:22)
[2020-01-30] MEDS: METOPROLOL TARTRATE 25 MG TABLET PO SCH (08:22)
[2020-01-30] MEDS: FAMOTIDINE PF 20 MG/2 ML VIAL IVP SCH (08:23)
[2020-01-30] MEDS: POTASSIUM CHLORIDE 20 MEQ TAB.PRT.SR PO SCH (08:23)
[2020-01-30] MEDS: PHENAZOPYRIDINE HCL 100 MG TABLET PO SCH ×3 (08:23→16:58)
--- NOTE | 2020-01-30 08:45 | NUR ---
SS NOTES: OIL WELL SHOOTER received a referral from case mgmt to see patient for resources. OIL WELL SHOOTER met with patient at bedside. Patient is waiting for a call from the court; unable to converse with her extensively. Patient stated she will be needing a ride home and needs glucometer since she lost hers the last time. OIL WELL SHOOTER provided patient with [employer] and [facility] phone number. Patient will call SS for more resources.
--- NOTE | 2020-01-30 09:01 | NUR ---
alert, oriented, sitting in bed, just finished breakfast. Claimed nervousness, " today is the court day, for my son's custody, once on the phone, no disturbance" insists to get ATIVAN, and JUAN for the time being, for nervousness, for "vagina pain", despite the fact of I and D on 12/16/2019, still in pain requests honored.
[2020-01-30 12:36] VITALS: BP_SYST 112
--- NOTE | 2020-01-30 12:46 | NUR ---
Discharge Planning: DCP faxed pt referral to [facility] (f [phone] p [phone]) DCP to follow up Addendum: 01/30/20 at 1436 by Soraya Chaidez DP DCP followed up with [facility] (f [phone] p [phone]) accepted pt. CM made pt aware and pt refused, DCP made home health aware.
--- NOTE | 2020-01-30 13:36 | NUR ---
CONSULTATION CALLED REASON FOR CONSULTATION:PELVIC PAIN WAS CONSULT CALLED?Y PERSON WHO WAS NOTIFIED:KASIA CONSULTING PHYSICIAN:MAKAYLA CASTRO NETWORK SYSTEMS INTEGRATOR SPECIALTY:SURGEON NETWORK SYSTEMS INTEGRATOR PHONE NUMBER:[phone] REQUESTING PHYSICIAN:BRIANA DENNEY
--- NOTE | 2020-01-30 16:09 | NUR ---
soundly asleep , but woke up right away when heard voices, then " my vagina burning, it is painful when urinated" per attending, HOUSE FATHER consultation needed, even if , the [employer]st [employer] unable to see her, patient is discharged and followed with [employer] as outpatient basis. Things explained, and patient adamantly refused to go home, " My right to ask for a [employer], and I will not go home until seen " Claimed her bp low, when double checked by author, it is 101/72, with HR 77 Claimed her bs low, when double checked by author, it is 227 right now at 1600 1mg MSO4 ivp, and Zofran given for pain, as requested every 4hrs, as needed. finished the whole lunch, asked for more food, and snacks, " very hungry", given
[2020-01-30 17:17] VITALS: BP_SYST 101
[2020-01-30 17:19] VITALS: BP_SYST 100
--- NOTE | 2020-01-30 18:14 | NUR ---
last medicated with one mg MSO4, and Zofran , ivp was 1600 said she is ready to get out of here, but wanted a shower first. shower done, now eating dinner. Her ride will be in front at 2000 tonite, home meds given back to the patient. Patient is discharged to home.
[2020-01-30 19:30] VITALS: BP_SYST 107
--- NOTE | 2020-01-30 19:30 | NUR ---
INITIAL NOTES PATIENT IS STABLE AND LAYING IN BED. NO S/S OF RESPIRATORY DISTRESS NOTED. CALL LIGHT IN REACH. PATIENT SUCCESSFULLY DEMONSTRATES USAGE OF CALL LIGHT. BED IS LOCKED, AND AT THE LOWEST POSITION. PATIENT EDUCATED ON BED ALARM, PT REFUSED. PLAN OF CARE IS DISCUSSED WITH PATIENT. PT WILL BE DC TODAY. REQUESTED TO TAKE PICTURE OF INCISION, PT REFUSED. FALL, SAFETY, ASPIRATION, AND RESPIRATORY PRECAUTIONS WILL BE IN PLACE THROUGHOUT THE SHIFT.
--- NOTE | 2020-01-30 19:55 | NUR ---
Paged Dr. Kel Fink [phone], s/w Suzi
--- NOTE | 2020-01-30 20:15 | NUR ---
COMMUNICATED WITH DR. WEBB ABOUT PT REFUSING DC UNLESS PAIN MEDICATION WAS SIGNED TO [facility] [address] [facility]. STATED THAT HE WILL SIGN IT TOMORROW AND PT IS STILL GETTING DC TODAY.
--- NOTE | 2020-01-30 21:00 | NUR ---
INFORMED PT ABOUT MD STATEMENT. PT VERBALIZED UNDERSTANDING AND STATED HER FRIEND JOB IS ON HER WAY. PT HAD A L GROIN INCISION, REQUESTED TO TAKE PICTURE FOR DISCHARGE. PT EDUCATED, PT REFUSED.
[2020-02-02] MEDS ORDERED: valACYclovir HCL 500 MG TABLET PO SCH (09:00)
== END 2020-01-30 21:27 | disposition home health service (06) | DRG 420 ==
LOC: SED 16:57 → SIC 20:27 → STU 01-27 23:18
PROVIDERS: ADMIT Preventive Medicine Preventive Medicine/Occupational Environmental Medicine; ATTEND Preventive Medicine Preventive Medicine/Occupational Environmental Medicine
DX: E11.10 Type 2 diabetes mellitus with ketoacidosis without coma (principal); E87.1 Hypo-osmolality and hyponatremia; E83.42 Hypomagnesemia; E87.6 Hypokalemia; E43 Unspecified severe protein-calorie malnutrition; B00.9 Herpesviral infection, unspecified; D64.9 Anemia, unspecified; D72.819 Decreased white blood cell count, unspecified; E78.5 Hyperlipidemia, unspecified; G89.4 Chronic pain syndrome; I10 Essential (primary) hypertension; L72.3 Sebaceous cyst; Z20.828 Contact with and (suspected) exposure to other viral communicable diseases; E03.9 Hypothyroidism, unspecified; F41.9 Anxiety disorder, unspecified; N76.2 Acute vulvitis; R74.01 Elevation of levels of liver transaminase levels; E88.09 Other disorders of plasma-protein metabolism, not elsewhere classified; E87.2 Acidosis; N39.0 Urinary tract infection, site not specified; Z68.21 Body mass index [BMI] 21.0-21.9, adult; Z88.8 Allergy status to other drugs, medicaments and biological substances; Z79.899 Other long term (current) drug therapy; Z72.0 Tobacco use; Z79.2 Long term (current) use of antibiotics
CPT/HCPCS: 36415; 36600; 71045; 71260-TC; 80048; 80053; 81000-TC; 82009-TC; 82803-TC; 82962; 83735-TC; 84100-TC; 85025; 87081; 96361; 96365; 96375; 99291; 99292; G0378; J1200; J1815; J2060; J2270; J2405; J3475; J3480; J3490; J7030; J7050; J8597; Q9967

== ENCOUNTER 2020-06-14 13:27 | Inpatient (IN) | payer OTHER ==
[~2020-06-14] VITALS: Ht 165.1 cm; Wt 56.7 kg
[~2020-06-14 13:27] MED LIST changes: -CLIN300C11 PO; +CLIN300C12 PO
[2020-06-14 13:41] VITALS: BP_SYST 131
[2020-06-14] MEDS ORDERED: INSULIN REGULAR, HUMAN 10 UNITS/0.1 ML INJ IVP ONE (13:45)
[2020-06-14] MEDS ORDERED: NACL 0.9% 1,000 ML IV ONE ×2 (13:45→15:30)
[2020-06-14] MEDS ORDERED: INSULIN REGULAR, HUMAN 10 UNITS/0.1 ML INJ ONE (13:52)
[2020-06-14] MEDS ORDERED: NEU300 PO (14:43)
[2020-06-14] MEDS ORDERED: HYDR-3927 PO (14:43)
[2020-06-14] MEDS ORDERED: GABA-331 PO (14:43)
[2020-06-14] MEDS ORDERED: HYDROcodone/ACETAMIN 10-325 MG TAB ONE (14:55)
[2020-06-14 15:00] LABS: ACETONE, SERUM NEGATIVE (NEGATIVE)
[2020-06-14] MEDS ORDERED: GABAPENTIN 100 MG CAPSULE PO ONE (15:00)
[2020-06-14] MEDS ORDERED: HYDROcodone/ACETAMIN 10-325 MG TAB PO ONE (15:00)
[2020-06-14 15:01] LABS: BASOPHILS % (AUTO) 0.4 % (0.0-2.0); EOSINOPHILS # (AUTO) 0.1 K/uL (0.0-0.4); EOSINOPHILS % (AUTO) 1.3 % (0.0-4.0); HEMATOCRIT 37.2 % (36-48); LYMPHOCYTES # (AUTO) 1.4 K/uL (1.0-5.5); LYMPHOCYTES % (AUTO) 32.3 % (20.5-51.5); MEAN CORPUSCULAR HEMOGLOBIN 30 pg (27-31); MEAN CORPUSCULAR HGB CONC 32 % (32-36); MEAN CORPUSCULAR VOLUME 93 fL (79.0-98.0); MONOCYTES # (AUTO) 0.1 K/uL (0.0-1.0); MONOCYTES % (AUTO) 1.3 % (1.7-9.3); NEUTROPHILS # (AUTO) 2.8 K/uL (1.8-7.7); NEUTROPHILS % (AUTO) 64.7 % (40.0-70.0); PLATELET COUNT (AUTO) 315 K/uL (130-430); RED BLOOD CELL COUNT(AUTO) 4.02 MIL/uL (4.2-6.2); RED CELL DISTRIBUTION WIDTH 14.9 % (9.0-15.0); WHITE BLOOD COUNT (AUTO) 4.4 K/uL (4.8-10.8)
[2020-06-14 15:13] LABS: ANION GAP 17 (5-15); CHLORIDE 98 mmol/L (98-107); CREATININE 0.71 mg/dL (0.55-1.30); GLUCOSE 398 mg/dL (70-99); SODIUM SERUM 137 mmol/L (136-145); UREA NITROGEN, BLOOD 5 mg/dL (8-21)
[2020-06-14 15:17] LABS: ALANINE AMINOTRANSFERASE 63 U/L (12-78); ALBUMIN 3.5 g/dL (3.4-4.8); ASPARTATE AMINOTRANSFERASE 86 U/L (10-37); POTASSIUM 2.8 mmol/L (3.5-5.1); TOTAL BILIRUBIN 0.3 mg/dL (0.0-1.0)
[2020-06-14] MEDS ORDERED: POTASSIUM CHLORIDE 20 MEQ/PKT PACKET PO ONE (15:30)
[2020-06-14 15:44] VITALS: BP_SYST 123
[2020-06-14 16:00] VITALS: BP_SYST 136
[2020-06-14 19:48] VITALS: BP_SYST 131
[2020-06-14] MEDS: FAMOTIDINE PF 20 MG/2 ML VIAL IVP SCH (21:45)
[2020-06-14] MEDS: METOCLOPRAMIDE HCL 10 MG/2 ML VIAL IVP PRN (21:49)
[2020-06-14] MEDS: MORPHINE 2 MG/ML INJ. SYRINGE IVP PRN (22:04)
[2020-06-14] MEDS: INSULIN REGULAR, HUMAN 100 UNITS/ML, 10 ML VIAL (humuLIN R) SUBCUT PRN (22:05)
[2020-06-14] MEDS ORDERED: ALBUTEROL MDI INHALATION 8 GM INH ONE (22:52)
[2020-06-14] MEDS ORDERED: GABAPENTIN 300 MG CAPSULE PO ONE (23:11)
[2020-06-14] MEDS ORDERED: ALBUTEROL MDI INHALATION 8 GM INH INH PRN (23:15)
[2020-06-14] MEDS: LORazepam 2 MG/ML VIAL IVP PRN (23:41)
[2020-06-15] VITALS: BP_SYST 130
[2020-06-15] MEDS: MORPHINE 2 MG/ML INJ. SYRINGE IVP PRN ×5 (02:39→18:56)
[2020-06-15] MEDS: HYDROcodone/ACETAMIN 10-325 MG TAB PO PRN ×2 (04:42→09:21)
[2020-06-15] MEDS: INSULIN REGULAR, HUMAN 100 UNITS/ML, 10 ML VIAL (humuLIN R) SUBCUT PRN ×4 (06:19→22:05)
[2020-06-15] MEDS: INSULIN GLARGINE 100 UNITS/ML 10 ML VIAL SUBCUT SCH (07:03)
[2020-06-15 07:55] VITALS: BP_SYST 148
[2020-06-15] MEDS ORDERED: ALBUTEROL SULFATE 0.083% 2.5 MG/3 ML VIAL.NEB INH PRN (08:15)
[2020-06-15] MEDS: LORazepam 2 MG/ML VIAL IVP PRN ×2 (08:56→17:09)
[2020-06-15] MEDS: METOPROLOL TARTRATE 25 MG TABLET PO SCH (08:57)
[2020-06-15] MEDS: FAMOTIDINE PF 20 MG/2 ML VIAL IVP SCH ×2 (08:57→21:47)
[2020-06-15] MEDS ORDERED: GABAPENTIN 300 MG CAPSULE PO SCH (09:00)
[2020-06-15] MEDS ORDERED: NALOXONE HCL 0.4 MG/ML AMP (NARCAN) IVP PRN (13:30)
[2020-06-15] MEDS ORDERED: HYDROcodone/ACETAMIN 10-325 MG TAB PO PRN (13:30)
[2020-06-15] MEDS ORDERED: IBUPROFEN 800 MG TABLET PO PRN (13:30)
[2020-06-15] MEDS ORDERED: ONDANSETRON HCL 4 MG/2 ML VIAL IVP PRN (13:45)
[2020-06-15] MEDS ORDERED: ACETAMINOPHEN 325 MG TABLET PO PRN (13:45)
[2020-06-15] MEDS: METOCLOPRAMIDE HCL 10 MG/2 ML VIAL IVP PRN (14:29)
[2020-06-15] MEDS ORDERED: valACYclovir HCL 500 MG TABLET PO SCH (15:00)
[2020-06-15 16:07] VITALS: BP_SYST 132
[2020-06-15] MEDS: INSULIN REGULAR, HUMAN 100 UNITS/ML, 10 ML VIAL SUBCUT SCH (17:04)
[2020-06-15] MEDS: METOCLOPRAMIDE HCL 10 MG TABLET PO SCH (17:18)
[2020-06-15] MEDS: PHENAZOPYRIDINE HCL 100 MG TABLET PO SCH (18:49)
[2020-06-15 20:15] VITALS: BP_SYST 120
[2020-06-15] MEDS: DIPHENHYDRAMINE HCL 50 MG CAPSULE PO SCH (21:00)
[2020-06-15] MEDS: GABAPENTIN 300 MG CAPSULE PO SCH (21:46)
[2020-06-15] MEDS: LORazepam 1 MG TABLET PO SCH (21:46)
[2020-06-16] MEDS: MORPHINE 2 MG/ML INJ. SYRINGE IVP PRN ×6 (00:04→23:19)
[2020-06-16 00:16] VITALS: BP_SYST 116
[2020-06-16] MEDS: LORazepam 2 MG/ML VIAL IVP PRN ×3 (03:45→20:25)
[2020-06-16] MEDS: METOCLOPRAMIDE HCL 10 MG TABLET PO SCH ×5 (06:00→23:17)
[2020-06-16 06:28] LABS: BASOPHILS % (AUTO) 0.4 % (0.0-2.0); EOSINOPHILS # (AUTO) 0.1 K/uL (0.0-0.4); EOSINOPHILS % (AUTO) 1.6 % (0.0-4.0); HEMATOCRIT 35.8 % (36-48); HEMOGLOBIN 11.5 g/dL (12.0-16.0); LYMPHOCYTES # (AUTO) 1.2 K/uL (1.0-5.5); LYMPHOCYTES % (AUTO) 26.2 % (20.5-51.5); MEAN CORPUSCULAR HEMOGLOBIN 30 pg (27-31); MEAN CORPUSCULAR HGB CONC 32 % (32-36); MEAN CORPUSCULAR VOLUME 93 fL (79.0-98.0); MONOCYTES # (AUTO) 0.5 K/uL (0.0-1.0); MONOCYTES % (AUTO) 11.5 % (1.7-9.3); NEUTROPHILS # (AUTO) 2.7 K/uL (1.8-7.7); NEUTROPHILS % (AUTO) 60.3 % (40.0-70.0); PLATELET COUNT (AUTO) 286 K/uL (130-430); RED BLOOD CELL COUNT(AUTO) 3.86 MIL/uL (4.2-6.2); RED CELL DISTRIBUTION WIDTH 14.8 % (9.0-15.0); WHITE BLOOD COUNT (AUTO) 4.4 K/uL (4.8-10.8)
[2020-06-16] MEDS: INSULIN REGULAR, HUMAN 100 UNITS/ML, 10 ML VIAL SUBCUT SCH ×3 (06:41→17:10)
[2020-06-16] MEDS: INSULIN GLARGINE 100 UNITS/ML 10 ML VIAL SUBCUT SCH ×2 (06:42→08:22)
[2020-06-16 07:33] LABS: CALCIUM 8.2 mg/dL (8.4-11.0); CREATININE 0.73 mg/dL (0.55-1.30); PHOSPHORUS 3.2 mg/dL (2.7-4.5); POTASSIUM 4.5 mmol/L (3.5-5.1); TOTAL BILIRUBIN 0.3 mg/dL (0.0-1.0)
[2020-06-16 08:00] VITALS: BP_SYST 146
[2020-06-16] MEDS: FAMOTIDINE PF 20 MG/2 ML VIAL IVP SCH ×2 (08:08→22:06)
[2020-06-16] MEDS: NEPHROVITE, (FOLIC ACID/VITAMIN B COMP W-C 1 TAB) PO SCH (08:08)
[2020-06-16] MEDS: GABAPENTIN 300 MG CAPSULE PO SCH ×2 (08:09→22:06)
[2020-06-16] MEDS: METOPROLOL TARTRATE 25 MG TABLET PO SCH (08:09)
[2020-06-16] MEDS: PANTOPRAZOLE SODIUM 40 MG TAB PO SCH (08:09)
[2020-06-16] MEDS: PHENAZOPYRIDINE HCL 100 MG TABLET PO SCH ×3 (08:09→17:43)
[2020-06-16] MEDS: LORazepam 1 MG TABLET PO SCH ×2 (08:10→21:00)
[2020-06-16] MEDS ORDERED: METOPROLOL TARTRATE 25 MG TABLET PO SCH (09:00)
[2020-06-16 12:08] VITALS: BP_SYST 129
[2020-06-16 16:07] VITALS: BP_SYST 117
[2020-06-16 20:17] VITALS: BP_SYST 126
[2020-06-16] MEDS: HYDROcodone/ACETAMIN 10-325 MG TAB PO PRN (20:25)
[2020-06-16] MEDS: DIPHENHYDRAMINE HCL 50 MG CAPSULE PO SCH (21:00)
[2020-06-16] MEDS ORDERED: MUPIROCIN 2% TOPICAL OINTMENT 22 GM TP SCH (21:00)
[2020-06-16] MEDS: INSULIN REGULAR, HUMAN 100 UNITS/ML, 10 ML VIAL (humuLIN R) SUBCUT PRN (22:09)
[2020-06-16 23:24] VITALS: BP_SYST 148
[2020-06-17] MEDS: DIPHENHYDRAMINE INJ 50 MG/ML VIAL IVP PRN (00:51)
[2020-06-17] MEDS: METOCLOPRAMIDE HCL 10 MG TABLET PO SCH ×3 (05:27→17:50)
[2020-06-17] MEDS: MORPHINE 2 MG/ML INJ. SYRINGE IVP PRN ×4 (05:28→22:17)
[2020-06-17] MEDS: LORazepam 2 MG/ML VIAL IVP PRN ×2 (06:32→14:10)
[2020-06-17] MEDS: INSULIN REGULAR, HUMAN 100 UNITS/ML, 10 ML VIAL SUBCUT SCH ×3 (06:36→17:00)
[2020-06-17] MEDS: INSULIN REGULAR, HUMAN 100 UNITS/ML, 10 ML VIAL (humuLIN R) SUBCUT PRN ×2 (06:38→18:02)
[2020-06-17 07:18] LABS: BASOPHILS % (AUTO) 0.8 % (0.0-2.0); EOSINOPHILS # (AUTO) 0.1 K/uL (0.0-0.4); HEMATOCRIT 37.1 % (36-48); HEMOGLOBIN 12.1 g/dL (12.0-16.0); LYMPHOCYTES # (AUTO) 1.6 K/uL (1.0-5.5); LYMPHOCYTES % (AUTO) 31.4 % (20.5-51.5); MEAN CORPUSCULAR HEMOGLOBIN 30 pg (27-31); MEAN CORPUSCULAR HGB CONC 32 % (32-36); MEAN CORPUSCULAR VOLUME 93 fL (79.0-98.0); MONOCYTES # (AUTO) 0.6 K/uL (0.0-1.0); MONOCYTES % (AUTO) 11.9 % (1.7-9.3); NEUTROPHILS # (AUTO) 2.7 K/uL (1.8-7.7); NEUTROPHILS % (AUTO) 53.9 % (40.0-70.0); PLATELET COUNT (AUTO) 282 K/uL (130-430); RED CELL DISTRIBUTION WIDTH 14.5 % (9.0-15.0)
[2020-06-17 07:19] LABS: CALCIUM 8.5 mg/dL (8.4-11.0); CREATININE 0.69 mg/dL (0.55-1.30); POTASSIUM 4.5 mmol/L (3.5-5.1)
[2020-06-17 08:00] VITALS: BP_SYST 104
[2020-06-17] MEDS: NEPHROVITE, (FOLIC ACID/VITAMIN B COMP W-C 1 TAB) PO SCH (08:27)
[2020-06-17] MEDS: LORazepam 1 MG TABLET PO SCH ×2 (08:27→22:13)
[2020-06-17] MEDS: GABAPENTIN 300 MG CAPSULE PO SCH ×2 (08:27→22:13)
[2020-06-17] MEDS: PANTOPRAZOLE SODIUM 40 MG TAB PO SCH (08:27)
[2020-06-17] MEDS: PHENAZOPYRIDINE HCL 100 MG TABLET PO SCH ×3 (08:27→17:50)
[2020-06-17] MEDS: FAMOTIDINE PF 20 MG/2 ML VIAL IVP SCH ×3 (08:28→22:14)
[2020-06-17] MEDS: INSULIN GLARGINE 100 UNITS/ML 10 ML VIAL SUBCUT SCH ×2 (08:35→10:48)
[2020-06-17] MEDS: METOPROLOL TARTRATE 25 MG TABLET PO SCH (08:36)
[2020-06-17 12:03] VITALS: BP_SYST 115
[2020-06-17] MEDS ORDERED: VANCOMYCIN HCL 750 MG in NS 250 ML IV SCH (14:00)
[2020-06-17] MEDS: HYDROcodone/ACETAMIN 10-325 MG TAB PO PRN (14:10)
[2020-06-17 16:00] VITALS: BP_SYST 100
[2020-06-17 20:00] VITALS: BP_SYST 108
[2020-06-18 00:07] VITALS: BP_SYST 115
[2020-06-18] MEDS: DIPHENHYDRAMINE HCL 50 MG CAPSULE PO SCH ×2 (00:09→20:27)
[2020-06-18] MEDS: METOCLOPRAMIDE HCL 10 MG TABLET PO SCH ×4 (00:09→17:46)
[2020-06-18] MEDS: MORPHINE 2 MG/ML INJ. SYRINGE IVP PRN ×6 (02:31→22:35)
[2020-06-18] MEDS: INSULIN REGULAR, HUMAN 100 UNITS/ML, 10 ML VIAL (humuLIN R) SUBCUT PRN (06:09)
[2020-06-18 06:25] LABS: BASOPHILS % (AUTO) 0.7 % (0.0-2.0); EOSINOPHILS # (AUTO) 0.1 K/uL (0.0-0.4); EOSINOPHILS % (AUTO) 2.2 % (0.0-4.0); HEMATOCRIT 37.8 % (36-48); LYMPHOCYTES # (AUTO) 1.7 K/uL (1.0-5.5); LYMPHOCYTES % (AUTO) 33.1 % (20.5-51.5); MEAN CORPUSCULAR HEMOGLOBIN 30 pg (27-31); MEAN CORPUSCULAR HGB CONC 32 % (32-36); MEAN CORPUSCULAR VOLUME 93 fL (79.0-98.0); MONOCYTES # (AUTO) 0.6 K/uL (0.0-1.0); MONOCYTES % (AUTO) 11.8 % (1.7-9.3); NEUTROPHILS # (AUTO) 2.7 K/uL (1.8-7.7); NEUTROPHILS % (AUTO) 52.2 % (40.0-70.0); PLATELET COUNT (AUTO) 310 K/uL (130-430); RED BLOOD CELL COUNT(AUTO) 4.06 MIL/uL (4.2-6.2); RED CELL DISTRIBUTION WIDTH 14.6 % (9.0-15.0); WHITE BLOOD COUNT (AUTO) 5.1 K/uL (4.8-10.8)
[2020-06-18 07:26] LABS: ALBUMIN 3.1 g/dL (3.4-4.8); CALCIUM 8.8 mg/dL (8.4-11.0); CREATININE 0.99 mg/dL (0.55-1.30); TOTAL BILIRUBIN 0.3 mg/dL (0.0-1.0)
[2020-06-18 08:00] VITALS: BP_SYST 132
[2020-06-18] MEDS: PHENAZOPYRIDINE HCL 100 MG TABLET PO SCH ×3 (08:42→17:46)
[2020-06-18] MEDS: LORazepam 1 MG TABLET PO SCH ×2 (08:43→20:27)
[2020-06-18] MEDS: FAMOTIDINE PF 20 MG/2 ML VIAL IVP SCH ×2 (08:43→20:27)
[2020-06-18] MEDS: NEPHROVITE, (FOLIC ACID/VITAMIN B COMP W-C 1 TAB) PO SCH (08:44)
[2020-06-18] MEDS: PANTOPRAZOLE SODIUM 40 MG TAB PO SCH (08:44)
[2020-06-18] MEDS: METOPROLOL TARTRATE 25 MG TABLET PO SCH (08:44)
[2020-06-18] MEDS: HYDROcodone/ACETAMIN 10-325 MG TAB PO PRN ×2 (08:45→12:24)
[2020-06-18] MEDS: INSULIN GLARGINE 100 UNITS/ML 10 ML VIAL SUBCUT SCH (08:50)
[2020-06-18] MEDS: GABAPENTIN 300 MG CAPSULE PO SCH ×3 (09:00→20:27)
[2020-06-18] MEDS: INSULIN REGULAR, HUMAN 100 UNITS/ML, 10 ML VIAL SUBCUT SCH ×2 (12:15→17:46)
[2020-06-18 12:23] VITALS: BP_SYST 140
[2020-06-18] MEDS: MUPIROCIN 2% TOPICAL OINTMENT 22 GM TP SCH ×2 (12:28→22:32)
[2020-06-18 16:02] VITALS: BP_SYST 111
[2020-06-18 20:00] VITALS: BP_SYST 123
[2020-06-19] VITALS: BP_SYST 118
[2020-06-19] MEDS: DIPHENHYDRAMINE INJ 50 MG/ML VIAL IVP PRN ×2 (00:04→21:54)
[2020-06-19] MEDS: METOCLOPRAMIDE HCL 10 MG TABLET PO SCH ×4 (00:04→18:22)
[2020-06-19] MEDS: MORPHINE 2 MG/ML INJ. SYRINGE IVP PRN ×5 (02:25→21:53)
[2020-06-19] MEDS: HYDROcodone/ACETAMIN 10-325 MG TAB PO PRN ×3 (04:58→18:38)
[2020-06-19 06:33] LABS: BASOPHILS # (AUTO) 0.1 K/uL (0.0-0.2); BASOPHILS % (AUTO) 0.8 % (0.0-2.0); EOSINOPHILS # (AUTO) 0.2 K/uL (0.0-0.4); HEMATOCRIT 37.1 % (36-48); HEMOGLOBIN 11.8 g/dL (12.0-16.0); LYMPHOCYTES % (AUTO) 25.5 % (20.5-51.5); MEAN CORPUSCULAR HEMOGLOBIN 29 pg (27-31); MEAN CORPUSCULAR HGB CONC 32 % (32-36); MEAN CORPUSCULAR VOLUME 92 fL (79.0-98.0); MONOCYTES % (AUTO) 12.9 % (1.7-9.3); NEUTROPHILS # (AUTO) 4.7 K/uL (1.8-7.7); NEUTROPHILS % (AUTO) 58.8 % (40.0-70.0); PLATELET COUNT (AUTO) 354 K/uL (130-430); RED BLOOD CELL COUNT(AUTO) 4.02 MIL/uL (4.2-6.2); RED CELL DISTRIBUTION WIDTH 14.4 % (9.0-15.0); WHITE BLOOD COUNT (AUTO) 7.9 K/uL (4.8-10.8)
[2020-06-19 06:43] LABS: CALCIUM 8.9 mg/dL (8.4-11.0); CREATININE 0.75 mg/dL (0.55-1.30); POTASSIUM 4.9 mmol/L (3.5-5.1)
[2020-06-19] MEDS: INSULIN REGULAR, HUMAN 100 UNITS/ML, 10 ML VIAL SUBCUT SCH ×4 (06:50→18:45)
[2020-06-19 08:00] VITALS: BP_SYST 124
[2020-06-19] MEDS: FAMOTIDINE PF 20 MG/2 ML VIAL IVP SCH ×2 (10:43→21:03)
[2020-06-19] MEDS: LORazepam 1 MG TABLET PO SCH ×2 (10:44→21:02)
[2020-06-19] MEDS: PHENAZOPYRIDINE HCL 100 MG TABLET PO SCH ×3 (10:44→18:22)
[2020-06-19] MEDS: METOPROLOL TARTRATE 25 MG TABLET PO SCH (10:45)
[2020-06-19] MEDS: PANTOPRAZOLE SODIUM 40 MG TAB PO SCH (10:45)
[2020-06-19] MEDS: NEPHROVITE, (FOLIC ACID/VITAMIN B COMP W-C 1 TAB) PO SCH (10:45)
[2020-06-19] MEDS: GABAPENTIN 300 MG CAPSULE PO SCH ×3 (10:46→21:03)
[2020-06-19] MEDS: MUPIROCIN 2% TOPICAL OINTMENT 22 GM TP SCH ×2 (10:55→21:00)
[2020-06-19] MEDS: INSULIN GLARGINE 100 UNITS/ML 10 ML VIAL SUBCUT SCH (11:00)
[2020-06-19 12:34] VITALS: BP_SYST 105
[2020-06-19] MEDS ORDERED: HYDR-3927 PO (13:10)
[2020-06-19] MEDS ORDERED: DOXY100T2 PO (13:10)
[2020-06-19] MEDS ORDERED: INSU100V9 SUBCUT (13:10)
[2020-06-19] MEDS ORDERED: GABA-331 PO (13:10)
[2020-06-19] MEDS ORDERED: NITR-85 PO (13:10)
[2020-06-19] MEDS ORDERED: INSU100V7 SUBCUT (13:10)
[2020-06-19 16:00] VITALS: BP_SYST 103
[2020-06-19] MEDS: LORazepam 2 MG/ML VIAL IVP PRN (18:39)
[2020-06-19] MEDS: DIPHENHYDRAMINE HCL 50 MG CAPSULE PO SCH (21:03)
[2020-06-20] MEDS: HYDROcodone/ACETAMIN 10-325 MG TAB PO PRN ×3 (00:15→16:32)
[2020-06-20] MEDS: METOCLOPRAMIDE HCL 10 MG TABLET PO SCH ×3 (00:15→14:11)
[2020-06-20 01:26] VITALS: BP_SYST 138
[2020-06-20] MEDS: MORPHINE 2 MG/ML INJ. SYRINGE IVP PRN ×4 (02:05→14:15)
[2020-06-20] MEDS: LORazepam 2 MG/ML VIAL IVP PRN (02:44)
[2020-06-20] MEDS: INSULIN REGULAR, HUMAN 100 UNITS/ML, 10 ML VIAL SUBCUT SCH ×2 (06:27→11:35)
[2020-06-20 07:04] LABS: BASOPHILS % (AUTO) 0.6 % (0.0-2.0); EOSINOPHILS # (AUTO) 0.2 K/uL (0.0-0.4); EOSINOPHILS % (AUTO) 2.2 % (0.0-4.0); HEMATOCRIT 35.8 % (36-48); HEMOGLOBIN 11.3 g/dL (12.0-16.0); LYMPHOCYTES # (AUTO) 1.4 K/uL (1.0-5.5); MEAN CORPUSCULAR HEMOGLOBIN 30 pg (27-31); MEAN CORPUSCULAR HGB CONC 32 % (32-36); MEAN CORPUSCULAR VOLUME 93 fL (79.0-98.0); MONOCYTES % (AUTO) 13.8 % (1.7-9.3); NEUTROPHILS # (AUTO) 4.6 K/uL (1.8-7.7); NEUTROPHILS % (AUTO) 64.4 % (40.0-70.0); PLATELET COUNT (AUTO) 326 K/uL (130-430); RED BLOOD CELL COUNT(AUTO) 3.83 MIL/uL (4.2-6.2); RED CELL DISTRIBUTION WIDTH 14.3 % (9.0-15.0); WHITE BLOOD COUNT (AUTO) 7.2 K/uL (4.8-10.8)
[2020-06-20 07:26] LABS: ALBUMIN 3.2 g/dL (3.4-4.8); CALCIUM 9.1 mg/dL (8.4-11.0); CREATININE 0.79 mg/dL (0.55-1.30); POTASSIUM 4.4 mmol/L (3.5-5.1); TOTAL BILIRUBIN 0.3 mg/dL (0.0-1.0)
[2020-06-20] MEDS ORDERED: MORPHINE 2 MG/ML INJ. SYRINGE IVP ONE (07:30)
[2020-06-20 08:00] VITALS: BP_SYST 143
[2020-06-20] MEDS: GABAPENTIN 300 MG CAPSULE PO SCH ×2 (08:19→16:31)
[2020-06-20] MEDS: PANTOPRAZOLE SODIUM 40 MG TAB PO SCH (08:19)
[2020-06-20] MEDS: METOPROLOL TARTRATE 25 MG TABLET PO SCH (08:20)
[2020-06-20] MEDS: NEPHROVITE, (FOLIC ACID/VITAMIN B COMP W-C 1 TAB) PO SCH (08:20)
[2020-06-20] MEDS: LORazepam 1 MG TABLET PO SCH (08:20)
[2020-06-20] MEDS: PHENAZOPYRIDINE HCL 100 MG TABLET PO SCH ×2 (08:20→14:11)
[2020-06-20] MEDS: FAMOTIDINE PF 20 MG/2 ML VIAL IVP SCH (08:21)
[2020-06-20] MEDS ORDERED: NALOXONE HCL 0.4 MG/ML AMP (NARCAN) IVP ONE (08:30)
[2020-06-20] MEDS: MUPIROCIN 2% TOPICAL OINTMENT 22 GM TP SCH (09:00)
[2020-06-20] MEDS: INSULIN GLARGINE 100 UNITS/ML 10 ML VIAL SUBCUT SCH (10:04)
[2020-06-20 12:25] VITALS: BP_SYST 104
[2020-06-20 16:35] VITALS: BP_SYST 135
[2020-06-20 16:37] VITALS: BP_SYST 117
== END 2020-06-20 16:40 | disposition home or self-care (01) | DRG 48 ==
LOC: SED 13:27 → SMU 15:18
PROVIDERS: ADMIT Preventive Medicine Preventive Medicine/Occupational Environmental Medicine; ATTEND Preventive Medicine Preventive Medicine/Occupational Environmental Medicine
DX: E11.43 Type 2 diabetes mellitus with diabetic autonomic (poly)neuropathy (principal); E11.65 Type 2 diabetes mellitus with hyperglycemia; E83.51 Hypocalcemia; K31.84 Gastroparesis; D72.819 Decreased white blood cell count, unspecified; E87.6 Hypokalemia; R74.01 Elevation of levels of liver transaminase levels; F10.10 Alcohol abuse, uncomplicated; G47.00 Insomnia, unspecified; F41.9 Anxiety disorder, unspecified; Y90.9 Presence of alcohol in blood, level not specified; E11.21 Type 2 diabetes mellitus with diabetic nephropathy; I10 Essential (primary) hypertension; G89.29 Other chronic pain; B00.9 Herpesviral infection, unspecified; Z20.822 Contact with and (suspected) exposure to COVID-19; E03.9 Hypothyroidism, unspecified; E88.09 Other disorders of plasma-protein metabolism, not elsewhere classified; F17.200 Nicotine dependence, unspecified, uncomplicated; I25.10 Atherosclerotic heart disease of native coronary artery without angina pectoris; Z79.899 Other long term (current) drug therapy; Z86.14 Personal history of Methicillin resistant Staphylococcus aureus infection; Z98.891 History of uterine scar from previous surgery
CPT/HCPCS: 36415; 80048; 80053; 82009-TC; 82962; 83605; 83735-TC; 84100-TC; 85025; 87040-TC; 93005; 93970; 96361; 96374; 97163; 99291; G0482; J1200; J1815; J2060; J2270; J2765; J3490; J7050; J8597; Q0163

== ENCOUNTER 2020-10-18 02:10 | Emergency (ER) | payer OTHER ==
[~2020-10-18] VITALS: Ht 162.6 cm; Wt 49.0 kg
[~2020-10-18 02:10] MED LIST changes: -CLIN300C12 PO; +DOXY100T2 PO; +GABA-331 PO; -GABA-531 PO; +HYDR-3927 PO; -HYDR-4272 PO; +NITR-85 PO
[2020-10-18 02:20] VITALS: BP_SYST 119
[2020-10-18 04:00] VITALS: BP_SYST 124
[2020-10-18 04:54] LABS: BASOPHILS % (AUTO) 0.7 % (0.0-2.0); EOSINOPHILS % (AUTO) 0.9 % (0.0-4.0); HEMATOCRIT 33.6 % (36-48); LYMPHOCYTES # (AUTO) 1.6 K/uL (1.0-5.5); LYMPHOCYTES % (AUTO) 36.5 % (20.5-51.5); MEAN CORPUSCULAR HEMOGLOBIN 31 pg (27-31); MEAN CORPUSCULAR HGB CONC 33 % (32-36); MEAN CORPUSCULAR VOLUME 93 fL (79.0-98.0); MONOCYTES # (AUTO) 0.3 K/uL (0.0-1.0); MONOCYTES % (AUTO) 7.9 % (1.7-9.3); NEUTROPHILS # (AUTO) 2.3 K/uL (1.8-7.7); PLATELET COUNT (AUTO) 233 K/uL (130-430); RED BLOOD CELL COUNT(AUTO) 3.61 MIL/uL (4.2-6.2); RED CELL DISTRIBUTION WIDTH 16.4 % (9.0-15.0); WHITE BLOOD COUNT (AUTO) 4.3 K/uL (4.8-10.8)
[2020-10-18 05:01] LABS: CALCIUM 8.2 mg/dL (8.4-11.0); CREATININE 0.48 mg/dL (0.55-1.30); POTASSIUM 3.1 mmol/L (3.5-5.1)
[2020-10-18 05:07] LABS: TOTAL BILIRUBIN 0.4 mg/dL (0.0-1.0)
[2020-10-18] MEDS ORDERED: NACL 0.9% 1,000 ML IV ONE (05:30)
[2020-10-18] MEDS ORDERED: KETOROLAC TROMETHAMINE 30 MG VIAL IVP ONE (05:30)
[2020-10-18 06:30] LABS: BARBITURATE, URINE NEGATIVE (NEG <=200); BENZODIAZEPINE, URINE NEGATIVE (NEG <=150); CANNABINOID, URINE NEGATIVE (NEG <=50); COCAINE, URINE NEGATIVE (NEG <=150); METHAMPHETAMINES SCREEN,URINE NEGATIVE (NEG <=500); OPIATE, URINE POSITIVE (NEG <=100); PHENCYCLIDINE SCREEN,URINE NEGATIVE (NEG <=25); UR TRICYCLIC ANTIDEPRESSANTS NEGATIVE (NEG <=300); URINE AMPHETAMINE NEGATIVE (NEG <=500); URINE METHADONE NEGATIVE (NEG <=200); URINE OXYCODONE SCREEN NEGATIVE (NEG <=100); URINE PROPOXYPHENE SCREEN NEGATIVE (NEG <=300)
[2020-10-18 08:34] LABS: BILIRUBIN,URINE NEGATIVE (NEGATIVE); BLOOD, URINE 1+ (NEGATIVE); CLARITY/URINE SL CLOUDY (CLEAR); COLOR,URINE YELLOW (YELLOW); GLUCOSE,URINE 3+ (NEGATIVE); KETONES,URINE NEGATIVE (NEGATIVE); LEUKOCYTE ESTERASE ,URINE TRACE (NEGATIVE); NITRITE, URINE POSITIVE (NEGATIVE); PROTEIN URINE NEGATIVE (NEGATIVE); UROBILINOGEN,URINE 0.2 (0.2-1.0)
[2020-10-18 09:40] LABS: BACTERIA,URINE MANY /HPF (None Seen)
== END 2020-10-18 06:47 | disposition home or self-care (01) ==
LOC: SED 02:10
DX: E11.43 Type 2 diabetes mellitus with diabetic autonomic (poly)neuropathy (principal); E03.9 Hypothyroidism, unspecified; Z88.8 Allergy status to other drugs, medicaments and biological substances; Z79.899 Other long term (current) drug therapy
CPT/HCPCS: 36415; 73590; 80053; 80307; 81000; 81025; 82550; 82962; 85025; 87086; 96361; 96374; 99284; J1885; J7030; 93005

== ENCOUNTER 2021-07-17 00:03 | Inpatient (IN) | payer OTHER ==
[~2021-07-17] VITALS: Ht 165.1 cm; Wt 59.0 kg
[2021-07-17] VITALS (16 sets, daily range): BP systolic 97–163
--- NOTE | 2021-07-17 00:36 | NUR ---
Patient wheeled to bed 3 for evaluation and treatment
--- NOTE | 2021-07-17 00:40 | NUR ---
Pt brought self in from home due to dysuria and dry mouth x "couple" of days. Pt reports poor po intake due to lack of appetite and states last PO intake was x3 days ago. Pt arrived to ED in no acute distress. Breathing adequately on RA.
[2021-07-17] MEDS ORDERED: NS 1000 ML IV.SOLN IV ONE (00:45)
--- NOTE | 2021-07-17 00:51 | NUR ---
AZAM Goodwin at bedside examining patient.
[2021-07-17] MEDS ORDERED: ACETAMINOPHEN 500 MG TABLET PO ONE (01:15)
[2021-07-17] MEDS ORDERED: HUMAN IV ONE ×4 (01:15)
[2021-07-17] MEDS ORDERED: NS IV ONE ×4 (01:15)
[2021-07-17] MEDS ORDERED: INSULIN REGULAR, HUMAN 10 UNITS/0.1 ML INJ IVP ONE (01:15)
[2021-07-17] MEDS ORDERED: LORazepam 2 MG/ML VIAL IVP ONE (01:15)
[2021-07-17] MEDS ORDERED: INSULIN REGULAR IV ONE ×4 (01:15)
[2021-07-17] MEDS ORDERED: MORPHINE 4 MG INJ. 4 MG/ML VIAL IVP ONE ×2 (01:30→05:15)
[2021-07-17 02:24] LABS: BASOPHILS # (AUTO) 0.1 K/uL (0.0-0.2); BASOPHILS % (AUTO) 1.5 % (0.0-2.0); EOSINOPHILS % (AUTO) 0.4 % (0.0-4.0); HEMATOCRIT 30.1 % (36-48); HEMOGLOBIN 9.4 g/dL (12.0-16.0); LYMPHOCYTES # (AUTO) 0.6 K/uL (1.0-5.5); LYMPHOCYTES % (AUTO) 12.8 % (20.5-51.5); MEAN CORPUSCULAR HEMOGLOBIN 26 pg (27-31); MEAN CORPUSCULAR HGB CONC 31 % (32-36); MEAN CORPUSCULAR VOLUME 83 fL (79.0-98.0); MONOCYTES # (AUTO) 0.6 K/uL (0.0-1.0); MONOCYTES % (AUTO) 11.5 % (1.7-9.3); NEUTROPHILS # (AUTO) 3.6 K/uL (1.8-7.7); NEUTROPHILS % (AUTO) 73.8 % (40.0-70.0); PLATELET COUNT (AUTO) 317 K/uL (130-430); RED BLOOD CELL COUNT(AUTO) 3.63 MIL/uL (4.2-6.2); RED CELL DISTRIBUTION WIDTH 19.2 % (9.0-15.0); WHITE BLOOD COUNT (AUTO) 4.9 K/uL (4.8-10.8)
[2021-07-17 02:40] LABS: ANION GAP 20 (5-15); CALCIUM 8.8 mg/dL (8.4-11.0); CHLORIDE 95 mmol/L (98-107); CREATININE 1.32 mg/dL (0.55-1.30); POTASSIUM 3.3 mmol/L (3.5-5.1); SODIUM SERUM 134 mmol/L (136-145); UREA NITROGEN, BLOOD 19 mg/dL (8-21)
[2021-07-17 02:43] LABS: ALANINE AMINOTRANSFERASE 47 U/L (12-78); ALBUMIN 3.5 g/dL (3.4-4.8); ASPARTATE AMINOTRANSFERASE 100 U/L (10-37); TOTAL BILIRUBIN 0.7 mg/dL (0.0-1.0)
[2021-07-17 02:52] LABS: GFR AFRICAN AMERICAN 58 mL/min (>90); GLUCOSE 535 mg/dL (70-99)
[2021-07-17] MEDS ORDERED: NACL 0.9% 2,000 ML IV ONE (03:00)
[2021-07-17 03:01] LABS: C-REACTIVE PROTEIN QUANT < 0.2 mg/dL (0-0.5)
[2021-07-17 03:02] LABS: PROTHROMBIN TIME 10.9 SECS (9.5-12.5)
[2021-07-17 04:16] LABS: ERYTHROCYTE SEDIMENTATION RATE 49 MM/HR (0-20)
[2021-07-17] MEDS ORDERED: INSULIN REGULAR, HUMAN 100 UNITS in NS 99 ML IV ONE ×2 (05:00)
--- NOTE | 2021-07-17 05:00 | NUR ---
Admit orders receive from MD Parsons to admit to ICU.
[2021-07-17] MEDS ORDERED: NACL 0.9% 1,000 ML IV ONE (05:15)
[2021-07-17] MEDS ORDERED: INSULIN REGULAR, HUMAN 100 UNITS in NS 99 ML IV PRN ×4 (05:15→05:30)
[2021-07-17] MEDS ORDERED: DEXTROSE 50% JECT 50 ML DISP.SYRIN IVP PRN (05:15)
[2021-07-17] MEDS ORDERED: KCL 40 mEq in 100 mL (PREMIX) 100 ML IV ONE (05:15)
[2021-07-17] MEDS ORDERED: INSULIN REGULAR, HUMAN 10 UNITS/0.1 ML INJ ONE (05:18)
[2021-07-17] MEDS ORDERED: PIPERACILLIN/TAZO 3.375 GM in NS 50 ML IV ONE (05:30)
[2021-07-17] MEDS: NACL 0.9% 1,000 ML IV SCH ×2 (05:42→15:00)
--- NOTE | 2021-07-17 05:45 | NUR ---
Insulin drip initiated as ordered. Starting insulin dose 6ml/hr as per sliding scale. Pt on monitor. No acute signs of distress.
[2021-07-17] MEDS ORDERED: POTASSIUM CHLORIDE 20 MEQ TAB.PRT.SR PO ONE (06:30)
--- NOTE | 2021-07-17 06:59 | NUR ---
Insulin drip rate adjusted to 4ml/hr as per sliding scale.
[2021-07-17] MEDS ORDERED: POTASSIUM CHLORIDE 20 MEQ TAB.PRT.SR ONE (07:02)
[2021-07-17 07:19] LABS: ANION GAP 15 (5-15); CALCIUM 8.1 mg/dL (8.4-11.0); CHLORIDE 99 mmol/L (98-107); CREATININE 1.37 mg/dL (0.55-1.30); SODIUM SERUM 133 mmol/L (136-145); UREA NITROGEN, BLOOD 19 mg/dL (8-21)
--- NOTE | 2021-07-17 07:20 | NUR ---
RECIEVED reprt from PRAVIN Holden, assessed pt at bed side vitals within normal limits, pt is stable, bed lowered and locked patient resting comfortably. breakfast ordered.
[2021-07-17 07:25] LABS: GFR AFRICAN AMERICAN 55 mL/min (>90); GLUCOSE 423 mg/dL (70-99)
[2021-07-17 07:26] LABS: PHOSPHORUS 5.6 mg/dL (2.7-4.5)
--- NOTE | 2021-07-17 07:26 | NUR ---
Covid swab collected and sent to lab
--- NOTE | 2021-07-17 07:55 | NUR ---
# 20 gauge angiocath placed to . Use of asceptic technique. Opsite placed over site. Flushed with 10 cc of normal saline. No evidence of infiltration noted. Patient tolerated well.
[2021-07-17 08:06] LABS: ACETONE, SERUM NEGATIVE (NEGATIVE)
[2021-07-17 08:15] LABS: BILIRUBIN,URINE NEGATIVE (NEGATIVE); BLOOD, URINE 1+ (NEGATIVE); GLUCOSE,URINE 3+ (NEGATIVE); KETONES,URINE TRACE (NEGATIVE); LEUKOCYTE ESTERASE ,URINE 1+ (NEGATIVE); NITRITE, URINE POSITIVE (NEGATIVE); PH,URINE 5.5 (5.0-8.0); PROTEIN URINE TRACE (NEGATIVE)
--- NOTE | 2021-07-17 08:16 | NUR ---
Insulin drip decreased to 2 un/hr per insulin protocol.
[2021-07-17 08:22] LABS: CLARITY/URINE HAZY (CLEAR); COLOR,URINE AMBER (YELLOW)
[2021-07-17 08:32] LABS: BACTERIA,URINE MANY /HPF (None Seen)
[2021-07-17 08:36] LABS: BASOPHILS % (AUTO) 0.8 % (0.0-2.0); EOSINOPHILS % (AUTO) 0.4 % (0.0-4.0); HEMATOCRIT 25.4 % (36-48); HEMOGLOBIN 7.8 g/dL (12.0-16.0); LYMPHOCYTES # (AUTO) 1.1 K/uL (1.0-5.5); MEAN CORPUSCULAR HEMOGLOBIN 26 pg (27-31); MEAN CORPUSCULAR HGB CONC 31 % (32-36); MEAN CORPUSCULAR VOLUME 83 fL (79.0-98.0); MONOCYTES # (AUTO) 0.4 K/uL (0.0-1.0); MONOCYTES % (AUTO) 8.1 % (1.7-9.3); NEUTROPHILS # (AUTO) 3.5 K/uL (1.8-7.7); NEUTROPHILS % (AUTO) 68.7 % (40.0-70.0); PLATELET COUNT (AUTO) 290 K/uL (130-430); RED BLOOD CELL COUNT(AUTO) 3.06 MIL/uL (4.2-6.2); RED CELL DISTRIBUTION WIDTH 18.7 % (9.0-15.0); WHITE BLOOD COUNT (AUTO) 5.1 K/uL (4.8-10.8)
--- NOTE | 2021-07-17 09:00 | NUR ---
PATIENT ADMITTED FROM ER, RECEIVED REPORT AT BEDSIDE FROM AMOS, PATIENT STATES SHE HAS PERINEAL PAIN THAT SHE STATES IS RELATED TO FREQUENT WIPING AND URGENCY TO VOID, A/OX4, AMBULATES SHORT DISTANCES INDEPENDENTLY WITH SOME WEAKNESS, ALL BELONGINGS WITH PATIENT, ARRIVED IN [facility], WALKED TO BED WITH STAND BY ASSIST, IN BED, CALL LIGHT WITHIN REACH, LEFT HAND 20G AND RIGHT HAND 24G, WILL CONTINUE TO MONITOR.
--- NOTE | 2021-07-17 09:00 | NUR ---
PATIENT REFUSED TO HAVE PICTURE TAKEN OF PERINEAL AREA DESPITE EDUCATION ON PURPOSE OF IMAGE.
[2021-07-17] MEDS ORDERED: cefTRIAXone 1 GM IVPB PREMIX 50 ML IV SCH (10:00)
[2021-07-17] MEDS ORDERED: IBUPROFEN 800 MG TABLET PO PRN (10:00)
[2021-07-17] MEDS ORDERED: NALOXONE HCL 0.4 MG/ML AMP (NARCAN) IVP PRN ×2 (10:00)
[2021-07-17] MEDS: cefTRIAXone 1 GM in D5W 50 ML IV SCH (10:02)
--- NOTE | 2021-07-17 10:53 | NUR ---
NOTIFIED FOR CONSULT ORDERING PHYSICIAN: REASON FOR CONSULT: BOWEL INCONTINENCE DIALED: [phone] SPOKE TO: VINAY
--- NOTE | 2021-07-17 10:55 | NUR ---
NOTIFIED FOR CONSULT ORDERING PHYSICIAN: REASON FOR CONSULT: CHRONIC UTI DIALED: [phone] SPOKE TO: LANETTE
--- NOTE | 2021-07-17 10:55 | NUR ---
NOTIFIED FOR CONSULT SHERIE FERRELL ORDERING PHYSICIAN: REASON FOR CONSULT: BOWEL INCONTINENCE DIALED: [phone] SPOKE TO:SARA
[2021-07-17] MEDS: MORPHINE 2 MG/ML INJ. SYRINGE IVP PRN ×3 (11:12→21:45)
[2021-07-17] MEDS: GABAPENTIN 300 MG CAPSULE PO SCH ×2 (11:12→17:35)
--- NOTE | 2021-07-17 11:22 | NUR ---
PHYSICAL THERAPY WAS ATTEMPTED, HOWEVER, PATIENT REFUSED. SHE STATED THAT SHE IS TOO TIRED AND DIZZY TO ATTEMPT THE EVALUATION. RN PRESENT. PLAN: TRY TOMORROW.
[2021-07-17] MEDS ORDERED: PHENAZOPYRIDINE HCL 100 MG TABLET PO SCH (12:30)
--- NOTE | 2021-07-17 14:15 | NUR ---
Wound Evaluation: Wound Consult ordered for Low Ronen Score. Patient evaluated for a low Ronen score of 15. Patient was awake, alert, oriented and received in a Catherine Bed with an IsoFlex SAE mattress. Patient is able to turn in bed. Skin Integrity: 1. Vagina (Labia Majora): Erythema from IAD, present on admission. Patient told attending RN that it happened from wiping too much. No odor, no drainage. Skin is intact. Recommend: Cleanse involved areas with mild soap and water. Pat dry. Apply Calmoseptine cream to erythematous areas. Perform site care 4 times daily and as needed for soiling. Recommend: Encourage and assist patient as needed with repositioning every 2 hours with pillow support. Elevate, off-load and float bilateral heels with pillows. Offload pressure areas with pillows for pressure re-distribution. Perform skin care and monitor skin integrity Q shift. Use Calmoseptine cream on moisture susceptible areas QID and PRN for soiling.
[2021-07-17] MEDS: HYDROcodone/ACETAMIN 10-325 MG TAB PO PRN (14:24)
[2021-07-17] MEDS: ONDANSETRON HCL 4 MG/2 ML VIAL IVP PRN ×2 (14:25→19:11)
[2021-07-17] MEDS ORDERED: MENTHOL/ZINC OXIDE 113 GM OINT. TP PRN (14:45)
--- NOTE | 2021-07-17 16:30 | NUR ---
PATIENT WAS UNABLE TO PROVIDE URINE SAMPLE, STATES SHE WANTS TO BE LEFT ALONE AND SHE WILL TRY AGAIN LATER.
--- NOTE | 2021-07-17 16:54 | NUR ---
Dietitian Recommendations * Continue [facility] diet * Consider HgA1c lab draw ESPERANZA EID Please refer to Nutrition Assessment for details. Addendum: 07/17/21 at [address] Amended: Links added.
--- NOTE | 2021-07-17 17:23 | NUR ---
PAGED FOR CONSULT ORDERING PHY: REASON FOR CONSULT: DEPRESSION DIALED: [phone] SPOKE TO: DEBORA
[2021-07-17 19:09] LABS: BARBITURATE, URINE NEGATIVE (NEG <=200); BENZODIAZEPINE, URINE NEGATIVE (NEG <=150); CANNABINOID, URINE POSITIVE (NEG <=50); COCAINE, URINE NEGATIVE (NEG <=150); METHAMPHETAMINES SCREEN,URINE NEGATIVE (NEG <=500); OPIATE, URINE POSITIVE (NEG <=100); PHENCYCLIDINE SCREEN,URINE NEGATIVE (NEG <=25); UR TRICYCLIC ANTIDEPRESSANTS NEGATIVE (NEG <=300); URINE AMPHETAMINE NEGATIVE (NEG <=500); URINE METHADONE NEGATIVE (NEG <=200); URINE OXYCODONE SCREEN NEGATIVE (NEG <=100); URINE PROPOXYPHENE SCREEN NEGATIVE (NEG <=300)
[2021-07-17] MEDS: DIPHENHYDRAMINE HCL 50 MG CAPSULE PO SCH (21:19)
[2021-07-17] MEDS: LORazepam 1 MG TABLET PO SCH (21:19)
[2021-07-17] MEDS ORDERED: MAGNESIUM SULFATE 1 GM in NS 100 ML IV ONE (23:00)
[2021-07-18] VITALS (14 sets, daily range): BP systolic 39–145
[2021-07-18] MEDS ORDERED: MAGNESIUM SULFATE 1 GM/2 ML VIAL ONE (01:43)
[2021-07-18] MEDS: INSULIN GLARGINE 100 UNITS/ML 10 ML VIAL SUBCUT SCH ×2 (01:46→23:00)
[2021-07-18] MEDS: GABAPENTIN 300 MG CAPSULE PO SCH ×4 (01:50→17:09)
[2021-07-18] MEDS: NACL 0.9% 1,000 ML IV SCH ×2 (01:56→11:51)
[2021-07-18] MEDS: HYDROcodone/ACETAMIN 10-325 MG TAB PO PRN ×2 (02:18→08:07)
--- NOTE | 2021-07-18 04:33 | NUR ---
insulin drip stopped and Lantus was given two hrs ago.
[2021-07-18 06:39] LABS: BASOPHILS % (AUTO) 0.8 % (0.0-2.0); EOSINOPHILS % (AUTO) 0.6 % (0.0-4.0); HEMATOCRIT 25.3 % (36-48); HEMOGLOBIN 7.9 g/dL (12.0-16.0); LYMPHOCYTES # (AUTO) 0.8 K/uL (1.0-5.5); LYMPHOCYTES % (AUTO) 13.6 % (20.5-51.5); MEAN CORPUSCULAR HEMOGLOBIN 26 pg (27-31); MEAN CORPUSCULAR HGB CONC 31 % (32-36); MEAN CORPUSCULAR VOLUME 83 fL (79.0-98.0); MONOCYTES # (AUTO) 0.6 K/uL (0.0-1.0); MONOCYTES % (AUTO) 9.8 % (1.7-9.3); NEUTROPHILS # (AUTO) 4.3 K/uL (1.8-7.7); NEUTROPHILS % (AUTO) 75.2 % (40.0-70.0); PLATELET COUNT (AUTO) 271 K/uL (130-430); RED BLOOD CELL COUNT(AUTO) 3.07 MIL/uL (4.2-6.2); RED CELL DISTRIBUTION WIDTH 18.6 % (9.0-15.0); WHITE BLOOD COUNT (AUTO) 5.7 K/uL (4.8-10.8)
[2021-07-18 07:39] LABS: CALCIUM 7.9 mg/dL (8.4-11.0); CREATININE 1.35 mg/dL (0.55-1.30); POTASSIUM 3.5 mmol/L (3.5-5.1); THYROID STIMULATING HORMONE 4.96 uIu/mL (0.36-3.74)
--- NOTE | 2021-07-18 08:00 | NUR ---
Pt a/ox4, SR, accu 102, pt refused breakfast, encouraged pt to increase PO and fluid intake, IVF at 100ml/hr. Continue to monitor.
[2021-07-18] MEDS: LORazepam 1 MG TABLET PO SCH ×2 (08:05→21:00)
[2021-07-18] MEDS: METOPROLOL SUCCINATE 25 MG TAB.SR.24H (TOPROL XL) PO SCH (08:06)
[2021-07-18] MEDS: PANTOPRAZOLE SODIUM 40 MG TAB PO SCH (08:06)
[2021-07-18] MEDS ORDERED: valACYclovir HCL 500 MG TABLET PO SCH (09:00)
[2021-07-18] MEDS ORDERED: DICYCLOMINE HCL 10 MG CAPSULE PO ONE (09:00)
[2021-07-18] MEDS ORDERED: METOCLOPRAMIDE HCL 10 MG TABLET PO SCH (09:00)
[2021-07-18] MEDS: DICYCLOMINE HCL 10 MG CAPSULE PO SCH ×2 (09:24→21:48)
[2021-07-18] MEDS: cefTRIAXone 1 GM in D5W 50 ML IV SCH (09:24)
--- NOTE | 2021-07-18 11:00 | NUR ---
Dr Fink at the bedside, instructed pt to use only oral norco not morphine iv, for pain/ plan for possible d/c home. pt verbalized understanding.
[2021-07-18] MEDS ORDERED: METOCLOPRAMIDE HCL 10 MG TABLET PO PRN (11:30)
--- NOTE | 2021-07-18 11:30 | NUR ---
RN NOTES DR. BOYD HERE TO SEE PATIENT, WITH ORDERS ( RENAL ULTRASOUND) CARRIED OUT.
--- NOTE | 2021-07-18 11:50 | NUR ---
MD CONSULT DR. CARPENTER CALLED FOR CONSULT. REASON FOR CONSULT: LARISSA
[2021-07-18] MEDS: HYDROcodone/ACETAMIN 10-325 MG TAB PO SCH ×2 (12:41→20:00)
--- NOTE | 2021-07-18 13:00 | NUR ---
physical therapy at the bedside. pt accu 85 and ate 50% of lunch and orange juice.
--- NOTE | 2021-07-18 13:11 | NUR ---
P.T. NOTES P.T. EVAL COMPLETED; REFER TO EVAL FOR DETAILS.
--- NOTE | 2021-07-18 16:00 | NUR ---
Full report given to Abi Miller, pt escorted to med-surg status room 100B via wheelchair, all belongings given to pt and escorted without difficulty.
--- NOTE | 2021-07-18 16:20 | NUR ---
PATIENT BROUGHT BY ICU NURSE JOHNATHAN VIA WHEELCHAIR. AAOX 4. VITALS SIGNS STABLE. AFEBRILE. LUNGS BILATERALLY CLEAR. ABDOMEN SOFT AND NON DISTENDED. HAS IV ACCESS ON RIGHT HAND #22. RT FOREARM #20. HAS NORMAL SALINE AT 100CC/HR INFUSING ON WELL. CALL LIGHTS WITHIN REACH. BED LOW POSITION, ALARMED AND LOCKED. WILL CONTINUE TO MONITOR.
[2021-07-18] MEDS: METOCLOPRAMIDE HCL 10 MG TABLET PO SCH (17:10)
--- NOTE | 2021-07-18 17:20 | NUR ---
latest bs 82 mg/dl orange juice/apple juice given. jello as requested.
--- NOTE | 2021-07-18 18:10 | NUR ---
HAD A SMALL BOWEL MOVEMENT X 2. VERBALIZED WANTS TO EAT BUT LATER.
--- NOTE | 2021-07-18 19:35 | NUR ---
ANOTHER 2 APPLE JUICE GIVEN. WILL CONTINUE TO MONITOR
[2021-07-18] MEDS: DIPHENHYDRAMINE HCL 50 MG CAPSULE PO SCH (21:47)
[2021-07-18] MEDS: MORPHINE 2 MG/ML INJ. SYRINGE IVP PRN (21:47)
[2021-07-19] VITALS (7 sets, daily range): BP systolic 94–120
[2021-07-19] MEDS: MORPHINE 2 MG/ML INJ. SYRINGE IVP PRN ×3 (03:24→22:03)
[2021-07-19] MEDS: HYDROcodone/ACETAMIN 10-325 MG TAB PO SCH ×3 (04:00→20:52)
[2021-07-19] MEDS: GABAPENTIN 300 MG CAPSULE PO SCH ×5 (06:52→23:15)
[2021-07-19] MEDS: METOCLOPRAMIDE HCL 10 MG TABLET PO SCH ×3 (06:52→17:42)
[2021-07-19] MEDS: NACL 0.9% 1,000 ML IV SCH (07:08)
[2021-07-19 07:10] LABS: BASOPHILS # (AUTO) 0.1 K/uL (0.0-0.2); BASOPHILS % (AUTO) 0.9 % (0.0-2.0); EOSINOPHILS # (AUTO) 0.1 K/uL (0.0-0.4); EOSINOPHILS % (AUTO) 0.9 % (0.0-4.0); HEMATOCRIT 26.1 % (36-48); HEMOGLOBIN 8.1 g/dL (12.0-16.0); LYMPHOCYTES # (AUTO) 0.8 K/uL (1.0-5.5); LYMPHOCYTES % (AUTO) 12.8 % (20.5-51.5); MEAN CORPUSCULAR HEMOGLOBIN 26 pg (27-31); MEAN CORPUSCULAR HGB CONC 31 % (32-36); MEAN CORPUSCULAR VOLUME 84 fL (79.0-98.0); MONOCYTES # (AUTO) 0.6 K/uL (0.0-1.0); MONOCYTES % (AUTO) 9.6 % (1.7-9.3); NEUTROPHILS % (AUTO) 75.8 % (40.0-70.0); PLATELET COUNT (AUTO) 256 K/uL (130-430); RED BLOOD CELL COUNT(AUTO) 3.13 MIL/uL (4.2-6.2); RED CELL DISTRIBUTION WIDTH 18.8 % (9.0-15.0); WHITE BLOOD COUNT (AUTO) 6.6 K/uL (4.8-10.8)
--- NOTE | 2021-07-19 07:15 | NUR ---
PT BLOOD SUGAR LOW AT 58, GAVE PT 2 ORANGE JUICE-HOUSE NOURISHMENT. ENDORSED TO INCOMING NURSE TO FOLLOW UP, RECHECK BS BEFORE BREAKFAST. PT REFUSED HER DUE GLIPIZIDE, TOOK ALL OTHER. WELL TOLERATED, NO ASE. END OF SHIFT REPORT TO INCOMING NURSE.
--- NOTE | 2021-07-19 07:20 | NUR ---
END OF SHIFT GIVEN TO INCOMING NURSE. PT IN HIGH SPIRITS. IV STARTED ON R HAND SHE PULLED HER 2 IV LINES, RUNNING WITH IV FLUIDS. BS THIS AM 58, PT GIVEN ORANGE JUICE, ENDORSED TO AM NURSE TO RECHECK AND FOLLOW UP.
[2021-07-19 08:06] LABS: T4 (THYROXINE) 6.3 ug/dL (4.5-12.0)
--- NOTE | 2021-07-19 08:15 | NUR ---
LATEST BS 88 MG/DL. NO COVERAGE GIVEN.
[2021-07-19 08:16] LABS: C-REACTIVE PROTEIN QUANT 1.1 mg/dL (0-0.5); CALCIUM 7.5 mg/dL (8.4-11.0); CREATININE 1.45 mg/dL (0.55-1.30); PHOSPHORUS 4.6 mg/dL (2.7-4.5); POTASSIUM 5.1 mmol/L (3.5-5.1)
--- NOTE | 2021-07-19 09:30 | NUR ---
MEDS DUE GIVEN.
[2021-07-19] MEDS: DICYCLOMINE HCL 10 MG CAPSULE PO SCH ×2 (09:47→20:52)
[2021-07-19] MEDS: LORazepam 1 MG TABLET PO SCH ×2 (09:47→20:51)
[2021-07-19] MEDS: PANTOPRAZOLE SODIUM 40 MG TAB PO SCH (09:47)
[2021-07-19] MEDS: METOPROLOL SUCCINATE 25 MG TAB.SR.24H (TOPROL XL) PO SCH (09:55)
[2021-07-19 10:53] LABS: ERYTHROCYTE SEDIMENTATION RATE 54 MM/HR (0-20)
[2021-07-19] MEDS ORDERED: MAGNESIUM SULFATE 50 ML IV ONE (11:30)
--- NOTE | 2021-07-19 11:30 | NUR ---
CONSULT: PRICILA SHAFER, (WEEKEND ONLY NUMBER) ANSWERED AND SAID HE WILL BE BY LATER TO SEE THE PATIENT
--- NOTE | 2021-07-19 11:58 | NUR ---
LATEST BS 58 MG/DL. NO COVERAGE APPLE JUICE X 2 GIVEN. PATIENT EATING AT THIS TIME.
[2021-07-19] MEDS: cefTRIAXone 1 GM in D5W 50 ML IV SCH (13:06)
--- NOTE | 2021-07-19 13:21 | NUR ---
LATEST BLOOD SUGAR AT THIS TIME. 123 MG/DL. WILL CONTINUE TO MONITOR
--- NOTE | 2021-07-19 15:23 | NUR ---
PATIENT SLEEPING AT THIS TIME. NO IV ACCESS NOTED.
[2021-07-19] MEDS ORDERED: CHOLECALCIFEROL (VITAMIN D3) 5,000 UNIT TABLET PO ONE (16:30)
--- NOTE | 2021-07-19 17:06 | NUR ---
REQUEST SENT AND GIVEN TO NURSE SALES ATTENDANT
--- NOTE | 2021-07-19 18:25 | NUR ---
AWAITING TO TAKE THE BLOOD SUGAR. STILL NOT EATING DINNER YET. PICC LINE NURSE RANDAL COSTELLO WILL BE COMING TO DO MIDLINE INSERTION.
--- NOTE | 2021-07-19 20:00 | NUR ---
REC'D PT IN BED, AWAKE, AOX4, NO DISTRESS OR DISCOMFORT NOTED, BREATHING EVEN AND UNLABORED, SATURATION WELL ON ROOM AIR, VSS, MEDICATED PRN FOR PAIN, PT REPOSITIONS SELF PER COMFORT, ALL FALL PROTOCOLS IN PLACE, WILL CONTINUE TO MONITOR.
[2021-07-19] MEDS: DIPHENHYDRAMINE HCL 50 MG CAPSULE PO SCH (20:51)
--- NOTE | 2021-07-20 | NUR ---
NO CHANGES NOTED FROM PREVIOUS ASSESSMENT, WILL CONTINUE TO MONITOR.
[2021-07-20 00:04] VITALS: BP_SYST 95
[2021-07-20] MEDS: MORPHINE 2 MG/ML INJ. SYRINGE IVP PRN ×3 (02:21→20:21)
[2021-07-20] MEDS: HYDROcodone/ACETAMIN 10-325 MG TAB PO SCH ×3 (05:41→18:19)
[2021-07-20] MEDS: GABAPENTIN 300 MG CAPSULE PO SCH ×3 (05:41→18:17)
[2021-07-20] MEDS: NACL 0.9% 1,000 ML IV SCH ×2 (05:42→22:58)
[2021-07-20] MEDS: METOCLOPRAMIDE HCL 10 MG TABLET PO SCH ×3 (06:24→18:17)
--- NOTE | 2021-07-20 06:54 | NUR ---
BS 67, PT OFFERED CRACKERS AND ORANGE JUICE, WILL CONTINUE TO MONITOR.
[2021-07-20 07:10] LABS: BASOPHILS % (AUTO) 0.7 % (0.0-2.0); EOSINOPHILS # (AUTO) 0.1 K/uL (0.0-0.4); EOSINOPHILS % (AUTO) 1.4 % (0.0-4.0); HEMATOCRIT 28.3 % (36-48); HEMOGLOBIN 8.6 g/dL (12.0-16.0); LYMPHOCYTES % (AUTO) 16.9 % (20.5-51.5); MEAN CORPUSCULAR HEMOGLOBIN 26 pg (27-31); MEAN CORPUSCULAR HGB CONC 31 % (32-36); MEAN CORPUSCULAR VOLUME 84 fL (79.0-98.0); MONOCYTES # (AUTO) 0.5 K/uL (0.0-1.0); NEUTROPHILS # (AUTO) 4.3 K/uL (1.8-7.7); PLATELET COUNT (AUTO) 257 K/uL (130-430); RED BLOOD CELL COUNT(AUTO) 3.38 MIL/uL (4.2-6.2); RED CELL DISTRIBUTION WIDTH 18.8 % (9.0-15.0)
--- NOTE | 2021-07-20 07:37 | NUR ---
SHIFT CHANGE REPORT REPORT GIVEN TO NELSY COSTELLO FOR CONTINUITY OF CARE, ALL QUESTIONS WERE ANSWERED AND RN VERBALIZED UNDERSTANDING.
[2021-07-20 08:00] VITALS: BP_SYST 118
[2021-07-20 08:51] LABS: ALBUMIN 3.3 g/dL (3.4-4.8); CALCIUM 7.9 mg/dL (8.4-11.0); CREATININE 2.73 mg/dL (0.55-1.30); PHOSPHORUS 5.8 mg/dL (2.7-4.5); POTASSIUM 4.8 mmol/L (3.5-5.1); TOTAL BILIRUBIN 0.4 mg/dL (0.0-1.0)
[2021-07-20] MEDS: METOPROLOL SUCCINATE 25 MG TAB.SR.24H (TOPROL XL) PO SCH (09:00)
[2021-07-20] MEDS ORDERED: CALCIUM CITRATE 200 MG TABLET PO SCH (09:00)
[2021-07-20] MEDS: PANTOPRAZOLE SODIUM 40 MG TAB PO SCH (09:27)
[2021-07-20] MEDS: CALCIUM 500 MG/TAB PO SCH (09:27)
[2021-07-20] MEDS: CHOLECALCIFEROL (VITAMIN D3) 5,000 UNIT TABLET PO SCH (09:28)
[2021-07-20] MEDS: LORazepam 1 MG TABLET PO SCH ×2 (09:32→22:40)
[2021-07-20] MEDS: DICYCLOMINE HCL 10 MG CAPSULE PO SCH ×2 (09:32→22:40)
[2021-07-20 09:35] LABS: C-REACTIVE PROTEIN QUANT 1.9 mg/dL (0-0.5)
[2021-07-20] MEDS: cefTRIAXone 1 GM in D5W 50 ML IV SCH (09:35)
--- NOTE | 2021-07-20 09:35 | NUR ---
Discharge Planning: DCP faxed pt referral to Pat at [facility] F#[phone] P# [phone] for SNF with IV ABX. DCP faxed referral to [facility], [facility], [facility]. DCP to follow up. Addendum: 07/20/21 at 1223 by Soraya MEYERS DCP followed up with [facility]-per Jessica will send to admissions team to review, [facility]-Annette or Yadira will review, [facility], [facility]- OSCAR lm for Callie in admissions. DCP fxed referral to [facility], [facility], [facility] DCP to follow up. Addendum: 07/20/21 at 1600 by Soraya Chaidez DP DCP followed up and faxed Callie at [facility] P#[phone] willing to accept pt , just need duration of ABX to be able place in ISO room. DCP followed up with Danni EUCEDA at [facility] P#[phone] F#[phone] DCP faxed IV meds order. Addendum: 07/20/21 at 1605 by Soraya Chaidez DP DCP was informed CM with [facility] tomorrow will be Steff P#[phone] for patient.
[2021-07-20 10:27] LABS: ERYTHROCYTE SEDIMENTATION RATE 50 MM/HR (0-20)
[2021-07-20 12:00] VITALS: BP_SYST 115
[2021-07-20] MEDS: INSULIN LISPRO SLIDING SCALE 100 UNITS/ML VIAL (humaLOG) SUBCUT PRN (12:22)
--- NOTE | 2021-07-20 12:30 | NUR ---
Pt has an order to perform an in and out catheter q6h for bladder retention. Patient is refusing the procedure. Patient has been educated on the risks and effects of refusing the procedure. Pt verbalized understanding. Still does not want the procedure. Urologist notified. New orders to perform a pelvic ultrasound to determine how much urine her bladder is holding. Will continue to monitor
--- NOTE | 2021-07-20 14:38 | NUR ---
RN REQUESTED TO ALLOW THE PATIENT TO SLEEP. PLAN: ATTEMPT GAIT TRAINING TOMORROW.
--- NOTE | 2021-07-20 15:29 | NUR ---
CM: Discussed dcp/ gómez for snf placement vs home with HH/PT and iv abx. Pt stated, she pay weekly for a rented room, will need snf due to her weakness. Said , recurrent UTI has bought her to hp several time, she wants to be on IV med. I spoke with dr. Medeiros re: UTI/IV Meds and received the D/C ABX for the halfway. DCP. Lira will process the referral to snf and to KINSEY Razo at [facility]. CM to f/u with Danni for the snf approval.
--- NOTE | 2021-07-20 17:00 | NUR ---
Pelvic ultrasound performed. Pt has>1000mL in her bladder. MD notified. New orders for a ayala catheter
--- NOTE | 2021-07-20 19:25 | NUR ---
Pt refused Peters catheter. She states that she does not want the catheter inserted. She wants to think about it till tomorrow morning. Urologist aware.
[2021-07-20 20:00] VITALS: BP_SYST 121
[2021-07-20] MEDS: DIPHENHYDRAMINE HCL 50 MG CAPSULE PO SCH (22:40)
[2021-07-21] MEDS: GABAPENTIN 300 MG CAPSULE PO SCH ×5 (00:04→23:09)
[2021-07-21] MEDS: HYDROcodone/ACETAMIN 10-325 MG TAB PO SCH ×5 (00:05→23:10)
[2021-07-21 00:42] VITALS: BP_SYST 106
[2021-07-21] MEDS: MORPHINE 2 MG/ML INJ. SYRINGE IVP PRN ×2 (02:43→14:47)
[2021-07-21] MEDS: METOCLOPRAMIDE HCL 10 MG TABLET PO SCH ×3 (05:53→16:32)
[2021-07-21] MEDS: INSULIN LISPRO SLIDING SCALE 100 UNITS/ML VIAL (humaLOG) SUBCUT PRN ×2 (06:07→16:36)
[2021-07-21 06:41] LABS: BASOPHILS % (AUTO) 0.8 % (0.0-2.0); EOSINOPHILS # (AUTO) 0.1 K/uL (0.0-0.4); EOSINOPHILS % (AUTO) 1.2 % (0.0-4.0); HEMATOCRIT 24.8 % (36-48); HEMOGLOBIN 7.4 g/dL (12.0-16.0); LYMPHOCYTES # (AUTO) 0.6 K/uL (1.0-5.5); MEAN CORPUSCULAR HEMOGLOBIN 25 pg (27-31); MEAN CORPUSCULAR HGB CONC 30 % (32-36); MEAN CORPUSCULAR VOLUME 85 fL (79.0-98.0); MONOCYTES # (AUTO) 0.7 K/uL (0.0-1.0); MONOCYTES % (AUTO) 11.8 % (1.7-9.3); NEUTROPHILS # (AUTO) 4.4 K/uL (1.8-7.7); NEUTROPHILS % (AUTO) 76.2 % (40.0-70.0); PLATELET COUNT (AUTO) 235 K/uL (130-430); RED BLOOD CELL COUNT(AUTO) 2.93 MIL/uL (4.2-6.2); RED CELL DISTRIBUTION WIDTH 19.1 % (9.0-15.0); WHITE BLOOD COUNT (AUTO) 5.8 K/uL (4.8-10.8)
[2021-07-21 07:55] LABS: PHOSPHORUS 5.8 mg/dL (2.7-4.5); POTASSIUM 4.8 mmol/L (3.5-5.1)
[2021-07-21 08:00] VITALS: BP_SYST 86
[2021-07-21 08:03] LABS: C-REACTIVE PROTEIN QUANT 2.2 mg/dL (0-0.5); CREATININE 2.59 mg/dL (0.55-1.30)
[2021-07-21] MEDS: PANTOPRAZOLE SODIUM 40 MG TAB PO SCH (08:30)
[2021-07-21] MEDS: CALCIUM 500 MG/TAB PO SCH (08:31)
[2021-07-21] MEDS: DICYCLOMINE HCL 10 MG CAPSULE PO SCH ×2 (08:31→21:01)
[2021-07-21] MEDS: LORazepam 1 MG TABLET PO SCH ×2 (08:31→21:01)
[2021-07-21] MEDS: CHOLECALCIFEROL (VITAMIN D3) 5,000 UNIT TABLET PO SCH (08:31)
[2021-07-21] MEDS: METOPROLOL SUCCINATE 25 MG TAB.SR.24H (TOPROL XL) PO SCH (08:33)
[2021-07-21] MEDS: cefTRIAXone 1 GM in D5W 50 ML IV SCH (08:33)
[2021-07-21] MEDS: DEXTROSE 50% JECT 50 ML DISP.SYRIN IVP PRN ×2 (10:54→21:06)
[2021-07-21 11:23] VITALS: BP_SYST 103
[2021-07-21 12:53] LABS: ERYTHROCYTE SEDIMENTATION RATE 54 MM/HR (0-20)
[2021-07-21 15:11] VITALS: BP_SYST 107
--- NOTE | 2021-07-21 16:46 | NUR ---
CM:late entry: 1100 informed pt that [facility] accepting her for continue iv abx and PT. Planning to dc pt is pm when blood sugar is stable. Per PRAVIN Ybarra , the pt refused breakfast this am, because she did no like the it. Her blood sugar was 56 and was given D50 iv bolus. I discussed the dc plan with dr. Fink, he will dc pt once the blood sugar is stabilized possible by this pm. Per Anayeli, charge nurse , she will monitor and need to check blood sugar x2 . I informed the pt about the above plan, she said she " does not want to go to [facility], I don't want to leave then close her eyes, no more talking." Later Yudi , henry director and I met with pt again, after I updated Steff at [facility]. The pt wants to appeal to Medicare and to insurance. The pt is not a Medicare recipient so that she is to call her insurance to file the appeal. I provided the pt's cell number to Steff to call pt as needed.
[2021-07-21] MEDS ORDERED: IBUPROFEN 600 MG TABLET PO PRN (18:45)
[2021-07-21 20:00] VITALS: BP_SYST 120
[2021-07-22 00:03] VITALS: BP_SYST 132
[2021-07-22] MEDS: MORPHINE 2 MG/ML INJ. SYRINGE IVP PRN ×2 (00:52→08:50)
[2021-07-22] MEDS: NACL 0.9% 1,000 ML IV SCH ×2 (00:54→18:11)
[2021-07-22] MEDS: DIPHENHYDRAMINE HCL 50 MG CAPSULE PO PRN (02:53)
[2021-07-22] MEDS: GABAPENTIN 300 MG CAPSULE PO SCH ×4 (05:29→23:15)
[2021-07-22] MEDS: HYDROcodone/ACETAMIN 10-325 MG TAB PO SCH ×4 (05:32→23:16)
[2021-07-22] MEDS: METOCLOPRAMIDE HCL 10 MG TABLET PO SCH ×3 (05:33→18:08)
[2021-07-22 06:34] LABS: BASOPHILS # (AUTO) 0.1 K/uL (0.0-0.2); EOSINOPHILS # (AUTO) 0.1 K/uL (0.0-0.4); EOSINOPHILS % (AUTO) 1.2 % (0.0-4.0); HEMOGLOBIN 8.3 g/dL (12.0-16.0); LYMPHOCYTES # (AUTO) 0.9 K/uL (1.0-5.5); MEAN CORPUSCULAR HEMOGLOBIN 26 pg (27-31); MEAN CORPUSCULAR HGB CONC 31 % (32-36); MEAN CORPUSCULAR VOLUME 85 fL (79.0-98.0); MONOCYTES # (AUTO) 1.1 K/uL (0.0-1.0); MONOCYTES % (AUTO) 15.8 % (1.7-9.3); NEUTROPHILS # (AUTO) 4.5 K/uL (1.8-7.7); PLATELET COUNT (AUTO) 262 K/uL (130-430); RED BLOOD CELL COUNT(AUTO) 3.19 MIL/uL (4.2-6.2); RED CELL DISTRIBUTION WIDTH 19.1 % (9.0-15.0); WHITE BLOOD COUNT (AUTO) 6.7 K/uL (4.8-10.8)
[2021-07-22 06:55] LABS: ALBUMIN 3.3 g/dL (3.4-4.8); CALCIUM 8.5 mg/dL (8.4-11.0); CREATININE 2.88 mg/dL (0.55-1.30); POTASSIUM 5.2 mmol/L (3.5-5.1); TOTAL BILIRUBIN 0.3 mg/dL (0.0-1.0)
[2021-07-22 08:37] LABS: ERYTHROCYTE SEDIMENTATION RATE 54 MM/HR (0-20)
[2021-07-22] MEDS: METOPROLOL SUCCINATE 25 MG TAB.SR.24H (TOPROL XL) PO SCH (08:39)
[2021-07-22] MEDS: CALCIUM 500 MG/TAB PO SCH ×2 (08:41→08:45)
[2021-07-22] MEDS: PANTOPRAZOLE SODIUM 40 MG TAB PO SCH (08:41)
[2021-07-22] MEDS: LORazepam 1 MG TABLET PO SCH ×2 (08:42→21:19)
[2021-07-22] MEDS: cefTRIAXone 1 GM in D5W 50 ML IV SCH (08:43)
[2021-07-22] MEDS: CHOLECALCIFEROL (VITAMIN D3) 5,000 UNIT TABLET PO SCH (08:45)
[2021-07-22] MEDS: DICYCLOMINE HCL 10 MG CAPSULE PO SCH ×2 (08:45→21:19)
--- NOTE | 2021-07-22 09:00 | NUR ---
RECEIVE AWAKE, ALERT AND ORIENTED. IN NO RESP. DISTRESS. VS STABLE. IVF INFUSING WELL AND SITE CLEAR. PT MEDICATED FOR ABD AND VAG PAIN 01/04. DR. BOYD IN TO SEE PT AND OFFERED RITCHIE CATH FOR POSSIBLE URINARY RETENTION BUT PT REFUSED. STATED SHE IS VOIDING FINE AND DOES NOT WANT RITCHIE CATH. PT VOIDED AT THIS TIME AND STATED SHE FLUSHED IT ALREADY. WAS NOT ABLE TO VERIFY HER VOID. WILL CONTINUE TO MONITOR.
[2021-07-22 09:01] LABS: C-REACTIVE PROTEIN QUANT 2.2 mg/dL (0-0.5)
[2021-07-22] MEDS ORDERED: METO-290 PO (10:09)
[2021-07-22] MEDS ORDERED: CHOL500013 PO (10:09)
[2021-07-22] MEDS ORDERED: ROCPM1 IV (10:09)
[2021-07-22] MEDS ORDERED: DICY10CA13 PO (10:09)
[2021-07-22] MEDS ORDERED: GLIP5TAB13 PO (10:09)
[2021-07-22] MEDS ORDERED: SODIUM POLYSTYRENE SULFONATE 15 GM/60 ML UDBTL PO ONE (10:15)
[2021-07-22 10:28] VITALS: BP_SYST 117
--- NOTE | 2021-07-22 10:59 | NUR ---
PT RECEIVED AWAKE, ALERT AND ORIENTED. IN NO ACUTE RESP. DISTRESS, WITH OCC NON PRODUCTIVE COUGH. ON RA AND O2 SATS 98%. NO C/O PAIN OR DISCOMFORT AT THIS TIME. CALL LIGHT WITHIN REACH. WILL CONTINUE WITH PLAN OF CARE.
[2021-07-22] MEDS: INSULIN LISPRO SLIDING SCALE 100 UNITS/ML VIAL (humaLOG) SUBCUT PRN (11:42)
[2021-07-22 12:00] VITALS: BP_SYST 110
[2021-07-22 12:35] VITALS: BP_SYST 117
--- NOTE | 2021-07-22 12:37 | NUR ---
Nutrition F/U Admitting Diagnosis DKA Reviewed Pertinent Medical/Surgical Hx Medical Record Patient Medical History Comment: PMH: uncontrolled DM complicated by polyneuropathy, gastroparesis, urinary incontinence per physician notes, HTN, acute renal failure on CKD. Pt also found w/ hypokalemia, UTI, recurrent, and urinary incontinence per physician notes SARS-CoV-2 Ag (Rapid) Negative 07/17 Subjective Information Pt due for moderate risk F/U. Per EMR review, beth score 17, non-pitting edema noted on LLE. Urine cultures positive for E. coli. PO intake 54% average x6 meal records. DI visited pt at bedside, pt reports their appetite has gotten better the last 2 days, pt completed 100% of breakfast this AM. Pt reports losing significant wt in 2 months, w/ UBW of 145#. Pt at 90% UBW w/ unintentional wt loss of 15# or 10% wt loss in 2 months r/t depression and low appetite. DI offered Glucerna, pt accepts and prefers chocolate and vanilla. Pt reports they are starting to urinate again. Pt is requesting double portions of protein and diet coke with their lunch. Current Diet Order/Nutrition [facility] x5 days Patient/Significant Other Able To Verbalize Education Provided Not Indicated Pertinent Medications Calcium carbonate, Vit D3, reglan, protonix SSI Pertinent Labs Na 131 L, K 5.2 H, BUN 39 H, Cr 2.88 H, GFR 19 L, BG 187 H, POC BG 191 H, Alb 3.3 L Height (Feet) 5 feet Height (Inches) 5.00 inches Weight (Pounds) 130 pounds no changes since 07/17 Patient Weight 58.967 kg Body Mass Index 21.63 kg/m2 %IBW 104 [place]/Adjusted Body Weight 125#/56.8 kg Recent Weight Change Yes - Unintentional wt loss of 15# or 10% wt loss in 2 months Weight Status Appropriate Food Allergies No per pt report (*ongoing) Estimated Energy Expenditure (kcals/day) 5006-9239 (25-30 kcal/kg CBW d/t maintenance) (*ongoing) Estimated Protein Required (g/day) 47-59 (0.8-1 gm/kg CBW d/t maintenance) (*ongoing) Estimated Fluid Required (l/day) 1.5-1.8 (1 ml/kcal/day for maintenance) Problem/Etiology/Signs/Symptoms Altered nutrition-related labs R/T endocrine dysfunction AEB elevated BG/POC BG lab values. (*ongoing) Expected Outcomes/Goals - Monitor appetite and PO intakes w/ goal of pt meeting at least 75% of estimated nutritional needs, labs trending WNL, normal GI function, and skin integrity/wt maintenance Dietitian Recommendations * Continue [facility] diet, double portions of protein * Add Glucerna BID (supplement provides additional 440 kcals/day and 20 g protein/day) Follow Up Mod Risk: F/U in 3-5 days Signed: 07/22/21 at 1238 by Marilee IRELAND <Co-Signature Required> Co-Signed: 07/22/21 at [address]
--- NOTE | 2021-07-22 12:38 | NUR ---
Dietitian Recommendations * Continue [facility] diet, double portions of protein * Add Radha BID (supplement provides additional 440 kcals/day and 20 g protein/day) Please refer to nutrition f/u for details. Signed: 07/22/21 at 1238 by Marilee IRELAND <Co-Signature Required> Co-Signed: 07/22/21 at [address]
--- NOTE | 2021-07-22 13:00 | NUR ---
CM: discussed dcp to snf again , informed of insurance not approved for inpatient as of yesterday. Pt stated " as of today she is not leaving, said she called ANN and LIA to speak with a continuous pillowcase cutter, so far on one calling her back." I asked her to call the customer service again to request for the discharge appeal. Pt stated, she aware of the financial obligation, the insurance will bill me. The pt aware that she will lose bed at [facility] if not going today. Addendum: 07/24/21 at 0858 by Jai Miles RN Late entry for 07/22/21 at 1635: received a voice message from Maxine stated the inpatient stay is denied from 07/21 until discharge.
--- NOTE | 2021-07-22 13:25 | NUR ---
PT C/O PAIN TO LLE 01/04. EXTR. NOTED SLIGHTLY SWOLLEN. PT ENCOURAGED TO KEEP IT ELEVETED WITH PILLOW. MEDICATED WITH NORCO PO
[2021-07-22 15:13] VITALS: BP_SYST 107
--- NOTE | 2021-07-22 15:30 | NUR ---
RESTING AT THIS TIME, DOSING ON AND OFF. NO ACUTE DISTRESS NOTED.
--- NOTE | 2021-07-22 16:32 | NUR ---
Verified patient's address as [address] [id number]. This information was given to Cori at [facility] [phone].
--- NOTE | 2021-07-22 18:18 | NUR ---
C/O PAIN TO BLE 12/05, MEDICATED WITH NORCO PER PRN ORDER. REMAINS IN NO DISTRESS. VS WNL. PT REFUSED IVF AT THIS TIME. STATED IT IS MAKING HER FEET SWOLLEN UP. CALL LIGHT WITHIN REACH. WILL BE ENDORSED TO INCOMING SHIFT.
[2021-07-22 20:00] VITALS: BP_SYST 113
[2021-07-23 00:54] VITALS: BP_SYST 111
[2021-07-23] MEDS: DIPHENHYDRAMINE HCL 50 MG CAPSULE PO PRN (02:45)
--- NOTE | 2021-07-23 03:40 | NUR ---
Had a talk with the pt and told her how extremly import it was for us to do a straight cath. I explained the pros and cons of being straight cath. Pt has severe dependent edema on her BLE. Pt has urinary frequency and is not urinating as much. Pt stated that she felt discomfort. Pt was straight cath and a total of 1925mls out. Explained to pt that she should do straight cath q6-8hrs
[2021-07-23] MEDS: GABAPENTIN 300 MG CAPSULE PO SCH ×3 (06:22→17:48)
[2021-07-23] MEDS: METOCLOPRAMIDE HCL 10 MG TABLET PO SCH ×3 (06:23→17:47)
[2021-07-23] MEDS: HYDROcodone/ACETAMIN 10-325 MG TAB PO SCH ×3 (06:23→17:47)
[2021-07-23] MEDS: INSULIN LISPRO SLIDING SCALE 100 UNITS/ML VIAL (humaLOG) SUBCUT PRN ×2 (06:33→17:18)
--- NOTE | 2021-07-23 07:38 | NUR ---
OPENING NOTES: PATIENT RESTING IN BED. BREATHING EVEN AND NON LABORED AT RA. DENIES ANY DISCOMFORT AT THIS TIME. FALL AND SAFETY MEASURES REINFORCED. CALL LIGHT WITHIN REACH.
[2021-07-23 08:00] VITALS: BP_SYST 121
[2021-07-23 08:25] LABS: BASOPHILS # (AUTO) 0.1 K/uL (0.0-0.2); BASOPHILS % (AUTO) 0.9 % (0.0-2.0); EOSINOPHILS # (AUTO) 0.1 K/uL (0.0-0.4); EOSINOPHILS % (AUTO) 1.2 % (0.0-4.0); HEMATOCRIT 27.3 % (36-48); HEMOGLOBIN 8.3 g/dL (12.0-16.0); LYMPHOCYTES # (AUTO) 0.9 K/uL (1.0-5.5); LYMPHOCYTES % (AUTO) 14.6 % (20.5-51.5); MEAN CORPUSCULAR HEMOGLOBIN 26 pg (27-31); MEAN CORPUSCULAR HGB CONC 31 % (32-36); MEAN CORPUSCULAR VOLUME 84 fL (79.0-98.0); MONOCYTES # (AUTO) 0.8 K/uL (0.0-1.0); MONOCYTES % (AUTO) 13.7 % (1.7-9.3); NEUTROPHILS # (AUTO) 4.1 K/uL (1.8-7.7); NEUTROPHILS % (AUTO) 69.6 % (40.0-70.0); PLATELET COUNT (AUTO) 260 K/uL (130-430); RED BLOOD CELL COUNT(AUTO) 3.25 MIL/uL (4.2-6.2); RED CELL DISTRIBUTION WIDTH 19.7 % (9.0-15.0); WHITE BLOOD COUNT (AUTO) 5.9 K/uL (4.8-10.8)
[2021-07-23] MEDS: LORazepam 1 MG TABLET PO SCH ×2 (08:34→22:23)
[2021-07-23] MEDS: DICYCLOMINE HCL 10 MG CAPSULE PO SCH ×2 (08:35→22:23)
[2021-07-23] MEDS: PANTOPRAZOLE SODIUM 40 MG TAB PO SCH (08:35)
[2021-07-23] MEDS: CALCIUM 500 MG/TAB PO SCH (08:36)
[2021-07-23] MEDS: CHOLECALCIFEROL (VITAMIN D3) 5,000 UNIT TABLET PO SCH (08:36)
[2021-07-23] MEDS: METOPROLOL SUCCINATE 25 MG TAB.SR.24H (TOPROL XL) PO SCH (08:36)
[2021-07-23] MEDS: cefTRIAXone 1 GM in D5W 50 ML IV SCH (08:45)
[2021-07-23 09:09] LABS: CALCIUM 8.3 mg/dL (8.4-11.0); CREATININE 3.44 mg/dL (0.55-1.30); PHOSPHORUS 6.7 mg/dL (2.7-4.5); POTASSIUM 4.7 mmol/L (3.5-5.1)
[2021-07-23 10:10] LABS: C-REACTIVE PROTEIN QUANT 2.6 mg/dL (0-0.5)
[2021-07-23] MEDS: NACL 0.9% 1,000 ML IV SCH (11:45)
[2021-07-23] MEDS: KETOROLAC TROMETHAMINE 15 MG VIAL IM PRN (11:47)
[2021-07-23 11:59] LABS: ERYTHROCYTE SEDIMENTATION RATE 50 MM/HR (0-20)
[2021-07-23 12:16] VITALS: BP_SYST 117
[2021-07-23] MEDS ORDERED: DIPHENHYDRAMINE HCL 50 MG CAPSULE PO PRN (12:30)
--- NOTE | 2021-07-23 12:40 | NUR ---
RN NOTES: ACCUCHECK DONE (61). PATIENT AOX4 AND AMBULATORY. NO /S OF ACUTE DISTRESS NOTED. DRANK ORANGE JUICE AND LUNCH WAS GIVEN.
--- NOTE | 2021-07-23 14:14 | NUR ---
PATIENT HAS BEEN SAFELY AMBULATING IN THE ROOM WITH NURSING SUPERVISION. SHE DOES NOT NEED FURTHER PHYSICAL THERAPY AT THIS TIME. DISCHARGE FROM PHYSICAL THERAPY. NURSING CONTINUE TO SUPERVISE.
--- NOTE | 2021-07-23 14:41 | NUR ---
Database Administration Associate JERAMIE Osman responded to a patient request for social work consult for "placement". BIOMETRICS EXPERIMENTALISTJoyce Osman met with patient at bedside. She was sitting up on the side of the bed scratching her legs and appeared to be agitated as she was also fidgeting on the bed. BIOMETRICS EXPERIMENTALIST completed introductions, provided business card, and inquired into her request for social work. Patient stated she needed support for placement for continued care, but shared she had already talked to Outside Operator. As requested by Patient, BIOMETRICS EXPERIMENTALIST provided a brief explanation of the role of social media manager and manager rn case. Mental Health- Patient shared a previous diagnosis of depression. She disclosed having participated in individual therapy on two previous occasions but "it stopped". BIOMETRICS EXPERIMENTALIST encouraged her to revisit therapy, but patient again stated "i went but it finished". BIOMETRICS EXPERIMENTALIST encouraged patient to seek additional therapeutic resources for half-way care. Social- When BIOMETRICS EXPERIMENTALIST inquired into support network patient was very guarded and somewhat evasive when providing answers. She shared she rents a room in [place] and her mother lives down the street. She also shared her mother has assumed care of her 13 year old, but would not provide additional details nor discuss support system further. Due to patient's RN sharing patient is not eating her food, BIOMETRICS EXPERIMENTALIST inquired into this and patient stated "I'm not refusing to eat, this is just not what i ordered". She stated she had previously became close to the "chefs" in the cafeteria during previous stays and didn't understand why she could not get what she asked for. BIOMETRICS EXPERIMENTALIST made attempts to discuss her current diet restrictions, but she expressed it's not about that. The duration of engagement, patient's eye contact was poor and she appeared to fidget in the bed and seemed agitated. Her responses seemed to be guarded, evasive, and possibly exhibiting attention seeking behaviors. Upon review of previous notes and her engagement during this contact, BIOMETRICS EXPERIMENTALIST recommends the patient follow up with mental health treatment/support when discharged. BIOMETRICS EXPERIMENTALIST will continue to be available as needed.
[2021-07-23 16:02] VITALS: BP_SYST 119
--- NOTE | 2021-07-23 19:27 | NUR ---
CLOSING NOTES: PATIENT RESTING IN BED. NO S/S OF ACUTE DISTRESS NOTED. FALL AND SAFETY MEASURES RENDERED. CALL LIGHT WITHIN REACH. ENDORSED TO TAPPET ADJUSTER RN.
[2021-07-23 20:30] VITALS: BP_SYST 124
[2021-07-24] MEDS: GABAPENTIN 300 MG CAPSULE PO SCH ×4 (00:20→18:00)
[2021-07-24] MEDS: HYDROcodone/ACETAMIN 10-325 MG TAB PO SCH ×4 (00:21→17:04)
[2021-07-24 00:30] VITALS: BP_SYST 131
[2021-07-24] MEDS: DIPHENHYDRAMINE HCL 50 MG CAPSULE PO PRN (02:03)
[2021-07-24] MEDS: METOCLOPRAMIDE HCL 10 MG TABLET PO SCH ×3 (06:07→17:00)
[2021-07-24] MEDS: NACL 0.9% 1,000 ML IV SCH (06:08)
[2021-07-24] MEDS: INSULIN LISPRO SLIDING SCALE 100 UNITS/ML VIAL (humaLOG) SUBCUT PRN ×3 (06:44→22:02)
[2021-07-24] MEDS ORDERED: cefTRIAXone 1 GM in D5W 50 ML IV SCH (07:45)
[2021-07-24 07:48] LABS: BASOPHILS # (AUTO) 0.1 K/uL (0.0-0.2); BASOPHILS % (AUTO) 1.4 % (0.0-2.0); EOSINOPHILS # (AUTO) 0.1 K/uL (0.0-0.4); EOSINOPHILS % (AUTO) 1.7 % (0.0-4.0); HEMATOCRIT 25.6 % (36-48); LYMPHOCYTES # (AUTO) 1.4 K/uL (1.0-5.5); LYMPHOCYTES % (AUTO) 20.6 % (20.5-51.5); MEAN CORPUSCULAR HEMOGLOBIN 26 pg (27-31); MEAN CORPUSCULAR HGB CONC 31 % (32-36); MEAN CORPUSCULAR VOLUME 83 fL (79.0-98.0); MONOCYTES % (AUTO) 14.6 % (1.7-9.3); NEUTROPHILS # (AUTO) 4.2 K/uL (1.8-7.7); NEUTROPHILS % (AUTO) 61.7 % (40.0-70.0); PLATELET COUNT (AUTO) 319 K/uL (130-430); RED BLOOD CELL COUNT(AUTO) 3.09 MIL/uL (4.2-6.2); WHITE BLOOD COUNT (AUTO) 6.8 K/uL (4.8-10.8)
[2021-07-24] MEDS: CHOLECALCIFEROL (VITAMIN D3) 5,000 UNIT TABLET PO SCH (08:16)
[2021-07-24] MEDS: PANTOPRAZOLE SODIUM 40 MG TAB PO SCH (08:16)
[2021-07-24] MEDS: DICYCLOMINE HCL 10 MG CAPSULE PO SCH ×2 (08:17→22:00)
[2021-07-24] MEDS: METOPROLOL SUCCINATE 25 MG TAB.SR.24H (TOPROL XL) PO SCH (08:17)
[2021-07-24] MEDS: CALCIUM 500 MG/TAB PO SCH (08:18)
[2021-07-24] MEDS: LORazepam 1 MG TABLET PO SCH ×2 (08:18→21:59)
[2021-07-24 08:23] VITALS: BP_SYST 114
[2021-07-24 08:25] LABS: ALBUMIN 2.7 g/dL (3.4-4.8); CALCIUM 8.3 mg/dL (8.4-11.0); CREATININE 1.88 mg/dL (0.55-1.30); TOTAL BILIRUBIN 0.1 mg/dL (0.0-1.0)
--- NOTE | 2021-07-24 08:54 | NUR ---
STOOL SAMPLE COLLECTED AND SENT TO LAB.
[2021-07-24 09:18] LABS: POTASSIUM 4.5 mmol/L (3.5-5.1)
[2021-07-24 09:57] LABS: ERYTHROCYTE SEDIMENTATION RATE 44 MM/HR (0-20)
[2021-07-24] MEDS: cefTRIAXone 1 GM in D5W 50 ML IV SCH (09:57)
[2021-07-24] MEDS ORDERED: NA PHOS 15 MM in NS 250 ML IV ONE (10:00)
[2021-07-24] MEDS: KETOROLAC TROMETHAMINE 15 MG VIAL IM PRN ×2 (10:09→22:03)
[2021-07-24 11:52] LABS: C-REACTIVE PROTEIN QUANT 2.2 mg/dL (0-0.5)
--- NOTE | 2021-07-24 12:12 | NUR ---
PT DOES NOT WANT TO DO THE STRAIGHT CATH AT THIS TIME. AND SHE STATES "IM STILL DECIDING WHETHER TO DO THE RITCHIE, I NEED TO TALK TO MY MOM." PT HAS BEEN ADVISED SINCE IN THE AM REGARDING INSERTION OF RITCHIE, BUT PT SEEMS TO KEEP PUSHING IT BACK AND REFUSING THE TREATMENT. PT NOW STATES "COME BACK IN 1 HOUR." WILL CONTINUE TO MONITOR.
--- NOTE | 2021-07-24 12:44 | NUR ---
IN THE UNIT. MADE AWARE THAT PT IS REFUSING TO RECEIVE IVF NS AT 50 ML/HR AND THAT PT IS STILL UNDECIDED REGARDING INSERTION OF RITCHIE CATHETER. STATED HE WILL SEE THE PT.
--- NOTE | 2021-07-24 14:35 | NUR ---
PT HAD A MEETING WITH TOW PICKERCRISTOFER AND SOCIAL WORKERS CAROLINE AND MATTHEW REGARDING DISCHARGE PLAN. PT IS STILL UNCOOPERATIVE REGARDING THE TREATMENT PLAN AND IMPORTANCE OF PLACING THE RITCHIE CATHETER. PT STILL REFUSES TO HAVE IT PLACED AND AT THIS EVEN STRAIGHT CATH. PT WANTS TO SPEAK TO DR. WEBB. I WAS ABLE TO GET A HOLD OF DR. WEBB AND PT SPOKE TO HIM OVER HOSPITAL WIRELESS PHONE ON SPEAKER WITH ME AT BEDSIDE. PT AND MD SPOKE REGARDING PLAN OF CARE. PT IS STILL REFUSING RITCHIE AND WANTS ONE MORE NIGHT TO DECIDE. BUT STATED "I WILL DISCHARGE TOMORROW DOCTOR, JUST GIVE ME TIME, BUT TOMORROW I WILL GO." MD STATED "I DON'T KNOW WHAT WILL CHANGE FROM NOW TO TOMORROW WITH YOU REFUSING TREATMENT. BUT FINE, OK DISCHARGE TOMORROW." UPDATED CRISTOFER EUCEDA, AND SHE STATED SHE WILL DISCUSS IT WITH SWs. AT THIS TIME, PT STILL REFUSING TO DO RITCHIE CATHETER AND STRAIGHT CATH IN&OUT. PT REMAINS STABLE, NO DISTRESS NOTED. WILL MONITOR PT CLOSELY. Addendum: 07/24/21 at 1452 by Farzana sales specialist CHELI CARBAJAL, TOW PICKER
--- NOTE | 2021-07-24 15:27 | NUR ---
Water Supervisor SECURITY DOOR INSTALLER Jacqui, This SECURITY DOOR INSTALLER and CM Tala as well as Rn meet with pt. to move forward with the discharge plan. This SECURITY DOOR INSTALLER stated the has put in a discharge plan. Pt. has mentioned the following reasons why she could not go to a SNF, get a foli or go to her home, " I don't have a home anymore" , I am not sure I want to get a foli and need more time to decide" , " I want a meeting with Dr. Fink and Nephrology", "The insurance company wants me out", "I didn't want to go to that SNF", "I need more time". SECURITY DOOR INSTALLER told pt Dr. Fink has put in a discharge order and that the staff have to follow those orders. Pt. stated she did not want to leave the hospital today and needed more time to think about her options. It should be noted that the CM found a SNF yesterday but because pt. refused to go, the bed was filled and no longer available. Pt is refusing foli and snf. Paul Osei told pt. if she does not get a foli, she will end up in ICU and on HD. Rn and CM went over the need for pt. to have a foli and the dangers of not following medical recommendations. Pt stated she still was not sure of what she wanted to do. SECURITY DOOR INSTALLER stated at this point, pt has been discharged and will give her a 10 more minutes to decide if she wanted a foli and then a snf. Pt. insisted she has not spoken to or seen Dr. Fink for two days. Paul Osei read documentation that pt. was yelling at Dr. Mcgraw and did not want to speak to him. Pt. then stated she wants to speak to Dr. Fink. Paul Osei documented pt. indeed spoke to Dr. Fink who told her she could leave tomorrow. CM was able to secure another SNF, [facility] in [place], but pt. stated she was not going to leave until Tuesday. KINSEY Vergara dials Dr. Fink and put him on speaker. Dr. Johnson told pt. she has to leave today so the bed does not go to another pt. Pt. stated "I cannot go today, you said I can go tomorrow and you cannot keep going back and forth". "I cannot go today because I have to make phone calls for all my stuff" Dr. Fink told pt. she can make calls from anywhere, but she had to leave today". SECURITY DOOR INSTALLER and CM told Dr. Fink they will have to call security. Dr. Fink stated ok. Paul Osei told SECURITY DOOR INSTALLER Jacqui as she was walking by that pt. was calling a friend to come pick her up. CM will call [facility] for an ambulance to be on will call for today. SECURITY DOOR INSTALLER will remain available as needed.
--- NOTE | 2021-07-24 16:05 | NUR ---
CM: Informed Mary/ANN that the pt is accepted at [facility], she asked to call Danni for the transfer authorization. I updated the clinicals and the needs for continuation of care at the snf level. She gave the transfer auth to [facility] auth # [id number], if transportation is needed may use same auth # for any accepting ambulance. PRAVIN Osei made aware.
[2021-07-24 17:00] VITALS: BP_SYST 121
--- NOTE | 2021-07-24 17:29 | NUR ---
AFTER GOING BACK AND FORTH, PT ACCEPTED TO GO TO SNF, BUT WANTS TO DRIVE HERSELF TO THE FACILITY. INFORMED HER DR. WEBB, WANTS TO REMOVE MIDLINE PICC IF SHE GOES THAT ROUTE. PT NOW STATING SHE WILL FIND OUT IF HER RIDE CAN JUST GET HER THINGS SO SHE CAN RIDE IN THE AMBULANCE TO THE FACILITY. PT WANTS TORADOL IV, BUT PER CHARGE NURSE, AJITH ONLY GIVE THE PO NORCO. PT ALSO DOES NOT WANT ANY OTHER MEDICATIONS. PT WANTS TO HAVE STRAIGHT CATH DONE PRIOR TO GOING. PERFORMED STRAIGHT CATH WITH STERILE TECHNIQUE TOGETHER WITH DIRECTOR OF DIVERSITY AND INCLUSION CORINA BARRERA ([facility]). EMPTIED 1100ML YELLOW CLEAR URINE. CALLING [facility] TO VERIFY TRANSPORTATION ARRANGEMENT, AWAITING FOR CALL BACK.
--- NOTE | 2021-07-24 17:39 | NUR ---
S/W FLORES ([facility]) DATA TECHNICAL LEAD IS AT 1800. Addendum: 07/24/21 at 1747 by Farzana artist agent BEEN CALLING [facility] SEVERAL TIMES, TO GIVE REPORT NO ANSWER. WILL CONTINUE TO CALL. Addendum: 07/24/21 at 1832 by Farzana Strong RN CALLED [facility], S/W PRAVIN RUBIN, SHE STATED THAT THEY WERE EXPECTING PT TO ARRIVE FOR TOMORROW, NOT TONIGHT. SO SHE WENT AHEAD AND ASKED FOR REPORT, TO SEE IF THEY CAN ACCEPT HER. AFTER TELLING HER ABOUT THE STRAIGHT CATH IN AND OUT AND 1100ML WAS THE OUTPUT, SHE REFERRED ME TO BLANCA ROBIN RN, HE STATED THAT THEY WILL NOT ACCEPT THIS PT AND THEY CANNOT CARE FOR HER IF THEY HAVE TO DO STRAIGHT CATH. CALLED [facility], THEY SAID THAT THEY CANNOT PUT ARRANGEMENTS IN WILL CALL, A NEW ARRANGEMENT MUST BE MADE TOMORROW. PT UPDATED REGARDING SITUATION, AND PT KEEPS INSISTING THAT SHE HAS TO COME OUT "BECAUSE ALL OF THIS, IS STRESSING ME OUT." PT ADVISED THAT SHE IS STILL UNDER HOSPITAL CARE AND WE DO NOT HAVE ORDER FROM MD THAT SHE IS OKAY TO BE OUTSIDE AND WE CANNOT HAVE HER GOING IN AND OUT OF HER ROOM FOR SAFETY CONCERNS. AJITH CHARGE NURSE ALSO TALKING TO PT, BUT STILL WANTS TO LEAVE AND GO OUT. PT STATED "I DON'T CARE, ILL BE BACK." SECURITY CALLED. PT STILL HAVE HER BELONGINGS IN THE ROOM. CM NEEDS TO F/U DUANE AM.
[2021-07-24 17:52] VITALS: BP_SYST 121
--- NOTE | 2021-07-24 18:25 | NUR ---
[facility] WAS CALLED RE: TO PUT PT ON WILL CALL FOR [facility] REFUSED TO ACCEPT PT. A MISUNDERSTANDING OR MISCMMUNICATION BETWEEN OUR ROAD TESTER, SOLOMON AND FRANK BARRY'S LAMINATION INSPECTOR. [facility] EXPECTING THE PT TOMORROW. [facility] SAID THAT REQUEST FOR TRANSPORT MUST START ANEW, NO WILL CALL IS HELD BY THIS TRANSPORTATION.
--- NOTE | 2021-07-24 18:48 | NUR ---
CLOSING NOTE: PT IS STILL NON COMPLIANT WITH PLACING A RITCHIE CATHETER. PT HAS NOW RETURNED TO HER ROOM AFTER GOING OUTSIDE AND WALKING AROUND HER ROOM, FIXING HER THINGS. FALL/SAFETY PRECAUTIONS IN PLACE. WILL ENDORSE CARE TO PM NURSE.
[2021-07-24 21:52] VITALS: BP_SYST 129
[2021-07-24] MEDS: LACTOBACILLUS RHAMNOSUS GG 1 CAP CAPSULE PO SCH (22:00)
--- NOTE | 2021-07-24 22:00 | NUR ---
RITCHIE CATH INSERTED. PT TOLERATED WELL. PT EDUCATED ABOUT RITCHIE. PT TOOK ALL MEDICATIONS. PT EDUCATED TO USE CALL LIGHT IF SHE NEEDS ASSISTANCE.
[2021-07-25 00:02] VITALS: BP_SYST 137
[2021-07-25] MEDS: DIPHENHYDRAMINE HCL 50 MG CAPSULE PO PRN (00:06)
[2021-07-25] MEDS: GABAPENTIN 300 MG CAPSULE PO SCH ×5 (00:06→23:17)
[2021-07-25] MEDS: HYDROcodone/ACETAMIN 10-325 MG TAB PO SCH ×2 (00:07→07:09)
[2021-07-25] MEDS: NACL 0.9% 1,000 ML IV SCH (02:50)
--- NOTE | 2021-07-25 05:30 | NUR ---
PT SLEPT ON AND OFF THROUGHOUT NIGHT. PT WOKEN UP BY LAB DRAW REQUESTED PAIN MEDICATION BUT WENT BACK TO SLEEP WITHOUT ANY MEDICATION. EDUCATED PT ON PAIN SCALE AND PAIN MEDICATION. WILL ENDORSE CARE TO DAY RN.
[2021-07-25] MEDS: METOCLOPRAMIDE HCL 10 MG TABLET PO SCH ×3 (07:08→17:32)
[2021-07-25] MEDS: INSULIN LISPRO SLIDING SCALE 100 UNITS/ML VIAL (humaLOG) SUBCUT PRN ×2 (07:08→17:38)
[2021-07-25 08:00] VITALS: BP_SYST 135
[2021-07-25 09:06] LABS: BASOPHILS # (AUTO) 0.1 K/uL (0.0-0.2); BASOPHILS % (AUTO) 2.1 % (0.0-2.0); EOSINOPHILS # (AUTO) 0.1 K/uL (0.0-0.4); HEMATOCRIT 24.5 % (36-48); HEMOGLOBIN 7.6 g/dL (12.0-16.0); LYMPHOCYTES # (AUTO) 1.3 K/uL (1.0-5.5); MEAN CORPUSCULAR HEMOGLOBIN 26 pg (27-31); MEAN CORPUSCULAR HGB CONC 31 % (32-36); MEAN CORPUSCULAR VOLUME 84 fL (79.0-98.0); MONOCYTES # (AUTO) 1.1 K/uL (0.0-1.0); MONOCYTES % (AUTO) 17.4 % (1.7-9.3); NEUTROPHILS # (AUTO) 3.7 K/uL (1.8-7.7); NEUTROPHILS % (AUTO) 58.5 % (40.0-70.0); PLATELET COUNT (AUTO) 325 K/uL (130-430); RED BLOOD CELL COUNT(AUTO) 2.94 MIL/uL (4.2-6.2); RED CELL DISTRIBUTION WIDTH 20.7 % (9.0-15.0); WHITE BLOOD COUNT (AUTO) 6.4 K/uL (4.8-10.8)
[2021-07-25 09:08] LABS: ANION GAP 14 (5-15); CALCIUM 8.8 mg/dL (8.4-11.0); CHLORIDE 108 mmol/L (98-107); CREATININE 1.34 mg/dL (0.55-1.30); GLUCOSE 273 mg/dL (70-99); PHOSPHORUS 3.5 mg/dL (2.7-4.5); POTASSIUM 4.4 mmol/L (3.5-5.1); SODIUM SERUM 140 mmol/L (136-145); UREA NITROGEN, BLOOD 28 mg/dL (8-21)
[2021-07-25] MEDS: LACTOBACILLUS RHAMNOSUS GG 1 CAP CAPSULE PO SCH ×2 (09:09→21:49)
[2021-07-25] MEDS: METOPROLOL SUCCINATE 25 MG TAB.SR.24H (TOPROL XL) PO SCH (09:09)
[2021-07-25] MEDS: CHOLECALCIFEROL (VITAMIN D3) 5,000 UNIT TABLET PO SCH (09:09)
[2021-07-25] MEDS: LORazepam 1 MG TABLET PO SCH ×2 (09:09→21:49)
[2021-07-25] MEDS: CALCIUM 500 MG/TAB PO SCH (09:09)
[2021-07-25] MEDS: DICYCLOMINE HCL 10 MG CAPSULE PO SCH ×2 (09:09→21:49)
[2021-07-25] MEDS: PANTOPRAZOLE SODIUM 40 MG TAB PO SCH (09:09)
[2021-07-25] MEDS: KETOROLAC TROMETHAMINE 15 MG VIAL IM PRN (09:10)
[2021-07-25] MEDS: cefTRIAXone 1 GM in D5W 50 ML IV SCH (09:10)
[2021-07-25 09:27] LABS: C-REACTIVE PROTEIN QUANT 1.4 mg/dL (0-0.5)
[2021-07-25 09:51] LABS: ERYTHROCYTE SEDIMENTATION RATE 32 MM/HR (0-20)
[2021-07-25] MEDS ORDERED: MAGNESIUM SULFATE 1 GM/2 ML VIAL IVP ONE ×2 (10:00→12:30)
[2021-07-25] MEDS ORDERED: MAGNESIUM SULFATE 2 GM/50 ML PIGGYBACK IV ONE (11:15)
[2021-07-25 12:00] VITALS: BP_SYST 132
[2021-07-25] MEDS ORDERED: NALOXONE HCL 0.4 MG/ML AMP (NARCAN) IVP PRN (12:00)
[2021-07-25] MEDS ORDERED: OXYCODONE/ACETAMINOPHEN 5-325 TABLET PO PRN (12:00)
[2021-07-25] MEDS: HYDROcodone/ACETAMIN 10-325 MG TAB PO PRN ×2 (12:55→17:33)
[2021-07-25] MEDS ORDERED: MAGNESIUM SULFATE 50 ML IV ONE (13:15)
[2021-07-25] MEDS: metroNIDAZOLE 500 MG TABLET PO SCH ×2 (14:25→21:49)
[2021-07-25] MEDS: HYDROmorphone 2 MG TAB PO PRN ×2 (15:11→21:52)
[2021-07-25 16:00] VITALS: BP_SYST 128
[2021-07-25] MEDS ORDERED: METR-154 PO (17:41)
--- NOTE | 2021-07-25 17:45 | NUR ---
called for blood sugar of 410mg/dl no new order made informed him that patient is transferring to [facility] SNF
[2021-07-25 17:46] VITALS: BP_SYST 130
--- NOTE | 2021-07-25 18:10 | NUR ---
called [facility] at [phone] spoke to Chilo and keeps on putting me on hold she told me she needs to ask provider relations coordinator told her that this patient was supposed to be transferred yesterday but they refused and they want Ayala cath on patient because patient has urinary retention told them we already put on a ayala cath. and told her to call me at [facility] if they want to get report because i cannot wait for them for long time since my patient is asking for me they put me on hold for 15 minutes.
--- NOTE | 2021-07-25 20:03 | NUR ---
Patient llate entry due to pt care 07:30- received a call from ED that ambulance who took patient to [facility] well bring the pt back to the ER due to reason that patient refused to get out the gurney because she doesn't want a roommate. I spoke with Efrain from [facility] ambulance I asked efrain to wait until i talked to somebody from [facility]. I was on put on hold for 10 mins. I wasnt able to SW anybody from the SNf, when I called [facility] back, they are already on their way to [place]. Patient will go back to room 100b
[2021-07-25 20:05] VITALS: BP_SYST 137
--- NOTE | 2021-07-25 20:05 | NUR ---
PM ASSESSMENT; -Pt is a/xo4, lying in bed comfortably. Pt denies any chest pain,pain,sob,or any acute distress. Received [place] po earlier at 1733. Pt came in with Midline LUE 2 ports and [address] cath in place. Midline with 2 ports, patent drsg cdi. Peters cath w/ gravity drains yellow urine output. Maintain C-diff and ESBL urine contact isolation in place. José Antonio lower extremities swollen & pitting 3+ edema. Pt is able to ambulate slow steady gaits. Instructed pt to use call light for assistance whenever needs to use bathroom or experiencing any pain or acute distress, pt verbalized understanding. All safety measures in place. Call light w/in reach. Cont to monitor pt.
[2021-07-25] MEDS: metOLazone 5 MG TABLET PO SCH (21:00)
[2021-07-25] MEDS: FUROSEMIDE 40 MG/4 ML VIAL IVP SCH (21:49)
--- NOTE | 2021-07-25 21:52 | NUR ---
ROUNDS; PAIN MGMT -Pt gave all scheduled routine meds including Ativan po except Zaroxolyn po. Also, gave Dilaudid 2mg po upon pt's request for pain mgmt, 01/04 ita feet & vagina. Peters cath w/ gravity drains yellow urine. All safety measures in place. Call light w/in reach. Cont to monitor pt.
--- NOTE | 2021-07-26 00:24 | NUR ---
ROUNDS; Pt is still awaking, laying in bed comfortably, eating yogurt. Peters cath w/ gravity drains yellow urine, emptied 2000ml. Gave neurotin po as scheduled at midnight. All safety measures in place. Call light w/in reach. Cont to monitor pt.
[2021-07-26 03:28] VITALS: BP_SYST 121
[2021-07-26] MEDS: DIPHENHYDRAMINE HCL 50 MG CAPSULE PO PRN (03:28)
[2021-07-26] MEDS: HYDROcodone/ACETAMIN 10-325 MG TAB PO PRN (03:28)
--- NOTE | 2021-07-26 03:28 | NUR ---
ROUNDS; PAIN MGT GIVEN -Gave [place] 10mg po for pain mgmt and Benadryl po for sleep upon pt's request. Peters cath w/ gravity drains yellow urine output. All safety measures in place. Call light w/in reach. Cont to monitor pt.
[2021-07-26] MEDS: GABAPENTIN 300 MG CAPSULE PO SCH ×3 (06:22→17:32)
[2021-07-26] MEDS: metroNIDAZOLE 500 MG TABLET PO SCH ×3 (06:23→22:37)
[2021-07-26] MEDS: METOCLOPRAMIDE HCL 10 MG TABLET PO SCH ×3 (06:23→17:32)
[2021-07-26] MEDS: HYDROmorphone 2 MG TAB PO PRN (06:29)
[2021-07-26] MEDS: INSULIN LISPRO SLIDING SCALE 100 UNITS/ML VIAL (humaLOG) SUBCUT PRN ×4 (06:30→21:43)
--- NOTE | 2021-07-26 07:04 | NUR ---
CLOSING NOTES; -Gave Dilaudid 2mg po for pain mgmt and emptied 2200ml of urine from Peters cath w/ gravity drains yellow urine output. JENNIFER midline in place w/ drsg cdi. All safety measures in place. Maintains contact isolation entire time. Call light w/in reach. Will endorse to next nurse to cont care. Addendum: 07/26/21 at 0706 by Aaron alarm installation technician CORRECTION TIME-GAVE DILAUDID AT 0654
[2021-07-26 08:00] VITALS: BP_SYST 116
[2021-07-26 08:48] LABS: BASOPHILS # (AUTO) 0.2 K/uL (0.0-0.2); BASOPHILS % (AUTO) 2.3 % (0.0-2.0); EOSINOPHILS # (AUTO) 0.1 K/uL (0.0-0.4); EOSINOPHILS % (AUTO) 1.8 % (0.0-4.0); HEMATOCRIT 26.8 % (36-48); HEMOGLOBIN 8.3 g/dL (12.0-16.0); LYMPHOCYTES # (AUTO) 1.7 K/uL (1.0-5.5); LYMPHOCYTES % (AUTO) 21.9 % (20.5-51.5); MEAN CORPUSCULAR HEMOGLOBIN 26 pg (27-31); MEAN CORPUSCULAR HGB CONC 31 % (32-36); MEAN CORPUSCULAR VOLUME 83 fL (79.0-98.0); MONOCYTES # (AUTO) 1.2 K/uL (0.0-1.0); MONOCYTES % (AUTO) 15.2 % (1.7-9.3); NEUTROPHILS # (AUTO) 4.5 K/uL (1.8-7.7); NEUTROPHILS % (AUTO) 58.8 % (40.0-70.0); PLATELET COUNT (AUTO) 379 K/uL (130-430); RED BLOOD CELL COUNT(AUTO) 3.22 MIL/uL (4.2-6.2); RED CELL DISTRIBUTION WIDTH 20.7 % (9.0-15.0); WHITE BLOOD COUNT (AUTO) 7.7 K/uL (4.8-10.8)
[2021-07-26 08:59] LABS: ANION GAP 11 (5-15); CHLORIDE 106 mmol/L (98-107); CREATININE 1.17 mg/dL (0.55-1.30); GLUCOSE 368 mg/dL (70-99); POTASSIUM 3.9 mmol/L (3.5-5.1); SODIUM SERUM 138 mmol/L (136-145); UREA NITROGEN, BLOOD 20 mg/dL (8-21)
[2021-07-26] MEDS: metOLazone 5 MG TABLET PO SCH ×2 (09:00→21:00)
[2021-07-26] MEDS ORDERED: NALOXONE HCL 0.4 MG/ML AMP (NARCAN) IVP PRN (09:00)
[2021-07-26] MEDS: CALCIUM 500 MG/TAB PO SCH (09:08)
[2021-07-26] MEDS: LACTOBACILLUS RHAMNOSUS GG 1 CAP CAPSULE PO SCH ×2 (09:08→21:42)
[2021-07-26] MEDS: CHOLECALCIFEROL (VITAMIN D3) 5,000 UNIT TABLET PO SCH (09:08)
[2021-07-26] MEDS: PANTOPRAZOLE SODIUM 40 MG TAB PO SCH (09:09)
[2021-07-26] MEDS: DICYCLOMINE HCL 10 MG CAPSULE PO SCH ×2 (09:09→21:46)
[2021-07-26] MEDS: LORazepam 1 MG TABLET PO SCH ×2 (09:11→21:42)
[2021-07-26] MEDS: FUROSEMIDE 40 MG/4 ML VIAL IVP SCH ×2 (09:11→21:45)
[2021-07-26] MEDS: METOPROLOL SUCCINATE 25 MG TAB.SR.24H (TOPROL XL) PO SCH (09:12)
[2021-07-26] MEDS: cefTRIAXone 1 GM in D5W 50 ML IV SCH (09:17)
[2021-07-26 09:26] LABS: GFR AFRICAN AMERICAN 67 mL/min (>90)
[2021-07-26 09:29] LABS: C-REACTIVE PROTEIN QUANT 0.6 mg/dL (0-0.5)
[2021-07-26] MEDS ORDERED: MAGNESIUM SULFATE 4 GM in D5W 250 ML IV ONE (09:45)
[2021-07-26 09:53] LABS: ERYTHROCYTE SEDIMENTATION RATE 33 MM/HR (0-20)
[2021-07-26] MEDS: HYDROmorphone 1 MG/ML INJ. CARTRIDGE IVP PRN ×3 (10:22→22:15)
[2021-07-26] MEDS: ONDANSETRON HCL 4 MG/2 ML VIAL IVP PRN (11:36)
[2021-07-26 12:00] VITALS: BP_SYST 104
[2021-07-26 16:00] VITALS: BP_SYST 108
--- NOTE | 2021-07-26 19:39 | NUR ---
ENDORSEMENT BEDSIDE SHIFT REPORT GIVEN TO NIGHT RN FOR CONTINUATION OF CARE
[2021-07-26 21:58] VITALS: BP_SYST 117
[2021-07-27 00:38] VITALS: BP_SYST 126
[2021-07-27] MEDS: DIPHENHYDRAMINE INJ 50 MG/ML VIAL IVP PRN (02:28)
[2021-07-27] MEDS: HYDROmorphone 1 MG/ML INJ. CARTRIDGE IVP PRN ×3 (02:30→14:34)
[2021-07-27] MEDS: GABAPENTIN 300 MG CAPSULE PO SCH ×4 (06:57→17:50)
[2021-07-27] MEDS: METOCLOPRAMIDE HCL 10 MG TABLET PO SCH ×3 (06:57→17:50)
[2021-07-27] MEDS: metroNIDAZOLE 500 MG TABLET PO SCH ×3 (06:57→22:18)
--- NOTE | 2021-07-27 07:00 | NUR ---
BLOOD SUGAR LEVEL @ 0630 WAS 480, GIVEN 10 UNITS OF HUMALOG PER ORDER. PATIENT WAS ASYMPTOMATIC FOR S/S OF HYPERGLYCEMIA. DR. WEBB PAGED. ENDORSED TO THE AM SHIFT TO F/U.
[2021-07-27] MEDS: INSULIN LISPRO SLIDING SCALE 100 UNITS/ML VIAL (humaLOG) SUBCUT PRN ×4 (07:04→22:23)
[2021-07-27 08:00] VITALS: BP_SYST 132
[2021-07-27 08:19] LABS: ALBUMIN 2.9 g/dL (3.4-4.8); CALCIUM 8.1 mg/dL (8.4-11.0); CREATININE 1.35 mg/dL (0.55-1.30); PHOSPHORUS 4.4 mg/dL (2.7-4.5); POTASSIUM 3.3 mmol/L (3.5-5.1); TOTAL BILIRUBIN 0.2 mg/dL (0.0-1.0)
[2021-07-27] MEDS: metOLazone 5 MG TABLET PO SCH ×2 (09:00→21:00)
--- NOTE | 2021-07-27 09:00 | NUR ---
CRITICAL LAB: Nalini from Laboratory called with critical lab value Glucose 498. Medical record number and patient name verified. Read back of values done. Dr. Fink notified of value. Dr. Fink is doing his rounds and will see the patient first.
[2021-07-27] MEDS: CHOLECALCIFEROL (VITAMIN D3) 5,000 UNIT TABLET PO SCH (09:10)
[2021-07-27] MEDS: DICYCLOMINE HCL 10 MG CAPSULE PO SCH ×2 (09:10→20:42)
[2021-07-27] MEDS: CALCIUM 500 MG/TAB PO SCH (09:10)
[2021-07-27] MEDS: PANTOPRAZOLE SODIUM 40 MG TAB PO SCH (09:10)
[2021-07-27] MEDS: LACTOBACILLUS RHAMNOSUS GG 1 CAP CAPSULE PO SCH ×2 (09:10→20:42)
[2021-07-27] MEDS: METOPROLOL SUCCINATE 25 MG TAB.SR.24H (TOPROL XL) PO SCH (09:12)
[2021-07-27] MEDS: FUROSEMIDE 40 MG/4 ML VIAL IVP SCH ×2 (09:13→20:42)
[2021-07-27] MEDS: cefTRIAXone 1 GM in D5W 50 ML IV SCH (09:14)
[2021-07-27 09:19] LABS: BASOPHILS # (AUTO) 0.1 K/uL (0.0-0.2); BASOPHILS % (AUTO) 1.8 % (0.0-2.0); EOSINOPHILS # (AUTO) 0.1 K/uL (0.0-0.4); EOSINOPHILS % (AUTO) 1.4 % (0.0-4.0); HEMATOCRIT 28.6 % (36-48); HEMOGLOBIN 8.8 g/dL (12.0-16.0); LYMPHOCYTES # (AUTO) 1.3 K/uL (1.0-5.5); LYMPHOCYTES % (AUTO) 21.7 % (20.5-51.5); MEAN CORPUSCULAR HEMOGLOBIN 26 pg (27-31); MEAN CORPUSCULAR HGB CONC 31 % (32-36); MEAN CORPUSCULAR VOLUME 83 fL (79.0-98.0); MONOCYTES # (AUTO) 0.5 K/uL (0.0-1.0); MONOCYTES % (AUTO) 7.9 % (1.7-9.3); NEUTROPHILS % (AUTO) 67.2 % (40.0-70.0); PLATELET COUNT (AUTO) 386 K/uL (130-430); RED BLOOD CELL COUNT(AUTO) 3.44 MIL/uL (4.2-6.2); RED CELL DISTRIBUTION WIDTH 20.7 % (9.0-15.0)
[2021-07-27] MEDS: HYDROcodone/ACETAMIN 10-325 MG TAB PO PRN ×2 (09:21→20:48)
[2021-07-27] MEDS ORDERED: PIOGLITAZONE HCL 30 MG TABLET PO SCH (10:00)
[2021-07-27] MEDS ORDERED: POTASSIUM CHLORIDE 20 MEQ TAB.PRT.SR PO ONE (10:00)
[2021-07-27] MEDS ORDERED: PIOGLITAZONE HCL 15 MG TABLET PO ONE (10:30)
--- NOTE | 2021-07-27 10:50 | NUR ---
Opening notes: Patient resting in bed. Breathing even and non labored to RA. C/o pain on lower legs. Will give prn pain meds. Peters Catheter in placed and draining by gravity. Fall, safety and aspiration measures reinforced. Call light within reach.
[2021-07-27 10:54] LABS: ERYTHROCYTE SEDIMENTATION RATE 44 MM/HR (0-20)
[2021-07-27] MEDS ORDERED: MAGNESIUM SULFATE 4 GM in D5W 250 ML IV ONE (11:00)
[2021-07-27 11:30] VITALS: BP_SYST 140
[2021-07-27 12:41] LABS: C-REACTIVE PROTEIN QUANT 0.6 mg/dL (0-0.5)
--- NOTE | 2021-07-27 15:00 | NUR ---
HIGH ALERT NOTE: Called Dr. Sharon Fink back at [phone] identified within the medical roster to verify physician authenticity for the order: Continue Ativan 1 mg BID.
[2021-07-27] MEDS ORDERED: LORazepam 1 MG TABLET PO ONE (15:15)
[2021-07-27] MEDS ORDERED: NALOXONE HCL 0.4 MG/ML AMP (NARCAN) IVP PRN (15:30)
[2021-07-27 15:37] VITALS: BP_SYST 101
--- NOTE | 2021-07-27 19:06 | NUR ---
CLOSING NOTES: PATIENT RESTING IN BED. NO S/S OF ACUTE DISTRESS NOTED. RITCHIE CATHETER IN PLACED AND DRAINING BY GRAVITY. FALL AND SAFETY MEASURES RENDERED. CALL LIGHT WITHIN REACH. WILL CONTINUE MONITOR UNTIL ENDORSE TO DEXIGRAPH OPERATOR RN.
[2021-07-27 20:34] VITALS: BP_SYST 113
[2021-07-27] MEDS: LORazepam 1 MG TABLET PO SCH (20:41)
[2021-07-27] MEDS: HYDROmorphone 2 MG TAB PO PRN (22:20)
[2021-07-28] MEDS: GABAPENTIN 300 MG CAPSULE PO SCH ×4 (00:08→17:01)
[2021-07-28 00:47] VITALS: BP_SYST 119
[2021-07-28] MEDS: DIPHENHYDRAMINE INJ 50 MG/ML VIAL IVP PRN (00:52)
[2021-07-28] MEDS: HYDROmorphone 2 MG TAB PO PRN ×4 (04:37→21:53)
--- NOTE | 2021-07-28 07:20 | NUR ---
OPENING NOTES: RECEIVED FROM WET SANDER RN. PATIENT RESTING IN BED. BREATHING EVEN AND NON LABORED TO RA. DENIES ANY DISCOMFORT AT THIS TIME. FALL AND SAFETY MEASURES REINFORCED. CALL LIGHT WITHIN REACH.
[2021-07-28 07:22] LABS: CALCIUM 8.1 mg/dL (8.4-11.0); CREATININE 1.48 mg/dL (0.55-1.30); PHOSPHORUS 5.2 mg/dL (2.7-4.5); POTASSIUM 4.1 mmol/L (3.5-5.1)
[2021-07-28] MEDS: metroNIDAZOLE 500 MG TABLET PO SCH ×3 (07:22→21:44)
[2021-07-28] MEDS: METOCLOPRAMIDE HCL 10 MG TABLET PO SCH ×3 (07:22→17:01)
[2021-07-28] MEDS: INSULIN LISPRO SLIDING SCALE 100 UNITS/ML VIAL (humaLOG) SUBCUT PRN ×4 (07:29→22:03)
[2021-07-28 08:00] VITALS: BP_SYST 120
--- NOTE | 2021-07-28 08:21 | NUR ---
CM: Late entry: Pt was discharged on 07/25 then returned to room today. See PRAVIN Guadalupe 's notes.
[2021-07-28] MEDS ORDERED: PIOGLITAZONE HCL 15 MG TABLET PO SCH (09:00)
[2021-07-28] MEDS: metOLazone 5 MG TABLET PO SCH ×2 (09:00→21:00)
--- NOTE | 2021-07-28 09:00 | NUR ---
CRITICAL LAB: Alyssa from Laboratory called with critical lab value Glucose (421). Medical record number and patient name verified. Read back of values done. Dr. Sharon Fink notified of value during his rounds. No orders given at this time.
[2021-07-28 09:06] LABS: HEMATOCRIT 26.2 % (36-48); HEMOGLOBIN 8.2 g/dL (12.0-16.0); MEAN CORPUSCULAR HEMOGLOBIN 26 pg (27-31); MEAN CORPUSCULAR HGB CONC 31 % (32-36); MEAN CORPUSCULAR VOLUME 84 fL (79.0-98.0); PLATELET COUNT (AUTO) 366 K/uL (130-430); RED BLOOD CELL COUNT(AUTO) 3.14 MIL/uL (4.2-6.2); RED CELL DISTRIBUTION WIDTH 20.7 % (9.0-15.0)
[2021-07-28] MEDS: FUROSEMIDE 40 MG/4 ML VIAL IVP SCH ×2 (09:24→21:00)
[2021-07-28] MEDS: CALCIUM 500 MG/TAB PO SCH (09:25)
[2021-07-28] MEDS: LACTOBACILLUS RHAMNOSUS GG 1 CAP CAPSULE PO SCH ×2 (09:25→21:44)
[2021-07-28] MEDS: CHOLECALCIFEROL (VITAMIN D3) 5,000 UNIT TABLET PO SCH (09:25)
[2021-07-28] MEDS: PANTOPRAZOLE SODIUM 40 MG TAB PO SCH (09:25)
[2021-07-28] MEDS: DICYCLOMINE HCL 10 MG CAPSULE PO SCH ×2 (09:26→21:49)
[2021-07-28] MEDS: METOPROLOL SUCCINATE 25 MG TAB.SR.24H (TOPROL XL) PO SCH (09:26)
[2021-07-28] MEDS: LORazepam 1 MG TABLET PO SCH ×2 (09:37→21:48)
[2021-07-28] MEDS: cefTRIAXone 1 GM in D5W 50 ML IV SCH (09:39)
[2021-07-28 09:41] LABS: C-REACTIVE PROTEIN QUANT 0.7 mg/dL (0-0.5)
[2021-07-28 11:00] VITALS: BP_SYST 136
[2021-07-28 11:35] LABS: ERYTHROCYTE SEDIMENTATION RATE 38 MM/HR (0-20)
--- NOTE | 2021-07-28 13:32 | NUR ---
Nutrition F/U Admitting Diagnosis DKA Medical History Comment: PMH: uncontrolled DM complicated by polyneuropathy, gastroparesis, urinary incontinence per physician notes, HTN, acute renal failure on CKD. Pt also found w/ hypokalemia, UTI, recurrent, and urinary incontinence per physician notes Urine cultures show E. Coli and MDRO per physician notes SARS-CoV-2 Ag (Rapid) Negative 07/[address] bedside visit deferred d/t high workload. Per physician notes, pt w/ stool positive for c. diff; pt has severe Vit D deficiency; sepsis; awaiting SNF placement. Per EMR review, Ronen score 21, no PIs; LLE 2+ pitting edema; Last BM x2 /; PO intake 75% x 7 meals. Current Diet Order/Nutrition Support CCHO, High Protein x1 day Pertinent Medications Calcium carbonate, Vit D3, reglan, protonix, SSI, Actos, Glucotrol, Lasix, Flagyl, Culturelle, Metoprolol Pertinent Labs Na 134 L, Cr 1.48 H, BG 421 H, POC BG 392 H, CRP 0.7 H Height (Feet) 5 feet Height (Inches) 5.00 inches Weight (Pounds) 130 pounds no changes since 07/17 Patient Weight 58.967 kg Body Mass Index 21.63 kg/m2 %IBW 104 [place]/Adjusted Body Weight 125#/56.8 kg Recent Weight Change Yes - Unintentional wt loss of 15# or 10% wt loss in 2 months Weight Status Appropriate Food Allergies No per pt report (*ongoing) Estimated Energy Expenditure (kcals/day) 3695-5760 (25-30 kcal/kg CBW d/t maintenance) (*ongoing) Estimated Protein Required (g/day) 47-59 (0.8-1 gm/kg CBW d/t maintenance) (*ongoing) Estimated Fluid Required (l/day) 1.5-1.8 (1 ml/kcal/day for maintenance) Problem/Etiology/Signs/Symptoms Altered nutrition-related labs R/T endocrine dysfunction AEB elevated BG/POC BG lab values. (*ongoing) Expected Outcomes/Goals - Monitor appetite and PO intakes w/ goal of pt meeting at least 75% of estimated nutritional needs, labs trending WNL, normal GI function, and skin integrity/wt maintenance Dietitian Recommendations * Continue CCHO diet, double portions of protein Follow Up Mod Risk: F/U in 3-5 days
--- NOTE | 2021-07-28 13:32 | NUR ---
Dietitian Recommendations * [facility], double portions of protein Please refer to Nutrition F/U note for details.
[2021-07-28 15:26] VITALS: BP_SYST 93
[2021-07-28 15:57] LABS: BASOPHILS % (MANUAL) 0 % (0-2); EOSINOPHILS % (MANUAL) 3 % (0-7); LYMPHOCYTES % (MANUAL) 25 % (20-46); MONOCYTES % (MANUAL) 5 % (0-11)
--- NOTE | 2021-07-28 19:45 | NUR ---
CLOSING NOTES: PATIENT RESTING IN BED. NO SIGNS OF ACUTE DISTRESS NOTED. FALL AND SAFETY MEASURES PROVIDED. CALL LIGHT WITHIN REACH. ENDORSED TO TALENT ACQUISITION COORDINATOR RN.
[2021-07-28 20:30] VITALS: BP_SYST 96
[2021-07-28 21:45] VITALS: BP_SYST 83
--- NOTE | 2021-07-28 22:30 | NUR ---
Patient's BP 83/47, awake and alert with no dizziness. Patient stated she did not want to take diuretics. Patient also reported that she spoke with Dr. Mckinney-Kurt this evening and was told by him that even with a low BP, she should not be off the diuretics too long. Patient verbalized understanding. Peters catheter patent draining [place] urine. Legs elevated. Call light in reach, fall and safety precautions in place.
[2021-07-29 00:05] VITALS: BP_SYST 101
[2021-07-29] MEDS: GABAPENTIN 300 MG CAPSULE PO SCH ×4 (00:08→17:09)
[2021-07-29] MEDS: DIPHENHYDRAMINE INJ 50 MG/ML VIAL IVP PRN ×2 (00:10→00:50)
[2021-07-29 00:50] VITALS: BP_SYST 100
[2021-07-29] MEDS: HYDROmorphone 2 MG TAB PO PRN ×3 (02:28→13:38)
[2021-07-29] MEDS: metroNIDAZOLE 500 MG TABLET PO SCH ×2 (06:54→13:37)
[2021-07-29] MEDS: METOCLOPRAMIDE HCL 10 MG TABLET PO SCH ×3 (06:55→17:05)
[2021-07-29 07:18] LABS: BASOPHILS % (AUTO) 0.3 % (0.0-2.0); EOSINOPHILS # (AUTO) 0.2 K/uL (0.0-0.4); HEMATOCRIT 26.3 % (36-48); HEMOGLOBIN 8.2 g/dL (12.0-16.0); LYMPHOCYTES # (AUTO) 1.8 K/uL (1.0-5.5); LYMPHOCYTES % (AUTO) 24.3 % (20.5-51.5); MEAN CORPUSCULAR HEMOGLOBIN 26 pg (27-31); MEAN CORPUSCULAR HGB CONC 31 % (32-36); MEAN CORPUSCULAR VOLUME 84 fL (79.0-98.0); MONOCYTES # (AUTO) 0.5 K/uL (0.0-1.0); MONOCYTES % (AUTO) 6.9 % (1.7-9.3); NEUTROPHILS # (AUTO) 4.9 K/uL (1.8-7.7); NEUTROPHILS % (AUTO) 65.5 % (40.0-70.0); PLATELET COUNT (AUTO) 389 K/uL (130-430); RED BLOOD CELL COUNT(AUTO) 3.15 MIL/uL (4.2-6.2); RED CELL DISTRIBUTION WIDTH 21.1 % (9.0-15.0); WHITE BLOOD COUNT (AUTO) 7.4 K/uL (4.8-10.8)
[2021-07-29] MEDS: INSULIN LISPRO SLIDING SCALE 100 UNITS/ML VIAL (humaLOG) SUBCUT PRN ×3 (07:40→17:07)
[2021-07-29 07:55] LABS: ALBUMIN 2.5 g/dL (3.4-4.8); CALCIUM 8.1 mg/dL (8.4-11.0); CREATININE 1.9 mg/dL (0.55-1.30); PHOSPHORUS 4.7 mg/dL (2.7-4.5); POTASSIUM 4.5 mmol/L (3.5-5.1); THYROID STIMULATING HORMONE 17.61 uIu/mL (0.36-3.74); TOTAL BILIRUBIN 0.2 mg/dL (0.0-1.0)
[2021-07-29 08:00] VITALS: BP_SYST 111
[2021-07-29] MEDS: PANTOPRAZOLE SODIUM 40 MG TAB PO SCH (08:24)
[2021-07-29] MEDS: LACTOBACILLUS RHAMNOSUS GG 1 CAP CAPSULE PO SCH (08:25)
[2021-07-29] MEDS: CALCIUM 500 MG/TAB PO SCH (08:25)
[2021-07-29] MEDS: CHOLECALCIFEROL (VITAMIN D3) 5,000 UNIT TABLET PO SCH (08:25)
[2021-07-29] MEDS: DICYCLOMINE HCL 10 MG CAPSULE PO SCH (08:26)
[2021-07-29] MEDS: LORazepam 1 MG TABLET PO SCH (08:27)
[2021-07-29] MEDS: FUROSEMIDE 40 MG/4 ML VIAL IVP SCH (08:28)
[2021-07-29] MEDS: METOPROLOL SUCCINATE 25 MG TAB.SR.24H (TOPROL XL) PO SCH (08:29)
[2021-07-29 08:46] LABS: C-REACTIVE PROTEIN QUANT 0.2 mg/dL (0-0.5)
[2021-07-29] MEDS: cefTRIAXone 1 GM in D5W 50 ML IV SCH (08:48)
[2021-07-29] MEDS: metOLazone 5 MG TABLET PO SCH (08:48)
[2021-07-29] MEDS ORDERED: INSULIN GLARGINE 100 UNITS/ML 10 ML VIAL SUBCUT SCH (09:00)
[2021-07-29] MEDS ORDERED: MAGNESIUM SULFATE 50 ML IV ONE (10:00)
[2021-07-29] MEDS ORDERED: OSC500 PO (10:17)
[2021-07-29] MEDS ORDERED: METO5TAB7 PO (10:17)
[2021-07-29] MEDS ORDERED: BEN50 PO (10:17)
[2021-07-29] MEDS ORDERED: HYDR-3927 PO (10:17)
[2021-07-29] MEDS ORDERED: METR-154 PO (10:17)
[2021-07-29] MEDS ORDERED: HYDR2TAB7 PO (10:17)
[2021-07-29] MEDS ORDERED: INSU100V9 SUBCUT (10:17)
[2021-07-29] MEDS ORDERED: GLIP5TAB13 PO (10:17)
[2021-07-29 11:27] LABS: ERYTHROCYTE SEDIMENTATION RATE 34 MM/HR (0-20)
[2021-07-29 11:36] VITALS: BP_SYST 96
--- NOTE | 2021-07-29 12:13 | NUR ---
CONSULT: [facility] DEPRESSION DR. WATSON [phone] LEFT DETAILED MESSAGE, NO ONE ANSWERED THE PHONE, JUST MAILBOX AVAILABLE
--- NOTE | 2021-07-29 12:36 | NUR ---
Discharge Planning: [facility] faxed pt referral to [facility] P#[phone] YENNYP to follow up Addendum: 07/29/21 at 1407 by Soraya MEYERS [facility] faxed [facility] F#[phone] P#[phone] a transportation request for pt to go to [facility] P#[phone] Rm 19. Patient packet taken to nurse station, [facility] will call nurse station with ambulance company and ETA. OSCAR made CM aware.
[2021-07-29 15:31] VITALS: BP_SYST 96
[2021-07-29 15:33] VITALS: BP_SYST 95
--- NOTE | 2021-07-29 18:42 | NUR ---
THIS GRILL CHEF CALLED [facility] IN [place] AND SPOKE TO JACQUELYN LÓPEZ TO GIVE REPORT, SHE IS GOING TO ROOM 19.THIS GRILL CHEF WENT TO HAVE PATIENT SIGN ALL HER DISCHARGE PAPERWORK ASKED IF SHE HAD ANY QUESTIONS SHE STATED SHE HAD NONE.PATIENT LEFT [facility] @1833 WITH [facility] [employer] WITH ALL HER BELONGINGS AND IN NO ACUTE DISTRESS.
== END 2021-07-29 18:33 | DRG 720 ==
LOC: SED 00:03 → SIC 04:49 → SMU 07-18 16:23
PROVIDERS: ADMIT Preventive Medicine Preventive Medicine/Occupational Environmental Medicine; ATTEND Preventive Medicine Preventive Medicine/Occupational Environmental Medicine
DX: A41.9 Sepsis, unspecified organism (principal); N17.0 Acute kidney failure with tubular necrosis; E10.42 Type 1 diabetes mellitus with diabetic polyneuropathy; E10.10 Type 1 diabetes mellitus with ketoacidosis without coma; A04.72 Enterocolitis due to Clostridium difficile, not specified as recurrent; E10.649 Type 1 diabetes mellitus with hypoglycemia without coma; E10.43 Type 1 diabetes mellitus with diabetic autonomic (poly)neuropathy; F13.20 Sedative, hypnotic or anxiolytic dependence, uncomplicated; K31.84 Gastroparesis; E10.22 Type 1 diabetes mellitus with diabetic chronic kidney disease; D64.9 Anemia, unspecified; E83.39 Other disorders of phosphorus metabolism; E83.51 Hypocalcemia; R30.0 Dysuria; N39.0 Urinary tract infection, site not specified; E83.42 Hypomagnesemia; E87.1 Hypo-osmolality and hyponatremia; E83.52 Hypercalcemia; E03.9 Hypothyroidism, unspecified; E87.6 Hypokalemia; E87.5 Hyperkalemia; E87.8 Other disorders of electrolyte and fluid balance, not elsewhere classified; E88.09 Other disorders of plasma-protein metabolism, not elsewhere classified; E78.00 Pure hypercholesterolemia, unspecified; E67.3 Hypervitaminosis D; F11.20 Opioid dependence, uncomplicated; E86.0 Dehydration; F12.20 Cannabis dependence, uncomplicated; F32.A Depression, unspecified; G89.4 Chronic pain syndrome; F17.210 Nicotine dependence, cigarettes, uncomplicated; N31.9 Neuromuscular dysfunction of bladder, unspecified; B96.20 Unspecified Escherichia coli [E. coli] as the cause of diseases classified elsewhere; N32.81 Overactive bladder; Z16.24 Resistance to multiple antibiotics; I12.9 Hypertensive chronic kidney disease with stage 1 through stage 4 chronic kidney disease, or unspecified chronic kidney disease; N18.9 Chronic kidney disease, unspecified; K58.9 Irritable bowel syndrome, unspecified; Z20.822 Contact with and (suspected) exposure to COVID-19; K59.9 Functional intestinal disorder, unspecified; Z79.4 Long term (current) use of insulin; Z79.84 Long term (current) use of oral hypoglycemic drugs; Z79.899 Other long term (current) drug therapy; Z83.3 Family history of diabetes mellitus; Z86.14 Personal history of Methicillin resistant Staphylococcus aureus infection; Z86.32 Personal history of gestational diabetes; Z87.440 Personal history of urinary (tract) infections; Z91.14 Patient's other noncompliance with medication regimen; Z91.19 Patient's noncompliance with other medical treatment and regimen
CPT/HCPCS: 36415; 36600; 71045; 76770; 76856-TC; 80048; 80053; 80307; 81000; 82009; 82306; 82607; 82803-TC; 82962; 83605; 83735; 84100; 84436; 84443; 84484; 85007; 85025; 85027; 85610-TC; 85651-TC; 85730-TC; 86140; 87040; 87045-TC; 87046; 87081; 87086; 87230-TC; 89055; 93005; 93970; 96374; 96375; 96376; 97112-GP; 97116-GP; 97163-GP; 97530-GP; 99285; J0696; J1170; J1200; J1815; J1885; J1940; J2060; J2270; J2405; J2543; J3475; J7060; J8597; Q0163